=== PATIENT | male | born 1940 | race Caucasian/White ===

== ENCOUNTER 2019-01-01 13:37 | Inpatient (IN) ==
[2019-01-01] MEDS ORDERED: 0.9 % SODIUM CHLORIDE 1,000 ML IV ONE (13:42)
--- NOTE | 2019-01-01 14:07 | Emergency Department Note ---
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 Patient reporting mechanism of injury was chronic and ongoing. Patient evaluated in wound care clinic and noted to have concerns for possible sepsis and severe pain and tenderness to the thigh as well. Exacerbating features are attempting to move it, pressure. Ameliorating factors are immobilization, pain medications. Patient reporting symptoms of pain out of proportion to the extremity, pallor to the extremity, paresthesias in the extremity; additional concern for possible embolism to the R leg potentially in the thigh or more proximally. Patient de nies injury to other parts of the body at the same time. - Related Data Home Medications Medication Instructions Recorded Confirmed clonidine HCl 0.3 mg tablet 0.15 mg PO QDAY tab 11/25/18 01/01/19 Previous Rx's Medication Instructions Recorded sodium bicarbonate 650 mg tablet 650 mg PO QDAY #90 tab 01/21/18 levothyroxine 50 mcg tablet 50 mcg PO QDAY #30 tab 04/22/18 furosemide 40 mg tablet 40 mg PO QDAY #90 tab 09/15/18 amlodipine 10 mg tablet 10 mg PO QDAY #90 tab 11/23/18 lisinopril 10 mg tablet 10 mg PO QDAY #30 tab 11/25/18 metoprolol succinate 25 mg 25 mg PO QDAY #90 tab 12/21/18 tablet,extended release 24 hr Allergies Allergy/AdvReac Type Severity Reaction Status Date / Time Penicillins Allergy Severe Vomiting Verified 12/03/18 11:42 Review of Systems All systems ED: reviewed and negative except as stated. 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) Benign hypertension with CKD (chronic kidney disease) stage III (Chronic) Metabolic acidosis (Chronic) Tobacco abuse (Chronic) Conjunctivitis (Acute) Upper respiratory infection (Acute) Medical history: Reports: non-contributory, other (allergies seasonal) - Social History smoking status: Current every day smoker Physical Exam General: Alert, interactive, appropriate Head: Atraumatic, normocephalic Eyes: Extraocular movements intact Neck: Trachea midline, full range of motion Chest: Symmetrical chest wall rise, breathing normally Cardiovascular: Patient with excellent perfusion to the extremities Extremities: pt with right BKA and has chronic issue with wound management it is cool to the touch slightly dusky in color, pt states pain is similar to baseline Neuro: Alert, oriented x3, cranial nerves II through XII grossly intact, normal gait Psychiatric: Normal affect normal mood Limitations: no limitations Course Vital Signs Temperature 97.0 F 01/01/19 13:38 Pulse Rate 75 01/01/19 13:38 Respiratory Rate 20 01/01/19 13:38 Blood Pressure 97/48 01/01/19 13:38 Pulse Oximetry (%) 97 01/01/19 13:38 Temperature 99.2 F H 01/02/19 04:01 Pulse Rate 73 01/02/19 04:01 Respiratory Rate 18 01/02/19 04:01 Blood Pressure 109/45 01/02/19 04:01 Pulse Oximetry (%) 100 01/02/19 04:01 Extremity Injury, Lower - MDM Narrative Medical decision making narrative: This patient presenting with chief complaint of ongoing right BKA issues with concern by wound management for possible sepsis vs arterial embolism. Patient was evaluated with combination of history/physical exam/radiologic evaluation/ and labs immediately on arrival. Pt with significant elevation of his BUN/Cr and not candidate for CTA will order U/S RLE to try to establish diagnosis. Diagnosis conclusion this case is patient has sustained an occlusion to the SFA as well as the popliteal vein. Pt unable to define exactly when this issue escalated however his wound care surgeon states on his evaluation in the clinic the stump was noted to have pain/dusky stump/cool stump/paresthesias. Pt does not have acute occlusion of the common femoral artery and 11/10 the SFA will be occluded in a BKA patient. I discussed the case with vascular surgery at [facility] and the consensus medical opinion is the pt does not require transfer for vascular surgery and can reasonably be managed at a center with ability to do dialysis and possible conversion to AKA. Will call [facility] and discussed the case with original surgeons and try to define course. Discussed the case with the vascular surgeon at [facility] and he was willing to see the pt as an outpatient for evaluation and management, also discussed the case with the hospitalist there re: pt with renal failure however after this discussion it is realized we do have that capability here and could once his renal situation is stabilized have the pt follow up as outpatient for his on going issue with the leg. I discussed the case with Dr. Cassie estes who is comfortable managing this issue, I discussed the case with Dr. Meyer Hospitalist who is willing to admit and Dr. Aaron Valenzuela who is willing to consult on the case. - Lab Data Result diagrams: 01/01/19 14:11 01/01/19 14:11 Lab Results 01/01/19 01/01/19 01/01/19 Range/Units 14:11 14:11 14:11 WBC 23.0 H (4.5-11.0) K/mcL RBC 2.75 L (4.50-5.90) M/mcL Hgb 8.6 L (13.5-16.5) g/dL Hct 25.8 L (41.0-55.0) % MCV 93.7 (80.0-100.0) fL MCH 31.2 (26.0-34.0) pg MCHC 33.3 (31.0-36.0) g/dL RDW 13.9 (11.5-14.5) % Plt Count 306 (140-440) K/mcL MPV 9.0 (7.4-10.4) fL Gran % 92.5 H (38.0-78.0) % Lymph % (Auto) 2.7 L (15.5-49.0) % [place] % (Auto) 4.8 (1.0-12.0) % Eos % (Auto) 0 (0.0-7.0) % Baso % (Auto) 0 (0.0-2.0) % Gran # 21.3 H (1.8-8.0) K/mcL Lymph # (Auto) 0.6 L (1.5-4.8) K/mcL [place] # (Auto) 1.1 H (0.1-0.9) K/mcL Eos # (Auto) 0 (0.0-0.7) K/mcL Baso # (Auto) 0 (0.0-0.3) K/mcL VBG Lactic Acid 2.0 (0.5-2.0) mmol/L Sodium 138 (133-145) mmol/L Potassium 5.8 H (3.3-5.1) mmol/L Chloride 109 H (96-108) mmol/L Carbon Dioxide 10 L* (22-30) mmol/L Anion Gap 19.0 H (8-16) BUN 181 H* (8-23) mg/dl Creatinine 5.1 H* (0.7-1.2) mg/dl GFR Calculation 10 Glucose 115 H (70-105) mg/dL Calcium 9.3 (8.6-10.4) mg/dl Total Bilirubin < 0.2 (0.0-1.0) mg/dL AST 47 H (0-37) U/l ALT 23 (0-40) U/l Alkaline Phosphatase 183 H (39-117) U/L Total Protein 6.6 (5.9-8.4) gm/dL Albumin 3.4 (3.2-5.2) gm/dL Globulin 3.2 (2.2-3.7) gm/dL Albumin/Globulin Ratio 1.1 (1.0-2.3) Urine Color Urine Appearance Urine pH (5.0-9.0) Ur Specific [place] (1.000-1.035) Urine Protein (NEG) mg/dL Urine Glucose (UA) (NEG) mg/dL Urine Ketones (NEG) mg/dL Urine Occult Blood (<0.03) mg/dL Urine Nitrate (NEG) Urine Bilirubin (NEG) mg/dL Urine Urobilinogen (NEG) mg/dL Ur Leukocyte Esterase (NEG) /uL Urine RBC (0-1) /hpf Urine WBC (0-4) /hpf Ur Squamous Epith Cells (0-4) /hpf Urine Bacteria (0) /hpf Hyaline Casts (0-2) /lpf Urine Mucus (0) /hpf Urine Eosinophils Ur Random Creatinine mg/dl Ur Random Sodium mmol/L 01/01/19 01/01/19 01/01/19 Range/Units 16:29 16:29 16:29 WBC (4.5-11.0) K/mcL RBC (4.50-5.90) M/mcL Hgb (13.5-16.5) g/dL Hct (41.0-55.0) % MCV (80.0-100.0) fL MCH (26.0-34.0) pg MCHC (31.0-36.0) g/dL RDW (11.5-14.5) % Plt Count (140-440) K/mcL MPV (7.4-10.4) fL Gran % (38.0-78.0) % Lymph % (Auto) (15.5-49.0) % [place] % (Auto) (1.0-12.0) % Eos % (Auto) (0.0-7.0) % Baso % (Auto) (0.0-2.0) % Gran # (1.8-8.0) K/mcL Lymph # (Auto) (1.5-4.8) K/mcL [place] # (Auto) (0.1-0.9) K/mcL Eos # (Auto) (0.0-0.7) K/mcL Baso # (Auto) (0.0-0.3) K/mcL VBG Lactic Acid (0.5-2.0) mmol/L Sodium (133-145) mmol/L Potassium (3.3-5.1) mmol/L Chloride (96-108) mmol/L Carbon Dioxide (22-30) mmol/L Anion Gap (8-16) BUN (8-23) mg/dl Creatinine (0.7-1.2) mg/dl GFR Calculation Glucose (70-105) mg/dL Calcium (8.6-10.4) mg/dl Total Bilirubin (0.0-1.0) mg/dL AST (0-37) U/l ALT (0-40) U/l Alkaline Phosphatase (39-117) U/L Total Protein (5.9-8.4) gm/dL Albumin (3.2-5.2) gm/dL Globulin (2.2-3.7) gm/dL Albumin/Globulin Ratio (1.0-2.3) Urine Color Urine Appearance Urine pH (5.0-9.0) Ur Specific [place] (1.000-1.035) Urine Protein (NEG) mg/dL Urine Glucose (UA) (NEG) mg/dL Urine Ketones (NEG) mg/dL Urine Occult Blood (<0.03) mg/dL Urine Nitrate (NEG) Urine Bilirubin (NEG) mg/dL Urine Urobilinogen (NEG) mg/dL Ur Leukocyte Esterase (NEG) /uL Urine RBC (0-1) /hpf Urine WBC (0-4) /hpf Ur Squamous Epith Cells (0-4) /hpf Urine Bacteria (0) /hpf Hyaline Casts (0-2) /lpf Urine Mucus (0) /hpf Urine Eosinophils TNP Ur Random Creatinine 60.7 mg/dl Ur Random Sodium 55 mmol/L 01/01/19 Range/Units 16:36 WBC (4.5-11.0) K/mcL RBC (4.50-5.90) M/mcL Hgb (13.5-16.5) g/dL Hct (41.0-55.0) % MCV (80.0-100.0) fL MCH (26.0-34.0) pg MCHC (31.0-36.0) g/dL RDW (11.5-14.5) % Plt Count (140-440) K/mcL MPV (7.4-10.4) fL Gran % (38.0-78.0) % Lymph % (Auto) (15.5-49.0) % [place] % (Auto) (1.0-12.0) % Eos % (Auto) (0.0-7.0) % Baso % (Auto) (0.0-2.0) % Gran # (1.8-8.0) K/mcL Lymph # (Auto) (1.5-4.8) K/mcL [place] # (Auto) (0.1-0.9) K/mcL Eos # (Auto) (0.0-0.7) K/mcL Baso # (Auto) (0.0-0.3) K/mcL VBG Lactic Acid (0.5-2.0) mmol/L Sodium (133-145) mmol/L Potassium (3.3-5.1) mmol/L Chloride (96-108) mmol/L Carbon Dioxide (22-30) mmol/L Anion Gap (8-16) BUN (8-23) mg/dl Creatinine (0.7-1.2) mg/dl GFR Calculation Glucose (70-105) mg/dL Calcium (8.6-10.4) mg/dl Total Bilirubin (0.0-1.0) mg/dL AST (0-37) U/l ALT (0-40) U/l Alkaline Phosphatase (39-117) U/L Total Protein (5.9-8.4) gm/dL Albumin (3.2-5.2) gm/dL Globulin (2.2-3.7) gm/dL Albumin/Globulin Ratio (1.0-2.3) Urine Color Straw Urine Appearance Clear Urine pH 5.0 (5.0-9.0) Ur Specific [place] 1.012 (1.000-1.035) Urine Protein Neg (NEG) mg/dL Urine Glucose (UA) Negative (NEG) mg/dL Urine Ketones Neg (NEG) mg/dL Urine Occult Blood 0.2 A (<0.03) mg/dL Urine Nitrate Neg (NEG) Urine Bilirubin Neg (NEG) mg/dL Urine Urobilinogen Neg (NEG) mg/dL Ur Leukocyte Esterase Neg (NEG) /uL Urine RBC 0 (0-1) /hpf Urine WBC 1 (0-4) /hpf Ur Squamous Epith Cells 0 (0-4) /hpf Urine Bacteria 0 (0) /hpf Hyaline Casts 8 H (0-2) /lpf Urine Mucus Few (0) /hpf Urine Eosinophils Ur Random Creatinine mg/dl Ur Random Sodium mmol/L Critical Care Time Critical Care Time: Yes Total Critical Care Time: 110 Attestation: This critical care time was direct patient care exclusive of other procedures. Patient with acute on chronic renal failure as well as potential need for revision of a BKA to an AKA limb threatening. Disposition Pt seen by [employer]/PA only: No Clinical Impression: Amputation stump complication Renal failure (ARF), acute on chronic Qualifiers: Acute renal failure type: unspecified Chronic kidney disease stage: stage 4 (severe) Qualified Code(s): N17.9 - Acute kidney failure, unspecified; N18.4 - Chronic kidney disease, stage 4 (severe) Disposition: Xfer As Inpt ([facility]) Condition: Serious
--- NOTE | 2019-01-01 14:45 | XRay Report ---
CLINICAL INFORMATION:Possible sepsis TECHNIQUE: AP portable semiupright chest x-ray COMPARISON: None FINDINGS:Lungs are negative. No parenchymal infiltrate or mass. No focal abnormality. Heart size and vascularity are normal. No pulmonary edema or pulmonary congestion. Mary and mediastinum are negative IMPRESSION: Negative AP chest x-ray Interpreted and Authenticated by: Prasanna Schaffer 01/01/19
[2019-01-01 14:58] LABS: Basophils # (Auto) 0 K/mcL (0.0-0.3); Basophils % (Auto) 0 % (0.0-2.0); Eosinophils # (Auto) 0 K/mcL (0.0-0.7); Eosinophils % (Auto) 0 % (0.0-7.0); Granulocytes % (Auto) 92.5 % (38.0-78.0); Hematocrit 25.8 % (41.0-55.0); Hemoglobin 8.6 g/dL (13.5-16.5); Lymphocytes # (Auto) 0.6 K/mcL (1.5-4.8); Lymphocytes % (Auto) 2.7 % (15.5-49.0); Mean Cell Volume 93.7 fL (80.0-100.0); Mean Corpuscular HGB Conc 33.3 g/dL (31.0-36.0); Monocytes # (Auto) 1.1 K/mcL (0.1-0.9); Monocytes % (Auto) 4.8 % (1.0-12.0); Platelet Count 306 K/mcL (140-440); RBC 2.75 M/mcL (4.50-5.90); Red Cell Distribution Width 13.9 % (11.5-14.5)
[2019-01-01 15:28] LABS: ALT/SGPT 23 U/l (0-40); AST/SGOT 47 U/l (0-37); Albumin 3.4 gm/dL (3.2-5.2); Albumin/Globulin Ratio 1.1 (1.0-2.3); Alkaline Phosphatase 183 U/L (39-117); Bilirubin,Total < 0.2 mg/dL (0.0-1.0); Blood Urea Nitrogen 181 mg/dl (8-23); Calcium 9.3 mg/dl (8.6-10.4); Carbon Dioxide 10 mmol/L (22-30); Chloride 109 mmol/L (96-108); Globulin 3.2 gm/dL (2.2-3.7); Glomerular Filtration Rate 10; Glucose 115 mg/dL (70-105)
[2019-01-01 16:50] LABS: Appearance,Urine CLEAR; Bacteria,Urine 0 /hpf (0); Bilirubin,Urine NEG (NEG); Color,Urine STRAW; Glucose,Urine (UA) NEGATIVE (NEG); Ketones,Urine NEG (NEG); Leukocyte Esterase,Urine NEG /uL (NEG); Mucus,Urine FEW /hpf (0); Nitrate,Urine NEG (NEG); Protein,Urine NEG (NEG); Specific Gravity,Urine 1.012 (1.000-1.035); Urine Blood 0.2 mg/dL (<0.03); Urine Hyaline Cast 8 /lpf (0-2); Urine RBC 0 /hpf (0-1); Urine Squamous Epithelial Cell 0 /hpf (0-4); Urine WBC 1 /hpf (0-4); Urobilinogen,Urine NEG (NEG)
--- NOTE | 2019-01-01 16:59 | Ultrasound Report ---
CLINICAL INFORMATION: Previous right below the knee amputation.. Patient complains that his stump is cold and he has nonhealing wounds TECHNIQUE: Routine grayscale and color flow duplex examination COMPARISON: None. FINDINGS: There is complete occlusion of the right superficial femoral artery. Mid and distal portions of the superficial femoral artery are occluded. Popliteal artery is occluded. Right common femoral artery is patent. Profunda femoris artery is patent There is deep venous thrombosis within the popliteal vein. Superficial femoral vein is patent IMPRESSION: 1. Complete occlusion of the superficial femoral artery from its midportion to the popliteal artery. Right popliteal artery is also occluded 2. Deep venous thrombosis within the right popliteal vein Interpreted and Authenticated by: Prasanna Schaffer 01/01/19
[2019-01-01] MEDS ORDERED: SODIUM BICARBONATE VIAL 150 MEQ in WATER FOR INJECTION,STERILE 850 ML IV SCH (18:45)
--- NOTE | 2019-01-01 19:35 | Ultrasound Report ---
CLINICAL INFORMATION: Renal failure TECHNIQUE: Grayscale and color flow Doppler spectral imaging COMPARISON: None. FINDINGS: Right kidney measures 10.0 x 5.1 x 5.0 cm. There is no hydronephrosis. Right renal cortex is echogenic consistent with medical renal disease. There is an 8 mm simple cyst. No solid mass. Left kidney measures 9.4 x 2.8 x 4.3 cm. There is no hydronephrosis. Left renal cortex is echogenic consistent with medical renal disease. There is a single 10 mm cyst. No solid mass. Prevoid bladder volume measures 274 mL. Bilateral ureteral jets are identified. No bladder calculus or detectable mass IMPRESSION: 1. Echogenic renal cortex bilaterally. Findings are consistent with medical renal disease 2. No hydronephrosis Interpreted and Authenticated by: Prasanna Schaffer 01/01/19
--- NOTE | 2019-01-01 20:14 | Internal Med History&Physical ---
Medical - H&P: HPI Patient information: Note initiated : 01/01/19 at 8:14 pm Service Date, if different from initiated Date: [] Patient: Jayjay Horta a 78 y/o M admitted on for lower extreamity problem. Chief Complaint: Sent in for evaluation of BKA stump wounds History of present illness: Mr. 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 He was referred to the ED secondary to a cool and painful right stump. History is obtained in reviewing available records, as well as speaking to the patient, though both he and his are very vague on details. According to nephrology clinic notes, in 05/2016 patient underwent injury to his leg. The patient states he had objects fall onto the leg, he describes what sounds almost like a degloving type injury. He had several attempts at wound care and surgeries, eventually undergoing a BKA. He was discharged in January 2017 to rehabilitation. Since that time the patient is eventually moved home. He has had a prosthesis fitted which he does use. 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 He has not had a primary care physician, though does see Dr. Hutchins for nephrology. He states that about a week ago or so he fell (dates are vague) at work, and went to the [facility] across the street. He was evaluated and referred to wound care at that time. He is also started on an antibiotic which was filled for 10 days supply. He describes it as a "big pill" that he took twice a day. He seems to recognize TMP/SMX as being on the valerie ttle. Patient states that a few months ago skin around the stump started breaking down and turning purple. For the last several weeks it broken down more. He has continued to wear his prosthetic. At times it is too swollen to fit, he usually waits for bed and is able to get it on. Its becoming more more painful to wear his prosthetic. In the ED, his lower extremity/stump is found to be cool. There is shallow ulcerations distally and then along the proximal and lateral aspects. If there is mild to moderate tenderness to palpation. 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 Vascular surgery was contacted at [place] as well as [place], it was not felt to be an imminent vascular emergency. He was also found to be in acute renal failure with creatinine of 5.1 (1.7 in early November) with hyperkalemia and metabolic acidosis. Is being hospitalized for treatment of acute kidney injury, evaluation of leukocytosis (20,000) and treatment of right lower extremity wounds. He is felt tired for the last few weeks and decreased appetite. He gets shakes, it is unclear if this is shaking chills at times. He denies any fever. He has had some chronic diarrhea, underwent EGD and colonoscopy recently to try to find the etiology. He denies any nausea or vomiting or abdominal pain. He has had normal urine output, no dysuria. Denies any chest pain. He has chronic pain, worse in this past month. He has chronic vision problems and is told he has cataracts. This is been stable. Medical - H&P: [facility] Medical history: Metabolic acidosis (Chronic) Tobacco abuse (Chronic) Conjunctivitis (Acute) Upper respiratory infection (Acute) Confusion (Resolved) Hyperkalemia, diminished renal excretion (Resolved) Surgical history: History of right below knee amputation (Acute) Pertinent family history: Brother with heart disease Social history: Lives with his . 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 Smokes about half pack per day. He has 2 beers a day, though states he is cut back recently. Medical - H&P: Meds Home Medications Medication Instructions Recorded Confirmed Type sodium bicarbonate 650 mg tablet 650 mg PO QDAY #90 tab 01/21/18 01/01/19 Rx levothyroxine 50 mcg tablet 50 mcg PO QDAY #30 tab 04/22/18 01/01/19 Rx furosemide 40 mg tablet 40 mg PO QDAY #90 tab 09/15/18 01/01/19 Rx amlodipine 10 mg tablet 10 mg PO QDAY #90 tab 11/23/18 01/01/19 Rx clonidine HCl 0.3 mg tablet 0.15 mg PO QDAY tab 11/25/18 01/01/19 History lisinopril 10 mg tablet 10 mg PO QDAY #30 tab 11/25/18 01/01/19 Rx metoprolol succinate 25 mg 25 mg PO QDAY #90 tab 12/21/18 01/01/19 Rx tablet,extended release 24 hr Allergies Allergy/AdvReac Type Severity Reaction Status Date / Time Penicillins Allergy Severe Vomiting Verified 12/03/18 11:42 Medical - H&P: Exam - Constitutional Vitals: Temp Pulse Resp BP Pulse Ox 97.0 F 29 L 20 124/45 77 L 01/01/19 13:38 01/01/19 19:16 01/01/19 13:38 01/01/19 19:16 01/01/19 19:16 Exam: GENERAL: Thin, cachectic, chronically ill-appearing in mild distress. History is vague. HEENT: Atraumatic. PERRL at 4 mm, conjunctiva clear, no scleral icterus. Hearing grossly intact. Mild temporal wasting oropharynx with poor dentition, moist mucous membranes, no lip or gum lesions, no pharyngeal erythema or exudate. NECK: Supple without meningismus, no thyromegaly RESPIRATORY: Breath sounds clear bilaterally without wheezes or rhonchi. Respiratory effort is unlabored. CARDIOVASCULAR: Regular rate and rhythm, no murmur gallop or rub. Trace peripheral edema in the left extremity. Carotid pulses 2+ without bruit. GI: Abdomen soft, nontender, no guarding or rebound. Bowel sounds are present. MUSCULOSKELETAL: Right BKA stump is cool to the touch, mild tenderness, no fluctuance or crepitance. There is approximately 5 cm shallow ulceration in the distal aspect of the stump. No other joint erythema or swelling. SKIN: Skin turgor decreased, skin findings as noted above on the stump.. NEUROLOGIC: Cranial nerves II through XII grossly intact. Muscle mass diminished. Strength 5/5 in the bilateral upper and left lower extremities. Sensation intact to light touch bilaterally. PSYCHIATRIC: Alert, oriented x3, normal mood and affect, decreased insight, responses are vague. Medical - H&P: Reslt - Labs CBC & Chem 7: 01/01/19 14:11 01/01/19 14:11 Labs: Short CBC 01/01/19 Range/Units 14:11 WBC 23.0 H (4.5-11.0) K/mcL Hgb 8.6 L (13.5-16.5) g/dL Hct 25.8 L (41.0-55.0) % Plt Count 306 (140-440) K/mcL BMP 01/01/19 14:11 Sodium 138 Potassium 5.8 H Chloride 109 H Carbon Dioxide 10 L* BUN 181 H* Creatinine 5.1 H* Glucose 115 H Calcium 9.3 Liver Function 01/01/19 Range/Units 14:11 Total Bilirubin < 0.2 (0.0-1.0) mg/dL AST 47 H (0-37) U/l ALT 23 (0-40) U/l Alkaline Phosphatase 183 H (39-117) U/L Albumin 3.4 (3.2-5.2) gm/dL Urine 01/01/19 Range/Units 16:36 Urine Color Straw Urine Appearance Clear Urine pH 5.0 (5.0-9.0) Ur Specific [place] 1.012 (1.000-1.035) Urine Protein Neg (NEG) mg/dL Urine Glucose (UA) Negative (NEG) mg/dL - Impressions Date of Service: 01/01/19 Procedure(s): US arterial duplex LE RT FINDINGS: There is complete occlusion of the right superficial femoral artery. Mid and distal portions of the superficial femoral artery are occluded. Popliteal artery is occluded. Right common femoral artery is patent. Profunda femoris artery is patent There is deep venous thrombosis within the popliteal vein. Superficial femoral vein is patent IMPRESSION: 1. Complete occlusion of the superficial femoral artery from its midportion to the popliteal artery. Right popliteal artery is also occluded 2. Deep venous thrombosis within the right popliteal vein - Imaging and Cardiology US - abdomen Status: image reviewed by me Additional comments: IMPRESSION: 1. Echogenic renal cortex bilaterally. Findings are consistent with medical renal disease 2. No hydronephrosis Medical - H&P: A/P - Narrative A/P Narrative: 78-year-old male status post BKA presents with ongoing wounds on the stump, found to have cool and tender BKA site as well as acute renal failure. Acute kidney injury on chronic kidney disease. Creatinine 5.1. Associated mild to moderate hyperkalemia as well. Etiology may be ATN from sepsis, though currently patient does not meet criteria for sepsis. He may have been treated with trimethoprim for the past week, which could have caused an elevation in serum creatinine. ATN from other causes also possible. No evidence of volume overload nor such electrolyte abnormalities that require emergent dialysis. Plan: Inpatient admission Nephrology consultation Fluid resuscitation with bicarb as per nephrology Follow intake and output Logan catheter secondary to PVR and incontinence, to better follow intake and output Avoid nephrotoxins Leukocytosis. Patient's white count is 20,000. However he does not have fever, nor tachycardia, nor tachypnea. He does not meet criteria for Sirs. No source of infection is immediately recognizable. Chest x-ray is clear. On exam his right lower extremity amputation site does not appear to be acutely infected it is cool, but does have good arterial inflow. Plan: Blood cultures been obtained, follow-up. Empiric ceftriaxone until c ultures are negative. Follow white count. Right BKA wounds. The skin surrounding the distal right leg above amputation site is cool to the touch. It is not exquisitely tender, does not appear to be consistent with necrotizing fasciitis or evidence of abscess. He has an expected occlusion of the SFA secondary to the BKA. He has otherwise patent inflow in the common femoral artery. He may need ultimate revision. Plan: Orthopedic consult. Follow exam with correction of acidosis and possible volume depletion. Wound care consultation. Consider further imaging, such as CT if concern for infection. 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 Plan: Prophylactic doses of heparin currently. Alcohol use. Patient and admit that he has few beers at night, though he has been falling asleep in the middle of a can of beer recently. Plan: Monitor for evidence of withdrawal. Tobacco abuse. Tobacco cessation counseled with patient from between 3 and 10 minutes. Prophylaxis: Subcu heparin 75-minute physician time in evaluating patient, reviewing records, discussing with ED attending and orthopedic clinical consultant, ranging orders and admission paperwork.
[2019-01-01] MEDS ORDERED: ONDANSETRON 4 MG ODT TABLET SL PRN (20:51)
[2019-01-01] MEDS ORDERED: ONDANSETRON 4 MG/2 ML VIAL IV PRN (20:51)
[2019-01-01] MEDS ORDERED: cefTRIAXone 1 GM in DEXTROSE 5% IN WATER 50 ML IV SCH (20:51)
[2019-01-01] MEDS: cefTRIAXone 1 GM VIAL IV SCH (21:58)
[2019-01-01] MEDS: 0.9 % SODIUM CHLORIDE 10 ML SYRINGE IV SCH (21:59)
[2019-01-01] MEDS: FAMOTIDINE/PF 20 MG/2 ML VIAL IV SCH (21:59)
[2019-01-01] MEDS: HYDROcodone/APAP 5/325MG TABLET PO PRN (21:59)
[2019-01-01] MEDS: HEPARIN 5,000 UNIT/ML VIAL SQ SCH (21:59)
[2019-01-01] MEDS ORDERED: LORazepam 2 MG/ML VIAL ONE (23:50)
[2019-01-01] MEDS: LORazepam 2 MG/ML VIAL IV PRN (23:53)
[2019-01-02] MEDS ORDERED: hydrALAZINE 20 MG/ML VIAL IV PRN (00:22)
--- NOTE | 2019-01-02 01:26 | Consultation ---
DATE OF CONSULTATION: 01/01/2019 REASON FOR CONSULTATION: Concern for perfusion of right utxxm-qwe-hlks amputation. PERSON CONSULTING: Dr. Kayode Noble, ER providers at [facility]. CHIEF COMPLAINT: Concerned with his right lower extremity amputation. HISTORY OF PRESENT ILLNESS: The patient is a 78-year-old male, who has undergone a right below-knee amputation in 2018 in [place]. Per notes reviewed in chart, the patient has had issues since then. He is currently followed by wound care for wounds to his lower extremity. He presented to the ER [facility] to figure out what to do with his right below-knee amputation. There have been no acute changes or injuries to the lower extremity. He does use prosthesis to ambulate, but he feels it does not fit correctly. PAST MEDICAL HISTORY: Significant for: 1. Chronic kidney disease, stage III, however, never been on dialysis. 2. Anemia secondary to kidney disease. 3. BPH. 4. Gynecomastia. PAST SURGICAL HISTORY: As noted above, prior BKA in 2018 in [place]. SOCIAL HISTORY: He does ambulate some with his prosthesis. He does smoke on every day. ALLERGIES: PENICILLIN. MEDICATIONS: Levothyroxine, furosemide, amlodipine, lisinopril, metoprolol. REVIEW OF SYSTEMS: Outside of HPI, he does report being cold. PHYSICAL EXAMINATION: VITAL SIGNS: Heart rate is 86, blood pressure 129/48, pulse ox is 97, temperature is afebrile at 97. GENERAL: The patient is conversive. He does communicate in a understandble manner. However, he is slightly confused as he is not entirely clear on the details. EXTREMITIES: Examination of his right lower extremity, he has a obhzc-vsr-[id number] amputation. He is somewhat cachectic in appearance. His knee is in flexed position. He has bruises on the anterolateral aspect of his patella with hematoma. He has one of these medially over the medial epicondyle. There is an ulceration over the stump on the medial aspect that encompasses approximately the full AP direction and less than a quarter of the width of the stump itself. These do not appear to be infected. There is no redness, erythema, or drainage from these wounds. His stump is somewhat cool to the touch compared to the contralateral side and more proximal at the thigh. The area above the knee is cool to touch as well. Otherwise, incision from the surgery itself is well healed, incorporated with a good muscle and soft tissue coverage of the stump area. LABORATORY DATA: He has a white count 23, his H and H is 8.6 and 25.8, his platelet is 306. Chemistry, he has potassium 5.8, carbon dioxide is 10. Creatinine 5.1, and glucose of 115. His lactic acid is 2. He has had imaging including ultrasound of his right lower extremity, demonstrates occlusion to the SFA as well as popliteal vein with patient femoral artery. ASSESSMENT: The patient is a 78-year-old male, who has an acute on chronic renal failure with a cool right lower extremity stump of the BKA. Clinically, this does not appear to be infected. I did discuss the case with the ER provider as well as the hospitalist. The ER provider had further discussed with 2 vascular surgeons, who were not concerned as the majority of the time the SFA will be occluded in qcypt-cae-[id number] amputation patients. He does have a clot in the popliteal vein, which I am not entirely sure, but this may be the case in most iajyr-gnt-dayn amputation patients as well, there is no flow. At this time, we do not have a plan for revision amputation to [id number]-[id number]. In the interim, he is going to be admitted to the hospitalist for his acute on chronic kidney failure with potential need for dialysis. Otherwise, he does have the ability to follow up with his vascular surgeon at [place] for repeat evaluation of his lower extremity-- they are willing to see him as soon as Friday per ER provider. If he acutely worsens regarding his right BKA stump or new concerns arise, can reconsult orthopedics. ERIC:in Job ID: [id number] Doc ID: [id number] Roberto PORTILLO
[2019-01-02] MEDS: 0.9 % SODIUM CHLORIDE 10 ML SYRINGE IV SCH ×3 (04:02→22:08)
[2019-01-02] MEDS ORDERED: SODIUM BICARBONATE VIAL 150 MEQ in WATER FOR INJECTION,STERILE 850 ML IV SCH (04:45)
[2019-01-02 06:27] LABS: Basophils # (Auto) 0 K/mcL (0.0-0.3); Basophils % (Auto) 0.1 % (0.0-2.0); Eosinophils # (Auto) 0 K/mcL (0.0-0.7); Eosinophils % (Auto) 0.1 % (0.0-7.0); Granulocytes % (Auto) 89.9 % (38.0-78.0); Hematocrit 23.4 % (41.0-55.0); Hemoglobin 7.7 g/dL (13.5-16.5); Lymphocytes # (Auto) 0.9 K/mcL (1.5-4.8); Lymphocytes % (Auto) 4.9 % (15.5-49.0); Mean Cell Volume 94.9 fL (80.0-100.0); Mean Corpuscular HGB Conc 32.7 g/dL (31.0-36.0); Mean Platelet Volume 8.9 fL (7.4-10.4); Monocytes # (Auto) 0.9 K/mcL (0.1-0.9); Platelet Count 286 K/mcL (140-440); RBC 2.47 M/mcL (4.50-5.90); Red Cell Distribution Width 13.8 % (11.5-14.5); WBC 18.1 K/mcL (4.5-11.0)
[2019-01-02 07:13] LABS: Erythrocyte Sedimentation Rate 115 mm/hr (0-15)
[2019-01-02 07:20] LABS: C-Reactive Protein 17.2 mg/dl (0.0-0.8)
[2019-01-02 07:27] LABS: Albumin 2.5 gm/dL (3.2-5.2); Calcium 8.8 mg/dl (8.6-10.4)
[2019-01-02] MEDS: LEVOTHYROXINE 50 MCG TABLET PO SCH (08:06)
[2019-01-02] MEDS: LORazepam 2 MG/ML VIAL IV PRN ×2 (08:06→13:43)
[2019-01-02] MEDS ORDERED: CLONIDINE HCL PO SCH (09:00)
[2019-01-02] MEDS ORDERED: amLODIPine 10 MG TABLET PO SCH (09:00)
[2019-01-02] MEDS ORDERED: METOPROLOL SUCCINATE 25 MG TAB.XL.24H PO SCH (09:00)
--- NOTE | 2019-01-02 09:09 | Cat Scan Report ---
CLINICAL INFORMATION: History of diabetes. Previous right nafzn-mtr-wqde amputation. Patient apparently has ulcers and possible abscess TECHNIQUE: Axial noncontrast enhanced images through the distal thigh and amputation stump COMPARISON: None. FINDINGS: Previous right below knee amputation. No evidence for significant cortical destruction in the distal right tibia or fibula. No CT evidence for osteomyelitis. There is no fluid collection. No well-defined abscess. No soft tissue gas. There is no significant right knee joint effusion. There are stents in the distal right superficial femoral artery and popliteal artery. IMPRESSION: 1. No CT evidence for osteomyelitis 2. No detectable abscess Interpreted and Authenticated by: Prasanna Schaffer 01/02/19
[2019-01-02] MEDS: HEPARIN 5,000 UNIT/ML VIAL SQ SCH ×2 (09:27→22:07)
[2019-01-02] MEDS: FAMOTIDINE/PF 20 MG/2 ML VIAL IV SCH ×2 (09:27→22:08)
--- NOTE | 2019-01-02 10:24 | Nephrology Consult Note ---
History of Present Illness - Reason for Consult Patient information: Note initiated : 01/02/19 at 10:21 am Service Date, if different from initiated Date: [] Patient: Jayjay Horta 78 y/o M admitted on 01/01/19 for lower extreamity problem. Chief Complaint: [] Consult date: 01/02/19 acute renal failure, metabolic acidosis Requesting physician: Michelle Meyer - Chief Complaint Sent to ED by wound care with concern for viability right BKA stump - History of Present Illness This patient has severe PVD in the setting of HTN and insulin dependent T2DM. After revasculaization of right leg with SFA and popliteal stenting, he underwent a BKA. There is an area of concern, increased pain and pallor. The doppler of LE does not demonstrate occlusion of the GLOST PLACER, just the SFA. There is no report of ischemia, abscess or drainage and no cyanosis, necrosis or livido reticularis changes per the ED physician. Since [facility] the patients PCP has been trying to have the patient evaluated for ACUTE on Chronic CKD III. The patient is followed by Dr wu and he recommended transfer to higher level of care for acute HD access as his GFR was ~10 cc/min with SCr >5and K in mid 5's. In the interval, the patient was sent to [facility] and then directed to ED. In addition to pain, the patients WBC >20K, ESR >100, SCr has gone from 1.8 to mid-5's and hyperkalemia with a NAG metabolic acidosis is now present with a lactic acid of only 2 but a HCO3 of 10. His renal history is significant for an initial presentation to [facility] Nephrology ~2018 with a serum Cr in the 4's. Over the next 6 months the patients SCr inpr becki to 1.8 mg/dl where it remained stable as recently as 11/2018. Despite diabetes, there was no proteinuria and therefore no evidence of diabetic nephropathy. The kidneys were somewhat atrophic and echogenic consistent with his known CKD 3. He was on aldactone and NaHCO3 replacemt with HCO3 of 20 or greater. When seen in 11/2018, he had breast pain aand possible gynecomastic so the Aldactone was stopped and replaced with lisinopril. In the following 6 weeks there has been marked decrease in GFR, the development of hyperkalemia and a marked metabolic acidosis. This has resulted in the patient's BKA issues not being addressed while his renal status has been addressed. It seems to me that this is a potentially reversible decline in GFR and should be investigated prior to starting dialyysis as the patient had a similar episode in 2018, medication changes have occurred which could potentially impact his renal function, infection, sepsis, and tissue necrosis with rhabdo all may be at play. To this end he was admitted to [facility]. Review of Systems ROS unobtainable: due to mental status (Ativan x 2 and now lethargic and no longer answering questions) Constitutional: as per HPI Nose, mouth and throat: as per HPI Cardiovascular: as per HPI Respiratory: as per HPI Gastrointestinal: as per HPI Genitourinary: as per HPI Musculoskeletal: as per HPI Integumentary: as per HPI Neurological: as per HPI Psychiatric: as per HPI Endocrine: as per HPI Hematologic/Lymphatic: as per HPI Allergic/Immunologic: as per HPI Past History Past medical history: Medical history: Metabolic acidosis (Chronic) Tobacco abuse (Chronic) Conjunctivitis (Acute) Upper respiratory infection (Acute) Confusion (Resolved) Hyperkalemia, diminished renal excretion (Resolved) Surgical history: History of right below knee amputation (Acute) Pertinent family history: Brother with heart disease Social history: Lives with his . 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 Smokes about half pack per day. He has 2 beers a day, though states he is cut back recently. Medical - H&P: Meds Home Medications Medication Instructions Recorded Confirmed Type sodium bicarbonate 650 mg tablet 650 mg PO QDAY #90 tab 01/21/18 01/01/19 Rx levothyroxine 50 mcg tablet 50 mcg PO QDAY #30 tab 04/22/18 01/01/19 Rx furosemide 40 mg tablet 40 mg PO QDAY #90 tab 09/15/18 01/01/19 Rx amlodipine 10 mg tablet 10 mg PO QDAY #90 tab 11/23/18 01/01/19 Rx clonidine HCl 0.3 mg tablet 0.15 mg PO QDAY tab 11/25/18 01/01/19 History lisinopril 10 mg tablet 10 mg PO QDAY #30 tab 11/25/18 01/01/19 Rx metoprolol succinate 25 mg 25 mg PO QDAY #90 tab 12/21/18 01/01/19 Rx tablet,extended release 24 hr Allergies Allergy/AdvReac Type Severity Reaction Status Date / Time Penicillins Allergy Severe Vomiting Verified 12/03/18 11:42 Medications and Allergies Home Medications Medication Instructions Recorded Confirmed Type sodium bicarbonate 650 mg tablet 650 mg PO QDAY #90 tab 01/21/18 01/01/19 Rx levothyroxine 50 mcg tablet 50 mcg PO QDAY #30 tab 04/22/18 01/01/19 Rx furosemide 40 mg tablet 40 mg PO QDAY #90 tab 09/15/18 01/01/19 Rx amlodipine 10 mg tablet 10 mg PO QDAY #90 tab 11/23/18 01/01/19 Rx clonidine HCl 0.3 mg tablet 0.15 mg PO QDAY tab 11/25/18 01/01/19 History lisinopril 10 mg tablet 10 mg PO QDAY #30 tab 11/25/18 01/01/19 Rx metoprolol succinate 25 mg 25 mg PO QDAY #90 tab 12/21/18 01/01/19 Rx tablet,extended release 24 hr Allergies Allergy/AdvReac Type Severity Reaction Status Date / Time Penicillins Allergy Severe Vomiting Verified 12/03/18 11:42 Exam - Vital Signs Vital signs: Temp Pulse Resp BP Pulse Ox 36.9 C 73 17 118/62 100 01/02/19 08:01 01/02/19 04:01 01/02/19 08:01 01/02/19 08:01 01/02/19 04:01 - General Appearance General appearance: cachectic, chronically ill, frail EENT: ATNC, mucous membranes dry Neck: no JVD, no carotid bruit Respiratory: kyphosis, clear Cardiology: no murmurs, no rub, no edema Gastrointestinal: normoactive bowel sounds, no tenderness Integumentary: cool/clammy, ulcer, ecchymotic, hyperkeratosis Neurologic: confused, disoriented Musculoskeletal: cyanosis (Fingertips cyanotic and cool. The left foot is cool with rubor but no cyamosis), no clubbing Results - Lab Results 01/02/19 03:48 01/02/19 03:48 Most recent lab results Calcium 8.8 mg/dl (8.6-10.4) 01/02/19 03:48 Phosphorus 5.0 mg/dL (2.7-4.5) H 01/02/19 03:48 Laboratory Tests 01/15/18 04/17/18 06/10/18 13:21 13:45 11:12 Creatinine 1.7 H 1.7 H 1.9 H 08/05/18 09/14/18 11/18/18 13:27 11:49 13:26 Creatinine 1.7 H 1.9 H 1.7 H 01/01/19 01/02/19 14:11 03:48 Creatinine 5.1 H* 4.2 H - Image Kidney/bladder ultrasound: pending, report reviewed, image reviewed, other Assessment and Plan (1) Hyperkalemia, transcellular shifts 1. His mixed hyperchloremic and nonanion gap metabolic acidosis has now led to transcellular shift of K+ leading to hyperkalemia, luckly he has a good degree of respiratory alkalosis to keep his overall acid bas staus compensated. 2. Bicarb in D5W should help ship K intracellulary. Status: Acute Priority: High (2) Drug-induced hyperkalemia 1. Spironolactone till last month, now lisinopril and possible Bactrim has led to increased K as well as decreased GFR) 2. Time, hydration, glucose, HCO3 and NO RAASI therapy Status: Acute Priority: High (3) Renal failure (ARF), acute on chronic 1. In 2018 SCr 4 to 1.7 mg/dl and stayed there until lisinopril replaced aldactone and he was started on two large white pills a day for putative stump infection. 2. Serum Creatinine 1.9 to 5 but probably reversible by stopping, lisinopril and SMX/TMS, hydration and treart underlying infection (presumably in the stump given pain but non-contrast CT with bone erosion or abscess. 3. Trend inflammatory biomarkers 4. Less sedation 5. Trend labs 6. Continue hydration 6. Obstruction has been ruled out by the presence of bilateral ureteral jets on U/S 7. Rule out rhabdo 8. Rrepeat lactic acid, I don't understand the first one Status: Acute Priority: High Qualifiers: Acute renal failure type: with other specified pathological lesion Chronic kidney disease stage: stage 3 (moderate) Qualified Code(s): N17.8 - Other acute kidney failure; N18.3 - Chronic kidney disease, stage 3 (moderate) (4) Chronic kidney disease, stage III (moderate) 1. Not diabetic renal disease. 2. Labile GFR suggests TIN 3. Avoid tubulotoxic Rx 4. Anticipate improvement in GFR to continue Status: Chronic Priority: Medium (5) Metabolic acidosis 1. This is actually a triple acid base disturbance with hyperchloremic metabolic acidosis, and anion gap (presumably lactic) acidosis, and a repiratory alkalosis (compensatory) 2. Hydrate with bicarb containing fluids as his ability for compensation is maxed at this juncture. 3. Lactate level and repeat ABG tomorrow. Status: Acute Priority: High - Narrative A/P Narrative: If we can straighten up his acid base issues, and hyperkalemia and he proves not to be septic, he would be best served by revision of stump if possible. This patient is very poor clinically and I would avoid HD at all costs as he survival on dialysis is measurable in months.
[2019-01-02] MEDS ORDERED: SODIUM BICARBONATE VIAL 150 MEQ in DEXTROSE 5% IN WATER 850 ML IV SCH (12:00)
[2019-01-02] MEDS: cefTRIAXone 1 GM VIAL IV SCH (13:32)
--- NOTE | 2019-01-02 13:35 | Internal Med Progress Note ---
Medical - PN: Subj Patient information: Note initiated : 01/02/19 at 1:31 pm Service Date, if different from initiated Date: [] Patient: Jayjay Horta a 78 y/o M admitted on 01/01/19 for lower extreamity problem. Chief Complaint: [] Interval history: 01/01 Mr. 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 He was referred to the ED secondary to a cool and painful right stump. History is obtained in reviewing available records, as well as speaking to the patient, though both he and his are very vague on details. According to nephrology clinic notes, in 05/2016 patient underwent injury to his leg. The patient states he had objects fall onto the leg, he describes what sounds almost like a degloving type injury. He had several attempts at wound care and surgeries, eventually undergoing a BKA. He was discharged in January 2017 to rehabilitation. Since that time the patient is eventually moved home. He has had a prosthesis fitted which he does use. 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 He has not had a primary care physician, though does see Dr. Hutchins for nephrology. He states that about a week ago or so he fell (dates are vague) at work, and went to the [facility] across the street. He was evaluated and referred to wound care at that time. He is also started on an antibiotic which was filled for 10 days supply. He describes it as a "big pill" that he took twice a day. He seems to recognize TMP/SMX as being on the bottle. Patient states that a few months ago skin around the stump started breaking down and turning purple. For the last several weeks it broken down more. He has continued to wear his prosthetic. At times it is too swollen to fit, he usually waits for bed and is able to get it on. Its becoming more more painful to wear his prosthetic. In the ED, his lower extremity/stump is found to be cool. There is shallow ulcerations distally and then along the proximal and lateral aspects. If there is mild to moderate tenderness to palpation. 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 Vascular surgery was contacted at [facility] as well as [place], it was not felt to be an imminent vascular emergency. He was also found to be in acute renal failure with creatinine of 5.1 (1.7 in early November) with hyperkalemia and metabolic acidosis. Is being hospitalized for treatment of acute kidney injury, evaluation of leukocytosis (20,000) and treatment of right lower extremity wounds. 01/02 Was agitated after arrival in the unit overnight. Received lorazepam. Drowsy late this morning, after further lorazepam prior to CT of the femur. No evidence of abscess or osteomyelitis on CT. White count has started to come down. Stump is not is cool and dusky today. Renal function slowly improving. Remains afebrile. Patient is too drowsy to provide review of systems. - Constitutional Vitals: Vital Signs Temp Pulse Resp BP Pulse Ox 98.6 F 75 16 100/49 97 01/02/19 12:01 01/02/19 08:00 01/02/19 12:01 01/02/19 12:01 01/02/19 12:01 Period Temp Pulse Resp BP Sys/Arthur Pulse Ox Last 24 Hr 97.0 F-99.2 F 29-112 13-22 94-139/34-94 75-100 Intake and Output 01/01/19 01/02/19 01/02/19 21:59 05:59 13:59 Intake Total 1000 1000 Output Total 325 1050 Balance 675 -1050 1000 Weight 116 lb 8 oz Intake & Output: Intake & Output 01/01/19 01/02/19 01/02/19 21:59 05:59 13:59 Intake Total 1000 1000 Output Total 325 1050 Balance 675 -1050 1000 Weight 116 lb 8 oz Intake: IV 1000 1000 Sodium Chloride 0.9% 1,000 ml @ 1000 Wide Open IV BOLUS ONE Rx#: [id number] Sodium Bicarbonate Vial 150 Meq 1000 In Water 850 ml @ 100 mls/hr IV Q10H [facility] Rx#:[id number] Output: Urine Catheter Amount 1050 Void Amount 325 Other: Urine Appearance Clear Clear Uretheral (Logan) Clear Clear Urine Color Bright Yellow Pale Bright Yellow Uretheral (Logan) Bright Yellow Bright Yellow Urine Odor Normal Normal Uretheral (Logan) Normal Exam: General: Curled up in bed, rouses up to voice and shake, falls back to sleep Chest: Clear, respirations are unlabored. Cardiovascular: Regular. Abdomen: Thin, no tenderness, soft Extremities: Digits are dusky. Right BKA is mildly cool, better warmth and color than when seen in the emergency department. Wound on stump is covered with dressing Neuro: Drowsy, does move all extremities spontaneously. Medical - PN: Obj Da - Labs CBC & Chem 7: 01/02/19 03:48 01/02/19 03:48 Labs: Abnormal Lab Results 01/02/19 01/02/19 01/02/19 03:48 03:48 03:48 WBC 18.1 H RBC 2.47 L Hgb 7.7 L Hct 23.4 L Gran % 89.9 H Lymph % (Auto) 4.9 L Gran # 16.3 H Lymph # (Auto) 0.9 L [place] # (Auto) ESR 115 H Potassium 6.0 H* Chloride 118 H Carbon Dioxide 10 L* Anion Gap 17.0 H BUN 157 H* Creatinine 4.2 H Glucose Phosphorus 5.0 H AST Alkaline Phosphatase C-Reactive Protein 17.2 H Albumin 2.5 L Urine Occult Blood Hyaline Casts 01/01/19 01/01/19 01/01/19 16:36 14:11 14:11 WBC 23.0 H RBC 2.75 L Hgb 8.6 L Hct 25.8 L Gran % 92.5 H Lymph % (Auto) 2.7 L Gran # 21.3 H Lymph # (Auto) 0.6 L [place] # (Auto) 1.1 H ESR Potassium 5.8 H Chloride 109 H Carbon Dioxide 10 L* Anion Gap 19.0 H BUN 181 H* Creatinine 5.1 H* Glucose 115 H Phosphorus AST 47 H Alkaline Phosphatase 183 H C-Reactive Protein Albumin Urine Occult Blood 0.2 A Hyaline Casts 8 H Meds: Medications Acetaminophen (Tylenol) 650 mg PO Q6HP PRN; Protocol PRN Reason: Per Pain Protocol/Fever > 101 Hydrocodone Bitart/Acetaminophen ([place] 5/325mg) 1 tab PO Q4HP PRN; Protocol PRN Reason: Per Pain Protocol Last Admin: 01/01/19 21:59 Dose: 1 tab Documented by: Ceftriaxone Sodium (Rocephin) 1 gm IV DAILY [facility] Last Admin: 01/01/19 21:58 Dose: 1 gm Documented by: Famotidine (Pepcid) 20 mg IV Q12 [facility] Last Admin: 01/02/19 09:27 Dose: 20 mg Documented by: Heparin Sodium (Porcine) (Heparin) 5,000 unit SQ Q12 [facility] Last Admin: 01/02/19 09:27 Dose: 5,000 unit Documented by: Hydralazine HCl (Apresoline) 10 mg IV Q6HP PRN PRN Reason: Hypertension Sodium Bicarbonate 150 meq/ (Dextrose) 1,000 mls @ 100 mls/hr IV Q20H [facility] Stop: 01/02/19 21:59 Last Admin: 01/02/19 12:00 Dose: 100 mls/hr Documented by: Levothyroxine Sodium (Synthroid) 50 mcg PO ACB [facility] Last Admin: 01/02/19 08:06 Dose: Not Given Documented by: Lorazepam (Ativan) 2 mg IV Q2HP PRN PRN Reason: ANXIETY/SEDATION Last Admin: 01/02/19 08:06 Dose: 2 mg Documented by: Ondansetron HCl (Zofran) 4 mg IV Q4HP PRN; Protocol PRN Reason: Nausea And Vomiting Ondansetron HCl (Zofran Odt) 4 mg SL Q4HP PRN; Protocol PRN Reason: Nausea And Vomiting Sodium Chloride (Saline Flush) 10 ml IV Q8 [facility] Last Admin: 01/02/19 12:08 Dose: 10 ml Documented by: Medical - PN: A/P - Time Spent With Patient Total time spent is greater than 50% in coordination of care (as documented) at patient's floor/unit and/or counseling patient: Greater than 35 minutes - Narrative A/P Narrative: 78-year-old male status post BKA presents with ongoing wounds on the stump, found to have cool and tender BKA site as well as acute renal failure. Acute kidney injury on chronic kidney disease. Creatinine 5.1. Associated hyperkalemia and metabolic acidosis. Etiology may be ATN from sepsis. He may have been treated with trimethoprim for the past week, which could have caused an elevation in serum creatinine. ATN from other causes also possible. No ev idence of volume overload nor such electrolyte abnormalities that require emergent dialysis. Discussed with Dr. Matthews/nephrology Plan: Fluid resuscitation with bicarb as per nephrology Follow intake and output Logan catheter secondary to PVR and incontinence, to better follow intake and output Avoid nephrotoxins Continue to treat for possible sepsis Leukocytosis, rule out sepsis. Patient's white count was 23,000 at presentation. However he does not have fever, nor tachycardia, nor tachypnea. He does not meet criteria for Sirs. No source of infection is immediately recognizable. Chest x-ray is clear. No physical findings of right lower extremity infection, CT without evidence of abscess, fasciitis or osteomyelitis. Color of the extremity has improved. Does have maceration and erythema in the intertriginous areas, possible source. Blood cultures remain negative. Plan: Continue with empiric ceftriaxone, follow white count, follow-up cultures. Right BKA wounds. Stump is less cool to touch, better coloration this morning with fluid resuscitation. Common femoral arteries patent, he has an expected occlusion of the SFA secondary to the BKA. He may need ultimate revision. Plan: Continue to follow exam with correction of acidosis and treatment of possible sepsis. At this time, no indication for surgery. Discussed with Dr. Walker for orthopedics. Continue with wound care and wound care consult. 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 Plan: Prophylactic doses of heparin currently. Alcohol use. Patient and admit that he has few beers at night, though he has been falling asleep in the middle of a can of beer recently. Plan: Monitor for evidence of withdrawal. Tobacco abuse. Tobacco cessation counseled with patient from between 3 and 10 minutes. Prophylaxis: Subcu heparin Medical - PN: Qual - VTE Deep Vein Thrombosis/Pulmonary Embolism Present on Admission: No
[2019-01-02] MEDS: SODIUM BICARBONATE VIAL 150 MEQ in DEXTROSE 5% IN WATER 850 ML IV SCH ×2 (15:57→19:56)
[2019-01-02] MEDS ORDERED: VANCOMYCIN PER PHARMACY IV ONE (16:07)
[2019-01-02] MEDS ORDERED: VANCOMYCIN 750 MG in 0.9 % SODIUM CHLORIDE 250 ML IV ONE (16:45)
[2019-01-02] MEDS: HALOPERIDOL LACTATE 5 MG/ML VIAL IV PRN (23:04)
[2019-01-03] MEDS: SODIUM BICARBONATE VIAL 150 MEQ in DEXTROSE 5% IN WATER 850 ML IV SCH ×3 (01:46→08:20)
[2019-01-03] MEDS: HYDROcodone/APAP 5/325MG TABLET PO PRN ×4 (01:46→20:32)
[2019-01-03] MEDS: HALOPERIDOL LACTATE 5 MG/ML VIAL IV PRN ×3 (02:27→13:25)
[2019-01-03 06:10] LABS: Basophils # (Auto) 0 K/mcL (0.0-0.3); Basophils % (Auto) 0.1 % (0.0-2.0); Eosinophils # (Auto) 0 K/mcL (0.0-0.7); Eosinophils % (Auto) 0.2 % (0.0-7.0); Hematocrit 24.9 % (41.0-55.0); Hemoglobin 8.4 g/dL (13.5-16.5); Lymphocytes # (Auto) 0.8 K/mcL (1.5-4.8); Lymphocytes % (Auto) 4.6 % (15.5-49.0); Mean Cell Volume 93.9 fL (80.0-100.0); Mean Corpuscular HGB Conc 33.6 g/dL (31.0-36.0); Mean Platelet Volume 8.7 fL (7.4-10.4); Monocytes % (Auto) 6.1 % (1.0-12.0); Platelet Count 322 K/mcL (140-440); RBC 2.66 M/mcL (4.50-5.90); Red Cell Distribution Width 13.8 % (11.5-14.5); WBC 16.8 K/mcL (4.5-11.0)
[2019-01-03 06:23] LABS: Albumin 2.7 gm/dL (3.2-5.2); Calcium 8.9 mg/dl (8.6-10.4); Phosphorous 3.3 mg/dL (2.7-4.5)
[2019-01-03] MEDS: 0.9 % SODIUM CHLORIDE 10 ML SYRINGE IV SCH ×3 (06:35→20:56)
[2019-01-03] MEDS: FAMOTIDINE/PF 20 MG/2 ML VIAL IV SCH ×2 (07:19→20:55)
[2019-01-03] MEDS: cefTRIAXone 1 GM VIAL IV SCH (07:20)
[2019-01-03] MEDS: HEPARIN 5,000 UNIT/ML VIAL SQ SCH ×2 (07:20→20:55)
[2019-01-03] MEDS: LEVOTHYROXINE 50 MCG TABLET PO SCH (07:20)
[2019-01-03] MEDS ORDERED: VANCOMYCIN PER PHARMACY IV SCH (07:30)
[2019-01-03] MEDS ORDERED: DEXTROSE 5% IV SCH (08:30)
[2019-01-03] MEDS ORDERED: WATER IV SCH (08:30)
[2019-01-03 09:19] LABS: Vancomycin,Random 7.4 ug/mL
[2019-01-03] MEDS: VANCOMYCIN 750 MG in 0.9 % SODIUM CHLORIDE 250 ML IV SCH (09:44)
[2019-01-03] MEDS ORDERED: FLU VACC QS2019-20(6MOS UP)/PF 60 MCG/0.5 ML SYRINGE IM ONE ×2 (10:00→11:15)
--- NOTE | 2019-01-03 10:46 | Internal Med Progress Note ---
Medical - PN: Subj Patient information: Note initiated : 01/03/19 at 10:43 am Service Date, if different from initiated Date: [] Patient: Jayjay Horta a 78 y/o M admitted on 01/01/19 for lower extreamity problem. Chief Complaint: f/u sepsis, ARF Interval history: 01/01 Mr. 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 He was referred to the ED secondary to a cool and painful right stump. History is obtained in reviewing available records, as well as speaking to the patient, though both he and his are very vague on details. According to nephrology clinic notes, in 05/2016 patient underwent injury to his leg. The patient states he had objects fall onto the leg, he describes what sounds almost like a degloving type injury. He had several attempts at wound care and surgeries, eventually undergoing a BKA. He was discharged in January 2017 to rehabilitation. Since that time the patient is eventually moved home. He has had a prosthesis fitted which he does use. 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 He has not had a primary care physician, though does see Dr. Hutchins for nephrology. He states that about a week ago or so he fell (dates are vague) at work, and went to the [facility] across the street. He was evaluated and referred to wound care at that time. He is also started on an antibiotic which was filled for 10 days supply. He describes it as a "big pill" that he took twice a day. He seems to recognize TMP/SMX as being on the bottle. Patient states that a few months ago skin around the stump started breaking down and turning purple. For the last several weeks it broken down more. He has continued to wear his prosthetic. At times it is too swollen to fit, he usually waits for bed and is able to get it on. Its becoming more more painful to wear his prosthetic. In the ED, his lower extremity/stump is found to be cool. There is shallow ulce rations distally and then along the proximal and lateral aspects. If there is mild to moderate tenderness to palpation. 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 Vascular surgery was contacted at [place] as well as [place], it was not felt to be an imminent vascular emergency. He was also found to be in acute renal failure with creatinine of 5.1 (1.7 in early November) with hyperkalemia and metabolic acidosis. Is being hospitalized for treatment of acute kidney injury, evaluation of leukocytosis (20,000) and treatment of right lower extremity wounds. 01/02 Was agitated after arrival in the unit overnight. Received lorazepam. Drowsy late this morning, after further lorazepam prior to CT of the femur. No evidence of abscess or osteomyelitis on CT. White count has started to come down. Stump is not is cool and dusky today. Renal function slowly improving. Remains afebrile. Patient is too drowsy to provide review of systems. 01/03 Intermittent agitation overnight. Received Haldol. Sleeping this morning, arouses then drifts back off. Creatinine improving. Has been on bicarb drip now with alkalosis. Fluids being managed by nephrology. Blood culture positive for gram-positive cocci in 1 of 4 bottles. No further identification as of yet. On vancomycin and ceftriaxone. Portal certainly could have been skin. - Constitutional Vitals: Vital Signs Temp Pulse Resp BP Pulse Ox 98.4 F 75 19 127/47 95 01/03/19 08:12 01/02/19 08:00 01/03/19 07:01 01/03/19 07:01 01/03/19 07:01 Period Temp Pulse Resp BP Sys/Arthur Pulse Ox Last 24 Hr 97.8 F-99.4 F 16-22 100-158/41-101 16-99 Intake and Output 01/02/19 01/03/19 01/03/19 22:59 05:59 13:59 Intake Total 1000 Output Total Balance 1000 Weight Intake & Output: Intake & Output 01/02/19 01/03/19 01/03/19 22:59 05:59 13:59 Intake Total 1000 Output Total Balance 1000 Weight Intake: IV 1000 Sodium Bicarbonate Vial 150 Meq 1000 In Dextrose 5% in Water 850 ml @ 168 mls/hr IV Q6 [facility] Rx#: [id number] Vancomycin 750 mg In Sodium Chloride 0.9% 250 ml @ 250 mls/ hr IV ONCE ONE Rx#:[id number] Output: Urine Catheter Amount Other: Urine Appearance Uretheral (Logan) Urine Color Uretheral (Logan) Urine Odor Uretheral (Logan) Exam: General: Sleeping, difficult to arouse (has been medicated) Chest: Clear with normal respiratory effort Cardiovascular: Regular, no murmur appreciated. Abdomen: Thin, soft Musculoskeletal: Right BKA only slightly cool, no cords, no edema, no crepitus Neuro: Sleeping/medicated. Is moving all extremities. Medical - PN: Obj Da - Labs CBC & Chem 7: 01/03/19 03:57 01/03/19 03:58 Labs: Abnormal Lab Results 01/03/19 01/03/19 01/03/19 03:58 03:58 03:57 WBC 16.8 H RBC 2.66 L Hgb 8.4 L Hct 24.9 L Gran % 89.0 H Lymph % (Auto) 4.6 L Gran # 14.9 H Lymph # (Auto) 0.8 L [place] # (Auto) 1.0 H ESR Sodium 159 H Potassium Chloride 117 H Carbon Dioxide 32 H Anion Gap BUN 93 H Creatinine 2.6 H Glucose 223 H Phosphorus AST Alkaline Phosphatase Total Creatine Kinase 5381 H C-Reactive Protein Albumin 2.7 L Urine Occult Blood Hyaline Casts 01/02/19 01/02/19 01/02/19 03:48 03:48 03:48 WBC 18.1 H RBC 2.47 L Hgb 7.7 L Hct 23.4 L Gran % 89.9 H Lymph % (Auto) 4.9 L Gran # 16.3 H Lymph # (Auto) 0.9 L [place] # (Auto) ESR 115 H Sodium Potassium 6.0 H* Chloride 118 H Carbon Dioxide 10 L* Anion Gap 17.0 H BUN 157 H* Creatinine 4.2 H Glucose Phosphorus 5.0 H AST Alkaline Phosphatase Total Creatine Kinase C-Reactive Protein 17.2 H Albumin 2.5 L Urine Occult Blood Hyaline Casts 01/01/19 01/01/19 01/01/19 16:36 14:11 14:11 WBC 23.0 H RBC 2.75 L Hgb 8.6 L Hct 25.8 L Gran % 92.5 H Lymph % (Auto) 2.7 L Gran # 21.3 H Lymph # (Auto) 0.6 L [place] # (Auto) 1.1 H ESR Sodium Potassium 5.8 H Chloride 109 H Carbon Dioxide 10 L* Anion Gap 19.0 H BUN 181 H* Creatinine 5.1 H* Glucose 115 H Phosphorus AST 47 H Alkaline Phosphatase 183 H Total Creatine Kinase C-Reactive Protein Albumin Urine Occult Blood 0.2 A Hyaline Casts 8 H Meds: Medications Acetaminophen (Tylenol) 650 mg PO Q6HP PRN; Protocol PRN Reason: Per Pain Protocol/Fever > 101 Hydrocodone Bitart/Acetaminophen ([place] 5/325mg) 1 tab PO Q4HP PRN; Protocol PRN Reason: Per Pain Protocol Last Admin: 01/03/19 07:11 Dose: 1 tab Documented by: Ceftriaxone Sodium (Rocephin) 1 gm IV DAILY [facility] Last Admin: 01/03/19 07:20 Dose: 1 gm Documented by: Famotidine (Pepcid) 20 mg IV Q12 [facility] Last Admin: 01/03/19 07:19 Dose: 20 mg Documented by: Haloperidol Lactate (Haldol) 2 mg IV Q4HP PRN PRN Reason: ANXIETY/SEDATION Last Admin: 01/03/19 07:11 Dose: 2 mg Documented by: Heparin Sodium (Porcine) (Heparin) 5,000 unit SQ Q12 [facility] Last Admin: 01/03/19 07:20 Dose: 5,000 unit Documented by: Hydralazine HCl (Apresoline) 10 mg IV Q6HP PRN PRN Reason: Hypertension Dextrose (Dextrose 5% In Water) 2,000 mls @ 150 mls/hr IV .[id number] [facility] Last Admin: 01/03/19 08:25 Dose: 150 mls/hr Documented by: Vancomycin HCl 750 mg/ Sodium (Chloride) 250 mls @ 250 mls/hr IV DAILY [facility] Last Admin: 01/03/19 09:44 Dose: 250 mls/hr Documented by: Levothyroxine Sodium (Synthroid) 50 mcg PO ACB [facility] Last Admin: 01/03/19 07:20 Dose: 50 mcg Documented by: Ondansetron HCl (Zofran) 4 mg IV Q4HP PRN; Protocol PRN Reason: Nausea And Vomiting Ondansetron HCl (Zofran Odt) 4 mg SL Q4HP PRN; Protocol PRN Reason: Nausea And Vomiting Sodium Chloride (Saline Flush) 10 ml IV Q8 [facility] Last Admin: 01/03/19 06:35 Dose: Not Given Documented by: Vancomycin HCl (Vancomycin Per Pharmacy) 1 order IV UD [facility]; Protocol Medical - PN: A/P - Time Spent With Patient Total time spent is greater than 50% in coordination of care (as documented) at patient's floor/unit and/or counseling patient: Greater than 35 minutes - Narrative A/P Narrative: 78-year-old male status post BKA presents with ongoing wounds on the stump, found to have cool and tender BKA site as well as acute renal failure. Acute kidney injury on chronic kidney disease. Creatinine 5.1 at presentation with associated hyperkalemia and metabolic acidosis. Etiology may be ATN from sepsis. He may have been treated with trimethoprim for the past week, which could have also caused an elevation in serum creatinine. ATN from other causes also possible. No evidence of volume overload nor such electrolyte abnormalities that require emergent dialysis. Discussed with Dr. Matthews/nephrology Plan: Fluid resuscitation for acidosis as per nephrology Follow intake and output Logan catheter secondary to increased PVR and incontinence, to better follow intake and output Avoid nephrotoxins Continue to treat for possible sepsis Leukocytosis, rule out sepsis. Patient's white count was 23,000 at presentation, down to 16,000 on 01/03. Admission blood cultures, 1/4 bottles, positive for gram-positive cocci on 01/02. At presentation he did not have fever, nor tachycardia, nor tachypnea. No source of infection is immediately recognizable. Chest x-ray is clear. No physical findings of right lower extremity infection, CT without evidence of abscess, fasciitis or osteomyelitis. Color of the extremity has improved. Does have maceration and erythema in the intertriginous areas, possible source. Blood cultures positive as above, jorge alberto pected skin source, though only 1/4+, will need to evaluate for possible contaminant. Plan: Continue with vancomycin and ceftriaxone Follow white count Follow-up cultures Repeat cultures today Right BKA wounds. Stump is less cool to touch, better coloration after fluids and correction of acidosis. Common femoral arteries patent, he has an expected occlusion of the SFA secondary to the BKA. He may need ultimate revision. Plan: Continue to follow exam with correction of acidosis and treatment of possible sepsis. At this time, no indication for surgery. Discussed with Dr. Walker for orthopedics. Continue with wound care and wound care consult, seen by Dr. Brooks. 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 Plan: Prophylactic doses of heparin currently. Alcohol use. Patient and admit that he has few beers at night, though he has been falling asleep in the middle of a can of beer recently. Plan: Monitor for evidence of withdrawal. Tobacco abuse. Tobacco cessation counseled with patient from between 3 and 10 minutes at admission Prophylaxis: Subcu heparin Medical - PN: Qual - VTE Deep Vein Thrombosis/Pulmonary Embolism Present on Admission: No
--- NOTE | 2019-01-03 14:10 | Internal Med Progress Note ---
Medical - PN: Subj Patient information: Note initiated : 01/03/19 at 2:03 pm Service Date, if different from initiated Date: [] Patient: Jayjay Horta a 78 y/o M admitted on 01/01/19 for lower extreamity problem. Chief Complaint: [] Interval history: 01/01 Mr. 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 He was referred to the ED secondary to a cool and painful right stump. History is obtained in reviewing available records, as well as speaking to the patient, though both he and his are very vague on details. According to nephrology clinic notes, in 05/2016 patient underwent injury to his leg. The patient states he had objects fall onto the leg, he describes what sounds almost like a degloving type injury. He had several attempts at wound care and surgeries, eventually undergoing a BKA. He was discharged in January 2017 to rehabilitation. Since that time the patient is eventually moved home. He has had a prosthesis fitted which he does use. 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 He has not had a primary care physician, though does see Dr. Hutchins for nephrology. He states that about a week ago or so he fell (dates are vague) at work, and went to the [facility] across the street. He was evaluated and referred to wound care at that time. He is also started on an antibiotic which was filled for 10 days supply. He describes it as a "big pill" that he took twice a day. He seems to recognize TMP/SMX as being on the bottle. Patient states that a few months ago skin around the stump started breaking down and turning purple. For the last several weeks it broken down more. He has continued to wear his prosthetic. At times it is too swollen to fit, he usually waits for bed and is able to get it on. Its becoming more more painful to wear his prosthetic. In the ED, his lower extremity/stump is found to be cool. There is shallow ulcerations distally and then along the proximal and lateral aspects. If there is mild to moderate tenderness to palpation. 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 Vascular surgery was contacted at [place] as well as [place], it was not felt to be an imminent vascular emergency. He was also found to be in acute renal failure with creatinine of 5.1 (1.7 in early November) with hyperkalemia and metabolic acidosis. Is being hospitalized for treatment of acute kidney injury, evaluation of leukocytosis (20,000) and treatment of right lower extremity wounds. 01/02 Was agitated after arrival in the unit overnight. Received lorazepam. Drowsy late this morning, after further lorazepam prior to CT of the femur. No evidence of abscess or osteomyelitis on CT. White count has started to come down. Stump is not is cool and dusky today. Renal function slowly improving. Remains afebrile. Patient is too drowsy to provide review of systems. 01/03 Intermittent agitation overnight. Received Haldol. Sleeping this morning, arouses then drifts back off. Creatinine improving. Has been on bicarb drip now with alkalosis. Fluids being managed by nephrology. Blood culture positive for gram-positive cocci in 1 of 4 bottles. No further identification as of yet. On vancomycin and ceftriaxone. Portal certainly could have been skin. - Constitutional Vitals: Vital Signs Temp Pulse Resp BP Pulse Ox 98.4 F 75 19 134/55 95 01/03/19 08:12 01/02/19 08:00 01/03/19 07:01 01/03/19 13:01 01/03/19 07:01 Period Temp Pulse Resp BP Sys/Arthur Pulse Ox Last 24 Hr 97.8 F-99.4 F 16-22 117-158/34-101 16-99 Intake and Output 01/03/19 01/03/19 01/03/19 05:59 13:59 21:59 Intake Total 1350 Output Total 250 Balance 1100 Intake & Output: Intake & Output 01/03/19 01/03/19 01/03/19 05:59 13:59 21:59 Intake Total 1350 Output Total 250 Balance 1100 Intake: IV 1250 Sodium Bicarbonate Vial 150 Meq 1000 In Dextrose 5% in Water 850 ml @ 168 mls/hr IV Q6 [facility] Rx#: [id number] Vancomycin 750 mg In Sodium 250 Chloride 0.9% 250 ml @ 250 mls/ hr IV DAILY [facility] Rx#:[id number] Oral 100 Output: Urine Catheter Amount 250 Other: Urine Appearance Clear Urine Color Bright Yellow Urine Odor Normal Exam: General: Alert, Awake, No acute Distress Eyes/N/T: EOMI Head/Neck: neck supple, CV: RRR, No murmurs, Pulm: Clear b/l, no wheezing/rhonchi/rales Abd: soft, nontender, +BS x4 Ext: no clubbing/cyanosis/edema, Right BKA Neuro: Alert, no focal deficits, moves all extremities, Skin: warm/dry Medical - PN: Obj Da - Labs CBC & Chem 7: 01/03/19 03:57 01/03/19 03:58 Labs: Abnormal Lab Results 01/03/19 01/03/19 01/03/19 03:58 03:58 03:57 WBC 16.8 H RBC 2.66 L Hgb 8.4 L Hct 24.9 L Gran % 89.0 H Lymph % (Auto) 4.6 L Gran # 14.9 H Lymph # (Auto) 0.8 L [place] # (Auto) 1.0 H ESR Sodium 159 H Potassium Chloride 117 H Carbon Dioxide 32 H Anion Gap BUN 93 H Creatinine 2.6 H Glucose 223 H Phosphorus AST Alkaline Phosphatase Total Creatine Kinase 5381 H C-Reactive Protein Albumin 2.7 L Urine Occult Blood Hyaline Casts 01/02/19 01/02/19 01/02/19 03:48 03:48 03:48 WBC 18.1 H RBC 2.47 L Hgb 7.7 L Hct 23.4 L Gran % 89.9 H Lymph % (Auto) 4.9 L Gran # 16.3 H Lymph # (Auto) 0.9 L [place] # (Auto) ESR 115 H Sodium Potassium 6.0 H* Chloride 118 H Carbon Dioxide 10 L* Anion Gap 17.0 H BUN 157 H* Creatinine 4.2 H Glucose Phosphorus 5.0 H AST Alkaline Phosphatase Total Creatine Kinase C-Reactive Protein 17.2 H Albumin 2.5 L Urine Occult Blood Hyaline Casts 01/01/19 01/01/19 01/01/19 16:36 14:11 14:11 WBC 23.0 H RBC 2.75 L Hgb 8.6 L Hct 25.8 L Gran % 92.5 H Lymph % (Auto) 2.7 L Gran # 21.3 H Lymph # (Auto) 0.6 L [place] # (Auto) 1.1 H ESR Sodium Potassium 5.8 H Chloride 109 H Carbon Dioxide 10 L* Anion Gap 19.0 H BUN 181 H* Creatinine 5.1 H* Glucose 115 H Phosphorus AST 47 H Alkaline Phosphatase 183 H Total Creatine Kinase C-Reactive Protein Albumin Urine Occult Blood 0.2 A Hyaline Casts 8 H Meds: Medications Acetaminophen (Tylenol) 650 mg PO Q6HP PRN; Protocol PRN Reason: Per Pain Protocol/Fever > 101 Hydrocodone Bitart/Acetaminophen ([place] 5/325mg) 1 tab PO Q4HP PRN; Protocol PRN Reason: Per Pain Protocol Last Admin: 01/03/19 13:25 Dose: 1 tab Documented by: Ceftriaxone Sodium (Rocephin) 1 gm IV DAILY [facility] Last Admin: 01/03/19 07:20 Dose: 1 gm Documented by: Famotidine (Pepcid) 20 mg IV Q12 [facility] Last Admin: 01/03/19 07:19 Dose: 20 mg Documented by: Haloperidol Lactate (Haldol) 2 mg IV Q4HP PRN PRN Reason: ANXIETY/SEDATION Last Admin: 01/03/19 13:25 Dose: 2 mg Documented by: Heparin Sodium (Porcine) (Heparin) 5,000 unit SQ Q12 [facility] Last Admin: 01/03/19 07:20 Dose: 5,000 unit Documented by: Hydralazine HCl (Apresoline) 10 mg IV Q6HP PRN PRN Reason: Hypertension Dextrose (Dextrose 5% In Water) 2,000 mls @ 150 mls/hr IV .[id number] [facility] Last Admin: 01/03/19 08:25 Dose: 150 mls/hr Documented by: Vancomycin HCl 750 mg/ Sodium (Chloride) 250 mls @ 250 mls/hr IV DAILY [facility] Last Infusion: 01/03/19 10:45 Dose: Infused Documented by: Levothyroxine Sodium (Synthroid) 50 mcg PO ACB [facility] Last Admin: 01/03/19 07:20 Dose: 50 mcg Documented by: Ondansetron HCl (Zofran) 4 mg IV Q4HP PRN; Protocol PRN Reason: Nausea And Vomiting Ondansetron HCl (Zofran Odt) 4 mg SL Q4HP PRN; Protocol PRN Reason: Nausea And Vomiting Sodium Chloride (Saline Flush) 10 ml IV Q8 [facility] Last Admin: 01/03/19 13:18 Dose: 10 ml Documented by: Vancomycin HCl (Vancomycin Per Pharmacy) 1 order IV UD [facility]; Protocol Medical - PN: A/P - Time Spent With Patient Total time spent is greater than 50% in coordination of care (as documented) at patient's floor/unit and/or counseling patient: - Narrative A/P Narrative: A: GENNY on CKD IIIb: Etiology may be ATN from sepsis. He may have been treated with trimethoprim for the past week, which could have also caused an elevation in serum creatinine. ATN from other causes also possible. No evidence of volume overload nor such electrolyte abnormalities that require emergent dialysis. -improving *Hyperkalemia: resolved *Met acidosis: *Leukocytosis, rule out sepsis: WBC 23k @presentation, down to 16k. -Admission blood cultures 1/4 bottles ([facility]) -At presentation he did not have fever/tachycardia/tachypnea. No source of infection is immediately recognizable. Chest x-ray is clear. No physical findings of right lower extremity infection, CT without evidence of abscess, fasciitis or osteomyelitis. Color of the extremity has improved. Does have maceration and erythema in the intertriginous areas, possible source. -Suspected skin source, though only 1/4+, will need to evaluate for possible contaminant. *Right BKA wounds: Stump is less cool to touch, better coloration after fluids and correction of acidosis. Common femoral arteries patent, he has an expected occlusion of the SFA secondary to the BKA. He may need ultimate revision. -Discussed with Dr. Walker for orthopedics. 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 Plan: Prophylactic doses of heparin currently. *Alcohol use. Patient and admit that he has few beers at night, though he has been falling asleep in the middle of a can of beer recently. *Tobacco abuse. P: -Nephrology following -Fluid resuscitation for acidosis as per nephrology monitor electrolytes Logan catheter secondary to increased PVR and incontinence, to better follow intake and output Avoid nephrotoxins -Vanc/Rocephin, pending cultures -wound care/Dr. Brooks following -Monitor for evidence of etoh withdrawal -Smoking cessation counseling -Prophylaxis: Subcu heparin Medical - PN: Qual - VTE Deep Vein Thrombosis/Pulmonary Embolism Present on Admission: No
--- NOTE | 2019-01-03 14:22 | Nephrology Progress Note ---
Subjective Patient information: Note initiated : 01/03/19 at 2:15 pm Service Date, if different from initiated Date: [] Patient: Jayjay Horta 78 y/o M admitted on 01/01/19 for lower extreamity problem. Chief Complaint: [] Principal diagnosis: Acute on chronic renal failure Interval history: Doing much better with hydration on bicarb containing fluids. 1/2 blood culters bositive gm positive cocci - could have been septic on presentation with multiple ports of entery Basline SCr 1.8 mg/dl Severe PVD with in a smoker is the root cause of this patients problems, added to by DM but large vessel disease is the most likely issue I gave too much bicarb so this will take free water to correct the hypernatremia and time to excrete the excess bicarb. The hyperkalemia has resolved with glucose and HCO3 to promote intracellular shift, expect it to continue as he wastes bicab with K as the counter-ion. More alert after benzo's have worn off. Vanco given emperically. Pertinent ROS: More awake with volume and stopping Ativan Nightime encephalopathy. Additional PMFSH (Level 3 Only): Nothing to add Objective - Vital Signs Vital signs: Vital Signs Temp Resp BP Pulse Ox 01/03/19 13:01 134/55 01/03/19 12:01 128/47 01/03/19 11:03 131/47 01/03/19 10:01 120/34 01/03/19 09:01 141/51 01/03/19 08:12 36.9 C 01/03/19 08:01 121/53 01/03/19 07:01 19 127/47 95 01/03/19 07:00 36.7 C 01/03/19 06:01 18 145/47 88 L 01/03/19 05:01 16 149/46 94 01/03/19 04:01 36.6 C 16 136/46 97 01/03/19 03:01 16 124/60 01/03/19 02:01 124/80 01/03/19 01:01 PST 140/60 01/03/19 00:02 37.0 C 22 135/96 01/02/19 23:01 158/51 16 L 01/02/19 22:01 125/41 18 L 01/02/19 21:01 143/58 20 L 01/02/19 21:00 37.4 C H 01/02/19 20:01 36.9 C 145/94 01/02/19 19:01 151/49 01/02/19 18:01 143/101 01/02/19 17:01 134/41 01/02/19 16:01 36.9 C 19 117/90 99 Intake and Output 01/03/19 01/03/19 01/03/19 05:59 13:59 21:59 Intake Total 1350 Output Total 250 Balance 1100 Intake: IV 1250 Sodium Bicarbonate Vial 150 Meq 1000 In Dextrose 5% in Water 850 ml @ 168 mls/hr IV Q6 MARGARITO Rx#: [id number] Vancomycin 750 mg In Sodium 250 Chloride 0.9% 250 ml @ 250 mls/ hr IV DAILY MARGARITO Rx#:[id number] Oral 100 Output: Urine Catheter Amount 250 Other: Urine Appearance Clear Urine Color Bright Yellow Urine Odor Normal Intake & Output: Intake & Output 01/03/19 01/03/19 01/03/19 05:59 13:59 21:59 Intake Total 1350 Output Total 250 Balance 1100 Intake: IV 1250 Sodium Bicarbonate Vial 150 Meq 1000 In Dextrose 5% in Water 850 ml @ 168 mls/hr IV Q6 MARGARITO Rx#: [id number] Vancomycin 750 mg In Sodium 250 Chloride 0.9% 250 ml @ 250 mls/ hr IV DAILY MARGARITO Rx#:[id number] Oral 100 Output: Urine Catheter Amount 250 Other: Urine Appearance Clear Urine Color Bright Yellow Urine Odor Normal - General Appearance General appearance: cachectic, moderate distress, chronically ill, frail EENT: ATNC, PERRL, mucous membranes moist, hearing intact, vision intact Neck: JVD (Now visiable at ) degrees), no carotid bruit Respiratory: kyphosis, course breath sounds Cardiology: no murmurs, no rub, no edema, regular rate, regular rhythm, normal S1, normal S2 Gastrointestinal: normoactive bowel sounds, no tenderness, no guarding, no masses Integumentary: warm and dry (arterial insufficiency in left lower leg / fingers no longer dusky), ecchymotic, decubiti Musculoskeletal: deformities (Right BKA stump wrapped. Multiple excoriations), erythema, no cyanosis, no clubbing - Lab 01/03/19 03:57 11/03/19 03:58 Most recent lab results Calcium 8.9 mg/dl (8.6-10.4) 01/03/19 03:58 Phosphorus 3.3 mg/dL (2.7-4.5) 01/03/19 03:58 Laboratory Tests 01/03/19 01/03/19 01/03/19 03:57 03:58 03:58 WBC 16.8 H Hgb 8.4 L Plt Count 322 Sodium 159 H Potassium 4.3 Chloride 117 H Carbon Dioxide 32 H Anion Gap 10.0 BUN 93 H Creatinine 2.6 H GFR Calculation 23 Glucose 223 H Calcium 8.9 Phosphorus 3.3 Total Creatine Kinase 5381 H Albumin 2.7 L - Allied health notes Allied health notes reviewed: case management Assessment and Plan (1) Hyperkalemia, transcellular shifts Status: Acute Priority: High Comment: Improved Avoid RAASI Rx Expect K to continue to decline Monitor daily and check Mg (2) Drug-induced hyperkalemia Status: Acute Priority: High Comment: For now, avoid RAASI therapy. No proteinuria or diabetic nephropathy so no good reason to use ACEi, ARB, Aldactone (3) Renal failure (ARF), acute on chronic Status: Acute Priority: High Comment: Improving nicely as lisinopril is excreted, volume status restored Baseline SCr is 1.7 mg/dl or so. 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 Caused by overzealous bicarb infusion. He probably sould have receive hypo-osmolar NaHCO3 which would have provided less NaHCO3 and more free H2O. 2. Switch to D5W 150/hr as source of free H2O As water is distributed in 60% 0f TBWeight and Na in only 15%, he will not become fluid overloaded with just D5W. If he does develope edema and hypoxemia, IV lasix would be in order. Status: Acute - Narrative A/P Narrative: We have straighten up his hyperkalemia. If he proves not to be septic, he would be best served by revision of stump if possible. This patient will NOT require dialysis this hospitalization, but he is very poor clinically and I would avoid chronic HD at all costs as he survival on dialysis is measurable in months. Free H2O (as D5W) to correct hypernatremia I suspect this patient will need to live out his days in a care facility given his poor function & nutritional status, in ability to be cared for by his , and multiple comorbidies, none of which are treatable in a meaningful and life improving manner
--- NOTE | 2019-01-03 15:30 | General Surgery Consult Note ---
History of Present Illness Patient information: Note initiated : 01/03/19 at 3:17 pm Service Date, if different from initiated Date: [] Patient: Jayjay Horta 78 y/o M admitted on 01/01/19 for lower extreamity problem. Chief Complaint: [] Consult date: 01/02/19 Requesting physician: Michelle Meyer (Wound Care / Management) History of present illness: I had FIRST seen this gentleman in wound care clinic on Friday01/01/2019. Saw him last evening in ICU 120/C and reassessed him again today with Emely SYED. I reviewed all detailed notes/ reports since his admission and discussed his situation with Dr. Burger, Research Geologist and Dr. Quintanilla Hospitalist. Upon his initial presentation at the wound center, he was confused, hemodynamically unstable and hypotensive. He was symptomatic with severe pain of his RIGHT BKA and thigh, with a COLD leg and peeling off of skin over BKA stump. He was expeditiously sent to the ER for further evaluation and management. Medications and Allergies Home Medications Medication Instructions Recorded Confirmed Type sodium bicarbonate 650 mg tablet 650 mg PO QDAY #90 tab 01/21/18 01/01/19 Rx levothyroxine 50 mcg tablet 50 mcg PO QDAY #30 tab 04/22/18 01/01/19 Rx furosemide 40 mg tablet 40 mg PO QDAY #90 tab 09/15/18 01/01/19 Rx amlodipine 10 mg tablet 10 mg PO QDAY #90 tab 11/23/18 01/01/19 Rx clonidine HCl 0.3 mg tablet 0.15 mg PO QDAY tab 11/25/18 01/01/19 History lisinopril 10 mg tablet 10 mg PO QDAY #30 tab 11/25/18 01/01/19 Rx metoprolol succinate 25 mg 25 mg PO QDAY #90 tab 12/21/18 01/01/19 Rx tablet,extended release 24 hr Allergies Allergy/AdvReac Type Severity Reaction Status Date / Time Penicillins Allergy Severe Vomiting Verified 12/03/18 11:42 Exam Temp Pulse Resp BP Pulse Ox 98.4 F 75 19 135/53 95 01/03/19 08:12 01/02/19 08:00 01/03/19 07:01 01/03/19 14:01 01/03/19 07:01 - General physical appearance well nourished, moderate distress - Eyes PERRL - ENT normal nares, no congestion - Head Head exam IM: Present: atraumatic, normocephalic - Neck trachea midline, no lymphadenopathy, no venous distension - Cardiovascular Cardiovascular exam IM: Present: irregular rhythm - Respiratory absent breath sounds: bilateral (Diminished air entry at bases,) - Abdomen Abdomen: Present: soft, non tender - Genitourinary Present: normal penis with no external lesions, other (SCROTAL skin fungal dermatitis of skin and adjacent groin skin fold) - Integumentary Present: no rash (above.), other (See above. Moisture and fungal dermatitis of RIGHT scrotum and groin skin fold. ) - Neurologic Present: other ( stump and thigh with severe pain of PAD and PVD. ) - Musculoskeletal Present: other ( and fixed flexion of knee, ) - Psychiatric Present: other (Could NOT assess. ) Results - Labs 01/03/19 03:57 01/03/19 03:58 Abnormal lab results 01/03/19 01/03/19 01/03/19 Range/Units 03:57 03:58 03:58 WBC 16.8 H (4.5-11.0) K/mcL RBC 2.66 L (4.50-5.90) M/mcL Hgb 8.4 L (13.5-16.5) g/dL Hct 24.9 L (41.0-55.0) % Gran % 89.0 H (38.0-78.0) % Lymph % (Auto) 4.6 L (15.5-49.0) % Gran # 14.9 H (1.8-8.0) K/mcL Lymph # (Auto) 0.8 L (1.5-4.8) K/mcL Lares # (Auto) 1.0 H (0.1-0.9) K/mcL Sodium 159 H (133-145) mmol/L Chloride 117 H (96-108) mmol/L Carbon Dioxide 32 H (22-30) mmol/L BUN 93 H (8-23) mg/dl Creatinine 2.6 H (0.7-1.2) mg/dl Glucose 223 H (70-105) mg/dL Total Creatine Kinase 5381 H (24-195) IU/L Albumin 2.7 L (3.2-5.2) gm/dL Diabetes panel 01/03/19 Range/Units 03:58 Sodium 159 H (133-145) mmol/L Potassium 4.3 (3.3-5.1) mmol/L Chloride 117 H (96-108) mmol/L Carbon Dioxide 32 H (22-30) mmol/L BUN 93 H (8-23) mg/dl Creatinine 2.6 H (0.7-1.2) mg/dl Glucose 223 H (70-105) mg/dL Calcium 8.9 (8.6-10.4) mg/dl Albumin 2.7 L (3.2-5.2) gm/dL Calcium panel 01/03/19 Range/Units 03:58 Calcium 8.9 (8.6-10.4) mg/dl Phosphorus 3.3 (2.7-4.5) mg/dL Albumin 2.7 L (3.2-5.2) gm/dL Pituitary panel 01/03/19 Range/Units 03:58 Sodium 159 H (133-145) mmol/L Potassium 4.3 (3.3-5.1) mmol/L Chloride 117 H (96-108) mmol/L Carbon Dioxide 32 H (22-30) mmol/L BUN 93 H (8-23) mg/dl Creatinine 2.6 H (0.7-1.2) mg/dl Glucose 223 H (70-105) mg/dL Calcium 8.9 (8.6-10.4) mg/dl Adrenal panel 01/03/19 Range/Units 03:58 Sodium 159 H (133-145) mmol/L Potassium 4.3 (3.3-5.1) mmol/L Chloride 117 H (96-108) mmol/L Carbon Dioxide 32 H (22-30) mmol/L BUN 93 H (8-23) mg/dl Creatinine 2.6 H (0.7-1.2) mg/dl Glucose 223 H (70-105) mg/dL Calcium 8.9 (8.6-10.4) mg/dl Albumin 2.7 L (3.2-5.2) gm/dL All other labs normal. Assessment and Plan (1) Fungal dermatitis Status: Chronic Priority: Low Comment: For symptomatic treatrment. Clean with chlorhexidene, Dry with wash colth and apply topical antifungal creme. NO diapers. Use absorbent CHUX pads under lower back, pelvis and thighs. (2) Renal failure (ARF), acute on chronic Status: Acute Priority: High Comment: Improving nicely as lisinopril is excreted, volume status restored Baseline SCr is 1.7 mg/dl or so. 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 Se [place]ard PAIN, Paresthesia, Poikilothermia and Pulseless. DOPPLER Studies: THROMBOSED SFA, Popliteal but patient commonn femoral and profunda femoris, DVT popliteal vein. (4) Hyperkalemia, transcellular shifts Status: Acute Priority: High Comment: Improved Avoid RAASI Rx Expect K to continue to decline Monitor daily and check Mg (5) Drug-induced hyperkalemia Status: Acute Priority: High Comment: For now, avoid RAASI therapy. No proteinuria or diabetic nephropathy so no good reason to use ACEi, ARB, Al dactone (6) Acute hypernatremia Status: Acute (7) Chronic kidney disease, stage III (moderate) Status: Chronic Priority: Medium Comment: CKD 3 with baseline GFR 1.7 mg/dl Vascular disease >>>DM given lack of proteinuria (8) Anemia due to stage 3 chronic kidney disease Status: Chronic
[2019-01-03 16:17] LABS: Band Neutrophils % 1 % (0-10); Eosinophils % (Manual) 1 % (0-7); Lymphocytes % 5 % (15-49); Monocytes % (Manual) 7 % (1-12); Platelet Estimate NORMAL (NORMAL); RBC Morphology NORMAL (NORMAL); Segmented Neutrophils % 86 % (38-78)
[2019-01-03 17:30] LABS: Albumin 2.5 gm/dL (3.2-5.2); Blood Urea Nitrogen 67 mg/dl (8-23); Calcium 8.4 mg/dl (8.6-10.4); Carbon Dioxide 31 mmol/L (22-30); Chloride 113 mmol/L (96-108); Glomerular Filtration Rate 33; Glucose 158 mg/dL (70-105); Phosphorous 2.8 mg/dL (2.7-4.5)
[2019-01-03] MEDS: DEXTROSE 5% IN WATER 1,000 ML IV SCH (22:00)
[2019-01-04] MEDS: HYDROcodone/APAP 5/325MG TABLET PO PRN ×4 (01:33→20:25)
[2019-01-04] MEDS: 0.9 % SODIUM CHLORIDE 10 ML SYRINGE IV SCH ×3 (05:23→20:26)
[2019-01-04 06:30] LABS: Basophils # (Auto) 0 K/mcL (0.0-0.3); Basophils % (Auto) 0.1 % (0.0-2.0); Eosinophils # (Auto) 0.3 K/mcL (0.0-0.7); Eosinophils % (Auto) 1.9 % (0.0-7.0); Granulocytes % (Auto) 82.5 % (38.0-78.0); Hematocrit 24.4 % (41.0-55.0); Lymphocytes # (Auto) 1.7 K/mcL (1.5-4.8); Lymphocytes % (Auto) 9.6 % (15.5-49.0); Mean Corpuscular HGB Conc 32.9 g/dL (31.0-36.0); Mean Platelet Volume 8.4 fL (7.4-10.4); Monocytes # (Auto) 1.1 K/mcL (0.1-0.9); Monocytes % (Auto) 5.9 % (1.0-12.0); Platelet Count 271 K/mcL (140-440); RBC 2.54 M/mcL (4.50-5.90); Red Cell Distribution Width 14.2 % (11.5-14.5)
[2019-01-04 06:52] LABS: ALT/SGPT 42 U/l (0-40); AST/SGOT 123 U/l (0-37); Albumin 2.6 gm/dL (3.2-5.2); Albumin/Globulin Ratio 0.9 (1.0-2.3); Alkaline Phosphatase 71 U/L (39-117); Bilirubin,Direct < 0.2 mg/dL (0.0-0.3); Bilirubin,Total < 0.2 mg/dL (0.0-1.0); Blood Urea Nitrogen 53 mg/dl (8-23); Calcium 8.1 mg/dl (8.6-10.4); Carbon Dioxide 31 mmol/L (22-30); Chloride 105 mmol/L (96-108); Globulin 2.8 gm/dL (2.2-3.7); Glomerular Filtration Rate 36; Glucose 111 mg/dL (70-105); Lactate Dehydrogenase 311 U/L (94-250); Phosphorous 2.2 mg/dL (2.7-4.5); Triglycerides 122 mg/dl (<150); Uric Acid 7.2 mg/dL (2.5-8.0)
[2019-01-04] MEDS: FAMOTIDINE/PF 20 MG/2 ML VIAL IV SCH ×2 (07:43→20:26)
[2019-01-04] MEDS: HEPARIN 5,000 UNIT/ML VIAL SQ SCH ×2 (07:43→20:26)
[2019-01-04] MEDS: ACETAMINOPHEN 325 MG TABLET PO PRN ×2 (07:43→13:58)
--- NOTE | 2019-01-04 07:43 | Internal Med Progress Note ---
Medical - PN: Subj Patient information: Note initiated : 01/04/19 at 7:33 am Service Date, if different from initiated Date: [] Patient: Jayjay Horta a 78 y/o M admitted on 01/01/19 for lower extreamity problem. Chief Complaint: [] Interval history: 01/01 Mr. 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 He was referred to the ED secondary to a cool and painful right stump. History is obtained in reviewing available records, as well as speaking to the patient, though both he and his are very vague on details. According to nephrology clinic notes, in 05/2016 patient underwent injury to his leg. The patient states he had objects fall onto the leg, he describes what sounds almost like a degloving type injury. He had several attempts at wound care and surgeries, eventually undergoing a BKA. He was discharged in January 2017 to rehabilitation. Since that time the patient is eventually moved home. He has had a prosthesis fitted which he does use. 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 He has not had a primary care physician, though does see Dr. Hutchins for nephrology. He states that about a week ago or so he fell (dates are vague) at work, and went to the [facility] across the street. He was evaluated and referred to wound care at that time. He is also started on an antibiotic which was filled for 10 days supply. He describes it as a "big pill" that he took twice a day. He seems to recognize TMP/SMX as being on the bottle. Patient states that a few months ago skin around the stump started breaking down and turning purple. For the last several weeks it broken down more. He has continued to wear his prosthetic. At times it is too swollen to fit, he usually waits for bed and is able to get it on. Its becoming more more painful to wear his prosthetic. In the ED, his lower extremity/stump is found to be cool. There is shallow ulcerations distally and then along the proximal and lateral aspects. If there is mild to moderate tenderness to palpation. 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 Vascular surgery was contacted at [place] as well as [place], it was not felt to be an imminent vascular emergency. He was also found to be in acute renal failure with creatinine of 5.1 (1.7 in early November) with hyperkalemia and metabolic acidosis. Is being hospitalized for treatment of acute kidney injury, evaluation of leukocytosis (20,000) and treatment of right lower extremity wounds. 01/02 Was agitated after arrival in the unit overnight. Received lorazepam. Drowsy late this morning, after further lorazepam prior to CT of the femur. No evidence of abscess or osteomyelitis on CT. White count has started to come down. Stump is not is cool and dusky today. Renal function slowly improving. Remains afebrile. Patient is too drowsy to provide review of systems. 01/03 Intermittent agitation overnight. Received Haldol. Sleeping this morning, arouses then drifts back off. Creatinine improving. Has been on bicarb drip now with alkalosis. Fluids being managed by nephrology. Blood culture positive for gram-positive cocci in 1 of 4 bottles. No further identification as of yet. On vancomycin and ceftriaxone. Portal certainly could have been skin. 01/04 Right thumb stump pain better controlled with PRN IV morphine. Otherwise no complaints. Seem to sleep okay. No Haldol given last night. Persistently elevated white blood cell count no bandemia. Creatinine stable. Upper natremia resolved. CK elevated and increased from yesterday a little bit. Some color looks appropriate no violaceous or grayish hue. Review of Systems: denies headache/fever/chills/nausea/vomiting/chest or abdominal pain/cough/dyspnea/diarrhea. Otherwise see above. - Constitutional Vitals: Vital Signs Temp Pulse Resp BP Pulse Ox 98.8 F 75 18 161/53 98 01/04/19 04:03 01/02/19 08:00 01/04/19 06:01 01/04/19 07:03 01/04/19 07:03 Period Temp Pulse Resp BP Sys/Arthur Pulse Ox Last 24 Hr 98.4 F-98.8 F 12-18 116-161/34-64 94-99 Intake and Output 01/03/19 01/04/19 01/04/19 21:59 05:59 13:59 Intake Total 640 2400 Output Total 600 600 Balance 40 1800 Weight 52.299 kg Intake & Output: Intake & Output 01/03/19 01/04/19 01/04/19 21:59 05:59 13:59 Intake Total 640 2400 Output Total 600 600 Balance 40 1800 Weight 52.299 kg Intake: Nourishment/Supplement quantity 120 (ml) IV 2000 Dextrose 5% in Water 2,000 ml @ 2000 150 mls/hr IV .[id number] [facility] Rx# :[id number] Oral 520 400 Output: Urine Catheter Amount 600 600 Other: Meal Nourishment/Supplement Percent of Meal Consumed 50% Nourishment/Supplement name Nepro 200 ml Urine Appearance Clear Uretheral (Logan) Clear Urine Color Bright Yellow Uretheral (Logan) Light Charis Urine Odor Normal Exam: General: Alert, Awake, No acute Distress Eyes/N/T: EOMI Head/Neck: neck supple, CV: RRR, No murmurs, Pulm: Clear b/l, no wheezing/rhonchi/rales Abd: soft, nontender, +BS x4 Ext: no clubbing/cyanosis/edema, Right BKA Rigth BKA with disal ulcerations, not violaceous or daley, no edema and not cellulitic in appearance Neuro: Alert, no focal deficits, moves all extremities, Skin: warm/dry Medical - PN: Obj Da - Labs CBC & Chem 7: 01/04/19 04:20 01/04/19 04:20 Labs: Abnormal Lab Results 01/04/19 01/04/19 01/04/19 04:20 04:20 04:20 WBC RBC Hgb Hct Gran % Lymph % (Auto) Gran # Lymph # (Auto) [place] # (Auto) Seg Neutrophils % Lymphocytes % ESR Sodium Potassium Chloride Carbon Dioxide 31 H Anion Gap BUN 53 H Creatinine 1.8 H Glucose 111 H Calcium 8.1 L Phosphorus 2.2 L Magnesium 1.5 L AST 123 H ALT 42 H Alkaline Phosphatase Lactate Dehydrogenase 311 H Total Creatine Kinase 5711 H C-Reactive Protein NT-Pro-B Natriuret Pep 3371.0 H Total Protein 5.4 L Albumin 2.6 L Albumin/Globulin Ratio 0.9 L Urine Occult Blood Hyaline Casts 01/04/19 01/03/19 01/03/19 04:20 16:08 03:58 WBC 18.0 H RBC 2.54 L Hgb 8.0 L Hct 24.4 L Gran % 82.5 H Lymph % (Auto) 9.6 L Gran # 14.9 H Lymph # (Auto) [place] # (Auto) 1.1 H Seg Neutrophils % Lymphocytes % ESR Sodium 156 H Potassium Chloride 113 H Carbon Dioxide 31 H Anion Gap BUN 67 H Creatinine 1.9 H Glucose 158 H Calcium 8.4 L Phosphorus Magnesium AST ALT Alkaline Phosphatase Lactate Dehydrogenase Total Creatine Kinase 5381 H C-Reactive Protein NT-Pro-B Natriuret Pep Total Protein Albumin 2.5 L Albumin/Globulin Ratio Urine Occult Blood Hyaline Casts 01/03/19 01/03/19 01/03/19 03:58 03:57 03:57 WBC 16.8 H RBC 2.66 L Hgb 8.4 L Hct 24.9 L Gran % 89.0 H Lymph % (Auto) 4.6 L Gran # 14.9 H Lymph # (Auto) 0.8 L [place] # (Auto) 1.0 H Seg Neutrophils % 86 H Lymphocytes % 5 L ESR Sodium 159 H Potassium Chloride 117 H Carbon Dioxide 32 H Anion Gap BUN 93 H Creatinine 2.6 H Glucose 223 H Calcium Phosphorus Magnesium AST ALT Alkaline Phosphatase Lactate Dehydrogenase Total Creatine Kinase C-Reactive Protein NT-Pro-B Natriuret Pep Total Protein Albumin 2.7 L Albumin/Globulin Ratio Urine Occult Blood Hyaline Casts 01/02/19 01/02/19 01/02/19 03:48 03:48 03:48 WBC 18.1 H RBC 2.47 L Hgb 7.7 L Hct 23.4 L Gran % 89.9 H Lymph % (Auto) 4.9 L Gran # 16.3 H Lymph # (Auto) 0.9 L [place] # (Auto) Seg Neutrophils % Lymphocytes % ESR 115 H Sodium Potassium 6.0 H* Chloride 118 H Carbon Dioxide 10 L* Anion Gap 17.0 H BUN 157 H* Creatinine 4.2 H Glucose Calcium Phosphorus 5.0 H Magnesium AST ALT Alkaline Phosphatase Lactate Dehydrogenase Total Creatine Kinase C-Reactive Protein 17.2 H NT-Pro-B Natriuret Pep Total Protein Albumin 2.5 L Albumin/Globulin Ratio Urine Occult Blood Hyaline Casts 01/01/19 01/01/19 01/01/19 16:36 14:11 14:11 WBC 23.0 H RBC 2.75 L Hgb 8.6 L Hct 25.8 L Gran % 92.5 H Lymph % (Auto) 2.7 L Gran # 21.3 H Lymph # (Auto) 0.6 L [place] # (Auto) 1.1 H Seg Neutrophils % Lymphocytes % ESR Sodium Potassium 5.8 H Chloride 109 H Carbon Dioxide 10 L* Anion Gap 19.0 H BUN 181 H* Creatinine 5.1 H* Glucose 115 H Calcium Phosphorus Magnesium AST 47 H ALT Alkaline Phosphatase 183 H Lactate Dehydrogenase Total Creatine Kinase C-Reactive Protein NT-Pro-B Natriuret Pep Total Protein Albumin Albumin/Globulin Ratio Urine Occult Blood 0.2 A Hyaline Casts 8 H Meds: Medications Acetaminophen (Tylenol) 650 mg PO Q6HP PRN; Protocol PRN Reason: Per Pain Protocol/Fever > 101 Hydrocodone Bitart/Acetaminophen ([place] 5/325mg) 1 tab PO Q4HP PRN; Protocol PRN Reason: Per Pain Protocol Last Admin: 01/04/19 05:33 Dose: 1 tab Documented by: Ceftriaxone Sodium (Rocephin) 1 gm IV DAILY [facility] Last Admin: 01/03/19 07:20 Dose: 1 gm Documented by: Famotidine (Pepcid) 20 mg IV Q12 [facility] Last Admin: 01/03/19 20:55 Dose: 20 mg Documented by: Haloperidol Lactate (Haldol) 2 mg IV Q4HP PRN PRN Reason: ANXIETY/SEDATION Last Admin: 01/03/19 13:25 Dose: 2 mg Documented by: Heparin Sodium (Porcine) (Heparin) 5,000 unit SQ Q12 [facility] Last Admin: 01/03/19 20:55 Dose: 5,000 unit Documented by: Hydralazine HCl (Apresoline) 10 mg IV Q6HP PRN PRN Reason: Hypertension Vancomycin HCl 750 mg/ Sodium (Chloride) 250 mls @ 250 mls/hr IV DAILY [facility] Last Infusion: 01/03/19 10:45 Dose: Infused Documented by: Dextrose (Dextrose 5% In Water) 1,000 mls @ 100 mls/hr IV .Q10H [facility] Stop: 01/04/19 14:44 Last Admin: 01/03/19 22:00 Dose: 100 mls/hr Documented by: Levothyroxine Sodium (Synthroid) 50 mcg PO ACB [facility] Last Admin: 01/03/19 07:20 Dose: 50 mcg Documented by: Morphine Sulfate (Morphine) 1 - 4 mg IV Q3HP PRN; Protocol PRN Reason: Per Pain Protocol Ondansetron HCl (Zofran) 4 mg IV Q4HP PRN; Protocol PRN Reason: Nausea And Vomiting Ondansetron HCl (Zofran Odt) 4 mg SL Q4HP PRN; Protocol PRN Reason: Nausea And Vomiting Sodium Chloride (Saline Flush) 10 ml IV Q8 [facility] Last Admin: 01/04/19 05:23 Dose: 10 ml Documented by: Vancomycin HCl (Vancomycin Per Pharmacy) 1 order IV UD [facility]; Protocol Medical - PN: A/P - Time Spent With Patient Total time spent is greater than 50% in coordination of care (as documented) at patient's floor/unit and/or counseling patient: - Narrative A/P Narrative: A: GENNY on CKD IIIb: Etiology may be ATN from sepsis. He may have been treated with trimethoprim for the past week, which could have also caused an elevation in serum creatinine. ATN from other causes also possible. No evidence of volume overload nor such electrolyte abnormalities that require emergent dialysis. -improving *Hyperkalemia/Hypernatremia: resolved *Met acidosis: Resolved *Rhabdomyolysis: immobilization component *Leukocytosis, rule out sepsis: WBC 23k @presentation, down to 16k yesterday back up to 18k today. No bandemia -Admission blood cultures 1/4 bottles ([facility]) -At presentation he did not have fever/tachycardia/tachypnea. No source of infection is not immediately recognizable. Chest x-ray is clear. No physical findings of right lower extremity infection, CT without evidence of abscess, fasciitis or osteomyelitis. Color of the extremity has improved. Does have maceration and erythema in the intertriginous areas, possible source. -Suspected skin source, though only 1/4+, will need to evaluate for possible contaminant. *Right BKA wounds: Stump is less cool to touch, better coloration after fluids and correction of acidosis. Common femoral arteries patent, he has an expected occlusion of the SFA secondary to the BKA. He may need ultimate revision. -Discussed with Dr. 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 Plan: Prophylactic doses of heparin currently. *Alcohol use. Patient and admit that he has few beers at night, though he has been falling asleep in the middle of a can of beer recently. *Tobacco abuse. P: -Nephrology following -IVF's per nephrology monitor electrolytes -monitor CK Logan catheter secondary to increased PVR and incontinence, to better follow intake and output Avoid nephrotoxins -Vanc/Rocephin, pending cultures -wound care/Dr. Brooks following -Monitor for evidence of etoh withdrawal -Smoking cessation counseling -Prophylaxis: heparin Medical - PN: Qual - VTE Deep Vein Thrombosis/Pulmonary Embolism Present on Admission: No
[2019-01-04] MEDS: LEVOTHYROXINE 50 MCG TABLET PO SCH (07:47)
[2019-01-04] MEDS: cefTRIAXone 1 GM VIAL IV SCH (07:47)
[2019-01-04] MEDS: DEXTROSE 5% IN WATER 1,000 ML IV SCH (07:53)
[2019-01-04] MEDS: VANCOMYCIN 750 MG in 0.9 % SODIUM CHLORIDE 250 ML IV SCH (09:00)
[2019-01-04 09:10] LABS: Band Neutrophils % 7 % (0-10); Eosinophils % (Manual) 4 % (0-7); Hypochromasia FEW (NONE SEEN); Lymphocytes % 12 % (15-49); Monocytes % (Manual) 8 % (1-12); Platelet Estimate NORMAL (NORMAL); Polychromasia 1+ (NONE SEEN); RBC Morphology ABNORM (NORMAL); Segmented Neutrophils % 69 % (38-78)
--- NOTE | 2019-01-04 14:01 | General Surgery Progress Note ---
Subjective Narrative: Note initiated : 01/04/19 at 1:56 pm Service Date, if different from initiated Date: [] Patient: Jayjay Horta 78 y/o M admitted on 01/01/19 for Lower Extremity Problem. Chief Complaint: [] No interval changes in wounds since last seen yesterday. I saw this patient along with Shanel supervisor customer complaint service Nurse and Macy CONSUMER RELATIONS SPECIALIST nurse, Reviewed his progress with Dr. Quintanilla, Hospitalist physician. Objective Temp Pulse Resp BP Pulse Ox 98.8 F 71 16 145/58 98 01/04/19 12:01 01/04/19 08:00 01/04/19 12:01 01/04/19 13:01 01/04/19 13:01 AVSS. No changes DAISHA. Soft abdomen. Rectal examination. NEGATIVE for fecal impaction. Moisture associated dermatitis Skin excoriation Perianal skin. NO bleeding. Right groin and scrotal fungal dermatitis is stable. Right LE: BKA stump is unchanged. Pressure points covered with bordered foam dressings. Right thigh and leg stump color is pale, Skin temp is WNL - Additional Data Intake & Output - Last 24 hours: Intake & Output 01/02/19 01/03/19 01/04/19 01/05/19 06:59 05:59 05:59 05:59 Intake Total 4390 1250 Output Total 1450 Balance 2940 1250 Weight 115 lb 4.8 oz - Labs 01/04/19 04:20 01/04/19 04:20 Diabetes panel 01/03/19 01/04/19 Range/Units 16:08 04:20 Sodium 156 H 145 (133-145) mmol/L Potassium 4.4 4.3 (3.3-5.1) mmol/L Chloride 113 H 105 (96-108) mmol/L Carbon Dioxide 31 H 31 H (22-30) mmol/L BUN 67 H 53 H (8-23) mg/dl Creatinine 1.9 H 1.8 H (0.7-1.2) mg/dl Glucose 158 H 111 H (70-105) mg/dL Calcium 8.4 L 8.1 L (8.6-10.4) mg/dl AST 123 H (0-37) U/l ALT 42 H (0-40) U/l Alkaline Phosphatase 71 (39-117) U/L Total Protein 5.4 L (5.9-8.4) gm/dL Albumin 2.5 L 2.6 L (3.2-5.2) gm/dL Triglycerides 122 (<150) mg/dl Calcium panel 01/03/19 01/04/19 Range/Units 16:08 04:20 Calcium 8.4 L 8.1 L (8.6-10.4) mg/dl Phosphorus 2.8 2.2 L (2.7-4.5) mg/dL Albumin 2.5 L 2.6 L (3.2-5.2) gm/dL Pituitary panel 01/03/19 01/04/19 Range/Units 16:08 04:20 Sodium 156 H 145 (133-145) mmol/L Potassium 4.4 4.3 (3.3-5.1) mmol/L Chloride 113 H 105 (96-108) mmol/L Carbon Dioxide 31 H 31 H (22-30) mmol/L BUN 67 H 53 H (8-23) mg/dl Creatinine 1.9 H 1.8 H (0.7-1.2) mg/dl Glucose 158 H 111 H (70-105) mg/dL Calcium 8.4 L 8.1 L (8.6-10.4) mg/dl Adrenal panel 01/03/19 01/04/19 Range/Units 16:08 04:20 Sodium 156 H 145 (133-145) mmol/L Potassium 4.4 4.3 (3.3-5.1) mmol/L Chloride 113 H 105 (96-108) mmol/L Carbon Dioxide 31 H 31 H (22-30) mmol/L BUN 67 H 53 H (8-23) mg/dl Creatinine 1.9 H 1.8 H (0.7-1.2) mg/dl Glucose 158 H 111 H (70-105) mg/dL Calcium 8.4 L 8.1 L (8.6-10.4) mg/dl Total Bilirubin < 0.2 (0.0-1.0) mg/dL AST 123 H (0-37) U/l ALT 42 H (0-40) U/l Alkaline Phosphatase 71 (39-117) U/L Total Protein 5.4 L (5.9-8.4) gm/dL Albumin 2.5 L 2.6 L (3.2-5.2) gm/dL Assessment and Plan (1) Fungal dermatitis Problem details: For symptomatic treatrment. Clean with chlorhexidene, Dry with wash colth and apply topical antifungal creme. NO diapers. Use absorbent CHUX pads under lower back, pelvis and thighs. Status: Chronic Current Visit: Yes (2) Renal failure (ARF), acute on chronic Problem details: Improving nicely as lisinopril is excreted, volume status restored Baseline SCr is 1.7 mg/dl or so. May have had some low grade rhabodomyolysis from imobilization as CPK remains mildly elevated Trend labs Status: Acute Current Visit: Yes (3) Amputation stump complication Problem details: COLD BKA stump and thigh RIGHT. Severe PAIN, Paresthesia, Poikilothermia and Pulseless. DOPPLER Studies: THROMBOSED SFA, Popliteal but patient commonn femoral and profunda femoris, DVT popliteal vein. Status: Chronic Current Visit: Yes (4) Hyperkalemia, transcellular shifts Problem details: Improved Avoid RAASI Rx Expect K to continue to decline Monitor daily and check Mg Status: Acute Current Visit: Yes (5) Drug-induced hyperkalemia Problem details: For now, avoid RAASI therapy. No proteinuria or diabetic nephropathy so no good reason to use ACEi, ARB, Aldactone Status: Acute Current Visit: Yes (6) Acute hypernatremia Status: Acute Current Visit: Yes (7) Chronic kidney disease, stage III (moderate) Problem details: CKD 3 with baseline GFR 1.7 mg/dl Vascular disease >>>DM given lack of proteinuria Status: Chronic Current Visit: No (8) Anemia due to stage 3 chronic kidney disease Status: Chronic Current Visit: No - Narrative A/P Narrative: Assessment: Moisture associated fungal and perianal dermatitis. Rectal Examination: NO fecal impaction. NO bleeding. BKA stump epidermal denuded areas are stable. Plan: CONTINUE current wound care. Air loss mattress for bed. Will see patient intermittently. PRN basis. - Time Spent With Patient Total time spent is greater than 50% in coordination of care (as documented) at patient's floor/unit and/or counseling patient: 15 - 24 minutes
[2019-01-04] MEDS: HALOPERIDOL LACTATE 5 MG/ML VIAL IV PRN (14:59)
[2019-01-04] MEDS ORDERED: LORazepam 2 MG/ML VIAL IV PRN (15:34)
--- NOTE | 2019-01-04 18:51 | Nephrology Progress Note ---
Subjective Patient information: Note initiated : 01/04/19 at 6:46 pm Service Date, if different from initiated Date: [] Patient: Jayjay Horta 78 y/o M admitted on 01/01/19 for Lower Extremity Problem. Chief Complaint: [] Principal diagnosis: Acute on chronic renal failure Interval history: GFR back to baseline. No more ACEi or other RAASI therapy Goal BP 130/80 Dehydration corrected Low grade elevation in CK is not enough to explain his ACUTE or CKD 3. HTN and vascular disease are the main causes here. Trying to decide if he did have Gm Positive Sepsis or just AVIONICS ELECTRONICS TECHNICIAN contaminent Waiting on final ID and sensitivity of initial 1/2 blood cultures Repeat culture neg so far Wound cultured today per WC team. Hypernatremia and heyperkalemia have been corrected Probably needs placement for wound care and keeping him from developing pressure ulcers as he is a horrible vasculopath. Pertinent ROS: Nothing new Additional PMFSH (Level 3 Only): Nothing to add Objective - Vital Signs Vital signs: Vital Signs Temp Pulse Resp BP Pulse Ox 01/04/19 18:01 160/70 01/04/19 17:01 147/57 98 01/04/19 16:01 130/48 96 01/04/19 15:19 171/57 96 01/04/19 15:01 188/136 98 01/04/19 14:01 153/66 95 01/04/19 13:01 145/58 98 01/04/19 12:01 37.1 C 16 139/59 96 01/04/19 11:01 151/57 94 01/04/19 10:01 139/51 97 01/04/19 09:01 148/60 96 01/04/19 09:00 96 01/04/19 08:02 98 01/04/19 08:01 37.1 C 17 147/59 96 01/04/19 08:00 71 17 97 01/04/19 07:03 161/53 98 01/04/19 07:00 94 01/04/19 06:02 98 01/04/19 06:01 18 123/37 99 01/04/19 05:01 16 136/45 96 01/04/19 04:03 37.1 C 133/52 97 01/04/19 03:01 12 123/41 95 01/04/19 02:01 155/62 97 01/04/19 01:01 135/40 96 01/04/19 00:01 37.1 C 12 149/55 98 01/03/19 23:01 152/57 01/03/19 22:01 159/63 01/03/19 21:01 142/63 01/03/19 20:01 36.9 C 16 155/56 97 01/03/19 19:01 136/53 Intake and Output 01/04/19 01/04/19 01/04/19 05:59 13:59 21:59 Intake Total 2400 1250 Output Total 600 950 Balance 1800 1250 -950 Intake: IV 2000 1250 Dextrose 5% in Water 1,000 ml @ 2000 1000 100 mls/hr IV .Q10H [facility] Rx#: [id number] Vancomycin 750 mg In Sodium 250 Chloride 0.9% 250 ml @ 250 mls/ hr IV DAILY [facility] Rx#:[id number] Oral 400 Output: Urine Catheter Amount 600 950 Other: Urine Appearance Clear Clear Uretheral (Logan) Clear Urine Color Bright Yellow Pale Uretheral (Logan) Light Charis Urine Odor Normal Normal Uretheral (Logan) Strong Intake & Output: Intake & Output 01/04/19 01/04/19 01/04/19 05:59 13:59 21:59 Intake Total 2400 1250 Output Total 600 950 Balance 1800 1250 -950 Intake: IV 2000 1250 Dextrose 5% in Water 1,000 ml @ 2000 1000 100 mls/hr IV .Q10H [facility] Rx#: [id number] Vancomycin 750 mg In Sodium 250 Chloride 0.9% 250 ml @ 250 mls/ hr IV DAILY [facility] Rx#:[id number] Oral 400 Output: Urine Catheter Amount 600 950 Other: Urine Appearance Clear Clear Uretheral (Logan) Clear Urine Color Bright Yellow Pale Uretheral (Logan) Light Charis Urine Odor Normal Normal Uretheral (Logan) Strong - General Appearance General appearance: cachectic, chronically ill EENT: ATNC, PERRL, mucous membranes moist Neck: no JVD, no thyromegaly, no carotid bruit Respiratory: rhonchi Cardiology: no murmurs, no rub, no gallops, no edema, regular rate, regular rhyt hm Gastrointestinal: normoactive bowel sounds, no tenderness, no guarding Integumentary: no rash, ecchymotic, skin tear Neurologic: no focal deficit, no asterixis, disoriented (much better mental status) Musculoskeletal: deformities (BKA with stump wrapped), no cyanosis Psychiatric: mood/affect appropriate (More awake and talkative.) - Lab 01/04/19 04:20 01/04/19 04:20 Most recent lab results Calcium 8.1 mg/dl (8.6-10.4) L 01/04/19 04:20 Phosphorus 2.2 mg/dL (2.7-4.5) L 01/04/19 04:20 Magnesium 1.5 mg/dL (1.6-2.5) L 01/04/19 04:20 Magnesium 1.6 mg/dL (1.6-2.5) 01/04/19 04:20 Laboratory Tests 01/04/19 04:20 Sodium 145 Potassium 4.3 Chloride 105 Carbon Dioxide 31 H Anion Gap 9.0 BUN 53 H Creatinine 1.8 H GFR Calculation 36 Glucose 111 H Uric Acid 7.2 Calcium 8.1 L Phosphorus 2.2 L Magnesium 1.5 L AST 123 H ALT 42 H Alkaline Phosphatase 71 Lactate Dehydrogenase 311 H Total Protein 5.4 L Albumin 2.6 L Globulin 2.8 Albumin/Globulin Ratio 0.9 L Triglycerides 122 Assessment and Plan (1) Hyperkalemia, transcellular shifts Status: Acute Priority: High Comment: Improved Avoid RAASI Rx Expect K to continue to decline Monitor daily and check Mg (2) Drug-induced hyperkalemia Status: Acute Priority: High Comment: For now, avoid RAASI therapy. No proteinuria or diabetic nephropathy so no good reason to use ACEi, ARB, Aldactone (3) Renal failure (ARF), acute on chronic Status: Acute Priority: High Comment: Improving nicely as lisinopril is excreted, volume status restored Baseline SCr is 1.7 mg/dl or so. 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 Caused by overzealous bicarb infusion. He probably sould have receive hypo-osmolar NaHCO3 which would have provided less NaHCO3 and more free H2O. 2. Switch to D5W 150/hr as source of free H2O As water is distributed in 60% 0f TBWeight and Na in only 15%, he will not become fluid overloaded with just D5W. If he does develope edema and hypoxemia, IV lasix would be in order. Status: Acute
[2019-01-04] MEDS ORDERED: OLANZapine 5 MG TABLET PO PRN (21:00)
[2019-01-05] MEDS: HYDROcodone/APAP 5/325MG TABLET PO PRN ×3 (02:55→17:12)
[2019-01-05] MEDS: 0.9 % SODIUM CHLORIDE 10 ML SYRINGE IV SCH ×4 (05:12→21:37)
[2019-01-05 05:23] LABS: Hematocrit 24.2 % (41.0-55.0); Hemoglobin 7.9 g/dL (13.5-16.5); Mean Cell Volume 95.6 fL (80.0-100.0); Mean Corpuscular HGB Conc 32.8 g/dL (31.0-36.0); Mean Platelet Volume 7.9 fL (7.4-10.4); Platelet Count 260 K/mcL (140-440); RBC 2.53 M/mcL (4.50-5.90); Red Cell Distribution Width 13.7 % (11.5-14.5); WBC 19.4 K/mcL (4.5-11.0)
[2019-01-05 05:53] LABS: ALT/SGPT 50 U/l (0-40); AST/SGOT 115 U/l (0-37); Albumin 2.4 gm/dL (3.2-5.2); Albumin/Globulin Ratio 0.7 (1.0-2.3); Alkaline Phosphatase 113 U/L (39-117); Bilirubin,Direct < 0.2 mg/dL (0.0-0.3); Bilirubin,Total 0.2 mg/dL (0.0-1.0); Blood Urea Nitrogen 34 mg/dl (8-23); Calcium 8.7 mg/dl (8.6-10.4); Carbon Dioxide 28 mmol/L (22-30); Chloride 106 mmol/L (96-108); Globulin 3.4 gm/dL (2.2-3.7); Glomerular Filtration Rate 38; Glucose 102 mg/dL (70-105); Lactate Dehydrogenase 308 U/L (94-250); Phosphorous 2.4 mg/dL (2.7-4.5); Triglycerides 94 mg/dl (<150); Uric Acid 6.3 mg/dL (2.5-8.0)
[2019-01-05 06:19] LABS: Creatine Kinase 4032 IU/L (24-195)
--- NOTE | 2019-01-05 07:34 | Internal Med Progress Note ---
Medical - PN: Subj Patient information: Note initiated : 01/05/19 at 7:27 am Service Date, if different from initiated Date: [] Patient: Jayjay Horta a 78 y/o M admitted on 01/01/19 for Lower Extremity Problem. Chief Complaint: [] Interval history: 01/01 Mr. 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 He was referred to the ED secondary to a cool and painful right stump. History is obtained in reviewing available records, as well as speaking to the patient, though both he and his are very vague on details. According to nephrology clinic notes, in 05/2016 patient underwent injury to his leg. The patient states he had objects fall onto the leg, he describes what sounds almost like a degloving type injury. He had several attempts at wound care and surgeries, eventually undergoing a BKA. He was discharged in January 2017 to rehabilitation. Since that time the patient is eventually moved home. He has had a prosthesis fitted which he does use. 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 He has not had a primary care physician, though does see Dr. Hutchins for nephrology. He states that about a week ago or so he fell (dates are vague) at work, and went to the [facility] across the street. He was evaluated and referred to wound care at that time. He is also started on an antibiotic which was filled for 10 days supply. He describes it as a "big pill" that he took twice a day. He seems to recognize TMP/SMX as being on the bottle. Patient states that a few months ago skin around the stump started breaking down and turning purple. For the last several weeks it broken down more. He has continued to wear his prosthetic. At times it is too swollen to fit, he usually waits for bed and is able to get it on. Its becoming more more painful to wear his prosthetic. In the ED, his lower extremity/stump is found to be cool. There is shallow ulcerations distally and then along the proximal and lateral aspects. If there is mild to moderate tenderness to palpation. 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 Vascular surgery was contacted at [place] as well as [place], it was not felt to be an imminent vascular emergency. He was also found to be in acute renal failure with creatinine of 5.1 (1.7 in early November) with hyperkalemia and metabolic acidosis. Is being hospitalized for treatment of acute kidney injury, evaluation of leukocytosis (20,000) and treatment of right lower extremity wounds. 01/02 Was agitated after arrival in the unit overnight. Received lorazepam. Drowsy late this morning, after further lorazepam prior to CT of the femur. No evidence of abscess or osteomyelitis on CT. White count has started to come down. Stump is not is cool and dusky today. Renal function slowly improving. Remains afebrile. Patient is too drowsy to provide review of systems. 01/03 Intermittent agitation overnight. Received Haldol. Sleeping this morning, arouses then drifts back off. Creatinine improving. Has been on bicarb drip now with alkalosis. Fluids being managed by nephrology. Blood culture positive for gram-positive cocci in 1 of 4 bottles. No further identification as of yet. On vancomycin and ceftriaxone. Portal certainly could have been skin. 01/04 Right thumb stump pain better controlled with PRN IV morphine. Otherwise no complaints. Seem to sleep okay. No Haldol given last night. Persistently elevated white blood cell count no bandemia. Creatinine stable. Upper natremia resolved. CK elevated and increased from yesterday a little bit. Some color looks appropriate no violaceous or grayish hue. 01/05 To have a T-max of 100.4 last night but otherwise afebrile. Denies any subjective fevers no pains or complaints. No overnight events. Case discussed with Ortho and no immediate indication for stump revision. Having persistent leukocytosis without an obvious source identified at this time. Repeat blood cultures negative so far still awaiting final vacation on the 01/01 cultures. Review of Systems: denies headache/fever/chills/nausea/vomiting/chest or abdominal pain/cough/dyspnea/diarrhea. Otherwise see above. - Constitutional Vitals: Vital Signs Temp Pulse Resp BP Pulse Ox 100.4 F H 107 H 16 155/61 97 01/05/19 04:01 01/04/19 23:59 01/05/19 06:01 01/05/19 06:01 01/05/19 04:01 Period Temp Pulse Resp BP Sys/Arthur Pulse Ox Last 24 Hr 98.7 F-100.4 F 71-107 16-18 130-188/48-136 94-100 Intake and Output 01/04/19 01/05/19 01/05/19 21:59 05:59 13:59 Intake Total 600 Output Total 1200 750 Balance -1200 -150 Weight 54.522 kg Intake & Output: Intake & Output 01/04/19 01/05/19 01/05/19 21:59 05:59 13:59 Intake Total 600 Output Total 1200 750 Balance -1200 -150 Weight 54.522 kg Intake: Oral 600 Output: Urine Catheter Amount 1200 750 Other: Meal Nourishment/Supplement Feeding Ability Independent Nourishment/Supplement name Nepro 200 ml Urine Appearance Clear Clear Uretheral (Logan) Clear Urine Color Pale Pale Uretheral (Logan) Pale Urine Odor Normal Exam: General: Alert, Awake, No acute Distress Eyes/N/T: EOMI Head/Neck: neck supple, CV: RRR, No murmurs, Pulm: Clear b/l, no wheezing/rhonchi/rales Abd: soft, nontender, +BS x4 Ext: no clubbing/cyanosis/edema, Right BKA Rigth BKA with disal ulcerations, not violaceous or daley, no edema and not cellulitic in appearance Neuro: Alert, no focal deficits, moves all extremities, Skin: warm/dry Medical - PN: Obj Da - Labs CBC & Chem 7: 01/05/19 04:20 01/05/19 04:20 Labs: Abnormal Lab Results 01/05/19 01/05/19 01/05/19 04:20 04:20 04:20 WBC 19.4 H RBC 2.53 L Hgb 7.9 L Hct 24.2 L Gran % Lymph % (Auto) Gran # Lymph # (Auto) Norton # (Auto) Seg Neutrophils % Lymphocytes % RBC Morphology Polychromasia Hypochromasia Sodium Chloride Carbon Dioxide BUN 34 H Creatinine 1.7 H Glucose Calcium Phosphorus 2.4 L Magnesium 1.5 L AST 115 H ALT 50 H Lactate Dehydrogenase 308 H Total Creatine Kinase 4032 H NT-Pro-B Natriuret Pep Total Protein 5.8 L Albumin 2.4 L Albumin/Globulin Ratio 0.7 L 01/04/19 01/04/19 01/04/19 04:28 04:20 04:20 WBC RBC Hgb Hct Gran % Lymph % (Auto) Gran # Lymph # (Auto) Norton # (Auto) Seg Neutrophils % Lymphocytes % 12 L RBC Morphology Abnorm A Polychromasia 1+ A Hypochromasia Few A Sodium Chloride Carbon Dioxide 31 H BUN 53 H Creatinine 1.8 H Glucose 111 H Calcium 8.1 L Phosphorus 2.2 L Magnesium 1.5 L AST 123 H ALT 42 H Lactate Dehydrogenase 311 H Total Creatine Kinase 5711 H NT-Pro-B Natriuret Pep Total Protein 5.4 L Albumin 2.6 L Albumin/Globulin Ratio 0.9 L 01/04/19 01/04/19 01/03/19 04:20 04:20 16:08 WBC 18.0 H RBC 2.54 L Hgb 8.0 L Hct 24.4 L Gran % 82.5 H Lymph % (Auto) 9.6 L Gran # 14.9 H Lymph # (Auto) Norton # (Auto) 1.1 H Seg Neutrophils % Lymphocytes % RBC Morphology Polychromasia Hypochromasia Sodium 156 H Chloride 113 H Carbon Dioxide 31 H BUN 67 H Creatinine 1.9 H Glucose 158 H Calcium 8.4 L Phosphorus Magnesium AST ALT Lactate Dehydrogenase Total Creatine Kinase NT-Pro-B Natriuret Pep 3371.0 H Total Protein Albumin 2.5 L Albumin/Globulin Ratio 01/03/19 01/03/19 01/03/19 03:58 03:58 03:57 WBC RBC Hgb Hct Gran % Lymph % (Auto) Gran # Lymph # (Auto) Norton # (Auto) Seg Neutrophils % 86 H Lymphocytes % 5 L RBC Morphology Polychromasia Hypochromasia Sodium 159 H Chloride 117 H Carbon Dioxide 32 H BUN 93 H Creatinine 2.6 H Glucose 223 H Calcium Phosphorus Magnesium AST ALT Lactate Dehydrogenase Total Creatine Kinase 5381 H NT-Pro-B Natriuret Pep Total Protein Albumin 2.7 L Albumin/Globulin Ratio 01/03/19 03:57 WBC 16.8 H RBC 2.66 L Hgb 8.4 L Hct 24.9 L Gran % 89.0 H Lymph % (Auto) 4.6 L Gran # 14.9 H Lymph # (Auto) 0.8 L Norton # (Auto) 1.0 H Seg Neutrophils % Lymphocytes % RBC Morphology Polychromasia Hypochromasia Sodium Chloride Carbon Dioxide BUN Creatinine Glucose Calcium Phosphorus Magnesium AST ALT Lactate Dehydrogenase Total Creatine Kinase NT-Pro-B Natriuret Pep Total Protein Albumin Albumin/Globulin Ratio Meds: Medications Acetaminophen (Tylenol) 650 mg PO Q6HP PRN; Protocol PRN Reason: Per Pain Protocol/Fever > 101 Last Admin: 01/04/19 13:58 Dose: 650 mg Documented by: Hydrocodone Bitart/Acetaminophen (Annabella 5/325mg) 1 tab PO Q4HP PRN; Protocol PRN Reason: Per Pain Protocol Last Admin: 01/05/19 02:55 Dose: 1 tab Documented by: Ceftriaxone Sodium (Rocephin) 1 gm IV DAILY [facility] Last Admin: 01/04/19 07:47 Dose: 1 gm Documented by: Famotidine (Pepcid) 40 mg PO HS [facility] Heparin Sodium (Porcine) (Heparin) 5,000 unit SQ Q12 [facility] Last Admin: 01/04/19 20:26 Dose: 5,000 unit Documented by: Hydralazine HCl (Apresoline) 10 mg IV Q6HP PRN PRN Reason: Hypertension Vancomycin HCl 750 mg/ Sodium (Chloride) 250 mls @ 250 mls/hr IV DAILY [facility] Last Infusion: 01/04/19 12:58 Dose: Infused Documented by: Levothyroxine Sodium (Synthroid) 50 mcg PO ACB [facility] Last Admin: 01/04/19 07:47 Dose: 50 mcg Documented by: Lorazepam (Ativan) 0.5 mg IV Q4-6HP PRN PRN Reason: ANXIETY/SEDATION Morphine Sulfate (Morphine) 1 - 4 mg IV Q3HP PRN; Protocol PRN Reason: Per Pain Protocol Last Admin: 01/05/19 00:59 Dose: 2 mg Documented by: Olanzapine (Zyprexa) 5 mg PO HSP PRN PRN Reason: Anxiety/agitation Ondansetron HCl (Zofran) 4 mg IV Q4HP PRN; Protocol PRN Reason: Nausea And Vomiting Ondansetron HCl (Zofran Odt) 4 mg SL Q4HP PRN; Protocol PRN Reason: Nausea And Vomiting Sodium Chloride (Saline Flush) 10 ml IV Q8 [facility] Last Admin: 01/05/19 05:12 Dose: 10 ml Documented by: Vancomycin HCl (Vancomycin Per Pharmacy) 1 [place] [facility] [place] Protocol Medical - PN: A/P - Time Spent With Patient Total time spent is greater than 50% in coordination of care (as documented) at patient's floor/unit and/or counseling patient: - Narrative A/P Narrative: A: GENNY on CKD IIIb: Etiology may be ATN from sepsis. He may have been treated with trimethoprim for the past week, which could have also caused an elevation in serum creatinine. ATN from other causes also possible. No evidence of volume overload nor such electrolyte abnormalities that require emergent dialysis. -improving *Hyperkalemia/Hypernatremia: resolved *Met acidosis: Resolved *Rhabdomyolysis: immobilization component *Leukocytosis, rule out sepsis: Persistently elevated but No bandemia. Tmax 100.4 last night otherwise no fevers -Admission blood cultures 1/4 bottles ([facility]) -No source of infection is not immediately recognizable. CXR/UA unremarkable. No physical findings of right lower extremity infection, CT without evidence of abscess, fasciitis or osteomyelitis. Color of the extremity has improved. Does have maceration and erythema in the intertriginous areas, possible source. GB u/s unremarkable -Suspected skin source, though only 1/4+, will need to evaluate for possible contaminant. -overall benign exam *Right BKA wounds: Stump is less cool to touch, better coloration after fluids and correction of acidosis. Common femoral arteries patent, he has an expected occlusion of the SFA secondary to the BKA. He may need ultimate revision. -Discussed with Dr. 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 Plan: Prophylactic doses of heparin currently. *Alcohol use. Patient and admit that he has few beers at night, though he has been falling asleep in the middle of a can of beer recently. *Tobacco abuse. P: -Nephrology following -IVF's per nephrology monitor electrolytes -Abd imaging, start with GB u/s Logan catheter secondary to increased PVR and incontinence, to better follow intake and output Avoid nephrotoxins -Vanc(dick d/c soon), cefepime, Flagyl given anaerobic growth (?contaminant), pending cultures -CT a/p -wound care/Dr. Brooks following -Monitor for evidence of etoh withdrawal -Smoking cessation counseling -Prophylaxis: heparin Medical - PN: Qual - VTE Deep Vein Thrombosis/Pulmonary Embolism Present on Admission: No
[2019-01-05] MEDS: HEPARIN 5,000 UNIT/ML VIAL SQ SCH ×2 (08:07→20:59)
[2019-01-05 08:26] LABS: Eosinophils % (Manual) 2 % (0-7); Lymphocytes % 15 % (15-49); Monocytes % (Manual) 3 % (1-12); Platelet Estimate NORMAL (NORMAL); RBC Morphology NORMAL (NORMAL); Segmented Neutrophils % 80 % (38-78)
[2019-01-05] MEDS: cefTRIAXone 1 GM VIAL IV SCH (08:50)
--- NOTE | 2019-01-05 09:21 | Ultrasound Report ---
CLINICAL INFORMATION: ?source of infection COMPARISON: None. FINDINGS: Gallbladder wall normal thickness without focal tenderness to support cholecystitis. Few tiny equivocal stones the gallbladder. Common bile duct is normal: 5 mm. The liver is unremarkable. Pancreas obscured by bowel gas. No free fluid IMPRESSION: No evidence of cholecystitis or other source of infection. Few tiny equivocal stones seen in the gallbladder Interpreted and Authenticated by: Prasanna Knutson 01/05/19
[2019-01-05] MEDS: VANCOMYCIN 750 MG in 0.9 % SODIUM CHLORIDE 250 ML IV SCH (09:56)
[2019-01-05] MEDS ORDERED: metroNIDAZOLE 500 MG/100 ML BAG IV ONE (11:00)
[2019-01-05] MEDS: LEVOTHYROXINE 50 MCG TABLET PO SCH (11:32)
[2019-01-05] MEDS: CEFEPIME 2 GM VIAL IV SCH ×2 (11:33→21:39)
--- NOTE | 2019-01-05 13:55 | Cat Scan Report ---
CLINICAL INFORMATION: Elevated white blood cell count. Question infection source COMPARISON: None. TECHNIQUE: 0.625 mm helical slices were obtained from the mid heart through the subtrochanteric regions. Following reconstruction, 2.5 mm sagittal, coronal and axial reformatted images were processed and reviewed at bone and soft tissue windows.The exam was performed using radiation dose optimization techniques including, but not limited to, automated exposure control, adjustment of the mA and/or kV according to patient size and use of iterative reconstruction technique. FINDINGS: Lung bases show no abnormality - no effusion. The visualized heart is grossly normal. Abdominal images show the noncontrasted gallbladder and bile ducts, liver, both kidneys, adrenal glands, spleen, and pancreas to be normal in size, configuration and attenuation without focal lesion. There is heavy calcific atherosclerotic plaque in aorta and iliac arteries. The abdominal aorta is normal diameter - 19 mm. Stomach, small and large bowel are symmetrically dilated compatible with mild ileus. There is no free air, free fluid or adenopathy. Pelvic images show Logan catheter properly positioned within the urinary bladder urinary bladder is normal. Prostate seminal vesicles are unremarkable. Right testicle is undescended and is located in the distal right inguinal canal. No other soft tissue abnormalities. Bone windows show no focal osseous lesions. Moderate degenerative changes seen in the lumbar spine IMPRESSION: 1. No evidence of abscess or other source of infection in the abdomen and pelvis. 2. Mild ileus 3. Undescended right testicle located in the distal right inguinal canal. Interpreted and Authenticated by: Prasanna Knutson 01/05/19
--- NOTE | 2019-01-05 17:14 | Nephrology Progress Note ---
Subjective Patient information: Note initiated : 01/05/19 at 5:12 pm Service Date, if different from initiated Date: [] Patient: Jayjay Horta 78 y/o M admitted on 01/01/19 for Lower Extremity Problem. Chief Complaint: [] Principal diagnosis: Acute on chronic renal failure Interval history: Patient continues slow improvement GFR back to baseline Electrolytes improved Probably too weak to go home Will probably need placement once we decide if he needs antibiotics or not Pertinent ROS: Nothing new Additional PMFSH (Level 3 Only): Nothing new Objective - Vital Signs Vital signs: Vital Signs Temp Pulse Pulse Resp BP Pulse Ox 01/05/19 17:01 142/57 98 01/05/19 16:08 37.7 C H 20 127/54 96 01/05/19 12:22 37.4 C H 130/60 95 01/05/19 12:01 143/67 01/05/19 11:01 138/72 01/05/19 10:01 160/63 01/05/19 09:58 162/64 01/05/19 08:01 148/70 93 01/05/19 08:00 96 H 01/05/19 07:21 37.2 C 18 167/69 97 01/05/19 06:01 16 155/61 01/05/19 05:01 18 151/66 01/05/19 04:01 38.0 C H 16 165/63 97 01/05/19 04:00 96 01/05/19 03:02 16 148/68 98 01/05/19 02:01 177/59 98 01/05/19 01:01 142/73 01/05/19 00:01 174/61 98 01/04/19 23:59 37.7 C H 107 H 18 174/61 98 01/04/19 23:01 37.7 C H 18 154/62 98 01/04/19 22:01 142/64 97 01/04/19 21:01 160/60 100 01/04/19 20:01 37.5 C H 18 141/51 97 01/04/19 19:01 151/54 01/04/19 18:01 160/70 Intake and Output 01/05/19 01/05/19 01/05/19 05:59 13:59 21:59 Intake Total 600 350 Output Total 750 700 Balance -150 350 -700 Intake: IV 350 Vancomycin 750 mg In Sodium 250 Chloride 0.9% 250 ml @ 250 mls/ hr IV DAILY [facility] Rx#:[id number] Oral 600 Output: Urine Catheter Amount 750 700 Other: Meal Nourishment/Supplement Feeding Ability Independent Nourishment/Supplement name Nepro 200 ml Urine Appearance Clear Uretheral (Logan) Clear Urine Color Pale Uretheral (Logan) Pale Weight 54.522 kg Patient Weight 01/06/19 05:59 Weight 54.522 kg Intake & Output: Intake & Output 01/05/19 01/05/19 01/05/19 05:59 13:59 21:59 Intake Total 600 350 Output Total 750 700 Balance -150 350 -700 Weight 54.522 kg Intake: IV 350 Vancomycin 750 mg In Sodium 250 Chloride 0.9% 250 ml @ 250 mls/ hr IV DAILY [facility] Rx#:[id number] Oral 600 Output: Urine Catheter Amount 750 700 Other: Meal Nourishment/Supplement Feeding Ability Independent Nourishment/Supplement name Nepro 200 ml Urine Appearance Clear Uretheral (Logan) Clear Urine Color Pale Uretheral (Logan) Pale - General Appearance General appearance: cachectic, chronically ill, frail EENT: ATNC, PERRL, mucous membranes dry Neck: JVD (Visible lying flat which is a marked improvement from admission), no carotid bruit, supple Respiratory: kyphosis, rhonchi Cardiology: no murmurs, no rub, no gallops, no edema Gastrointestinal: normoactive bowel sounds, no tenderness, tenderness Integumentary: no rash, warm and dry, ecchymotic Neurologic: no focal deficit, no asterixis, confused Musculoskeletal: deformities (Right BKA and stump bandaged), cyanosis (Distal upper extremity cyanosis has improved with volume) Psychiatric: mood/affect appropriate - Lab 01/05/19 04:20 01/05/19 04:20 Most recent lab results Calcium 8.7 mg/dl (8.6-10.4) 01/05/19 04:20 Phosphorus 2.4 mg/dL (2.7-4.5) L 01/05/19 04:20 Magnesium 1.5 mg/dL (1.6-2.5) L 01/05/19 04:20 Laboratory Tests 01/01/19 01/02/19 01/03/19 14:11 03:48 03:58 Sodium Creatinine 5.1 H* 4.2 H 2.6 H 01/03/19 01/04/19 01/05/19 16:08 04:20 04:20 Sodium 143 Creatinine 1.9 H 1.8 H 1.7 H - Imaging Kidney/bladder ultrasound: report reviewed - Allied health notes Allied health notes reviewed: case management (DISCHARGE PLAN: Talked with Mrs. Horta (Caitie). She states he has not been doing too well at home. She is concerned about his leg and the plan for it. She herself was just in [place] 3 weeks ago but is home now. She believes patient will needs higher level of care upon discharge and requests [facility]. Will make referral.) Assessment and Plan (1) Hyperkalemia, transcellular shifts Status: Resolved Priority: High Comment: Improved Avoid RAASI Rx Expect K to continue to decline Monitor daily and check Mg (2) Drug-induced hyperkalemia Resolved and should be preventable in the future Status: Resolved Priority: High Comment: From now on avoid RAASI therapy. Avoid NSAIDs No proteinuria or diabetic nephropathy so no good reason to use ACEi, ARB, Aldactone (3) Renal failure (ARF), acute on chronic Avoid overdiuresis No good indication for RASSI therapy Has avoided dialysis for the second or third time and is many years Status: Acute Priority: Medium Comment: Improving nicely as lisinopril is excreted, volume status restored Baseline SCr is 1.7 mg/dl or so. May have had some low grade rhabodomyolysis from imobilization as CPK remains mildly elevated Trend labs Qualifiers: Acute renal failure type: with other specified pathological lesion Chronic kidney disease stage: stage 3 (moderate) Qualified Code(s): N17.8 - Other a cute kidney failure; N18.3 - Chronic kidney disease, stage 3 (moderate) (4) Chronic kidney disease, stage III (moderate) Stable and at baseline Avoid RAASI Rx, overdiuresis, nonsteroidals and Sousa 2 inhibitors I would be of the mind that dialysis would be futile in this patient who has severe vasculopathy, continues to smoke, is cachectic and has a poor functional status. In general these patients have a survival measured in months on dialysis, and regularly make it out of the shelter Status: Chronic Priority: Medium Comment: CKD 3 with baseline GFR 1.7 mg/dl Vascular disease >>>DM given lack of proteinuria (5) Metabolic acidosis Finally at baseline we will monitor to see if he needs to restart his sodium bicarb therapy. I would except a bicarb above 20 on his Chem-7 Status: Acute Priority: High (6) Acute hypernatremia 1. Caused by overzealous bicarb infusion. He probably sould have receive hypo-osmolar NaHCO3 which would have provided less NaHCO3 and more free H2O. 2. Switch to D5W 150/hr as source of free H2O As water is distributed in 60% 0f TBWeight and Na in only 15%, he will not become fluid overloaded with just D5W. If he does develope edema and hypoxemia, IV lasix would be in order. 3. Resolved Status: Resolved Priority: Medium - Narrative A/P Narrative: All metabolic parameters have improved If he proves not to be septic, he would be best served by treatment of chronic neuropathic pain This patient will NOT require dialysis this hospitalization, but he is very poor clinically and I would avoid chronic HD at all costs as he survival on dialysis is measurable in months. I would recommend using doxycycline for MRSA coverage if that grows from his blood, Continue to monitor inflammatory biomarkers and white count I suspect this patient will need to live out his days in a care facility given his poor function & nutritional status, in ability to be cared for by his , and multiple comorbidies, none of which are treatable in a meaningful and life improving manner
[2019-01-05] MEDS ORDERED: LORazepam 0.5 MG TABLET PO PRN (17:46)
[2019-01-05] MEDS ORDERED: POLYETHYLENE GLYCOL 3350 17 GM PACKET PO PRN (19:00)
[2019-01-05] MEDS: ACETAMINOPHEN 500 MG TABLET PO PRN (20:00)
[2019-01-05] MEDS ORDERED: NALOXONE HCL 0.4 MG/ML VIAL IV PRN (20:02)
[2019-01-05] MEDS: FAMOTIDINE 20 MG TABLET PO SCH (20:59)
[2019-01-05] MEDS: SENNOSIDES/DOCUSATE SODIUM 1 TAB TABLET PO SCH (20:59)
[2019-01-05] MEDS: DOCUSATE SODIUM 100 MG CAPSULE PO SCH (20:59)
[2019-01-05] MEDS ORDERED: traMADol 50 MG TABLET PO PRN (21:00)
[2019-01-05] MEDS ORDERED: HYDROmorphone 2 MG TABLET PO PRN ×2 (21:00→23:01)
[2019-01-05] MEDS: metroNIDAZOLE 500 MG TABLET PO SCH (21:24)
[2019-01-05] MEDS: GABAPENTIN 100 MG CAPSULE PO SCH (22:33)
[2019-01-05] MEDS: TERAZOSIN 1 MG CAPSULE PO SCH (22:33)
[2019-01-05] MEDS ORDERED: MAGNESIUM SULFATE 2 GM/50 ML BAG IV ONE ×2 (23:04→23:11)
[2019-01-05] MEDS ORDERED: HYDROmorphone 2 MG TABLET ONE (23:10)
[2019-01-05] MEDS: NICOTINE 14 MG PATCH TOPICAL SCH (23:10)
[2019-01-05] MEDS ORDERED: NICOTINE 14 MG PATCH ONE (23:12)
[2019-01-05] MEDS ORDERED: ACETAMINOPHEN 500 MG TABLET PO SCH (23:59)
[2019-01-06] MEDS: metroNIDAZOLE 500 MG TABLET PO SCH ×3 (05:14→22:25)
[2019-01-06] MEDS: GABAPENTIN 100 MG CAPSULE PO SCH ×2 (05:14→14:00)
[2019-01-06] MEDS: 0.9 % SODIUM CHLORIDE 10 ML SYRINGE IV SCH ×4 (05:14→20:51)
[2019-01-06] MEDS: LEVOTHYROXINE 50 MCG TABLET PO SCH (07:02)
[2019-01-06 07:12] LABS: Basophils # (Auto) 0 K/mcL (0.0-0.3); Basophils % (Auto) 0.1 % (0.0-2.0); Eosinophils # (Auto) 0.3 K/mcL (0.0-0.7); Eosinophils % (Auto) 1.9 % (0.0-7.0); Granulocytes % (Auto) 87.8 % (38.0-78.0); Hematocrit 21.5 % (41.0-55.0); Hemoglobin 7.1 g/dL (13.5-16.5); Lymphocytes % (Auto) 5.7 % (15.5-49.0); Mean Platelet Volume 7.9 fL (7.4-10.4); Monocytes # (Auto) 0.8 K/mcL (0.1-0.9); Monocytes % (Auto) 4.5 % (1.0-12.0); Platelet Count 253 K/mcL (140-440); RBC 2.24 M/mcL (4.50-5.90); Red Cell Distribution Width 13.8 % (11.5-14.5); WBC 16.9 K/mcL (4.5-11.0)
[2019-01-06 07:33] LABS: ALT/SGPT 41 U/l (0-40); AST/SGOT 64 U/l (0-37); Albumin 2.2 gm/dL (3.2-5.2); Albumin/Globulin Ratio 0.7 (1.0-2.3); Alkaline Phosphatase 105 U/L (39-117); Bilirubin,Direct < 0.2 mg/dL (0.0-0.3); Bilirubin,Total < 0.2 mg/dL (0.0-1.0); Blood Urea Nitrogen 41 mg/dl (8-23); Calcium 8.3 mg/dl (8.6-10.4); Carbon Dioxide 23 mmol/L (22-30); Chloride 105 mmol/L (96-108); Globulin 3.3 gm/dL (2.2-3.7); Glomerular Filtration Rate 31; Glucose 172 mg/dL (70-105); Lactate Dehydrogenase 252 U/L (94-250); Phosphorous 2.8 mg/dL (2.7-4.5); Triglycerides 92 mg/dl (<150); Uric Acid 5.6 mg/dL (2.5-8.0)
--- NOTE | 2019-01-06 07:40 | Internal Med Progress Note ---
Medical - PN: Subj Patient information: Note initiated : 01/06/19 at 7:36 am Service Date, if different from initiated Date: [] Patient: Jayjay Horta a 78 y/o M admitted on 01/01/19 for Lower Extremity Problem. Chief Complaint: [] Interval history: 01/01 Mr. 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 He was referred to the ED secondary to a cool and painful right stump. History is obtained in reviewing available records, as well as speaking to the patient, though both he and his are very vague on details. According to nephrology clinic notes, in 05/2016 patient underwent injury to his leg. The patient states he had objects fall onto the leg, he describes what sounds almost like a degloving type injury. He had several attempts at wound care and surgeries, eventually undergoing a BKA. He was discharged in January 2017 to rehabilitation. Since that time the patient is eventually moved home. He has had a prosthesis fitted which he does use. 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 He has not had a primary care physician, though does see Dr. Hutchins for nephrology. He states that about a week ago or so he fell (dates are vague) at work, and went to the [facility] across the street. He was evaluated and referred to wound care at that time. He is also started on an antibiotic which was filled for 10 days supply. He describes it as a "big pill" that he took twice a day. He seems to recognize TMP/SMX as being on the bottle. Patient states that a few months ago skin around the stump started breaking down and turning purple. For the last several weeks it broken down more. He has continued to wear his prosthetic. At times it is too swollen to fit, he usually waits for bed and is able to get it on. Its becoming more more painful to wear his prosthetic. In the ED, his lower extremity/stump is found to be cool. There is shallow ulcerations distally and then along the proximal and lateral aspects. If there is mild to moderate tenderness to palpation. 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 Vascular surgery was contacted at [place] as well as [place], it was not felt to be an imminent vascular emergency. He was also found to be in acute renal failure with creatinine of 5.1 (1.7 in early November) with hyperkalemia and metabolic acidosis. Is being hospitalized for treatment of acute kidney injury, evaluation of leukocytosis (20,000) and treatment of right lower extremity wounds. 01/02 Was agitated after arrival in the unit overnight. Received lorazepam. Drowsy late this morning, after further lorazepam prior to CT of the femur. No evidence of abscess or osteomyelitis on CT. White count has started to come down. Stump is not is cool and dusky today. Renal function slowly improving. Remains afebrile. Patient is too drowsy to provide review of systems. 01/03 Intermittent agitation overnight. Received Haldol. Sleeping this morning, arouses then drifts back off. Creatinine improving. Has been on bicarb drip now with alkalosis. Fluids being managed by nephrology. Blood culture positive for gram-positive cocci in 1 of 4 bottles. No further identification as of yet. On vancomycin and ceftriaxone. Portal certainly could have been skin. 01/04 Right thumb stump pain better controlled with PRN IV morphine. Otherwise no complaints. Seem to sleep okay. No Haldol given last night. Persistently elevated white blood cell count no bandemia. Creatinine stable. Upper natremia resolved. CK elevated and increased from yesterday a little bit. Some color looks appropriate no violaceous or grayish hue. 01/05 To have a T-max of 100.4 last night but otherwise afebrile. Denies any subjective fevers no pains or complaints. No overnight events. Case discussed with Ortho today and no immediate indication for stump revision. Having persistent leukocytosis without an obvious source identified at this time. Repeat blood cultures negative so far still awaiting final vacation on the 01/01 cultures. 01/06 Tmax 100.9 o/n. leukocytosis improved today, abx changed yesterday. has usual right stump pain, no other complaints including cough/abd pain. Discussed the case with infectious disease who recommended a tagged WBC scan. May discussed case with [facility] infectious disease specialist. Review of Systems: denies headache/fever/chills/nausea/vomiting/chest or abdominal pain/cough/dyspnea/diarrhea. Otherwise see above. - Constitutional Vitals: Vital Signs Temp Pulse Resp BP Pulse Ox 99.1 F H 96 H 12 135/51 96 01/06/19 03:01 01/05/19 08:00 01/06/19 06:01 01/06/19 06:01 01/06/19 06:01 Period Temp Pulse Resp BP Sys/Arthur Pulse Ox Last 24 Hr 98.6 F-100.9 F 96 12-20 91-162/51-139 93-98 Intake and Output 01/05/19 01/06/19 01/06/19 21:59 05:59 13:59 Intake Total 240 970 Output Total 700 500 Balance -460 470 Weight 52.39 kg Intake & Output: Intake & Output 01/05/19 01/06/19 01/06/19 21:59 05:59 13:59 Intake Total 240 970 Output Total 700 500 Balance -460 470 Weight 52.39 kg Intake: Nourishment/Supplement quantity 120 (ml) IV 50 Oral 120 920 Output: Urine Catheter Amount 700 500 Other: Meal Dinner Nourishment/Supplement Percent of Meal Consumed 50% Feeding Ability Independent Nourishment/Supplement name nepro Majic cup Urine Appearance Uretheral (Logan) Clear Urine Color Uretheral (Logan) Pale Exam: General: Alert, Awake, No acute Distress Eyes/N/T: EOMI Head/Neck: neck supple, CV: RRR, No murmurs, Pulm: Clear b/l, no wheezing/rhonchi/rales Abd: soft, nontender, +BS x4 Ext: no clubbing/cyanosis/edema, Right BKA Rigth BKA with disal ulcerations, good color, no edema and not cellulitic in appearance Neuro: Alert, no focal deficits, moves all extremities, Skin: warm/dry Medical - PN: Obj Da - Labs CBC & Chem 7: 01/06/19 06:32 01/06/19 06:32 Labs: Abnormal Lab Results 01/06/19 01/06/19 01/05/19 06:32 06:32 04:20 WBC 16.9 H RBC 2.24 L Hgb 7.1 L Hct 21.5 L Gran % 87.8 H Lymph % (Auto) 5.7 L Gran # 14.8 H Lymph # (Auto) 1.0 L [place] # (Auto) Seg Neutrophils % Lymphocytes % RBC Morphology Polychromasia Hypochromasia Sodium Chloride Carbon Dioxide BUN 41 H 34 H Creatinine 2.0 H 1.7 H Glucose 172 H Calcium 8.3 L Phosphorus 2.4 L Magnesium 1.5 L AST 64 H 115 H ALT 41 H 50 H Lactate Dehydrogenase 252 H 308 H Total Creatine Kinase NT-Pro-B Natriuret Pep Total Protein 5.5 L 5.8 L Albumin 2.2 L 2.4 L Albumin/Globulin Ratio 0.7 L 0.7 L 01/05/19 01/05/19 01/04/19 04:20 04:20 04:28 WBC 19.4 H RBC 2.53 L Hgb 7.9 L Hct 24.2 L Gran % Lymph % (Auto) Gran # Lymph # (Auto) Ada # (Auto) Seg Neutrophils % 80 H Lymphocytes % 12 L RBC Morphology Abnorm A Polychromasia 1+ A Hypochromasia Few A Sodium Chloride Carbon Dioxide BUN Creatinine Glucose Calcium Phosphorus Magnesium AST ALT Lactate Dehydrogenase Total Creatine Kinase 4032 H NT-Pro-B Natriuret Pep Total Protein Albumin Albumin/Globulin Ratio 01/04/19 01/04/19 01/04/19 04:20 04:20 04:20 WBC RBC Hgb Hct Gran % Lymph % (Auto) Gran # Lymph # (Auto) Ada # (Auto) Seg Neutrophils % Lymphocytes % RBC Morphology Polychromasia Hypochromasia Sodium Chloride Carbon Dioxide 31 H BUN 53 H Creatinine 1.8 H Glucose 111 H Calcium 8.1 L Phosphorus 2.2 L Magnesium 1.5 L AST 123 H ALT 42 H Lactate Dehydrogenase 311 H Total Creatine Kinase 5711 H NT-Pro-B Natriuret Pep 3371.0 H Total Protein 5.4 L Albumin 2.6 L Albumin/Globulin Ratio 0.9 L 01/04/19 01/03/19 01/03/19 04:20 16:08 03:57 WBC 18.0 H RBC 2.54 L Hgb 8.0 L Hct 24.4 L Gran % 82.5 H Lymph % (Auto) 9.6 L Gran # 14.9 H Lymph # (Auto) Ada # (Auto) 1.1 H Seg Neutrophils % 86 H Lymphocytes % 5 L RBC Morphology Polychromasia Hypochromasia Sodium 156 H Chloride 113 H Carbon Dioxide 31 H BUN 67 H Creatinine 1.9 H Glucose 158 H Calcium 8.4 L Phosphorus Magnesium AST ALT Lactate Dehydrogenase Total Creatine Kinase NT-Pro-B Natriuret Pep Total Protein Albumin 2.5 L Albumin/Globulin Ratio Meds: Medications Acetaminophen (Tylenol) 1,000 mg PO Q8HP PRN PRN Reason: PAIN/FEVER > 101 Last Admin: 01/05/19 20:00 Dose: 1,000 mg Documented by: Cefepime HCl (Maxipime) 2 gm IV Q12H [facility]; Protocol Last Admin: 01/05/19 21:39 Dose: 2 gm Documented by: Docusate Sodium (Colace) 100 mg PO BID [facility] Last Admin: 01/05/19 20:59 Dose: 100 mg Documented by: Famotidine (Pepcid) 40 mg PO HS [facility] Last Admin: 01/05/19 20:59 Dose: 40 mg Documented by: Gabapentin (Neurontin) 100 mg PO Q8 [facility] Last Admin: 01/06/19 05:14 Dose: 100 mg Documented by: Heparin Sodium (Porcine) (Heparin) 5,000 unit SQ Q12 [facility] Last Admin: 01/05/19 20:59 Dose: 5,000 unit Documented by: Hydromorphone HCl (Dilaudid) 2 mg PO Q6HP PRN; Protocol PRN Reason: Per Pain Protocol Last Admin: 01/05/19 23:09 Dose: 2 mg Documented by: Vancomycin HCl 750 mg/ Sodium (Chloride) 250 mls @ 250 mls/hr IV DAILY [facility] Last Infusion: 01/05/19 11:43 Dose: Infused Documented by: Levothyroxine Sodium (Synthroid) 50 mcg PO ACB [facility] Last Admin: 01/06/19 07:02 Dose: 50 mcg Documented by: Lorazepam (Ativan) 0.25 mg PO HSP PRN PRN Reason: ANXIETY/SEDATION Last Admin: 01/05/19 22:35 Dose: 0.25 mg Documented by: Metronidazole (Flagyl) 500 mg PO Q8 [facility]; Protocol Last Admin: 01/06/19 05:14 Dose: 500 mg Documented by: Naloxone HCl (Narcan) 0.1 mg IV Q2MIN PRN PRN Reason: Opiate Reversal Nicotine (Nicoderm) 14 mg TOPICAL DAILY@1000 MARGARITO Last Admin: 01/05/19 23:10 Dose: 14 mg Documented by: Olanzapine (Zyprexa) 5 mg PO HSP PRN PRN Reason: Anxiety/agitation Ondansetron HCl (Zofran) 4 mg IV Q4HP PRN; Protocol PRN Reason: Nausea And Vomiting Ondansetron HCl (Zofran Odt) 4 mg SL Q4HP PRN; Protocol PRN Reason: Nausea And Vomiting Polyethylene Glycol (Miralax) 17 gm PO DAILYP PRN PRN Reason: Constipation Senna/Docusate Sodium (Senna Plus Tablet) 1 tab PO BID [facility] Last Admin: 01/05/19 20:59 Dose: 1 tab Documented by: Sodium Chloride (Saline Flush) 10 ml IV Q8 [facility] Last Admin: 01/06/19 05:14 Dose: 10 ml Documented by: Terazosin HCl (Hytrin) 1 mg PO HS [facility] Last Admin: 01/05/19 22:33 Dose: 1 mg Documented by: Tramadol HCl (Ultram) 50 mg PO Q12HP PRN PRN Reason: PAIN LEVEL 3-6 Vancomycin HCl (Vancomycin Per Pharmacy) 1 order IV UD [facility]; Protocol Medical - PN: A/P - Time Spent With Patient Total time spent is greater than 50% in coordination of care (as documented) at patient's floor/unit and/or counseling patient: - Narrative A/P Narrative: A: GENNY on CKD IIIb: Etiology may be ATN from sepsis. He may have been treated with trimethoprim for the past week, which could have also caused an elevation in serum creatinine. ATN from other causes also possible. No evidence of volume overload nor such electrolyte abnormalities that require emergent dialysis. -improving *Hyperkalemia/Hypernatremia: resolved *Met acidosis: Resolved *Rhabdomyolysis: immobilization component *Leukocytosis, rule out sepsis: Persistently elevated but No bandemia. -Tmax 100.9 last night -Admission blood cultures 1/4 bottles ([facility]) -No source of infection is not immediately recognizable. CXR/UA unremarkable. No physical findings of right lower extremity infection, CT without evidence of abscess, fasciitis or osteomyelitis. Color of the extremity has improved. Does have maceration and erythema in the intertriginous areas, possible source. -GB u/s unremarkable and CT a/p unremarkable -Suspected skin source, though only 1/4+, will need to evaluate for possible contaminant. -overall benign exam *Right BKA wounds: Stump is less cool to touch, better coloration after fluids and correction of acidosis. Common femoral arteries patent, he has an expected occlusion of the SFA secondary to the BKA. He may need ultimate revision. -Discussed with Dr. 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 Plan: Prophylactic doses of heparin currently. *Alcohol use. Patient and admit that he has few beers at night, though he has been falling asleep in the middle of a can of beer recently. *Tobacco abuse *goals of care: long-term prognosis poor P: -Nephrology following -IVF's per nephrology monitor electrolytes -discussed with ID who felt Tagged-WBC may be next step, however, that is not available here. may need to talk to [facility] ID healthcare management consultant for possible transfer d/c and check PVR after d/w in nephro Avoid nephrotoxins -Vanc(likley d/c soon), cefepime, Flagyl given anaerobic growth (?contaminant), pending cultures -wound care/Dr. Brooks following -Monitor for evidence of etoh withdrawal -Smoking cessation counseling -Prophylaxis: heparin Medical - PN: Qual - VTE Deep Vein Thrombosis/Pulmonary Embolism Present on Admission: No
[2019-01-06] MEDS: HEPARIN 5,000 UNIT/ML VIAL SQ SCH ×2 (09:36→20:51)
[2019-01-06] MEDS: NICOTINE 14 MG PATCH TOPICAL SCH (09:36)
[2019-01-06] MEDS: DOCUSATE SODIUM 100 MG CAPSULE PO SCH ×3 (09:37→21:04)
[2019-01-06] MEDS: CEFEPIME 2 GM VIAL IV SCH ×2 (09:37→20:51)
[2019-01-06] MEDS: SENNOSIDES/DOCUSATE SODIUM 1 TAB TABLET PO SCH ×3 (09:37→21:04)
[2019-01-06] MEDS: VANCOMYCIN 750 MG in 0.9 % SODIUM CHLORIDE 250 ML IV SCH (09:37)
[2019-01-06 10:20] LABS: Band Neutrophils % 26 % (0-10); Hypochromasia FEW (NONE SEEN); Lymphocytes % 7 % (15-49); Monocytes % (Manual) 4 % (1-12); Platelet Estimate NORMAL (NORMAL); Polychromasia 1+ (NONE SEEN); RBC Morphology ABNORM (NORMAL); Segmented Neutrophils % 63 % (38-78)
--- NOTE | 2019-01-06 12:30 | General Surgery Progress Note ---
Subjective Patient reports: other (Patient seen with Shanel SYED , Wound care nurse and [facility]ah ICU nurse. Reviewed his progress with Dr. Quintanilla, Hospitalist Physician. ) Narrative: Note initiated : 01/06/19 at 12:20 pm Service Date, if different from initiated Date: [] Patient: Jayjay Horta 78 y/o M admitted on 01/01/19 for Lower Extremity Problem. Chief Complaint: [] Objective Temp Pulse Resp BP Pulse Ox 99.7 F H 119 H 18 92/39 93 01/06/19 11:03 01/06/19 08:00 01/06/19 11:03 01/06/19 12:01 01/06/19 11: OOB in Chair, More interactive and answers simple Qs. Details of his domestic situation were reviewed. He still has tachycardia, but is breathing better. Soft abdomen. Clear urine. RIGHT thigh is cool to touch. Right BKA stump in fixed flexion deformity. COLD Left LE below lower thigh. Patchy necrosis ( DTI ) is unchanged. Patient with SFA and Popliteal artery occlusion AND popliteal vein occlusion. Pressure points sacral and Right hip are unchanged, Fungal dermatitis of RIGHT groin and scrotum: Improving THERE IS NOTHING NEW TO SUGGEST FROM WOUND CARE at this time. POOR PROGNOSIS. Poor candidate for RIGHT AKA. PLAN: Continue current treatment. - Additional Data Intake & Output - Last 24 hours: Intake & Output 01/04/19 01/05/19 01/06/19 01/07/19 05:59 05:59 05:59 05:59 Intake Total 4390 1850 1560 120 Output Total 1450 1950 1200 Balance 2940 -100 360 120 Weight 115 lb 4.8 oz 120 lb 3.2 oz 115 lb 8 oz - Labs 01/06/19 06:32 01/06/19 06:32 Diabetes panel 01/06/19 Range/Units 06:32 Sodium 139 (133-145) mmol/L Potassium 4.2 (3.3-5.1) mmol/L Chloride 105 (96-108) mmol/L Carbon Dioxide 23 (22-30) mmol/L BUN 41 H (8-23) mg/dl Creatinine 2.0 H (0.7-1.2) mg/dl Glucose 172 H (70-105) mg/dL Calcium 8.3 L (8.6-10.4) mg/dl AST 64 H (0-37) U/l ALT 41 H (0-40) U/l Alkaline Phosphatase 105 (39-117) U/L Total Protein 5.5 L (5.9-8.4) gm/dL Albumin 2.2 L (3.2-5.2) gm/dL Triglycerides 92 (<150) mg/dl Calcium panel 01/06/19 Range/Units 06:32 Calcium 8.3 L (8.6-10.4) mg/dl Phosphorus 2.8 (2.7-4.5) mg/dL Albumin 2.2 L (3.2-5.2) gm/dL Pituitary panel 01/06/19 Range/Units 06:32 Sodium 139 (133-145) mmol/L Potassium 4.2 (3.3-5.1) mmol/L Chloride 105 (96-108) mmol/L Carbon Dioxide 23 (22-30) mmol/L BUN 41 H (8-23) mg/dl Creatinine 2.0 H (0.7-1.2) mg/dl Glucose 172 H (70-105) mg/dL Calcium 8.3 L (8.6-10.4) mg/dl Adrenal panel 01/06/19 Range/Units 06:32 Sodium 139 (133-145) mmol/L Potassium 4.2 (3.3-5.1) mmol/L Chloride 105 (96-108) mmol/L Carbon Dioxide 23 (22-30) mmol/L BUN 41 H (8-23) mg/dl Creatinine 2.0 H (0.7-1.2) mg/dl Glucose 172 H (70-105) mg/dL Calcium 8.3 L (8.6-10.4) mg/dl Total Bilirubin < 0.2 (0.0-1.0) mg/dL AST 64 H (0-37) U/l ALT 41 H (0-40) U/l Alkaline Phosphatase 105 (39-117) U/L Total Protein 5.5 L (5.9-8.4) gm/dL Albumin 2.2 L (3.2-5.2) gm/dL Assessment and Plan (1) Fungal dermatitis Problem details: For symptomatic treatrment. Clean with chlorhexidene, Dry with wash colth and apply topical antifungal creme. NO diapers. Use absorbent CHUX pads under lower back, pelvis and thighs. Status: Chronic Current Visit: Yes (2) Renal failure (ARF), acute on chronic Problem details: Improving nicely as lisinopril is excreted, volume status restored Baseline SCr is 1.7 mg/dl or so. May have had some low grade rhabodomyolysis from imobilization as CPK remains mildly elevated Trend labs Status: Acute Current Visit: Yes (3) Amputation stump complication Problem details: COLD BKA stump and thigh RIGHT. Severe PAIN, Paresthesia, Po ikilothermia and Pulseless. DOPPLER Studies: THROMBOSED SFA, Popliteal but patient commonn femoral and profunda femoris, DVT popliteal vein. Status: Chronic Current Visit: Yes (4) Hyperkalemia, transcellular shifts Problem details: Improved Avoid RAASI Rx Expect K to continue to decline Monitor daily and check Mg Status: Resolved Current Visit: Yes (5) Drug-induced hyperkalemia Problem details: From now on avoid RAASI therapy. Avoid NSAIDs No proteinuria or diabetic nephropathy so no good reason to use ACEi, ARB, Aldactone Status: Resolved Current Visit: Yes (6) Acute hypernatremia Status: Resolved Current Visit: Yes (7) Chronic kidney disease, stage III (moderate) Problem details: CKD 3 with baseline GFR 1.7 mg/dl Vascular disease >>>DM given lack of proteinuria Status: Chronic Current Visit: No (8) Anemia due to stage 3 chronic kidney disease Status: Chronic Current Visit: No - Time Spent With Patient Total time spent is greater than 50% in coordination of care (as documented) at patient's floor/unit and/or counseling patient:
--- NOTE | 2019-01-06 17:16 | Magnetic Resonance Report ---
CLINICAL INFORMATION: ?osteo or infection. History of BKA amputation COMPARISON: CT 01/02/2019 TECHNIQUE: Axial T2, sagittal T1-T2 STIR coronal STIR images were obtained through the right knee. FINDINGS: BK amputation changes have expected postsurgical appearance: there is no evidence of marrow signal abnormality to suggest osteomyelitis. The patellofemoral and tibiofemoral joint spaces are normal with alignment without effusion supportive of septic arthritis or other arthritic change. Anterior /posterior cruciate ligament and medial/ lateral collateral ligament and extensor mechanism normal. Menisci suboptimally visualized but show no gross abnormality. There is mild cellulitis confined the subdermal soft tissues of the pretibial region and over the stomach. No evidence of soft tissue abscess. IMPRESSION: No evidence of osteomyelitis or abscess. Probable mild cellulitis subdermal soft tissues of the pretibial region. Interpreted and Authenticated by: Prasanna Knutson 01/06/19
--- NOTE | 2019-01-06 19:36 | Nephrology Progress Note ---
Subjective Patient information: Note initiated : 01/06/19 at 7:34 pm Service Date, if different from initiated Date: [] Patient: Jayjay Horta 78 y/o M admitted on 01/01/19 for Lower Extremity Problem. Chief Complaint: [] Principal diagnosis: Acute on chronic renal failure Interval history: Gram-positive cocci on initial blood culture yet to be identified but his nares culture was negative for MRSA 3 subsequent blood cultures were negative and I suspect he could be downgraded to an oral antibiotic to cover staph and strep such as Keflex, but please avoid Bactrim Pertinent ROS: Although I think this is neuropathic pain he is requesting narcotics for this At a minimum I did switch him to oral Additional PMFSH (Level 3 Only): Nothing new Objective - Vital Signs Vital signs: Vital Signs Temp Pulse Resp BP Pulse Ox 01/06/19 19:31 133/44 01/06/19 19:02 90/52 01/06/19 18:01 128/110 01/06/19 17:03 17 111/53 97 01/06/19 16:34 37.4 C H 20 146/56 99 01/06/19 15:01 36.6 C 19 115/42 98 01/06/19 14:01 117/41 98 01/06/19 13:05 103/50 100 01/06/19 13:04 84/75 01/06/19 13:01 83/40 01/06/19 12:01 92/39 01/06/19 11:19 107/44 93 01/06/19 11:03 37.6 C H 18 90/43 99 01/06/19 09:12 109/87 01/06/19 08:00 119 H 01/06/19 07:01 93/51 01/06/19 06:01 12 135/51 96 01/06/19 05:01 16 118/65 97 01/06/19 04:01 16 106/76 96 01/06/19 03:45 12 117/59 95 01/06/19 03:01 37.3 C H 16 116/57 97 01/06/19 02:01 12 114/52 98 01/06/19 01:01 16 122/56 01/06/19 00:01 37.0 C 18 99/51 97 01/05/19 23:01 154/139 01/05/19 22:01 145/96 01/05/19 21:01 38.3 C H 16 124/56 96 01/05/19 20:04 38.1 C H 18 91/55 97 Intake and Output 01/06/19 01/06/19 01/06/19 05:59 13:59 21:59 Intake Total 970 370 Output Total 500 600 200 Balance 470 -230 -200 Intake: Nourishment/Supplement quantity 120 (ml) IV 50 250 Vancomycin 750 mg In Sodium 250 Chloride 0.9% 250 ml @ 250 mls/ hr IV DAILY [facility] Rx#:[id number] Oral 920 Output: Urine Catheter Amount 500 600 Void Amount 200 Other: Meal Nourishment/Supplement Breakfast Percent of Meal Consumed 90 Feeding Ability Assist with Tray Set Up Nourishment/Supplement name Majic cup Urine Appearance Clear Uretheral (Logan) Clear Urine Color Bright Yellow Uretheral (Logan) Pale Stool Size Moderate Stool Color Brown Black Stool Consistency Loose # Bowel Movements 1 Weight 53.887 kg Patient Weight 01/07/19 05:59 Weight 53.887 kg Intake & Output: Intake & Output 01/06/19 01/06/19 01/06/19 05:59 13:59 21:59 Intake Total 970 370 Output Total 500 600 200 Balance 470 -230 -200 Weight 53.887 kg Intake: Nourishment/Supplement quantity 120 (ml) IV 50 250 Vancomycin 750 mg In Sodium 250 Chloride 0.9% 250 ml @ 250 mls/ hr IV DAILY [facility] Rx#:[id number] Oral 920 Output: Urine Catheter Amount 500 600 Void Amount 200 Other: Meal Nourishment/Supplement Breakfast Percent of Meal Consumed 90 Feeding Ability Assist with Tray Set Up Nourishment/Supplement name Majic cup Urine Appearance Clear Uretheral (Logan) Clear Urine Color Bright Yellow Uretheral (Logan) Pale Stool Size Moderate Stool Color Brown Black Stool Consistency Loose # Bowel Movements 1 - General Appearance General appearance: appears started age, cachectic, chronically ill, frail EENT: ATNC, PERRL, mucous membranes dry, hearing intact, vision intact Neck: no JVD, no thyromegaly, no carotid bruit Respiratory: no kyphosis, kyphosis Cardiology: no murmurs, no rub, no edema, edema Gastrointestinal: normoactive bowel sounds, no tenderness, no guarding, no masses, abdominal bruit Integumentary: no rash, warm and dry (Cyanosis of fingertips present on admission have disappeared), ecchymotic Neurologic: no focal deficit (Diffuse weakness and right BKA), no asterixis, disoriented Musculoskeletal: no deformities (Right BKA with stump covered), no erythema (Changes of arterial insufficiency) Psychiatric: agitated (In the evening) - Lab 01/06/19 06:32 01/06/19 06:32 Most recent lab results Calcium 8.3 mg/dl (8.6-10.4) L 01/06/19 06:32 Phosphorus 2.8 mg/dL (2.7-4.5) 01/06/19 06:32 Magnesium 2.3 mg/dL (1.6-2.5) 01/06/19 06:32 Laboratory Tests 01/01/19 01/02/19 01/03/19 14:11 03:48 03:58 Creatinine 5.1 H* 4.2 H 2.6 H 01/03/19 01/04/19 01/05/19 16:08 04:20 04:20 Creatinine 1.9 H 1.8 H 1.7 H 01/06/19 06:32 Creatinine 2.0 H - Imaging Kidney/bladder ultrasound: report reviewed - Allied health notes Allied health notes reviewed: case management Assessment and Plan (1) Hyperkalemia, transcellular shifts Resolved Status: Resolved Priority: High Comment: Improved Avoid RAASI Rx Expect K to continue to decline Monitor daily and check Mg (2) Drug-induced hyperkalemia Resolved and should be preventable in the future Status: Resolved Priority: High Comment: From now on avoid RAASI therapy. Avoid NSAIDs No proteinuria or diabetic nephropathy so no good reason to use ACEi, ARB, Aldactone (3) Renal failure (ARF), acute on chronic Avoid overdiuresis No good indication for RASSI therapy Has avoided dialysis for the second or third time and is many years Status: Acute Priority: Medium Comment: Improving nicely as lisinopril is excreted, volume status restored Baseline SCr is 1.7 to 2.0 mg/dl.. May have had some low grade rhabodomyolysis from imobilization as CPK remains mildly elevated Trend labs Qualifiers: Acute renal failure type: with other specified pathological lesion Chronic kidney disease stage: stage 3 (moderate) Qualified Code(s): N17.8 - Other acute kidney failure; N18.3 - Chronic kidney disease, stage 3 (moderate) (4) Chronic kidney disease, stage III (moderate) Stable and at baseline Avoid RAASI Rx, overdiuresis, nonsteroidals and Sousa 2 inhibitors I would be of the mind that dialysis would be futile in this patient who has severe vasculopathy, continues to smoke, is cachectic and has a poor functional status. In general these patients have a survival measured in months on dialysis, and regularly make it out of the pen[facility]iary Status: Chronic Priority: Medium Comment: CKD 3 with baseline GFR 1.7 mg/dl Vascular disease >>>DM given lack of proteinuria (5) Metabolic acidosis Finally at baseline we will monitor to see if he needs to restart his sodium bicarb therapy. I would except a bicarb above 20 on his Chem-7 Status: Acute Priority: High (6) Acute hypernatremia 1. Caused by overzealous bicarb infusion. He probably sould have receive hypo-osmolar NaHCO3 which would have provided less NaHCO3 and more free H2O. 2. Switch to D5W 150/hr as source of free H2O As water is distributed in 60% 0f TBWeight and Na in only 15%, he will not become fluid overloaded with just D5W. If he does develope edema and hypoxemia, IV lasix would be in order. 3. Resolved Status: Resolved Priority: Medium (7) Chronic blood loss anemia 1. Due to his poor nutritional status and renal failure, he cannot keep up with the blood loss to lab during this acute stay hospitalization so will require 2 units of packed red blood cells which will give him extra iron and get around the problem of Aranesp administration. 2. Once discharged and no longer getting daily blood work he should be fine 3. 2 units of packed red blood cells ordered for tonight with 40 mg of IV Lasix after the first unit Status: Acute Priority: Medium - Narrative A/P Narrative: All metabolic parameters have improved If he proves not to be septic, he would be best served by treatment of chronic neuropathic pain This patient will NOT require dialysis this hospitalization, but he is very poor clinically and I would avoid chronic HD at all costs as he survival on dialysis is measurable in months. I would recommend using doxycycline for MRSA coverage if that grows from his blood, otherwise complete a course of Keflex Continue to monitor inflammatory biomarkers and white count Due to the frequent blood draws and lack of the reticulocyte count with acute on chronic renal failure, he will require 2 unit packed red blood cell transfusion prior to discharge tomorrow. I suspect this patient will need to live out his days in a care facility given his poor function & nutritional status, in ability to be cared for by his , and multiple comorbidies, none of which are treatable in a meaningful and life improving manner No objection to discharge from the hospital as ordered
[2019-01-06] MEDS ORDERED: 0.9 % SODIUM CHLORIDE 250 ML IV SCH (19:45)
[2019-01-06] MEDS: TERAZOSIN 1 MG CAPSULE PO SCH (20:51)
[2019-01-06] MEDS: FAMOTIDINE 20 MG TABLET PO SCH (20:51)
[2019-01-06] MEDS ORDERED: GABAPENTIN 300 MG CAPSULE PO SCH (21:00)
[2019-01-06] MEDS ORDERED: FUROSEMIDE 40 MG/4 ML VIAL IV ONE (23:59)
[2019-01-07] MEDS: ACETAMINOPHEN 500 MG TABLET PO PRN (00:44)
[2019-01-07] MEDS: metroNIDAZOLE 500 MG TABLET PO SCH ×2 (05:30→13:42)
[2019-01-07] MEDS: 0.9 % SODIUM CHLORIDE 10 ML SYRINGE IV SCH ×2 (05:31→13:38)
[2019-01-07 06:17] LABS: Hematocrit 33.5 % (41.0-55.0); Hemoglobin 10.5 g/dL (13.5-16.5); Mean Cell Volume 92.7 fL (80.0-100.0); Mean Corpuscular HGB Conc 31.4 g/dL (31.0-36.0); Mean Platelet Volume 8.2 fL (7.4-10.4); Platelet Count 239 K/mcL (140-440); RBC 3.61 M/mcL (4.50-5.90); Red Cell Distribution Width 15.3 % (11.5-14.5); WBC 18.4 K/mcL (4.5-11.0)
[2019-01-07 06:28] LABS: ALT/SGPT 44 U/l (0-40); AST/SGOT 57 U/l (0-37); Albumin 2.2 gm/dL (3.2-5.2); Albumin/Globulin Ratio 0.6 (1.0-2.3); Alkaline Phosphatase 123 U/L (39-117); Bilirubin,Direct < 0.2 mg/dL (0.0-0.3); Bilirubin,Total 0.5 mg/dL (0.0-1.0); Blood Urea Nitrogen 48 mg/dl (8-23); Calcium 8.5 mg/dl (8.6-10.4); Carbon Dioxide 20 mmol/L (22-30); Chloride 107 mmol/L (96-108); Globulin 3.9 gm/dL (2.2-3.7); Glomerular Filtration Rate 28; Glucose 96 mg/dL (70-105); Lactate Dehydrogenase 382 U/L (94-250); Phosphorous 3.4 mg/dL (2.7-4.5); Triglycerides 79 mg/dl (<150); Uric Acid 5.9 mg/dL (2.5-8.0)
--- NOTE | 2019-01-07 07:24 | Internal Med Progress Note ---
Medical - PN: Subj Patient information: Note initiated : 01/07/19 at 7:19 am Service Date, if different from initiated Date: [] Patient: Jayjay Horta a 78 y/o M admitted on 01/01/19 for Lower Extremity Problem. Chief Complaint: [] Interval history: 01/01 Mr. 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 He was referred to the ED secondary to a cool and painful right stump. History is obtained in reviewing available records, as well as speaking to the patient, though both he and his are very vague on details. According to nephrology clinic notes, in 05/2016 patient underwent injury to his leg. The patient states he had objects fall onto the leg, he describes what sounds almost like a degloving type injury. He had several attempts at wound care and surgeries, eventually undergoing a BKA. He was discharged in January 2017 to rehabilitation. Since that time the patient is eventually moved home. He has had a prosthesis fitted which he does use. 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 He has not had a primary care physician, though does see Dr. Hutchins for nephrology. He states that about a week ago or so he fell (dates are vague) at work, and went to the [facility] across the street. He was evaluated and referred to wound care at that time. He is also started on an antibiotic which was filled for 10 days supply. He describes it as a "big pill" that he took twice a day. He seems to recognize TMP/SMX as being on the bottle. Patient states that a few months ago skin around the stump started breaking down and turning purple. For the last several weeks it broken down more. He has continued to wear his prosthetic. At times it is too swollen to fit, he usually waits for bed and is able to get it on. Its becoming more more painful to wear his prosthetic. In the ED, his lower extremity/stump is found to be cool. There is shallow ulcerations distally and then along the proximal and lateral aspects. If there is mild to moderate tenderness to palpation. 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 Vascular surgery was contacted at [place] as well as [place], it was not felt to be an imminent vascular emergency. He was also found to be in acute renal failure with creatinine of 5.1 (1.7 in early November) with hyperkalemia and metabolic acidosis. Is being hospitalized for treatment of acute kidney injury, evaluation of leukocytosis (20,000) and treatment of right lower extremity wounds. 01/02 Was agitated after arrival in the unit overnight. Received lorazepam. Drowsy late this morning, after further lorazepam prior to CT of the femur. No evidence of abscess or osteomyelitis on CT. White count has started to come down. Stump is not is cool and dusky today. Renal function slowly improving. Remains afebrile. Patient is too drowsy to provide review of systems. 01/03 Intermittent agitation overnight. Received Haldol. Sleeping this morning, arouses then drifts back off. Creatinine improving. Has been on bicarb drip now with alkalosis. Fluids being managed by nephrology. Blood culture positive for gram-positive cocci in 1 of 4 bottles. No further identification as of yet. On vancomycin and ceftriaxone. Portal certainly could have been skin. 01/04 Right thumb stump pain better controlled with PRN IV morphine. Otherwise no complaints. Seem to sleep okay. No Haldol given last night. Persistently elevated white blood cell count no bandemia. Creatinine stable. Upper natremia resolved. CK elevated and increased from yesterday a little bit. Some color looks appropriate no violaceous or grayish hue. 01/05 To have a T-max of 100.4 last night but otherwise afebrile. Denies any subjective fevers no pains or complaints. No overnight events. Case discussed with Ortho today and no immediate indication for stump revision. Having persistent leukocytosis without an obvious source identified at this time. Repeat blood cultures negative so far still awaiting final vacation on the 01/01 cultures. 01/06 Tmax 100.9 o/n. leukocytosis improved today, abx changed yesterday. has usual right stump pain, no other complaints including cough/abd pain. Discussed the case with infectious disease who recommended a tagged WBC scan. May discussed case with [facility] infectious disease specialist. 01/07 Tmax last night 100.2. Has mild intermittent confusion at night as usual. No complaints this morning. Sitting up in chair doing well eating breakfast. No pains or complaints other than usual right stump discomfort. Appears comfor table at this time. MRI of the stump unremarkable. Echo results pending. Review of Systems: denies headache/fever/chills/nausea/vomiting/chest or abdominal pain/cough/dyspnea/diarrhea. Otherwise see above. - Constitutional Vitals: Vital Signs Temp Pulse Resp BP Pulse Ox 98.8 F 119 H 16 137/49 100 01/07/19 03:01 01/06/19 08:00 01/07/19 03:01 01/07/19 06:01 01/07/19 06:01 Period Temp Pulse Resp BP Sys/Arthur Pulse Ox Last 24 Hr 97.9 F-100.2 F 119 16-20 83-146/29-110 93-100 Intake and Output 01/06/19 01/07/19 01/07/19 21:59 05:59 13:59 Intake Total 835 Output Total 200 Balance -200 835 Weight 53.887 kg Intake & Output: Intake & Output 01/06/19 01/07/19 01/07/19 21:59 05:59 13:59 Intake Total 835 Output Total 200 Balance -200 835 Weight 53.887 kg Intake: IV 60 Sodium Chloride 0.9% 250 ml @ 60 20 mls/hr IV .[id number] [facility] Rx#: [id number] Oral 450 Blood Product 325 Output: Void Amount 200 Other: Urine Appearance Clear Urine Color Bright Yellow Stool Size Moderate Stool Color Brown Green Black Stool Consistency Liquid Loose # Bowel Movements 1 Exam: General: Alert, Awake, No acute Distress Eyes/N/T: EOMI Head/Neck: neck supple, CV: RRR, No murmurs, Pulm: Clear b/l, no wheezing/rhonchi/rales Abd: soft, nontender, +BS x4 Ext: no clubbing/cyanosis/edema, Right BKA Rigth BKA with disal ulcerations, good color, no edema and not cellulitic in appearance Neuro: Alert, no focal deficits, moves all extremities, Skin: warm/dry Medical - PN: Obj Da - Labs CBC & Chem 7: 01/07/19 04:17 01/07/19 04:17 Labs: Abnormal Lab Results 01/07/19 01/07/19 01/06/19 04:17 04:17 06:32 WBC 18.4 H RBC 3.61 L Hgb 10.5 L Hct 33.5 L RDW 15.3 H Gran % Lymph % (Auto) Gran # Lymph # (Auto) Seg Neutrophils % Band Neutrophils % Lymphocytes % RBC Morphology Polychromasia Hypochromasia ESR Carbon Dioxide 20 L BUN 48 H Creatinine 2.2 H Glucose Calcium 8.5 L Phosphorus Magnesium AST 57 H ALT 44 H Alkaline Phosphatase 123 H Lactate Dehydrogenase 382 H Total Creatine Kinase C-Reactive Protein 20.8 H Total Protein Albumin 2.2 L Globulin 3.9 H Albumin/Globulin Ratio 0.6 L 01/06/19 01/06/19 01/06/19 06:32 06:32 06:32 WBC RBC Hgb Hct RDW Gran % Lymph % (Auto) Gran # Lymph # (Auto) Seg Neutrophils % Band Neutrophils % 26 H Lymphocytes % 7 L RBC Morphology Abnorm A Polychromasia 1+ A Hypochromasia Few A ESR > 120 H Carbon Dioxide BUN 41 H Creatinine 2.0 H Glucose 172 H Calcium 8.3 L Phosphorus Magnesium AST 64 H ALT 41 H Alkaline Phosphatase Lactate Dehydrogenase 252 H Total Creatine Kinase C-Reactive Protein Total Protein 5.5 L Albumin 2.2 L Globulin Albumin/Globulin Ratio 0.7 L 01/06/19 01/05/19 01/05/19 06:32 04:20 04:20 WBC 16.9 H RBC 2.24 L Hgb 7.1 L Hct 21.5 L RDW Gran % 87.8 H Lymph % (Auto) 5.7 L Gran # 14.8 H Lymph # (Auto) 1.0 L Seg Neutrophils % Band Neutrophils % Lymphocytes % RBC Morphology Polychromasia Hypochromasia ESR Carbon Dioxide BUN 34 H Creatinine 1.7 H Glucose Calcium Phosphorus 2.4 L Magnesium 1.5 L AST 115 H ALT 50 H Alkaline Phosphatase Lactate Dehydrogenase 308 H Total Creatine Kinase 4032 H C-Reactive Protein Total Protein 5.8 L Albumin 2.4 L Globulin Albumin/Globulin Ratio 0.7 L 01/05/19 01/04/19 04:20 04:28 WBC 19.4 H RBC 2.53 L Hgb 7.9 L Hct 24.2 L RDW Gran % Lymph % (Auto) Gran # Lymph # (Auto) Seg Neutrophils % 80 H Band Neutrophils % Lymphocytes % 12 L RBC Morphology Abnorm A Polychromasia 1+ A Hypochromasia Few A ESR Carbon Dioxide BUN Creatinine Glucose Calcium Phosphorus Magnesium AST ALT Alkaline Phosphatase Lactate Dehydrogenase Total Creatine Kinase C-Reactive Protein Total Protein Albumin Globulin Albumin/Globulin Ratio Meds: Medications Acetaminophen (Tylenol) 1,000 mg PO Q8HP PRN PRN Reason: PAIN/FEVER > 101 Last Admin: 01/07/19 00:44 Dose: 1,000 mg Documented by: Cefepime HCl (Maxipime) 2 gm IV Q12H [facility]; Protocol Last Admin: 01/06/19 20:51 Dose: 2 gm Documented by: Docusate Sodium (Colace) 100 mg PO BID [facility] Last Admin: 01/06/19 21:04 Dose: Not Given Documented by: Famotidine (Pepcid) 40 mg PO HS [facility] Last Admin: 01/06/19 20:51 Dose: 40 mg Documented by: Gabapentin (Neurontin) 300 mg PO HS [facility] Last Admin: 01/06/19 20:51 Dose: 300 mg Documented by: Heparin Sodium (Porcine) (Heparin) 5,000 unit SQ Q12 [facility] Last Admin: 01/06/19 20:51 Dose: 5,000 unit Documented by: Hydromorphone HCl (Dilaudid) 2 mg PO Q6HP PRN; Protocol PRN Reason: Per Pain Protocol Last Admin: 01/05/19 23:09 Dose: 2 mg Documented by: Vancomycin HCl 750 mg/ Sodium (Chloride) 250 mls @ 250 mls/hr IV DAILY [facility] Last Infusion: 01/06/19 10:40 Dose: Infused Documented by: Sodium Chloride (Sodium Chloride 0.9%) 250 mls @ 20 mls/hr IV .[id number] [facility] Stop: 01/07/19 08:14 Last Infusion: 01/07/19 02:00 Dose: Infused Documented by: Levothyroxine Sodium (Synthroid) 50 mcg PO ACB [facility] Last Admin: 01/06/19 07:02 Dose: 50 mcg Documented by: Lorazepam (Ativan) 0.25 mg PO HSP PRN PRN Reason: ANXIETY/SEDATION Last Admin: 01/05/19 22:35 Dose: 0.25 mg Documented by: Metronidazole (Flagyl) 500 mg PO Q8 [facility]; Protocol Last Admin: 01/07/19 05:30 Dose: 500 mg Documented by: Naloxone HCl (Narcan) 0.1 mg IV Q2MIN PRN PRN Reason: Opiate Reversal Nicotine (Nicoderm) 14 mg TOPICAL DAILY@1000 [facility] Last Admin: 01/06/19 09:36 Dose: 14 mg Documented by: Olanzapine (Zyprexa) 5 mg PO HSP PRN PRN Reason: Anxiety/agitation Last Admin: 01/06/19 22:56 Dose: 5 mg Documented by: Ondansetron HCl (Zofran Odt) 4 mg SL Q4HP PRN; Protocol PRN Reason: Nausea And Vomiting Polyethylene Glycol (Miralax) 17 gm PO DAILYP PRN PRN Reason: Constipation Senna/Docusate Sodium (Senna Plus Tablet) 1 tab PO BID [facility] Last Admin: 01/06/19 21:04 Dose: Not Given Documented by: Sodium Chloride (Saline Flush) 10 ml IV Q8 [facility] Last Admin: 01/07/19 05:31 Dose: 10 ml Documented by: Terazosin HCl (Hytrin) 1 mg PO HS [facility] Last Admin: 01/06/19 20:51 Dose: 1 mg Documented by: Tramadol HCl (Ultram) 50 mg PO Q12HP PRN PRN Reason: PAIN LEVEL 3-6 Last Admin: 01/06/19 10:49 Dose: 50 mg Documented by: Vancomycin HCl (Vancomycin Per Pharmacy) 1 order IV UD [facility]; Protocol Medical - PN: A/P - Time Spent With Patient Total time spent is greater than 50% in coordination of care (as documented) at patient's floor/unit and/or counseling patient: - Narrative A/P Narrative: A: GENNY on CKD IIIb: Etiology may be ATN from sepsis. He may have been treated with trimethoprim for the past week, which could have also caused an elevation in serum creatinine. ATN from other causes also possible. No evidence of volume overload nor such electrolyte abnormalities that require emergent dialysis. -improving *Hyperkalemia/Hypernatremia: resolved *Met acidosis: Resolved *Rhabdomyolysis: immobilization component *Leukocytosis, rule out sepsis: Persistently elevated but No bandemia. Not toxic in appearance -Tmax 100.2 last night -Admission blood cultures 1/4 bottles ([facility]) suspect contaminant, repeat BC neg -Source of infection is not immediately recognizable. CXR/UA unremarkable. No physical findings of right lower extremity infection, CT without evidence of abscess, fasciitis or osteomyelitis. Color of the extremity has improved. Does have maceration and erythema in the intertriginous areas, possible source. -GB u/s unremarkable and CT a/p unremarkable -Suspected skin source, though only 1/4+, will need to evaluate for possible contaminant. -overall benign exam -MRI leg unremarkable -echo *Right BKA wounds: Stump is less cool to touch, better coloration after fluids and correction of acidosis. Common femoral arteries patent, he has an expected occlusion of the SFA secondary to the BKA. He may need ultimate revision. -Discussed with Dr. 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 Plan: Prophylactic doses of heparin currently. *Alcohol use: Patient and admit that he has few beers at night, though he has been falling asleep in the middle of a can of beer recently. *Tobacco abuse *Anemia, chronic: *goals of care: long-term prognosis poor P: -Nephrology following -discussed with ID who felt Tagged-WBC may be next step (also discussed repeating leg imaging or echo), however, that is not available here. may need to talk to [facility] ID consumer services consultant for possible transfer. revisit with ID Avoid nephrotoxins -Vanc(dick d/c soon), cefepime, Flagyl given anaerobic growth (?contaminant), pending cultures -wound care/Dr. Brooks following -Smoking cessation counseling -Prophylaxis: heparin Medical - PN: Qual - VTE Deep Vein Thrombosis/Pulmonary Embolism Present on Admission: No
[2019-01-07 08:07] LABS: Band Neutrophils % 6 % (0-10); Eosinophils % (Manual) 2 % (0-7); Hypochromasia FEW (NONE SEEN); Lymphocytes % 9 % (15-49); Monocytes % (Manual) 7 % (1-12); Platelet Estimate NORMAL (NORMAL); Polychromasia 1+ (NONE SEEN); RBC Morphology ABNORM (NORMAL); Segmented Neutrophils % 76 % (38-78)
[2019-01-07] MEDS: DOCUSATE SODIUM 100 MG CAPSULE PO SCH (08:54)
[2019-01-07] MEDS: SENNOSIDES/DOCUSATE SODIUM 1 TAB TABLET PO SCH (08:54)
[2019-01-07] MEDS: NICOTINE 14 MG PATCH TOPICAL SCH (09:01)
[2019-01-07] MEDS: CEFEPIME 2 GM VIAL IV SCH (09:01)
[2019-01-07] MEDS: HEPARIN 5,000 UNIT/ML VIAL SQ SCH (09:01)
[2019-01-07] MEDS: LEVOTHYROXINE 50 MCG TABLET PO SCH (09:01)
[2019-01-07] MEDS: VANCOMYCIN 750 MG in 0.9 % SODIUM CHLORIDE 250 ML IV SCH (09:03)
[2019-01-07] MEDS ORDERED: TAMSULOSIN 0.4 MG CAPSULE PO ONE (12:03)
--- NOTE | 2019-01-07 12:09 | Discharge Summary ---
Medical - DS: Prov Patient information: Note initiated : 01/07/19 at 12:02 pm Service Date, if different from initiated Date: [] Patient: Jayjay Horta a 78 y/o M admitted on 01/01/19 for Lower Extremity Problem. Chief Complaint: [] Date of admission: 01/01/19 20:41 Discharge date: 01/07/19 Primary care physician: PCP No Consults: 01/01/19 Consult to Physician [CONS] Stat Comment: Consulting Provider: Michelle Meyer Reason For Exam: Physician to Consult Consult to Physician [CONS] Stat Comment: Consulting Provider: Jayjay Matthews Reason For Exam: Physician to Consult 01/02/19 19:55 Consult to Physician [CONS] Routine Comment: Consulting Provider: Shant Brooks Reason For Exam: Physician to Consult Medical - DS: Meds - Discharge Medications Prescriptions: Doxycycline Hyclate 0 mg PO BID #3 cap Prescription Printed Terazosin [Hytrin] 1 mg PO HS #30 cap Prescription Printed Gabapentin [Neurontin] 300 mg PO HS #30 cap Prescription Printed Acetaminophen [Tylenol] 1,000 mg PO Q8HP PRN #30 tab PRN Reason: Pain/Fever > 101 Prescription Printed traMADol [Ultram] 50 mg PO Q12HP PRN #20 tab PRN Reason: Pain Level 3-6 Prescription Printed Active and Home Medications: Home Medications levothyroxine 50 mcg tablet 50 mcg PO QDAY #30 tab 04/22/18 [Rx Confirmed 01/01/19 Last Taken 01/01/19 09:05] Medical - DS: Hosp Hospital Course: 01/01 Mr. 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 He was referred to the ED secondary to a cool and painful right stump. History is obtained in reviewing available records, as well as speaking to the patient, though both he and his are very vague on details. According to nephrology clinic notes, in 05/2016 patient underwent injury to his leg. The patient states he had objects fall onto the leg, he describes what sounds almost like a degloving type injury. He had several attempts at wound care and surgeries, eventually undergoing a BKA. He was discharged in January 2017 to rehabilitation. Since that time the patient is eventually moved home. He has had a prosthesis fitted which he does use. 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 He has not had a primary care physician, though does see Dr. Hutchins for nephrology. He states that about a week ago or so he fell (dates are vague) at work, and went to the [facility] across the street. He was evaluated and referred to wound care at that time. He is also started on an antibiotic which was filled for 10 days supply. He describes it as a "big pill" that he took twice a day. He seems to recognize TMP/SMX as being on the bottle. Patient states that a few months ago skin around the stump started breaking down and turning purple. For the last several weeks it broken down more. He has continued to wear his prosthetic. At times it is too swollen to fit, he usually waits for bed and is able to get it on. Its becoming more more painful to wear his prosthetic. In the ED, his lower extremity/stump is found to be cool. There is shallow ulcerations distally and then along the proximal and lateral aspects. If there is mild to moderate tenderness to palpation. 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 Vascular surgery was contacted at [place] as well as [place], it was not felt to be an imminent vascular emergency. He was also found to be in acute renal failure with creatinine of 5.1 (1.7 in early November) with hyperkalemia and metabolic acidosis. Is being hospitalized for treatment of acute kidney injury, evaluation of leukocytosis (20,000) and treatment of right lower extremity wounds. 01/02 Was agitated after arrival in the unit overnight. Received lorazepam. Drowsy late this morning, after further lorazepam prior to CT of the femur. No evidence of abscess or osteomyelitis on CT. White count has started to come down. Stump is not is cool and dusky today. Renal function slowly improving. Remains afebrile. Patient is too drowsy to provide review of systems. 01/03 Intermittent agitation overnight. Received Haldol. Sleeping this morning, arouses then drifts back off. Creatinine improving. Has been on bicarb drip now with alkalosis. Fluids being managed by nephrology. Blood culture positive for gram-positive cocci in 1 of 4 bottles. No further identification as of yet. On vancomycin and ceftriaxone. Portal certainly could have been skin. 01/04 Right thumb stump pain better controlled with PRN IV morphine. Otherwise no complaints. Seem to sleep okay. No Haldol given last night. Persistently elevated white blood cell count no bandemia. Creatinine stable. Upper natremia resolved. CK elevated and increased from yesterday a little bit. Some color looks appropriate no violaceous or grayish hue. 01/05 To have a T-max of 100.4 last night but otherwise afebrile. Denies any subjective fevers no pains or complaints. No overnight events. Case discussed with Ortho today and no immediate indication for stump revision. Having persistent leukocytosis without an obvious source identified at this time. Repeat blood cultures negative so far still awaiting final vacation on the 01/01 cultures. 01/06 Tmax 100.9 o/n. leukocytosis improved today, abx changed yesterday. has usual right stump pain, no other complaints including cough/abd pain. Discussed the case with infectious disease who recommended a tagged WBC scan. May discussed case with [facility] infectious disease specialist. 01/07 Tmax last night 100.2. Has mild intermittent confusion at night as usual. No complaints this morning. Sitting up in chair doing well eating breakfast. No pains or complaints other than usual right stump discomfort. Appears comfortable at this time. MRI of the stump unremarkable. Echo results pending. Reviewed case with infectious disease specialist again. Work-up has been unremarkable. ever has defervesced. Patient not toxic in appearance at all. Will order tagged WBC scan as outpatient and follow-up with PCP and ID specialist. No need for extended course of abx. Discharge diagnosis: Acute on chronic kidney disease electrolyte abnormalities and metabolic aci Secondary discharge diagnosis: Abdomen lysis leukocytosis right BKA wounds tobacco abuse chronic anemia - Time Spent with Patient Total time spent providing and/or coordinating discharge services: Greater than 30 minutes Medical - DS: Exam - Constitutional Vitals: Vital Signs Temp Resp BP Pulse Ox 01/07/19 11:01 14 123/81 100 01/07/19 10:01 17 121/58 100 01/07/19 09:24 15 120/50 100 01/07/19 08:00 97.9 F 16 118/61 100 01/07/19 07:00 16 114/49 100 01/07/19 06:02 14 121/71 100 01/07/19 06:01 137/49 100 01/07/19 05:03 119/48 01/07/19 04:30 119/46 01/07/19 03:01 98.8 F 16 98/63 96 01/07/19 02:41 132/53 100 01/07/19 02:38 123/29 01/07/19 02:09 114/46 01/07/19 00:57 108/69 01/07/19 00:27 125/50 100 01/07/19 00:01 100.2 F H 129/48 100 01/06/19 23:28 129/47 100 01/06/19 23:01 117/44 97 01/06/19 22:36 122/45 01/06/19 22:01 107/42 100 01/06/19 21:01 128/50 01/06/19 20:01 99.1 F H 16 132/48 100 01/06/19 19:31 133/44 01/06/19 19:02 90/52 01/06/19 18:01 128/110 01/06/19 17:03 17 111/53 97 01/06/19 16:34 99.3 F H 20 146/56 99 01/06/19 15:01 97.9 F 19 115/42 98 01/06/19 14:01 117/41 98 01/06/19 13:05 103/50 100 01/06/19 13:04 84/75 01/06/19 13:01 83/40 Intake and Output 01/06/19 01/07/19 01/07/19 21:59 05:59 13:59 Intake Total 835 610 Output Total 200 300 Balance -200 835 310 Intake: IV 60 250 Sodium Chloride 0.9% 250 ml @ 60 20 mls/hr IV .[id number] MARGARITO Rx#: [id number] Vancomycin 750 mg In Sodium 250 Chloride 0.9% 250 ml @ 250 mls/ hr IV DAILY MARGARITO Rx#:[id number] Oral 450 360 Blood Product 325 Output: Void Amount 200 300 Other: Meal Breakfast Percent of Meal Consumed 50% Feeding Ability Independent Urine Appearance Clear Clear Urine Color Bright Yellow Bright Yellow Urine Odor Normal Stool Size Moderate Copious Stool Color Brown Brown Green Black Stool Consistency Liquid Soft Loose # Bowel Movements 1 1 Weight 53.887 kg Medical - DS: Data Labs on day of discharge: Labs from last 24 hours 01/07/19 01/07/19 01/07/19 04:17 04:17 04:17 WBC 18.4 H RBC 3.61 L Hgb 10.5 L Hct 33.5 L MCV 92.7 MCH 29.1 MCHC 31.4 RDW 15.3 H Plt Count 239 MPV 8.2 Total Counted 100 Seg Neutrophils % 76 Band Neutrophils % 6 Lymphocytes % 9 L Monocytes % (Manual) 7 Eosinophils % (Manual) 2 Platelet Estimate Normal RBC Morphology Abnorm A Polychromasia 1+ A Hypochromasia Few A Sodium 142 Potassium 4.6 Chloride 107 Carbon Dioxide 20 L Anion Gap 15.0 BUN 48 H Creatinine 2.2 H GFR Calculation 28 Glucose 96 Uric Acid 5.9 Calcium 8.5 L Phosphorus 3.4 Magnesium 2.0 Total Bilirubin 0.5 Direct Bilirubin < 0.2 GGT 41 AST 57 H ALT 44 H Alkaline Phosphatase 123 H Lactate Dehydrogenase 382 H C-Reactive Protein 14.6 H Total Protein 6.1 Albumin 2.2 L Globulin 3.9 H Albumin/Globulin Ratio 0.6 L Triglycerides 79 Preliminary micro results at discharge 01/04/19 11:16 Blood Culture - Preliminary Blood 01/04/19 11:00 Blood Culture - Preliminary Blood 01/01/19 14:00 Blood Culture - Preliminary Blood Gram positive cocci Medical - DS: A/P - Patient/Caregiver Discharge Instructions Activity: as per physical therapy Diet: Cardiac Additional Instructions: Staff to schedule tagged WBC scan outpatient. Follow-up with PCP in 3 to 7 days Prescriptions: Doxycycline Hyclate 0 mg PO BID #3 cap Prescription Printed Terazosin [Hytrin] 1 mg PO HS #30 cap Prescription Printed Gabapentin [Neurontin] 300 mg PO HS #30 cap Prescription Printed Acetaminophen [Tylenol] 1,000 mg PO Q8HP PRN #30 tab PRN Reason: Pain/Fever > 101 Prescription Printed traMADol [Ultram] 50 mg PO Q12HP PRN #20 tab PRN Reason: Pain Level 3-6 Prescription Printed - Follow up Plan Follow up with: No,PCP [Primary Care Provider] - Arin Hutchins MD [Physician] - Richard Theodore MD [Physician] - Disposition: Xfer SNF Prognosis: Undetermined Rehab Potential: Fair I certify that the patient requires SNF services: Yes Overall status at discharge: patient is progressing back to baseline Medical - DS: Qual - VTE Deep Vein Thrombosis/Pulmonary Embolism Present on Admission: No
[2019-01-07] MEDS ORDERED: METOPROLOL TARTRATE 5 MG/5 ML VIAL IV ONE (14:14)
== END 2019-01-07 14:40 | DRG 683 ==
LOC: ED 13:37 → ICU 20:41
PROVIDERS: ADMIT Internal Medicine; ATTEND Internal Medicine

== ENCOUNTER 2019-01-11 10:45 | Inpatient (IN) ==
[2019-01-11] MEDS ORDERED: LACTATED RINGERS 1,000 ML IV ONE (10:52)
--- NOTE | 2019-01-11 10:57 | Emergency Department Note ---
Lower Extremity Injury HPI - General Chief Complaint: Extremity Injury, Lower Stated Complaint: Right lower extremity infection. Time Seen by Provider: 01/11/19 10:52 Source: patient Mode of arrival: wheelchair Limitations: no limitations - History of Present Illness HPI Narrative: Patient transferred from wound care, evaluation for hospitalization and possible [id number] amputation of the right leg up. He has gangrene to his right lower extremity and has had a previous BKA on the right leg. He now has cellulitis and necrosis to his right lower extremity from the knee on down. Significant cellulitis and redness to the right lower leg and below the knee. Is complaining of increased pain to the right lower leg, was seen in wound care and was felt to be a warm area and cellulitic area, region of his popliteal vein and artery and superficial femoral artery occlusion and is not a candidate for revascularization. - Related Data Previous Rx's Medication Instructions Recorded levothyroxine 50 mcg tablet 50 mcg PO QDAY #30 tab 04/22/18 Acetaminophen [Tylenol] 1,000 mg PO Q8HP PRN #30 tab 01/07/19 Doxycycline Hyclate 100 mg PO BID #3 cap 01/07/19 Gabapentin [Neurontin] 300 mg PO HS #30 cap 01/07/19 Terazosin [Hytrin] 1 mg PO HS #30 cap 01/07/19 traMADol [Ultram] 50 mg PO Q12HP PRN #20 tab 01/07/19 Allergies Allergy/AdvReac Type Severity Reaction Status Date / Time Penicillins AdvReac Mild Vomiting Verified 01/04/19 08:29 Review of Systems All systems ED: reviewed and negative except as stated. Past Medical History - Past Medical History Medical history: Reports: peripheral artery disease, other (allergies seasonal) Surgical history ED: Reports: orthopedic, other, other (status post below the knee amputation on the right leg) Family history: Reports: no significant family history - Social History smoking status: Current every day smoker Alcohol use: Reports: Rarely Physical Exam Limitations: no limitations General appearance: alert Head: atraumatic Eye: Present: normal appearance, PERRL, EOMI ENT: Present: normal exam, normal oropharynx, mucous membranes moist, dental caries Neck: Present: normal inspection, full ROM Chest: Present: symmetric chest wall rise Respiratory: Present: normal lung sounds bilaterally. Absent: respiratory distress, rales/crackles Cardiovascular: Present: regular rate, normal rhythm, normal heart sounds Abdominal: Present: soft. Absent: distention, tenderness Extremities: Present: full ROM, joint swelling, cyanosis, other (he has significant erythema of the right lateral and lower leg from the knee on down with significant areas of necrosis.) Back: Present: normal inspection. Absent: CVA tenderness (R), CVA tenderness (L), vertebral tenderness Neurological: Present: alert, oriented X3. Absent: motor sensory deficit Psychiatric: Present: normal affect Skin: Present: warm, erythema, other (necrosis right lower leg stump) Course - Reevaluation(s) Reevaluation #1: Discussed hospital admission with orthopedist on-call, Dr. Manuel, also our hospitalist and at this point, he will be admitted for cellulitis of the right lower extremity, consideration for above the knee amputation as he has significant vascular disease. Vital Signs Temperature 97.8 F 01/11/19 10:46 Pulse Rate 94 H 01/11/19 10:46 Respiratory Rate 20 01/11/19 10:46 Blood Pressure 138/63 01/11/19 10:46 Pulse Oximetry (%) 100 01/11/19 10:46 Temperature 97.8 F 01/11/19 10:46 Pulse Rate 94 H 01/11/19 10:46 Respiratory Rate 20 01/11/19 10:46 Blood Pressure 138/63 01/11/19 10:46 Pulse Oximetry (%) 100 01/11/19 10:46 Extremity Injury, Lower - MDM Narrative Medical decision making narrative: Final diagnosis is cellulitis, right lower extremity with necrosis associated with peripheral vascular disease, occlusive disease of the femoral artery and popliteal vein. - Lab Data Lab results reviewed: Yes I reviewed the patient's lab results. Result diagrams: 01/11/19 11:05 01/11/19 11:05 Lab Results 01/11/19 01/11/19 Range/Units 11:05 11:05 WBC 16.9 H (4.5-11.0) K/mcL RBC 2.93 L (4.50-5.90) M/mcL Hgb 9.1 L (13.5-16.5) g/dL Hct 27.6 L (41.0-55.0) % MCV 94.2 (80.0-100.0) fL MCH 30.9 (26.0-34.0) pg MCHC 32.8 (31.0-36.0) g/dL RDW 15.0 H (11.5-14.5) % Plt Count 480 H (140-440) K/mcL MPV 7.3 L (7.4-10.4) fL Gran % 80.0 H (38.0-78.0) % Lymph % (Auto) 12.8 L (15.5-49.0) % [place] % (Auto) 6.2 (1.0-12.0) % Eos % (Auto) 0.2 (0.0-7.0) % Baso % (Auto) 0.8 (0.0-2.0) % Gran # 13.5 H (1.8-8.0) K/mcL Lymph # (Auto) 2.2 (1.5-4.8) K/mcL [place] # (Auto) 1.0 H (0.1-0.9) K/mcL Eos # (Auto) 0 (0.0-0.7) K/mcL Baso # (Auto) 0.1 (0.0-0.3) K/mcL ESR > 120 H (0-15) mm/hr Sodium 141 (133-145) mmol/L Potassium 5.4 H (3.3-5.1) mmol/L Chloride 106 (96-108) mmol/L Carbon Dioxide 25 (22-30) mmol/L Anion Gap 10.0 (8-16) BUN 24 H (8-23) mg/dl Creatinine 1.5 H (0.7-1.2) mg/dl GFR Calculation 44 Glucose 90 (70-105) mg/dL Calcium 8.6 (8.6-10.4) mg/dl Total Bilirubin < 0.2 (0.0-1.0) mg/dL AST 56 H (0-37) U/l ALT 63 H (0-40) U/l Alkaline Phosphatase 76 (39-117) U/L C-Reactive Protein 1.9 H (0.0-0.8) mg/dl Total Protein 6.1 (5.9-8.4) gm/dL Albumin 2.8 L (3.2-5.2) gm/dL Globulin 3.3 (2.2-3.7) gm/dL Albumin/Globulin Ratio 0.8 L (1.0-2.3) Disposition Pt seen by HEATING AND COOLING TECHNICIAN/PA only: No Clinical Impression: Cellulitis Disposition: Xfer As Inpt ([facility]) Condition: Fair
[2019-01-11] MEDS ORDERED: HYDROmorphone 2 MG/ML VIAL IV PRN ×3 (10:59→16:38)
[2019-01-11] MEDS ORDERED: cefTRIAXone 1 GM in DEXTROSE 5% IN WATER 50 ML IV SCH (11:00)
[2019-01-11 11:42] LABS: Basophils # (Auto) 0.1 K/mcL (0.0-0.3); Basophils % (Auto) 0.8 % (0.0-2.0); Eosinophils # (Auto) 0 K/mcL (0.0-0.7); Eosinophils % (Auto) 0.2 % (0.0-7.0); Hematocrit 27.6 % (41.0-55.0); Hemoglobin 9.1 g/dL (13.5-16.5); Lymphocytes # (Auto) 2.2 K/mcL (1.5-4.8); Lymphocytes % (Auto) 12.8 % (15.5-49.0); Mean Cell Volume 94.2 fL (80.0-100.0); Mean Corpuscular HGB Conc 32.8 g/dL (31.0-36.0); Mean Platelet Volume 7.3 fL (7.4-10.4); Monocytes % (Auto) 6.2 % (1.0-12.0); Platelet Count 480 K/mcL (140-440); RBC 2.93 M/mcL (4.50-5.90); WBC 16.9 K/mcL (4.5-11.0)
[2019-01-11 12:02] LABS: ALT/SGPT 63 U/l (0-40); AST/SGOT 56 U/l (0-37); Albumin 2.8 gm/dL (3.2-5.2); Albumin/Globulin Ratio 0.8 (1.0-2.3); Alkaline Phosphatase 76 U/L (39-117); Bilirubin,Total < 0.2 mg/dL (0.0-1.0); Blood Urea Nitrogen 24 mg/dl (8-23); C-Reactive Protein 1.9 mg/dl (0.0-0.8); Calcium 8.6 mg/dl (8.6-10.4); Carbon Dioxide 25 mmol/L (22-30); Chloride 106 mmol/L (96-108); Globulin 3.3 gm/dL (2.2-3.7); Glomerular Filtration Rate 44; Glucose 90 mg/dL (70-105)
[2019-01-11 12:24] LABS: Erythrocyte Sedimentation Rate > 120 mm/hr (0-15)
[2019-01-11 13:35] LABS: Appearance,Urine CLEAR; Bacteria,Urine 0 /hpf (0); Bilirubin,Urine NEG (NEG); Color,Urine YELLOW; Glucose,Urine (UA) NEGATIVE (NEG); Ketones,Urine NEG (NEG); Leukocyte Esterase,Urine NEG /uL (NEG); Nitrate,Urine NEG (NEG); Protein,Urine 30 mg/dL (NEG); Specific Gravity,Urine 1.014 (1.000-1.035); Urine Blood NEG mg/dL (<0.03); Urine RBC 0 /hpf (0-1); Urine Squamous Epithelial Cell 0 /hpf (0-4); Urine WBC 1 /hpf (0-4); Urobilinogen,Urine NEG (NEG)
[2019-01-11] MEDS ORDERED: ceFAZolin 2 GM in DEXTROSE 5% IN WATER 50 ML IV ONE (13:44)
[2019-01-11] MEDS ORDERED: GENTAMICIN SULFATE 800 MG/20 ML VIAL IR ONE (13:53)
--- NOTE | 2019-01-11 14:03 | Internal Med History&Physical ---
Medical - H&P: [facility] Patient information: Note initiated : 01/11/19 at 1:52 pm Service Date, if different from initiated Date: [] Patient: Jayjay Horta a 78 y/o M admitted on for Right Lower Extremity Infection. Chief Complaint: [] Chief complaint: Worsening right BKA stump wound History of present illness: Mr. Horta is a 78 year old M resident at [facility] with a history of DM type II, HTN, severe PVD with revascularization Rt LE and subsequent post BKA 2/2 non-healing stump with wound breakdown. He presents today to wound care for evaluation of right BKA stump ulceration/gangrenous changes. He was referred to the ED by Dr Brooks for evaluation of worsening stump changes suspicious for gangrene and cellulitis and failed outpatient treatment. He follows up at [facility] nephrology clinic for his CKD. Initial work-up in the ED was consistent with gangrenous changes along with white count over 16,000. Orthopedics were consulted for evaluation and consideration of AKA. Subsequently hospitalist service is consulted to facilitate admission and hospitalization along with management of medical issues while patient will undergo AKA over the next couple of hours. Patient in general had a progressive decline. Complains of loss of appetite. He feels fatigued and lethargic. He is barely able to perform activities or participate in physical therapy at the care center. He is accompanied with his . He also endorses to left lower extremity lymphedema for which she is on diuretics. He denies diarrhea dysuria, shaking chills headache or photophobia. He denies cough or shortness of breath. Review of systems 10 point review of system was performed and is negative except was discussed above Medical - H&P: PMH Medical history: Metabolic acidosis (Chronic) Tobacco abuse (Chronic) Conjunctivitis (Acute) Upper respiratory infection (Acute) Confusion (Resolved) Hyperkalemia, diminished renal excretion (Resolved) Surgical history: History of right below knee amputation (Acute) Pertinent family history: Brother with heart disease Social history: Lives with his . 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 Smokes about half pack per day. 2 beers a day Medical - H&P: Meds Home Medications Medication Instructions Recorded Confirmed Type levothyroxine 50 mcg tablet 50 mcg PO QDAY #30 tab 04/22/18 01/11/19 Rx Acetaminophen [Tylenol] 1,000 mg PO Q8HP PRN #30 tab 01/07/19 01/11/19 Rx Gabapentin [Neurontin] 300 mg PO HS #30 cap 01/07/19 01/11/19 Rx Terazosin [Hytrin] 1 mg PO HS #30 cap 01/07/19 01/11/19 Rx traMADol [Ultram] 50 mg PO Q12HP PRN #20 tab 01/07/19 01/11/19 Rx Glucagon,Human Recombinant 1 mg IM Q15MIN PRN 01/11/19 01/11/19 History [Glucagon Emergency Kit] Allergies Allergy/AdvReac Type Severity Reaction Status Date / Time Penicillins AdvReac Mild Vomiting Verified 01/04/19 08:29 Medical - H&P: Exam - Constitutional Vitals: Temp Pulse Resp BP Pulse Ox 97.8 F 84 18 157/57 100 01/11/19 10:46 01/11/19 12:59 01/11/19 12:59 01/11/19 12:59 01/11/19 12:59 Exam: Fatigue lethargic Head normocephalic Oral cavity dry No ear nose discharge Neck no lymphadenopathy S1-S2 regular rhythm diminished breath sounds bases Abdomen soft nontender Right lower extremity stump gangrene noted. Pictures documented in chart Left lower extremity pitting edema/skin excoriation at ryan Psych lethargic but cooperative, no anxiety Neuro nonfocal Medical - H&P: Reslt - Labs CBC & Chem 7: 01/11/19 11:05 01/11/19 11:05 Labs: Short CBC 01/11/19 Range/Units 11:05 WBC 16.9 H (4.5-11.0) K/mcL Hgb 9.1 L (13.5-16.5) g/dL Hct 27.6 L (41.0-55.0) % Plt Count 480 H (140-440) K/mcL BMP 01/11/19 11:05 Sodium 141 Potassium 5.4 H Chloride 106 Carbon Dioxide 25 BUN 24 H Creatinine 1.5 H Glucose 90 Calcium 8.6 Liver Function 01/11/19 Range/Units 11:05 Total Bilirubin < 0.2 (0.0-1.0) mg/dL AST 56 H (0-37) U/l ALT 63 H (0-40) U/l Alkaline Phosphatase 76 (39-117) U/L Albumin 2.8 L (3.2-5.2) gm/dL Urine 01/11/19 Range/Units 12:59 Urine Color Yellow Urine Appearance Clear Urine pH 8.0 (5.0-9.0) Ur Specific [place] 1.014 (1.000-1.035) Urine Protein 30 A (NEG) mg/dL Urine Glucose (UA) Negative (NEG) mg/dL Medical - H&P: A/P (1) Ischemia of right BKA site Current visit: Yes Status: Acute * Ischemia of right BKA site with gangrenous changes. Failed revascularization procedure/outpatient wound treatment. Admit for orthopedic evaluation and AKA. * Sepsis secondary to BKA stump infection-pancultures/initiate broad antibiotic coverage. Recommend obtaining intraoperative cultures * Pain management on as needed opioids * Chronic disease will be managed per nephrology. Avoid nephrotoxins. * DM type II continue sliding scale insulin/CC diet * Hypothyroidism continue thyroxine * Neuropathy continue gabapentin * Degenerative disease continue pain management as indicated * Prophylaxis heparin * Full code Plan * Inpatient admission * Orthopedic consult * Broad antibiotic coverage * De-escalate based on intraoperative culture results * Close monitoring post procedure * Prior medical condition management on home meds once patient able to take orally * Keep n.p.o. until surgery
--- NOTE | 2019-01-11 14:04 | XRay Report ---
HISTORY: Preop FINDINGS: the lungs are clear and well expanded. The heart size, pulmonary vasculature, mediastinum, sedrick and pleura are normal. There has been no significant change since 01/01/19. IMPRESSION: Normal exam Interpreted and Authenticated by: Dong Pinzon 01/11/19
--- NOTE | 2019-01-11 14:20 | Consultation ---
DATE OF CONSULTATION: 01/11/2019 HISTORY OF PRESENT ILLNESS: This is a very pleasant 78-year-old male who is 5' 11'', 123 pounds with a BMI of 17.2. He has had a prior below-knee amputation on the right leg; now presenting with an acute cellulitis and sepsis of the right below-knee amputation. This extends from chronic wounds over the dorsal portion of the distal amputation and over the patellofemoral area of the knee with complete cellulitis up to the knee, what appeared to involve the joint as well. There is contracture of 120 degrees of the knee without any significant extension, even with assistance. The motion is very limited with the knee. PAST MEDICAL HISTORY: Otherwise quite significant for hyperkalemia, acute renal failure, COPD, anemia of chronic stage III kidney disease, metabolic acidosis within the last week. He has type II diabetes. ALLERGIES: PENICILLIN. MEDICATIONS: Neurontin for peripheral nerve pain. SOCIAL HISTORY: He denies smoking at the present time, but in the past has smoked. REVIEW OF SYSTEMS: He has no active chest pain or shortness of breath. PHYSICAL EXAMINATION: GENERAL: A very pleasant 78-year-old male, alert and cooperative. He gives a good history. LUNGS: He does have some tracheal breath sounds but no respiratory distress with a respiratory rate of 10. ABDOMEN: Soft, nontender. CARDIOVASCULAR: An occasional irregular beat, but regular, without murmurs, rubs or gallops. LOWER EXTREMITY: He has a slight temperature as well as a very red, swollen right below-knee amputation from the amputation site to just above the patella. There are ulcers and wounds over the stump. He has a contracture 130-120 degrees, which was very immobile. LABORATORY DATA: Labs do show anemia with hematocrit of 27, blood sugar level 137, white count 12.2. IMPRESSION: Infected right below-knee amputation with chronic wounds. Labs still pending are a PT/INR, as well as a chest x-ray and EKG. PLAN: He last ate at 7 o'clock this morning. With the acuity of the problem, we will do this as soon as we can just to get the infection out as long as the rest of the remaining labs appear to be satisfactory. [facility]:radha Job ID: [id number] Doc ID: [id number] Grant Manuel MD
--- NOTE | 2019-01-11 14:38 | Brief Operative Note ---
Date of procedure: 01/11/19 Pre-op diagnosis: Right bka septic knee Post-op diagnosis: same Procedure: Right AKA Grafts/Implants: Yes Anesthesia: GETA Surgeon: Grant Manuel Supervisor Cellars: Joaquin Gracia Estimated blood loss (cc): 100 Tourniquet Time (Minutes): 30 Specimens Removed/Pathology: none sent Condition: stable Disposition: PACU
[2019-01-11] MEDS ORDERED: TRANEXAMIC ACID 1,000 MG/10 ML VIAL IV ONE (14:39)
[2019-01-11] MEDS ORDERED: LIDOCAINE HCL/PF 100 MG/5 ML SYRINGE IV ONE (14:45)
[2019-01-11] MEDS ORDERED: DEXAMETHASONE 10 MG/ML VIAL IV ONE (14:45)
[2019-01-11] MEDS ORDERED: ONDANSETRON 4 MG/2 ML VIAL IV ONE (14:45)
[2019-01-11] MEDS ORDERED: fentaNYL 250 MCG/5 ML VIAL IV ONE (14:45)
[2019-01-11] MEDS ORDERED: PROPOFOL 200 MG/20 ML VIAL IV ONE (14:45)
[2019-01-11 14:47] LABS: Prothrombin Time 13.2 sec (11.9-14.5)
[2019-01-11] MEDS ORDERED: MEPERIDINE 25 MG/ML SYRINGE IV PRN (15:24)
[2019-01-11] MEDS ORDERED: NALOXONE HCL 0.4 MG/ML VIAL IV PRN (15:24)
[2019-01-11] MEDS ORDERED: fentaNYL 100 MCG/2 ML VIAL IV PRN (15:24)
[2019-01-11] MEDS ORDERED: PROMETHAZINE 25 MG/ML VIAL IV PRN (15:24)
[2019-01-11] MEDS ORDERED: FLUMAZENIL 0.1 MG/ML ML IV PRN (15:24)
[2019-01-11] MEDS ORDERED: LACTATED RINGERS 250 ML IV PRN (15:24)
[2019-01-11] MEDS ORDERED: BENZOCAINE/MENTHOL 1 LOZENGE PO PRN (15:24)
[2019-01-11] MEDS ORDERED: ONDANSETRON 4 MG/2 ML VIAL IV PRN ×2 (15:24→16:38)
[2019-01-11] MEDS ORDERED: ACETAMINOPHEN 1,000 MG/100 ML BOTTLE IV ONE (15:24)
[2019-01-11] MEDS ORDERED: diphenhydrAMINE 50 MG/ML VIAL IV PRN (15:24)
[2019-01-11] MEDS ORDERED: IPRATROPIUM/ALBUTEROL 3 ML AMPUL.NEB NEB PRN (15:24)
[2019-01-11] MEDS ORDERED: BUPIVACAINE 0.5% 50 ML VIAL IJ ONE (15:29)
[2019-01-11] MEDS ORDERED: LACTATED RINGERS 1,000 ML IV SCH (15:30)
--- NOTE | 2019-01-11 16:08 | Operative Note ---
DATE OF OPERATION: 01/11/2019 PREOPERATIVE DIAGNOSIS: A 78-year-old with right below-knee amputation with avascular necrosis and sepsis of the right knee. POSTOPERATIVE DIAGNOSIS: A 78-year-old with right below-knee amputation with avascular necrosis and sepsis of the right knee. PROCEDURE: Right above-knee amputation. SURGEON: Grant Manuel M.D. LIFE EDUCATOR: Joaquin Gracia PA-C. The PA's assistance was required for the safe and efficient completion of the entire case. This provider's expertise and technical skill were required throughout the case. The PA assisted with preoperative coordination, intraoperative retraction, wound closure, dressing and splint application, as well as postoperative documentation and care coordination. ANESTHESIA: General LMA anesthesia. COMPLICATIONS: None. ESTIMATED BLOOD LOSS: About 10 mL. DESCRIPTION OF PROCEDURE: The patient was brought to the operating room and put to sleep with general LMA anesthesia. Once asleep, the patient had the right leg sterilely prepped and draped in the usual sterile fashion. Once this was sterilely prepped and draped, we then had a timeout to confirm the operative site by initials, consent form, and x-rays. Preop antibiotics had been given. An incision for [id number] amputation was made with a fish mouth-type incision. We incised through the fascial layer and then used the soft tissue knife to cut the posterior structures. This was accomplished fairly easily. We then identified the bleeders which were the popliteal artery, the saphenous vein, and popliteal veins. We also identified the sciatic nerve which was then retracted proximally and resected proximally. We injected this area with Carbocaine. Once done, we then closed the fascial layer with #1 Ethibond after deflating the tourniquet and controlling any bleeder. The muscle layer was not very vascular. It did not bleed as well as we would have liked. It did pink up and the skin did pink up as well. We felt comfortable with closing the wound. We closed the fascial layer with #2 Ethibond and #1 Vicryl. We closed the skin with 2-0 Vicryl and then 2-0 nylon. With this, we then closed the remainder of the skin with nikko. The patient tolerated this well. There were no complications. Tourniquet time was 15 minutes. Tourniquet pressure was 250 pounds of pressure. PETER:marietta Job ID: [id number] Doc ID: [id number] Grant Manuel MD
[2019-01-11] MEDS ORDERED: ACETAMINOPHEN 325 MG TABLET PO PRN (16:38)
[2019-01-11] MEDS ORDERED: MAGNESIUM SULFATE 2 GM/50 ML BAG IV PRN (16:38)
[2019-01-11] MEDS ORDERED: ACETAMINOPHEN 650 MG/65 ML BOTTLE IV PRN (16:38)
[2019-01-11] MEDS ORDERED: VANCOMYCIN PER PHARMACY IV SCH (16:38)
[2019-01-11] MEDS ORDERED: 0.9 % SODIUM CHLORIDE 1,000 ML IV SCH (16:38)
[2019-01-11] MEDS ORDERED: MAGNESIUM HYDROXIDE 30 ML ORAL.SUSP PO PRN (16:38)
[2019-01-11] MEDS ORDERED: POTASSIUM CHLORIDE 20 MEQ PACKET PO PRN (16:38)
[2019-01-11] MEDS ORDERED: POLYETHYLENE GLYCOL 3350 17 GM PACKET PO PRN (16:38)
[2019-01-11] MEDS: 0.9 % SODIUM CHLORIDE 10 ML SYRINGE IV SCH ×3 (17:18→22:06)
[2019-01-11] MEDS: VANCOMYCIN 1,000 MG in 0.9 % SODIUM CHLORIDE 250 ML IV SCH (17:31)
[2019-01-11] MEDS ORDERED: DEXTROSE 31 GM ORAL.SUSP PO PRN (17:50)
[2019-01-11] MEDS ORDERED: DEXTROSE 50% 50 ML VIAL IV PRN (17:50)
[2019-01-11] MEDS: INSULIN LISPRO 1 UNIT/0.01 ML UNIT SQ SCH ×2 (18:00→22:05)
[2019-01-11] MEDS: LACTATED RINGERS 1,000 ML IV SCH (18:34)
[2019-01-11] MEDS ORDERED: traMADol 50 MG TABLET PO PRN (18:59)
[2019-01-11] MEDS ORDERED: NON FORMULARY MEDICATION 1 DOSE MISCELL (Glucagon,Human Recombinant [Glucagon Emergency Ki IM PRN (18:59)
[2019-01-11] MEDS ORDERED: LORazepam 0.5 MG TABLET PO ONE ×2 (19:33→20:00)
[2019-01-11] MEDS: PIPERACILLIN SODIUM/TAZOBACTAM 3.375 GM in DEXTROSE 5% IN WATER 50 ML IV SCH ×2 (20:00→23:54)
[2019-01-11] MEDS: CYANOCOBALAMIN (VITAMIN B-12) 500 MCG TABLET PO SCH (21:55)
[2019-01-11] MEDS: TERAZOSIN 1 MG CAPSULE PO SCH (21:55)
[2019-01-11] MEDS: SENNOSIDES/DOCUSATE SODIUM 1 TAB TABLET PO SCH (21:55)
[2019-01-11] MEDS: DOCUSATE SODIUM 100 MG CAPSULE PO SCH (21:55)
[2019-01-11] MEDS: GABAPENTIN 300 MG CAPSULE PO SCH (21:56)
[2019-01-11] MEDS: HEPARIN 5,000 UNIT/ML VIAL SQ SCH (21:56)
[2019-01-12] MEDS: 0.9 % SODIUM CHLORIDE 10 ML SYRINGE IV SCH ×8 (05:33→23:01)
[2019-01-12] MEDS: PIPERACILLIN SODIUM/TAZOBACTAM 3.375 GM in DEXTROSE 5% IN WATER 50 ML IV SCH ×2 (06:10→11:27)
[2019-01-12 06:32] LABS: Hematocrit 21.9 % (41.0-55.0); Hemoglobin 7.1 g/dL (13.5-16.5); Mean Cell Volume 94.7 fL (80.0-100.0); Mean Corpuscular HGB Conc 32.5 g/dL (31.0-36.0); Mean Platelet Volume 7.2 fL (7.4-10.4); Platelet Count 439 K/mcL (140-440); RBC 2.32 M/mcL (4.50-5.90); Red Cell Distribution Width 14.6 % (11.5-14.5); WBC 14.3 K/mcL (4.5-11.0)
[2019-01-12 06:51] LABS: ALT/SGPT 32 U/l (0-40); AST/SGOT 23 U/l (0-37); Alkaline Phosphatase 60 U/L (39-117); Bilirubin,Direct < 0.2 mg/dL (0.0-0.3); Bilirubin,Total < 0.2 mg/dL (0.0-1.0); Calcium 7.6 mg/dl (8.6-10.4); Carbon Dioxide 21 mmol/L (22-30); Glucose 114 mg/dL (70-105); Lactate Dehydrogenase 174 U/L (94-250); Phosphorous 3.9 mg/dL (2.7-4.5); Triglycerides 77 mg/dl (<150); Uric Acid 3.6 mg/dL (2.5-8.0)
[2019-01-12 07:17] LABS: Albumin/Globulin Ratio 0.7 (1.0-2.3); Blood Urea Nitrogen 25 mg/dl (8-23); Chloride 110 mmol/L (96-108); Globulin 2.7 gm/dL (2.2-3.7); Glomerular Filtration Rate 48
[2019-01-12 07:34] LABS: Band Neutrophils % 4 % (0-10); Hypochromasia 1+ (NONE SEEN); Lymphocytes % 4 % (15-49); Monocytes % (Manual) 2 % (1-12); Platelet Estimate NORMAL (NORMAL); RBC Morphology ABNORM (NORMAL); Segmented Neutrophils % 90 % (38-78)
--- NOTE | 2019-01-12 07:38 | Orthopedic Progress Note ---
Subjective Patient information: Note initiated : 01/12/19 at 7:35 am Service Date, if different from initiated Date: [] Patient: Jayjay Horta 78 y/o M admitted on 01/11/19 for Right Lower Extremity Infection. Chief Complaint: [Pt is stable this morning on post operative day 1 without any significant concerns or complaints. Patients vital signs have remained stable. Patients dressing is dry. Patients 10 point ROS is otherwise negative. ] Objective Vital signs: Vital Signs Temp Pulse Pulse Resp BP BP Pulse Ox 01/12/19 07:26 99.1 F H 79 18 123/49 98 01/12/19 04:11 97.8 F 85 18 132/53 99 01/11/19 23:52 97.9 F 92 H 18 133/53 100 01/11/19 19:40 97.8 F 107 H 18 146/57 99 01/11/19 17:40 100 H 161/59 98 01/11/19 17:15 99 H 12 164/64 98 01/11/19 17:00 92 H 178/66 97 01/11/19 16:45 97.7 F 94 H 16 163/61 97 01/11/19 16:30 95 H 16 171/66 97 01/11/19 16:19 98.9 F 96 H 15 167/53 100 01/11/19 16:07 99.1 F H 94 H 14 166/56 99 01/11/19 16:02 86 13 165/58 100 01/11/19 15:57 79 10 L 143/50 100 01/11/19 15:52 99.0 F 85 10 L 145/48 100 01/11/19 14:30 97.8 F 90 20 160/70 95 01/11/19 14:05 90 20 160/70 95 01/11/19 12:59 84 18 157/57 100 01/11/19 10:46 97.8 F 94 H 20 138/63 100 Intake and Output 01/11/19 01/12/19 01/12/19 21:59 05:59 13:59 Intake Total 340 1350 Output Total 600 400 Balance -260 950 Intake: IV 100 300 Zosyn 3.375 gm In Dextrose 5% 50 50 in Water 50 ml @ 100 mls/hr IV Q6H [facility] Rx#:[id number] Vancomycin 1,000 mg In Sodium 250 Chloride 0.9% 250 ml @ 250 mls/ hr IV Q24H [facility] Rx#:[id number] Ancef 2 gm In Dextrose 5% in 50 Water 50 ml @ 100 mls/hr IV ONCE ONE Rx#:[id number] Oral 240 200 IV - Manual Only 850 Output: Void Amount 600 400 Other: Meal Dinner Percent of Meal Consumed 100% Feeding Ability Independent Urine Appearance Clear Urine Color Bright Yellow Urine Odor Normal Stool Size Large Stool Color Brown Stool Consistency Loose # Bowel Movements 1 Weight 133 lb Intake & Output: Intake & Output 01/11/19 01/12/19 01/12/19 21:59 05:59 13:59 Intake Total 340 1350 Output Total 600 400 Balance -260 950 Weight 133 lb Intake: IV 100 300 Zosyn 3.375 gm In Dextrose 5% 50 50 in Water 50 ml @ 100 mls/hr IV Q6H [facility] Rx#:[id number] Vancomycin 1,000 mg In Sodium 250 Chloride 0.9% 250 ml @ 250 mls/ hr IV Q24H [facility] Rx#:[id number] Ancef 2 gm In Dextrose 5% in 50 Water 50 ml @ 100 mls/hr IV ONCE ONE Rx#:[id number] Oral 240 200 IV - Manual Only 850 Output: Void Amount 600 400 Other: Meal Dinner Percent of Meal Consumed 100% Feeding Ability Independent Urine Appearance Clear Urine Color Bright Yellow Urine Odor Normal Stool Size Large Stool Color Brown Stool Consistency Loose # Bowel Movements 1 Incision: Yes healing Incision clean and dry: Yes Dressing: Yes clean Weight bearing status: non - Labs CBC & BMP: 01/12/19 04:10 01/12/19 04:10 Labs: Orthopedic Labs 01/11/19 01/11/19 14:16 11:05 PT 13.2 TNP INR 1.0 TNP 01/12/19 01/11/19 04:10 11:05 Hgb 7.1 L 9.1 L Hct 21.9 L 27.6 L Assessment and Plan (1) Unilateral AKA The patient has been educated regarding dressing care, Physical Therapy recommendations, home exercises, restrictions, and follow up appointments. The patient has had all necessary DME prescribed. The patient has remained relatively stable during their hospital course.All Medical being followed by Hos pitalist and pt will remain an inpatient until stable. From Ortho standpoint pt is clear for d/c back to SNF. Status: Acute (2) Amputation stump complication Status: Chronic Priority: High Comment: COLD BKA stump and thigh RIGHT. Severe PAIN, Paresthesia, Poikilothermia and Pulseless. DOPPLER Studies: THROMBOSED SFA, Popliteal but patient commonn femoral and profunda femoris, DVT popliteal vein.
[2019-01-12] MEDS: LEVOTHYROXINE 50 MCG TABLET PO SCH (07:44)
[2019-01-12] MEDS: PANTOPRAZOLE 40 MG TABLET PO SCH (07:44)
[2019-01-12] MEDS: INSULIN LISPRO 1 UNIT/0.01 ML UNIT SQ SCH ×4 (07:44→22:54)
[2019-01-12] MEDS ORDERED: SODIUM POLYSTYRENE SULFONATE 15 GM/60 ML SUSPENSION PO ONE (08:10)
[2019-01-12] MEDS ORDERED: 0.9 % SODIUM CHLORIDE 250 ML IV SCH (08:45)
[2019-01-12] MEDS: HEPARIN 5,000 UNIT/ML VIAL SQ SCH ×2 (09:25→22:50)
[2019-01-12] MEDS: DOCUSATE SODIUM 100 MG CAPSULE PO SCH ×2 (09:25→22:51)
[2019-01-12] MEDS: THIAMINE 100 MG TABLET PO SCH (09:25)
[2019-01-12] MEDS: CYANOCOBALAMIN (VITAMIN B-12) 500 MCG TABLET PO SCH ×2 (09:25→22:50)
[2019-01-12] MEDS: VANCOMYCIN 1,000 MG in 0.9 % SODIUM CHLORIDE 250 ML IV SCH (09:25)
[2019-01-12] MEDS: MULTIVIT,THER IRON,CA,FA & MIN 1 TABLET PO SCH (09:25)
[2019-01-12] MEDS: FUROSEMIDE 40 MG TABLET PO SCH (09:25)
--- NOTE | 2019-01-12 10:14 | General Surgery Consult Note ---
History of Present Illness Patient information: Note initiated : 01/12/19 at 10:11 am Service Date, if different from initiated Date: [] Patient: Jayjay Horta 78 y/o M admitted on 01/11/19 for Right Lower Extremity Infection. Chief Complaint: [] Consult date: 01/12/19 Requesting physician: Cain Hightower (Wound Care ) History of present illness: I saw this gentleman on rounds with KUNAL Ugarte Inpatient wound care nurse. 78/WM. S/P Emergency RIGHT AKA yesterday for sepsis of RIGHT BKA stump., Established patient at wound care clinic, who underwent surgery uneventfully yesterday. Medications and Allergies Home Medications Medication Instructions Recorded Confirmed Type levothyroxine 50 mcg tablet 50 mcg PO QDAY #30 tab 04/22/18 01/11/19 Rx Acetaminophen [Tylenol] 1,000 mg PO Q8HP PRN #30 tab 01/07/19 01/11/19 Rx Gabapentin [Neurontin] 300 mg PO HS #30 cap 01/07/19 01/11/19 Rx Terazosin [Hytrin] 1 mg PO HS #30 cap 01/07/19 01/11/19 Rx traMADol [Ultram] 50 mg PO Q12HP PRN #20 tab 01/07/19 01/11/19 Rx Glucagon,Human Recombinant 1 mg IM Q15MIN PRN 01/11/19 01/11/19 History [Glucagon Emergency Kit] Allergies Allergy/AdvReac Type Severity Reaction Status Date / Time Penicillins AdvReac Mild Vomiting Verified 01/04/19 08:29 Exam Temp Pulse Resp BP Pulse Ox 99.1 F H 79 18 123/49 98 01/12/19 07:26 01/12/19 07:26 01/12/19 07:26 01/12/19 07:26 01/12/19 07:26 - General physical appearance well developed, no distress, other (Anemia and malnutrition chronic) - Eyes PERRL, normal ocular movement - ENT normal pinna, normal nares, normal mucosa, no congestion - Head Head exam IM: Present: atraumatic, normocephalic - Neck no masses, no bruits, no venous distension - Cardiovascular Cardiovascular exam IM: Present: normal rate and rhythm - Respiratory normal expansion, normal respiratory effort, clear to auscultation - Abdomen Abdomen: Present: soft, non tender, bowel sounds (Tolerating regular diet. ) - Integumentary Present: other (Dressing Right thigh is CDI) - Neurologic Present: other (Non focal neurological exam. Patient is OOB in chair talking and moves all extremities.) - Musculoskeletal Present: other (Non Ambulatory. S/P Right AKA POD # 1. ) - Psychiatric Present: oriented to time, oriented to person, oriented to place, speech is normal, memory intact Results - Labs 01/12/19 04:10 01/12/19 04:10 Abnormal lab results 01/11/19 01/11/19 01/11/19 Range/Units 11:05 11:05 12:59 WBC 16.9 H (4.5-11.0) K/mcL RBC 2.93 L (4.50-5.90) M/mcL Hgb 9.1 L (13.5-16.5) g/dL Hct 27.6 L (41.0-55.0) % RDW 15.0 H (11.5-14.5) % Plt Count 480 H (140-440) K/mcL MPV 7.3 L (7.4-10.4) fL Gran % 80.0 H (38.0-78.0) % Lymph % (Auto) 12.8 L (15.5-49.0) % Gran # 13.5 H (1.8-8.0) K/mcL [place] # (Auto) 1.0 H (0.1-0.9) K/mcL Seg Neutrophils % (38-78) % Lymphocytes % (15-49) % RBC Morphology (NORMAL) Hypochromasia (NONE SEEN) ESR > 120 H (0-15) mm/hr Potassium 5.4 H (3.3-5.1) mmol/L Chloride (96-108) mmol/L Carbon Dioxide (22-30) mmol/L BUN 24 H (8-23) mg/dl Creatinine 1.5 H (0.7-1.2) mg/dl Glucose (70-105) mg/dL Calcium (8.6-10.4) mg/dl Magnesium (1.6-2.5) mg/dL AST 56 H (0-37) U/l ALT 63 H (0-40) U/l C-Reactive Protein 1.9 H (0.0-0.8) mg/dl Total Protein (5.9-8.4) gm/dL Albumin 2.8 L (3.2-5.2) gm/dL Albumin/Globulin Ratio 0.8 L (1.0-2.3) Urine Protein 30 A (NEG) mg/dL 01/12/19 01/12/19 Range/Units 04:10 04:10 WBC 14.3 H (4.5-11.0) K/mcL RBC 2.32 L (4.50-5.90) M/mcL Hgb 7.1 L (13.5-16.5) g/dL Hct 21.9 L (41.0-55.0) % RDW 14.6 H (11.5-14.5) % Plt Count (140-440) K/mcL MPV 7.2 L (7.4-10.4) fL Gran % (38.0-78.0) % Lymph % (Auto) (15.5-49.0) % Gran # (1.8-8.0) K/mcL [place] # (Auto) (0.1-0.9) K/mcL Seg Neutrophils % 90 H (38-78) % Lymphocytes % 4 L (15-49) % RBC Morphology Abnorm A (NORMAL) Hypochromasia 1+ A (NONE SEEN) ESR (0-15) mm/hr Potassium 6.0 H* (3.3-5.1) mmol/L Chloride 110 H (96-108) mmol/L Carbon Dioxide 21 L (22-30) mmol/L BUN 25 H (8-23) mg/dl Creatinine 1.4 H (0.7-1.2) mg/dl Glucose 114 H (70-105) mg/dL Calcium 7.6 L (8.6-10.4) mg/dl Magnesium 1.5 L (1.6-2.5) mg/dL AST (0-37) U/l ALT (0-40) U/l C-Reactive Protein (0.0-0.8) mg/dl Total Protein 4.7 L (5.9-8.4) gm/dL Albumin 2.0 L (3.2-5.2) gm/dL Albumin/Globulin Ratio 0.7 L (1.0-2.3) Urine Protein (NEG) mg/dL Diabetes panel 01/11/19 01/12/19 Range/Units 11:05 04:10 Sodium 141 140 (133-145) mmol/L Potassium 5.4 H 6.0 H* (3.3-5.1) mmol/L Chloride 106 110 H (96-108) mmol/L Carbon Dioxide 25 21 L (22-30) mmol/L BUN 24 H 25 H (8-23) mg/dl Creatinine 1.5 H 1.4 H (0.7-1.2) mg/dl Glucose 90 114 H (70-105) mg/dL Calcium 8.6 7.6 L (8.6-10.4) mg/dl AST 56 H 23 (0-37) U/l ALT 63 H 32 (0-40) U/l Alkaline Phosphatase 76 60 (39-117) U/L Total Protein 6.1 4.7 L (5.9-8.4) gm/dL Albumin 2.8 L 2.0 L (3.2-5.2) gm/dL Triglycerides 77 (<150) mg/dl Calcium panel 01/11/19 01/12/19 Range/Units 11:05 04:10 Calcium 8.6 7.6 L (8.6-10.4) mg/dl Phosphorus 3.9 (2.7-4.5) mg/dL Albumin 2.8 L 2.0 L (3.2-5.2) gm/dL Pituitary panel 01/11/19 01/12/19 Range/Units 11:05 04:10 Sodium 141 140 (133-145) mmol/L Potassium 5.4 H 6.0 H* (3.3-5.1) mmol/L Chloride 106 110 H (96-108) mmol/L Carbon Dioxide 25 21 L (22-30) mmol/L BUN 24 H 25 H (8-23) mg/dl Creatinine 1.5 H 1.4 H (0.7-1.2) mg/dl Glucose 90 114 H (70-105) mg/dL Calcium 8.6 7.6 L (8.6-10.4) mg/dl Adrenal panel 01/11/19 01/12/19 Range/Units 11:05 04:10 Sodium 141 140 (133-145) mmol/L Potassium 5.4 H 6.0 H* (3.3-5.1) mmol/L Chloride 106 110 H (96-108) mmol/L Carbon Dioxide 25 21 L (22-30) mmol/L BUN 24 H 25 H (8-23) mg/dl Creatinine 1.5 H 1.4 H (0.7-1.2) mg/dl Glucose 90 114 H (70-105) mg/dL Calcium 8.6 7.6 L (8.6-10.4) mg/dl Total Bilirubin < 0.2 < 0.2 (0.0-1.0) mg/dL AST 56 H 23 (0-37) U/l ALT 63 H 32 (0-40) U/l Alkaline Phosphatase 76 60 (39-117) U/L Total Protein 6.1 4.7 L (5.9-8.4) gm/dL Albumin 2.8 L 2.0 L (3.2-5.2) gm/dL All other labs normal. Assessment and Plan (1) Anemia Assessment: Patient is post surgery. Will check Prealbumin. Plan: Follow clinical progress. Nutritional supplements. Status: Chronic Priority: Medium Qualifiers: Other causes of anemia: chronic disease, other (2) Malnutrition Assessment: Chronic malnutrition. S/P Emergent Right AKA for sepsis POD # 1. Plan: Await lab results, Follow clinically. Status: Chronic Priority: Medium Qualifiers: Protein-calorie malnutrition severity: moderate (3) Amputation stump complication Assessment: POD # 1 S/P Emergent RIGHT AKA. Plan: Continue current treatment. Monitor wound dressings /drainage. Following patient along with ORTHO Team and Hospitalist Team. Status: Acute Priority: High Comment: COLD BKA stump and thigh RIGHT. Severe PAIN, Paresthesia, Poikilothermia and Pulseless. DOPPLER Studies: THROMBOSED SFA, Popliteal but patient commonn femoral and profunda femoris, DVT popliteal vein.
[2019-01-12] MEDS: LACTATED RINGERS 1,000 ML IV SCH (12:14)
[2019-01-12] MEDS ORDERED: BENZOCAINE/MENTHOL 1 LOZENGE PO PRN (13:04)
[2019-01-12] MEDS ORDERED: FLEETS ADULT ENEMA PR PRN (13:04)
[2019-01-12] MEDS ORDERED: TEMAZEPAM 15 MG CAPSULE PO PRN (13:04)
[2019-01-12] MEDS ORDERED: KETOROLAC 15 MG/ML VIAL IV PRN (13:04)
[2019-01-12] MEDS ORDERED: HYDROCODONE/APAP 7.5/325MG TABLET PO PRN (13:04)
--- NOTE | 2019-01-12 13:32 | Internal Med Progress Note ---
Medical - PN: Subj Patient information: Note initiated : 01/12/19 at 1:29 pm Service Date, if different from initiated Date: [] Patient: Jayjay Horta a 78 y/o M admitted on 01/11/19 for Right Lower Extremity Infection. Chief Complaint: [] Interval history: Mr. Horta is a 78 year old M resident at [facility] with a history of DM type II, HTN, severe PVD with revascularization Rt LE and subsequent post BKA 2/2 no n-healing stump with wound breakdown. He presents today to wound care for evaluation of right BKA stump ulceration/gangrenous changes. He was referred to the ED by Dr Brooks for evaluation of worsening stump changes suspicious for gangrene and cellulitis and failed outpatient treatment. He follows up at [facility] nephrology clinic for his CKD. Initial work-up in the ED was consistent with gangrenous changes along with white count over 16,000. Orthopedics were consulted for evaluation and consideration of AKA. Subsequently hospitalist service is consulted to facilitate admission and ho spitalization along with management of medical issues while patient will undergo AKA over the next couple of hours. Patient in general had a progressive decline. Complains of loss of appetite. He feels fatigued and lethargic. He is barely able to perform activities or participate in physical therapy at the care center. He is accompanied with his . He also endorses to left lower extremity lymphedema for which she is on diuretics. He denies diarrhea dysuria, shaking chills headache or photophobia. He denies cough or shortness of breath. 01/12-postop day 1. Doing well. Complains of stump pain. Potassium 6. Started on Kayexalate. Hemoglobin 7.1 postoperative. Start 2 units blood transfusion. No overnight events noting fever chills. Continue home medications for pre-existing issues. White count downtrending to 14,000. DC antibiotics. Await cultures - Constitutional Vitals: Vital Signs Temp Pulse Resp BP Pulse Ox 97.9 F 82 18 144/54 99 01/12/19 11:38 01/12/19 11:38 01/12/19 11:38 01/12/19 11:38 01/12/19 11:38 Period Temp Pulse Resp BP Sys/Arthur Pulse Ox Last 24 Hr 97.7 F-99.1 F 79-107 10-20 123-178/48-70 95-100 Intake and Output 01/11/19 01/12/19 01/12/19 21:59 05:59 13:59 Intake Total 340 1350 660 Output Total 600 400 376 Balance -260 950 284 Weight 133 lb 133 lb Patient Weight 01/13/19 05:59 Weight 133 lb Intake & Output: Intake & Output 01/11/19 01/12/19 01/12/19 21:59 05:59 13:59 Intake Total 340 1350 660 Output Total 600 400 376 Balance -260 950 284 Weight 133 lb 133 lb Intake: IV 100 300 300 Zosyn 3.375 gm In Dextrose 5% 50 50 50 in Water 50 ml @ 100 mls/hr IV Q6H [facility] Rx#:[id number] Vancomycin 1,000 mg In Sodium 250 250 Chloride 0.9% 250 ml @ 250 mls/ hr IV Q24H [facility] Rx#:[id number] Ancef 2 gm In Dextrose 5% in 50 Water 50 ml @ 100 mls/hr IV ONCE ONE Rx#:[id number] Oral 240 200 360 IV - Manual Only 850 Output: Void Amount 600 400 375 # of times incontinent of urine 1 Other: Meal Dinner Lunch Percent of Meal Consumed 100% 100% Feeding Ability Independent Urine Appearance Clear Urine Color Bright Yellow Urine Odor Normal Stool Size Large Stool Color Brown Stool Consistency Loose # Bowel Movements 1 General appearance: moderate distress (Amputation stump pain) Exam: Alert and oriented Nonlabored breathing Mild conjunctival pallor Amputation stump no bleeding or redness Medical - PN: Obj Da - Labs CBC & Chem 7: 01/12/19 04:10 01/12/19 04:10 Labs: Abnormal Lab Results 01/12/19 01/12/19 01/11/19 04:10 04:10 12:59 WBC 14.3 H RBC 2.32 L Hgb 7.1 L Hct 21.9 L RDW 14.6 H Plt Count MPV 7.2 L Gran % Lymph % (Auto) Gran # [place] # (Auto) Seg Neutrophils % 90 H Lymphocytes % 4 L RBC Morphology Abnorm A Hypochromasia 1+ A ESR Potassium 6.0 H* Chloride 110 H Carbon Dioxide 21 L BUN 25 H Creatinine 1.4 H Glucose 114 H Calcium 7.6 L Magnesium 1.5 L AST ALT C-Reactive Protein Total Protein 4.7 L Albumin 2.0 L Albumin/Globulin Ratio 0.7 L Urine Protein 30 A 01/11/19 01/11/19 11:05 11:05 WBC 16.9 H RBC 2.93 L Hgb 9.1 L Hct 27.6 L RDW 15.0 H Plt Count 480 H MPV 7.3 L Gran % 80.0 H Lymph % (Auto) 12.8 L Gran # 13.5 H [place] # (Auto) 1.0 H Seg Neutrophils % Lymphocytes % RBC Morphology Hypochromasia ESR > 120 H Potassium 5.4 H Chloride Carbon Dioxide BUN 24 H Creatinine 1.5 H Glucose Calcium Magnesium AST 56 H ALT 63 H C-Reactive Protein 1.9 H Total Protein Albumin 2.8 L Albumin/Globulin Ratio 0.8 L Urine Protein Meds: Medications Acetaminophen (Tylenol) 650 mg PO Q4-6HP PRN; Protocol PRN Reason: Per Pain Protocol/Fever > 101 Hydrocodone Bitart/Acetaminophen ([place] 7.5/325mg) 0 tab PO Q4HP PRN PRN Reason: PAIN LEVEL 3-6 Cefazolin Sodium (Ancef) 2 gm IV Q8H [facility]; Protocol Stop: 01/12/19 21:16 Cyanocobalamin (Vitamin B-12) 1,000 mcg PO BID [facility] Stop: 01/16/19 09:01 Last Admin: 01/12/19 09:25 Dose: 1,000 mcg Documented by: Dextrose (Dextrose 50%) 0 ml IV UD PRN PRN Reason: Hypoglycemia Diagnostic Test (Pha) (Accu-Chek) 1 each FS ACHS [facility] Last Admin: 01/12/19 11:32 Dose: 1 each Documented by: Docusate Sodium (Colace) 100 mg PO BID [facility] Last Admin: 01/12/19 09:25 Dose: 100 mg Documented by: Furosemide (Lasix) 40 mg PO DAILY [facility] Last Admin: 01/12/19 09:25 Dose: 40 mg Documented by: Gabapentin (Neurontin) 300 mg PO HS [facility] Last Admin: 01/11/19 21:56 Dose: 300 mg Documented by: Glucose (Insta-Glucose) 15 gm PO PRN PRN PRN Reason: Hypoglycemia Heparin Sodium (Porcine) (Heparin) 5,000 unit SQ Q12 [facility] Last Admin: 01/12/19 09:25 Dose: 5,000 unit Documented by: Hydromorphone HCl (Dilaudid) 0 mg IV Q4HP PRN; Protocol PRN Reason: Per Pain Protocol Lactated Ringer's (Lactated Ringers) 1,000 mls @ 50 mls/hr IV .Q20H [facility] Last Admin: 01/12/19 12:14 Dose: Not Given Documented by: Magnesium Sulfate (Magnesium Sulfate) 2 gm in 50 mls @ 50 mls/hr IV UD PRN PRN Reason: MG = or < 1.7 Acetaminophen (Ofirmev) 650 mg in 65 mls @ 130 mls/hr IV Q6HP PRN; Protocol PRN Reason: Per Pain Protocol/Fever > 101 Piperacillin Sod/Tazobactam (Sod 3.375 gm/ Dextrose) 50 mls @ 100 mls/hr IV Q6H [facility]; Protocol Last Admin: 01/12/19 11:27 Dose: 100 mls/hr Documented by: Vancomycin HCl 1,000 mg/ (Sodium Chloride) 250 mls @ 250 mls/hr IV Q24H [facility] Last Infusion: 01/12/19 10:30 Dose: Infused Documented by: Sodium Chloride (Sodium Chloride 0.9%) 250 mls @ 20 mls/hr IV .[id number] [facility] Stop: 01/12/19 21:14 Last Admin: 01/12/19 12:12 Dose: 20 mls/hr Documented by: Insulin Human Lispro (Humalog) 0 unit SQ ACHS [facility]; Protocol Last Admin: 01/12/19 11:32 Dose: Not Given Documented by: Iron Carb/Multivit/Human Resource Adviser/Folic Acid (Multivitamin W/Minerals) 1 tab PO DAILY [facility] Last Admin: 01/12/19 09:25 Dose: 1 tab Documented by: Ketorolac Tromethamine (Toradol) 15 mg IV Q6HP PRN PRN Reason: Pain Stop: 01/14/19 13:04 Levothyroxine Sodium (Synthroid) 50 mcg PO ACB [facility] Last Admin: 01/12/19 07:44 Dose: 50 mcg Documented by: Magnesium Hydroxide (Milk Of Magnesia) 30 ml PO HSP PRN PRN Reason: Constipation Ondansetron HCl (Zofran) 4 mg IV Q4-6HP PRN; Protocol PRN Reason: Nausea And Vomiting Oxycodone/Acetaminophen (Percocet 5-325 Mg) 0 tab PO Q4HP PRN; Protocol PRN Reason: Per Pain Protocol Pantoprazole Sodium (Protonix) 40 mg PO QAMAC [facility] Last Admin: 01/12/19 07:44 Dose: 40 mg Documented by: Polyethylene Glycol (Miralax) 17 gm PO DAILYP PRN PRN Reason: Constipation Potassium Chloride (Klor-Con) 40 meq PO DAILYP PRN PRN Reason: K+ < 3.5 Senna (Senokot) [address] [facility] Senna/Docusate Sodium (Senna Plus Tablet) 1 tab PO HS [facility] Last Admin: 01/11/19 21:55 Dose: 1 tab Documented by: Sodium Biphosphate/Sodium Phosphate (Fleets Adult) 1 dose CA Q3-4DAYS PRN PRN Reason: Constipation Sodium Chloride (Saline Flush) 10 ml IV Q8 [facility] Last Admin: 01/12/19 06:11 Dose: 10 ml Documented by: Sodium Chloride (Saline Flush) 10 ml IV Q8 [facility] Last Admin: 01/12/19 05:33 Dose: Not Given Documented by: Sodium Chloride (Saline Flush) 10 ml IV Q8 [facility] Temazepam (Restoril) 15 mg PO HSP PRN PRN Reason: Insomnia Terazosin HCl (Hytrin) [address] [facility] Last Admin: 01/11/19 21:55 Dose: 1 mg Documented by: Thiamine HCl (Vitamin B1) 100 mg PO DAILY [facility] Last Admin: 01/12/19 09:25 Dose: 100 mg Documented by: Throat Lozenges (Cepacol) 1 lozenge PO PRN PRN PRN Reason: Sore Throat Tramadol HCl (Ultram) 50 mg PO Q12HP PRN PRN Reason: PAIN LEVEL 3-6 Last Admin: 01/12/19 09:33 Dose: 50 mg Documented by: Vancomycin HCl (Vancomycin Per Pharmacy) 1 order IV UD [facility]; Protocol Medical - PN: A/P - Time Spent With Patient Total time spent is greater than 50% in coordination of care (as documented) at patient's floor/unit and/or counseling patient: Greater than 35 minutes (1) Ischemia of right BKA site Status: Acute Assessment and plan: * Ischemia of right BKA site with gangrenous changes. Failed revascularization procedure/outpatient wound treatment. Patient status post right AKA. Postop day 1 * Sepsis secondary infected nonhealing stump-now post AKA day 1. DC antibiotics. * Blood loss anemia-hemoglobin 7.1 postoperative drop. 2 units PRBC transfusion * Hyperkalemia potassium at 6. 30 g Kayexalate * Pain management continue as needed opioids * Chronic kidney disease stage IIIb. Creatinine 1.4 * DM type II continue sliding scale insulin/CC diet. Blood sugars at goal * Hypothyroidism continue thyroxine * Neuropathy continue gabapentin * Degenerative joint disease continue pain management as indicated * Prophylaxis heparin * Full code Plan * Postop care per orthopedics * Kayexalate for hyperkalemia * 2 units PRBC transfusion * DC antibiotic coverage * Prior medical condition management on home meds * PT OT/nutrition support * Discharge planning per case management Current Visit: Yes Medical - PN: Qual - VTE Deep Vein Thrombosis/Pulmonary Embolism Present on Admission: No
--- NOTE | 2019-01-12 14:25 | Operative Note ---
DATE OF OPERATION: 01/12/2019 PREOPERATIVE DIAGNOSIS: Left proximal humerus fracture, 2 part with displacement. POSTOPERATIVE DIAGNOSIS: Left proximal humerus fracture, 2 part with displacement. PROCEDURE: Left 2-part fracture open reduction and internal fixation with plate and screws using Leroy components. SURGEON: Grant Manuel MD CIRCUIT BREAKER ASSEMBLER: Joaquin Gracia PA-C. This provider's expertise and technical skill were required throughout the case. The ANGELES assisted with preoperative coordination, intraoperative retraction, wound closure, dressing and splint application, as well as postoperative documentation and care coordination. COMPLICATIONS: None. ESTIMATED BLOOD LOSS: About 100 mL DESCRIPTION OF PROCEDURE: The patient was brought to the operating room and put to sleep with general anesthesia. Once asleep, the patient was sat in beach chair position. A timeout was performed and we confirmed the left arm as the fracture site by initials, consent form and x-rays. Once all was done, we then sterilely prepped the left arm and placed Ioban over the skin, made a deltopectoral approach and where we exposed the fracture. We then placed a plate laterally, an anatomical plate from Leroy, and this seemed to line up well after we reduced the fracture. Once perfectly aligned, we then placed the plate with screws locking this distally and proximally, achieving a very well aligned humeral head with alignment of the humeral head. Once all this was done, we then took images to confirm the placement and position and length of screws, all which appeared to be very healthy. We then closed the deltopectoral interval with 2-0 Vicryl and closed the skin with 2-0 Vicryl and nikko. Sterile bandage applied. A DonJoy sling was fitted and given to the patient at the end of the case. There was no complication. The patient tolerated this well. The 2-part fracture lined up perfectly. RBH:radha Job ID: [id number] Doc ID: [id number] Grant Manuel MD
[2019-01-12] MEDS: ceFAZolin 1 GM VIAL IV SCH ×2 (15:38→22:49)
[2019-01-12] MEDS: oxyCODONE/APAP 5/325MG TABLET PO PRN ×3 (15:39→23:00)
[2019-01-12] MEDS: SENNOSIDES/DOCUSATE SODIUM 1 TAB TABLET PO SCH (22:50)
[2019-01-12] MEDS: TERAZOSIN 1 MG CAPSULE PO SCH (22:50)
[2019-01-12] MEDS: GABAPENTIN 300 MG CAPSULE PO SCH (22:50)
[2019-01-12] MEDS: SENNOSIDES 1 TABLET PO SCH (22:50)
[2019-01-13] MEDS: oxyCODONE/APAP 5/325MG TABLET PO PRN ×5 (04:45→22:08)
[2019-01-13] MEDS: 0.9 % SODIUM CHLORIDE 10 ML SYRINGE IV SCH ×9 (05:10→23:50)
[2019-01-13 06:29] LABS: Hematocrit 28.7 % (41.0-55.0); Hemoglobin 9.5 g/dL (13.5-16.5); Mean Cell Volume 92.4 fL (80.0-100.0); Mean Corpuscular HGB Conc 33.1 g/dL (31.0-36.0); Mean Platelet Volume 6.9 fL (7.4-10.4); Platelet Count 489 K/mcL (140-440); Red Cell Distribution Width 15.3 % (11.5-14.5); WBC 11.3 K/mcL (4.5-11.0)
[2019-01-13 06:47] LABS: ALT/SGPT 23 U/l (0-40); AST/SGOT 20 U/l (0-37); Albumin 2.3 gm/dL (3.2-5.2); Albumin/Globulin Ratio 0.8 (1.0-2.3); Alkaline Phosphatase 59 U/L (39-117); Bilirubin,Direct < 0.2 mg/dL (0.0-0.3); Bilirubin,Total 0.2 mg/dL (0.0-1.0); Blood Urea Nitrogen 26 mg/dl (8-23); Calcium 7.8 mg/dl (8.6-10.4); Carbon Dioxide 23 mmol/L (22-30); Chloride 107 mmol/L (96-108); Globulin 2.9 gm/dL (2.2-3.7); Glucose 84 mg/dL (70-105); Lactate Dehydrogenase 207 U/L (94-250); Phosphorous 4.2 mg/dL (2.7-4.5); Prealbumin 20.6 mg/dl (20-40); Triglycerides 123 mg/dl (<150); Uric Acid 3.7 mg/dL (2.5-8.0)
[2019-01-13 06:54] LABS: Glomerular Filtration Rate 38
[2019-01-13 07:12] LABS: Thyroid Stimulating Hormone 7.85 uIU/ml (0.27-5.01)
[2019-01-13] MEDS: INSULIN LISPRO 1 UNIT/0.01 ML UNIT SQ SCH ×4 (07:30→23:49)
[2019-01-13] MEDS: LACTATED RINGERS 1,000 ML IV SCH (07:31)
[2019-01-13 08:15] LABS: Band Neutrophils % 2 % (0-10); Hypochromasia 1+ (NONE SEEN); Lymphocytes % 17 % (15-49); Monocytes % (Manual) 9 % (1-12); Myelocytes % 1 % (0-0); Platelet Estimate INCREASED (NORMAL); RBC Morphology ABNORM (NORMAL); Segmented Neutrophils % 71 % (38-78)
--- NOTE | 2019-01-13 08:27 | Orthopedic Progress Note ---
Subjective Patient information: Note initiated : 01/13/19 at 8:26 am Service Date, if different from initiated Date: [] Patient: Jayjay Horta 78 y/o M admitted on 01/11/19 for Right Lower Extremity Infection. Chief Complaint: [] Principal diagnosis: less pain and feeling better and eating well Objective Vital signs: Vital Signs Temp Pulse Resp BP Pulse Ox 01/13/19 03:48 98.0 F 76 16 173/65 98 01/12/19 22:49 98.7 F 72 16 160/63 98 01/12/19 19:21 98.1 F 79 16 162/61 99 01/12/19 19:20 78 20 99 01/12/19 16:00 98.3 F 78 20 163/62 99 01/12/19 11:38 97.9 F 82 18 144/54 99 Intake and Output 01/12/19 01/13/19 01/13/19 21:59 05:59 13:59 Intake Total 1210 300 Output Total 475 700 200 Balance 735 -400 -200 Intake: Nourishment/Supplement quantity 240 (ml) IV 50 Sodium Chloride 0.9% 250 ml @ 50 20 mls/hr IV .[id number] COUNTS INCLUDE 234 BEDS AT THE [facility] Rx#: [id number] Oral 540 300 Blood Product 380 Output: Void Amount 275 475 200 Urine/Stool Mix 200 225 Other: Meal Dinner Percent of Meal Consumed 100% Feeding Ability Independent Urine Appearance Clear Clear Clear Urine Color Bright Yellow Bright Yellow Bright Yellow Urine Odor Normal Normal Stool Size Moderate Small Stool Color Brown Brown Stool Consistency Loose Liquid Watery Loose # Voids 1 # Bowel Movements 1 Weight 134 lb 5 oz Intake & Output: Intake & Output 01/12/19 01/13/19 01/13/19 21:59 05:59 13:59 Intake Total 1210 300 Output Total 475 700 200 Balance 735 -400 -200 Weight 134 lb 5 oz Intake: Nourishment/Supplement quantity 240 (ml) IV 50 Sodium Chloride 0.9% 250 ml @ 50 20 mls/hr IV .[id number] COUNTS INCLUDE 234 BEDS AT THE [facility] Rx#: [id number] Oral 540 300 Blood Product 380 Output: Void Amount 275 475 200 Urine/Stool Mix 200 225 Other: Meal Dinner Percent of Meal Consumed 100% Feeding Ability Independent Urine Appearance Clear Clear Clear Urine Color Bright Yellow Bright Yellow Bright Yellow Urine Odor Normal Normal Stool Size Moderate Small Stool Color Brown Brown Stool Consistency Loose Liquid Watery Loose # Voids 1 # Bowel Movements 1 Incision: Yes healing Incision clean and dry: Yes Dressing: Yes clean Weight bearing status: full Neurological exam IM: Yes alert, Yes neurovascular intact (dc home) - Labs CBC & BMP: 01/13/19 04:25 01/13/19 04:25 Labs: Orthopedic Labs 01/11/19 01/11/19 14:16 11:05 PT 13.2 TNP INR 1.0 TNP 01/13/19 01/12/19 01/11/19 04:25 04:10 11:05 Hgb 9.5 L 7.1 L 9.1 L Hct 28.7 L 21.9 L 27.6 L
[2019-01-13 08:40] LABS: Estimated Average Glucose(eAG) 111 mg/dL; Hemoglobin A1C 5.5 % HGB (4.0-6.0)
[2019-01-13] MEDS: PANTOPRAZOLE 40 MG TABLET PO SCH (08:51)
[2019-01-13] MEDS: FUROSEMIDE 40 MG TABLET PO SCH (08:52)
[2019-01-13] MEDS: LEVOTHYROXINE 50 MCG TABLET PO SCH (08:52)
[2019-01-13] MEDS: CYANOCOBALAMIN (VITAMIN B-12) 500 MCG TABLET PO SCH ×2 (08:52→20:57)
[2019-01-13] MEDS: THIAMINE 100 MG TABLET PO SCH (08:52)
[2019-01-13] MEDS: MULTIVIT,THER IRON,CA,FA & MIN 1 TABLET PO SCH (08:52)
[2019-01-13] MEDS: HEPARIN 5,000 UNIT/ML VIAL SQ SCH ×2 (08:52→20:56)
[2019-01-13] MEDS: DOCUSATE SODIUM 100 MG CAPSULE PO SCH ×2 (08:53→20:56)
[2019-01-13] MEDS: VANCOMYCIN 1,000 MG in 0.9 % SODIUM CHLORIDE 250 ML IV SCH (13:08)
--- NOTE | 2019-01-13 14:23 | Internal Med Progress Note ---
Medical - PN: Subj Patient information: Note initiated : 01/13/19 at 2:19 pm Service Date, if different from initiated Date: [] Patient: Jayjay Horta a 78 y/o M admitted on 01/11/19 for Right Lower Extremity Infection. Chief Complaint: [] Interval history: Mr. Horta is a 78 year old M resident at [facility] with a history of DM type II, HTN, severe PVD with revascularization Rt LE and subsequent post BKA / no n-healing stump with wound breakdown. He presents today to wound care for evaluation of right BKA stump ulceration/gangrenous changes. He was referred to the ED by Dr Brooks for evaluation of worsening stump changes suspicious for gangrene and cellulitis and failed outpatient treatment. He follows up at [facility] nephrology clinic for his CKD. Initial work-up in the ED was consistent with gangrenous changes along with white count over 16,000. Orthopedics were consulted for evaluation and consideration of AKA. Subsequently hospitalist service is consulted to facilitate admission and ho spitalization along with management of medical issues while patient will undergo AKA over the next couple of hours. Patient in general had a progressive decline. Complains of loss of appetite. He feels fatigued and lethargic. He is barely able to perform activities or participate in physical therapy at the care center. He is accompanied with his . He also endorses to left lower extremity lymphedema for which she is on diuretics. He denies diarrhea dysuria, shaking chills headache or photophobia. He denies cough or shortness of breath. 01/12-postop day 1. Doing well. Complains of stump pain. Potassium 6. Started on Kayexalate. Hemoglobin 7.1 postoperative. Start 2 units blood transfusion. No overnight events noting fever chills. Continue home medications for pre-existing issues. White count downtrending to 14,000. DC antibiotics. Await cultures 01/13-patient doing well. Potassium improved to 4.8. White count down to 11.3. Creatinine around baseline at 1.7. Wound care on board for sacral decubitus. Ongoing PT OT. Anticipate SNF transfer as patient agreeable. Case management to coordinate. No overnight fever chills or concerns per staff. - Constitutional Vitals: Vital Signs Temp Pulse Resp BP Pulse Ox 98.8 F 76 18 139/59 97 01/13/19 12:00 01/13/19 03:48 01/13/19 12:00 01/13/19 12:00 01/13/19 12:00 Period Temp Pulse Resp BP Sys/Arthur Pulse Ox Last 24 Hr 98.0 F-98.8 F 72-79 16-20 139-173/58-65 97-99 Intake and Output 01/13/19 01/13/19 01/13/19 05:59 13:59 21:59 Intake Total 300 50 Output Total 700 1025 Balance -400 -975 Weight 134 lb 5 oz Intake & Output: Intake & Output 01/13/19 01/13/19 01/13/19 05:59 13:59 21:59 Intake Total 300 50 Output Total 700 1025 Balance -400 -975 Weight 134 lb 5 oz Intake: IV 50 Oral 300 Output: Void Amount 475 1025 Urine/Stool Mix 225 Other: Urine Appearance Clear Clear Urine Color Bright Yellow Bright Yellow Urine Odor Normal Stool Size Small Stool Color Brown Stool Consistency Liquid Watery Loose Medical - PN: Obj Da - Labs CBC & Chem 7: 01/13/19 04:25 01/13/19 04:25 Labs: Abnormal Lab Results 01/13/19 01/13/19 01/13/19 04:25 04:25 04:25 WBC 11.3 H RBC 3.10 L Hgb 9.5 L Hct 28.7 L RDW 15.3 H Plt Count 489 H MPV 6.9 L Gran % Lymph % (Auto) Gran # [place] # (Auto) Seg Neutrophils % Lymphocytes % Myelocytes % 1 H Platelet Estimate Increased A RBC Morphology Abnorm A Hypochromasia 1+ A ESR Potassium Chloride Carbon Dioxide BUN 26 H Creatinine 1.7 H Glucose Calcium 7.8 L Magnesium 1.3 L AST ALT C-Reactive Protein Total Protein 5.2 L Albumin 2.3 L Albumin/Globulin Ratio 0.8 L TSH 7.85 H Urine Protein 01/12/19 01/12/19 01/11/19 04:10 04:10 12:59 WBC 14.3 H RBC 2.32 L Hgb 7.1 L Hct 21.9 L RDW 14.6 H Plt Count MPV 7.2 L Gran % Lymph % (Auto) Gran # [place] # (Auto) Seg Neutrophils % 90 H Lymphocytes % 4 L Myelocytes % Platelet Estimate RBC Morphology Abnorm A Hypochromasia 1+ A ESR Potassium 6.0 H* Chloride 110 H Carbon Dioxide 21 L BUN 25 H Creatinine 1.4 H Glucose 114 H Calcium 7.6 L Magnesium 1.5 L AST ALT C-Reactive Protein Total Protein 4.7 L Albumin 2.0 L Albumin/Globulin Ratio 0.7 L TSH Urine Protein 30 A 01/11/19 01/11/19 11:05 11:05 WBC 16.9 H RBC 2.93 L Hgb 9.1 L Hct 27.6 L RDW 15.0 H Plt Count 480 H MPV 7.3 L Gran % 80.0 H Lymph % (Auto) 12.8 L Gran # 13.5 H [place] # (Auto) 1.0 H Seg Neutrophils % Lymphocytes % Myelocytes % Platelet Estimate RBC Morphology Hypochromasia ESR > 120 H Potassium 5.4 H Chloride Carbon Dioxide BUN 24 H Creatinine 1.5 H Glucose Calcium Magnesium AST 56 H ALT 63 H C-Reactive Protein 1.9 H Total Protein Albumin 2.8 L Albumin/Globulin Ratio 0.8 L TSH Urine Protein Meds: Medications Acetaminophen (Tylenol) 650 mg PO Q4-6HP PRN; Protocol PRN Reason: Per Pain Protocol/Fever > 101 Hydrocodone Bitart/Acetaminophen ([place] 7.5/325mg) 0 tab PO Q4HP PRN PRN Reason: PAIN LEVEL 3-6 Cyanocobalamin (Vitamin B-12) 1,000 mcg PO BID [facility] Stop: 01/16/19 09:01 Last Admin: 01/13/19 08:52 Dose: 1,000 mcg Documented by: Dextrose (Dextrose 50%) 0 ml IV UD PRN PRN Reason: Hypoglycemia Diagnostic Test (Pha) (Accu-Chek) 1 each FS ACHS [facility] Last Admin: 01/13/19 11:27 Dose: 1 each Documented by: Docusate Sodium (Colace) 100 mg PO BID [facility] Last Admin: 01/13/19 08:53 Dose: Not Given Documented by: Furosemide (Lasix) 40 mg PO DAILY [facility] Last Admin: 01/13/19 08:52 Dose: 40 mg Documented by: Gabapentin (Neurontin) 300 mg PO HS [facility] Last Admin: 01/12/19 22:50 Dose: 300 mg Documented by: Glucose (Insta-Glucose) 15 gm PO PRN PRN PRN Reason: Hypoglycemia Heparin Sodium (Porcine) (Heparin) 5,000 unit SQ Q12 [facility] Last Admin: 01/13/19 08:52 Dose: 5,000 unit Documented by: Hydromorphone HCl (Dilaudid) 0 mg IV Q4HP PRN; Protocol PRN Reason: Per Pain Protocol Lactated Ringer's (Lactated Ringers) 1,000 mls @ 50 mls/hr IV .Q20H [facility] Last Admin: 01/13/19 07:31 Dose: Not Given Documented by: Magnesium Sulfate (Magnesium Sulfate) 2 gm in 50 mls @ 50 mls/hr IV UD PRN PRN Reason: MG = or < 1.7 Last Infusion: 01/13/19 13:09 Dose: Infused Documented by: Acetaminophen (Ofirmev) 650 mg in 65 mls @ 130 mls/hr IV Q6HP PRN; Protocol PRN Reason: Per Pain Protocol/Fever > 101 Vancomycin HCl 1,000 mg/ (Sodium Chloride) 250 mls @ 250 mls/hr IV Q24H [facility] Last Admin: 01/13/19 13:08 Dose: 250 mls/hr Documented by: Insulin Human Lispro (Humalog) 0 unit SQ ACHS [facility]; Protocol Last Admin: 01/13/19 12:30 Dose: 1 unit Documented by: Iron Carb/Multivit/Vamp Strap Ironer/Folic Acid (Multivitamin W/Minerals) 1 tab PO DAILY [facility] Last Admin: 01/13/19 08:52 Dose: 1 tab Documented by: Ketorolac Tromethamine (Toradol) 15 mg IV Q6HP PRN PRN Reason: Pain Stop: 01/14/19 13:04 Levothyroxine Sodium (Synthroid) 50 mcg PO ACB [facility] Last Admin: 01/13/19 08:52 Dose: 50 mcg Documented by: Magnesium Hydroxide (Milk Of Magnesia) 30 ml PO HSP PRN PRN Reason: Constipation Ondansetron HCl (Zofran) 4 mg IV Q4-6HP PRN; Protocol PRN Reason: Nausea And Vomiting Oxycodone/Acetaminophen (Percocet 5-325 Mg) 0 tab PO Q4HP PRN; Protocol PRN Reason: Per Pain Protocol Last Admin: 01/13/19 13:34 Dose: 1 tab Documented by: Pantoprazole Sodium (Protonix) 40 mg PO QAMAC [facility] Last Admin: 01/13/19 08:51 Dose: 40 mg Documented by: Polyethylene Glycol (Miralax) 17 gm PO DAILYP PRN PRN Reason: Constipation Potassium Chloride (Klor-Con) 40 meq PO DAILYP PRN PRN Reason: K+ < 3.5 Senna (Senokot) 2 tab PO [facility] Last Admin: 01/12/19 22:50 Dose: Not Given Documented by: Senna/Docusate Sodium (Senna Plus Tablet) 1 tab PO [facility] Last Admin: 01/12/19 22:50 Dose: Not Given Documented by: Sodium Biphosphate/Sodium Phosphate (Fleets Adult) 1 dose AR Q3-4DAYS PRN PRN Reason: Constipation Sodium Chloride (Saline Flush) 10 ml IV Q8 [facility] Last Admin: 01/13/19 13:26 Dose: 10 ml Documented by: Sodium Chloride (Saline Flush) 10 ml IV Q8 [facility] Last Admin: 01/13/19 05:12 Dose: Not Given Documented by: Sodium Chloride (Saline Flush) 10 ml IV Q8 [facility] Last Admin: 01/13/19 13:27 Dose: 10 ml Documented by: Temazepam (Restoril) 15 mg PO HSP PRN PRN Reason: Insomnia Terazosin HCl (Hytrin) 1 mg PO [facility] Last Admin: 01/12/19 22:50 Dose: 1 mg Documented by: Thiamine HCl (Vitamin B1) 100 mg PO DAILY [facility] Last Admin: 01/13/19 08:52 Dose: 100 mg Documented by: Throat Lozenges (Cepacol) 1 lozenge PO PRN PRN PRN Reason: Sore Throat Tramadol HCl (Ultram) 50 mg PO Q12HP PRN PRN Reason: PAIN LEVEL 3-6 Last Admin: 01/12/19 09:33 Dose: 50 mg Documented by: Vancomycin HCl (Vancomycin Per Pharmacy) 1 order IV [facility] [place]; Protocol Medical - PN: A/P - Time Spent With Patient Total time spent is greater than 50% in coordination of care (as documented) at patient's floor/unit and/or counseling patient: 25 - 35 minutes (1) Ischemia of right BKA site Status: Acute Assessment and plan: * Ischemia of right BKA stump with gangrenous changes now status post AKA postop day 2. Failed revascularization procedure/outpatient wound treatment. Managed by orthopedics * Sepsis secondary infected nonhealing stump-clinically resolved after amputation. Off antibiotics * Blood loss anemia-hemoglobin 7.1 postoperative drop. Hemoglobin 9.5 post 2U PRBC * Hyperkalemia potassium down to 4.8 post Kayexalate * Pain management continue as needed opioids * Chronic kidney disease stage IIIb. Creatinine 1.7 * DM type II stable on sliding scale insulin/CC diet. Blood sugars at goal * Hypothyroidism continue thyroxine * Sacral decubiti management per wound care * Neuropathy continue gabapentin * DJD stable * Prophylaxis heparin * Full code Plan * Continue postop care per orthopedics * Sacral decubiti management per wound care physician * Prior medical condition management on home meds * PT OT/nutrition support * Discharge planning per case management possibly SNF if patient agreeable Current Visit: Yes Medical - PN: Qual - VTE Deep Vein Thrombosis/Pulmonary Embolism Present on Admission: No
--- NOTE | 2019-01-13 14:48 | General Surgery Progress Note ---
Subjective Narrative: Note initiated : 01/13/19 at 2:42 pm Service Date, if different from initiated Date: [] Patient: Jayjay Horta 78 y/o M admitted on 01/11/19 for Right Lower Extremity Infection. Chief Complaint: [] Patient seen on rounds with roel RN, I.P. Wound care nurse. Post operative progress Right KA reviewed with Dr. Manuel Orthopedics. Objective Temp Pulse Resp BP Pulse Ox 98.8 F 76 18 139/59 97 01/13/19 12:00 01/13/19 03:48 01/13/19 12:00 01/13/19 12:00 01/13/19 12:00 AVSS. No changes DAISHA Alert and interactive. Ate full meal. FREDI today. Dressing Right Thigh AKA is CDI Patient log rolled and sacral pressure point examined. Epidermal Dermal blister that has ruptured GRADE 2 Pressure ulcer Sacral region. NO fecal or urine contamination. Labs Prealbumin, 20.6 Potassium 4.8 Creatinine 1.7 Hematocrit back at base line 27 TSH elevated ( Patient on thyroxine 50 mcg / day ) - Additional Data Intake & Output - Last 24 hours: Intake & Output 01/11/19 01/12/19 01/13/19 01/14/19 05:59 05:59 05:59 05:59 Intake Total 2740 2495 50 Output Total 1000 1551 1025 Balance 1740 944 -975 Weight 133 lb 134 lb 5 oz - Labs 01/13/19 04:25 01/13/19 04:25 Diabetes panel 01/13/19 01/13/19 Range/Units 04:25 04:25 Sodium 142 (133-145) mmol/L Potassium 4.8 (3.3-5.1) mmol/L Chloride 107 (96-108) mmol/L Carbon Dioxide 23 (22-30) mmol/L BUN 26 H (8-23) mg/dl Creatinine 1.7 H (0.7-1.2) mg/dl Glucose 84 (70-105) mg/dL Hemoglobin A1c 5.5 (4.0-6.0) % HGB Calcium 7.8 L (8.6-10.4) mg/dl AST 20 (0-37) U/l ALT 23 (0-40) U/l Alkaline Phosphatase 59 (39-117) U/L Total Protein 5.2 L (5.9-8.4) gm/dL Albumin 2.3 L (3.2-5.2) gm/dL Triglycerides 123 (<150) mg/dl Thyroid panel 01/13/19 Range/Units 04:25 TSH 7.85 H (0.27-5.01) uIU/ml Calcium panel 01/13/19 Range/Units 04:25 Calcium 7.8 L (8.6-10.4) mg/dl Phosphorus 4.2 (2.7-4.5) mg/dL Albumin 2.3 L (3.2-5.2) gm/dL Pituitary panel 01/13/19 01/13/19 Range/Units 04:25 04:25 Sodium 142 (133-145) mmol/L Potassium 4.8 (3.3-5.1) mmol/L Chloride 107 (96-108) mmol/L Carbon Dioxide 23 (22-30) mmol/L BUN 26 H (8-23) mg/dl Creatinine 1.7 H (0.7-1.2) mg/dl Glucose 84 (70-105) mg/dL Calcium 7.8 L (8.6-10.4) mg/dl TSH 7.85 H (0.27-5.01) uIU/ml Adrenal panel 01/13/19 Range/Units 04:25 Sodium 142 (133-145) mmol/L Potassium 4.8 (3.3-5.1) mmol/L Chloride 107 (96-108) mmol/L Carbon Dioxide 23 (22-30) mmol/L BUN 26 H (8-23) mg/dl Creatinine 1.7 H (0.7-1.2) mg/dl Glucose 84 (70-105) mg/dL Calcium 7.8 L (8.6-10.4) mg/dl Total Bilirubin 0.2 (0.0-1.0) mg/dL AST 20 (0-37) U/l ALT 23 (0-40) U/l Alkaline Phosphatase 59 (39-117) U/L Total Protein 5.2 L (5.9-8.4) gm/dL Albumin 2.3 L (3.2-5.2) gm/dL Assessment and Plan (1) Anemia Status: Chronic Current Visit: Yes (2) Malnutrition Status: Chronic Current Visit: Yes (3) Amputation stump complication Problem details: COLD BKA stump and thigh RIGHT. Severe PAIN, Paresthesia, Poikilothermia and Pulseless. DOPPLER Studies: THROMBOSED SFA, Popliteal but patient commonn femoral and profunda femoris, DVT popliteal vein. Status: Acute Current Visit: No - Time Spent With Patient Total time spent is greater than 50% in coordination of care (as documented) at patient's floor/unit and/or counseling patient: Assessment: S/P AKA for gangrene of BKA stump Hypothyroidism Anaemia s/p PRBC transfusion. Grade 2 Sacral Pressure ulcer. Plan: See wound care orders. Will speak with hospitalist about Thyroxine medication dose. Will check post surgical dressings before discharge. 15 - 24 minutes
[2019-01-13] MEDS: SENNOSIDES/DOCUSATE SODIUM 1 TAB TABLET PO SCH (20:56)
[2019-01-13] MEDS: SENNOSIDES 1 TABLET PO SCH (20:56)
[2019-01-13] MEDS: GABAPENTIN 300 MG CAPSULE PO SCH (20:56)
[2019-01-13] MEDS: TERAZOSIN 1 MG CAPSULE PO SCH (20:56)
[2019-01-14] MEDS: LACTATED RINGERS 1,000 ML IV SCH (02:27)
[2019-01-14] MEDS: 0.9 % SODIUM CHLORIDE 10 ML SYRINGE IV SCH ×3 (05:09)
[2019-01-14] MEDS: oxyCODONE/APAP 5/325MG TABLET PO PRN (05:53)
[2019-01-14 06:59] LABS: Hematocrit 28.7 % (41.0-55.0); Hemoglobin 9.6 g/dL (13.5-16.5); Mean Cell Volume 92.8 fL (80.0-100.0); Mean Corpuscular HGB Conc 33.2 g/dL (31.0-36.0); Mean Platelet Volume 7.2 fL (7.4-10.4); Platelet Count 528 K/mcL (140-440); RBC 3.09 M/mcL (4.50-5.90); Red Cell Distribution Width 15.2 % (11.5-14.5); WBC 10.4 K/mcL (4.5-11.0)
[2019-01-14] MEDS: INSULIN LISPRO 1 UNIT/0.01 ML UNIT SQ SCH (07:39)
[2019-01-14] MEDS: PANTOPRAZOLE 40 MG TABLET PO SCH (07:42)
[2019-01-14] MEDS: LEVOTHYROXINE 50 MCG TABLET PO SCH (07:42)
[2019-01-14 07:57] LABS: ALT/SGPT 20 U/l (0-40); AST/SGOT 18 U/l (0-37); Albumin 2.4 gm/dL (3.2-5.2); Albumin/Globulin Ratio 0.8 (1.0-2.3); Alkaline Phosphatase 69 U/L (39-117); Bilirubin,Direct < 0.2 mg/dL (0.0-0.3); Bilirubin,Total 0.2 mg/dL (0.0-1.0); Blood Urea Nitrogen 28 mg/dl (8-23); Carbon Dioxide 23 mmol/L (22-30); Chloride 106 mmol/L (96-108); Glomerular Filtration Rate 44; Glucose 96 mg/dL (70-105); Lactate Dehydrogenase 186 U/L (94-250); Phosphorous 3.9 mg/dL (2.7-4.5); Triglycerides 137 mg/dl (<150); Uric Acid 4.3 mg/dL (2.5-8.0)
[2019-01-14] MEDS: CYANOCOBALAMIN (VITAMIN B-12) 500 MCG TABLET PO SCH (08:09)
[2019-01-14] MEDS: THIAMINE 100 MG TABLET PO SCH (08:09)
[2019-01-14] MEDS: MULTIVIT,THER IRON,CA,FA & MIN 1 TABLET PO SCH (08:09)
[2019-01-14] MEDS: FUROSEMIDE 40 MG TABLET PO SCH (08:09)
[2019-01-14] MEDS: HEPARIN 5,000 UNIT/ML VIAL SQ SCH (08:09)
[2019-01-14] MEDS: DOCUSATE SODIUM 100 MG CAPSULE PO SCH (08:09)
[2019-01-14 09:06] LABS: Anisocytosis FEW (NONE SEEN); Lymphocytes % 15 % (15-49); Metamyelocytes % 1 % (0-0); Monocytes % (Manual) 7 % (1-12); Platelet Estimate INCREASED (NORMAL); RBC Morphology ABNORM (NORMAL); Segmented Neutrophils % 77 % (38-78)
--- NOTE | 2019-01-14 09:50 | General Surgery Progress Note ---
Subjective Narrative: Note initiated : 01/14/19 at 9:48 am Service Date, if different from initiated Date: [] Patient: Jayjay Horta 78 y/o M admitted on 01/11/19 for Right Lower Extremity Infection. Chief Complaint: [] Patient seen on rounds with Shanel SYED, Inpatient wound care nurse. Right AKA wound examined. Objective Temp Pulse Resp BP Pulse Ox 98.9 F 72 18 135/59 97 01/14/19 08:00 01/14/19 03:45 01/14/19 08:00 01/14/19 08:00 01/14/19 08:00 AVSS. No changes DAISHA. RIGHT AKA stump is clean and dry. Approximated nikko and sutures. All INTACT. RESOLVING post surgical inflammatory changes. Will monitor at wound care center. - Additional Data Intake & Output - Last 24 hours: Intake & Output 01/12/19 01/13/19 01/14/19 01/15/19 05:59 05:59 05:59 05:59 Intake Total 2740 2495 50 Output Total 1000 1551 1475 Balance 1740 944 -1425 Weight 133 lb 134 lb 5 oz 136 lb - Labs 01/14/19 05:00 01/14/19 05:00 Diabetes panel 01/14/19 Range/Units 05:00 Sodium 141 (133-145) mmol/L Potassium 4.7 (3.3-5.1) mmol/L Chloride 106 (96-108) mmol/L Carbon Dioxide 23 (22-30) mmol/L BUN 28 H (8-23) mg/dl Creatinine 1.5 H (0.7-1.2) mg/dl Glucose 96 (70-105) mg/dL Calcium 8.0 L (8.6-10.4) mg/dl AST 18 (0-37) U/l ALT 20 (0-40) U/l Alkaline Phosphatase 69 (39-117) U/L Total Protein 5.4 L (5.9-8.4) gm/dL Albumin 2.4 L (3.2-5.2) gm/dL Triglycerides 137 (<150) mg/dl Calcium panel 01/14/19 Range/Units 05:00 Calcium 8.0 L (8.6-10.4) mg/dl Phosphorus 3.9 (2.7-4.5) mg/dL Albumin 2.4 L (3.2-5.2) gm/dL Pituitary panel 01/14/19 Range/Units 05:00 Sodium 141 (133-145) mmol/L Potassium 4.7 (3.3-5.1) mmol/L Chloride 106 (96-108) mmol/L Carbon Dioxide 23 (22-30) mmol/L BUN 28 H (8-23) mg/dl Creatinine 1.5 H (0.7-1.2) mg/dl Glucose 96 (70-105) mg/dL Calcium 8.0 L (8.6-10.4) mg/dl Adrenal panel 01/14/19 Range/Units 05:00 Sodium 141 (133-145) mmol/L Potassium 4.7 (3.3-5.1) mmol/L Chloride 106 (96-108) mmol/L Carbon Dioxide 23 (22-30) mmol/L BUN 28 H (8-23) mg/dl Creatinine 1.5 H (0.7-1.2) mg/dl Glucose 96 (70-105) mg/dL Calcium 8.0 L (8.6-10.4) mg/dl Total Bilirubin 0.2 (0.0-1.0) mg/dL AST 18 (0-37) U/l ALT 20 (0-40) U/l Alkaline Phosphatase 69 (39-117) U/L Total Protein 5.4 L (5.9-8.4) gm/dL Albumin 2.4 L (3.2-5.2) gm/dL Assessment and Plan (1) Anemia Status: Chronic Current Visit: Yes (2) Malnutrition Status: Chronic Current Visit: Yes (3) Amputation stump complication Problem details: COLD BKA stump and thigh RIGHT. Severe PAIN, Paresthesia, Poikilothermia and Pulseless. DOPPLER Studies: THROMBOSED SFA, Popliteal but patient commonn femoral and profunda femoris, DVT popliteal vein. Status: Acute Current Visit: No - Narrative A/P Narrative: Assessment No acute interval changes. Discharge plans noted. Plan: Recommend INCREASING Synthroid dosage. ( Per Hospitalist ) Monitor TSH after 4 weeks. Continue wound care as documented. Follow up at wound care center after discharge. - Time Spent With Patient Total time spent is greater than 50% in coordination of care (as documented) at patient's floor/unit and/or counseling patient: 15 - 24 minutes
--- NOTE | 2019-01-14 10:14 | Discharge Summary ---
Medical - DS: Prov Patient information: Note initiated : 01/14/19 at 10:11 am Service Date, if different from initiated Date: [] Patient: Jayjay Horta 78 y/o M admitted on 01/11/19 for Right Lower Extremity Infection. Chief Complaint: [] Date of admission: 01/11/19 16:25 Discharge date: 01/14/19 Consults: 01/11/19 Consult to Physician [CONS] Stat Comment: Consulting Provider: Cain Hightower Reason For Exam: Physician to Consult 01/11/19 13:11 Consult to Physician [CONS] Stat Comment: Consulting Provider: Grant Manuel Reason For Exam: Physician to Consult 01/12/19 08:52 Consult to Physician [CONS] Routine Comment: Consulting Provider: Shant Brooks Reason For Exam: wounds sacrogluteal area Medical - DS: Meds - Discharge Medications Prescriptions: Nicotine [Nicotine Patch] 1 each TD DAILY #30 patch.td24 Prescription Printed oxyCODONE HCL [Roxicodone] 5 - 10 mg PO Q4HP PRN #90 tab PRN Reason: Pain Prescription Printed Diazepam [Valium] 10 mg PO BIDP PRN #30 tab PRN Reason: Anxiety Prescription Printed Active and Home Medications: Home Medications levothyroxine 50 mcg tablet 50 mcg PO QDAY #30 tab 04/22/18 [Rx Confirmed 01/01 03/21 Last Taken 01/01/19 09:05] Acetaminophen [Tylenol] 1,000 mg PO Q8HP PRN #30 tab 01/07/19 [Rx Confirmed 01/11/19 Last Taken Unknown] Gabapentin [Neurontin] 300 mg PO HS #30 cap 01/07/19 [Rx Confirmed 01/11/19 Last Taken Unknown] Terazosin [Hytrin] 1 mg PO HS #30 cap 01/07/19 [Rx Confirmed 01/11/19 Last Taken Unknown] traMADol [Ultram] 50 mg PO Q12HP PRN #20 tab 01/07/19 [Rx Confirmed 01/11/19 Last Taken Unknown] Glucagon,Human Recombinant [Glucagon Emergency Kit] 1 mg IM Q15MIN PRN 01/11/19 [History Confirmed 01/11/19 Last Taken Unknown] oxyCODONE HCL [Roxicodone] 5 - 10 mg PO Q4HP PRN #90 tab 01/13/19 [Rx Last Taken Unknown] Diazepam [Valium] 10 mg PO BIDP PRN #30 tab 01/14/19 [Rx Last Taken Unknown] Nicotine [Nicotine Patch] 1 each TD DAILY #30 patch.td24 01/14/19 [Rx Last Taken Unknown] Medical - DS: Hosp Hospital Course: Discharge diagnosis * 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 Failed revascularization procedure/outpatient wound treatment. Patient has done fairly well after AKA and will continue aggressive posthospitalization rehab at custodial along with wound care * Sepsis secondary infected nonhealing stump-clinically resolved post AKA. Antibiotics have been discontinued * Blood loss anemia-Hemoglobin 9.5 post 2U PRBC * Hyperkalemia potassium down to 4.7 post Kayexalate * Pain management continue as needed opioids * Chronic kidney disease stage IIIb. Creatinine 1.5. Follow-up with nephrology as outpatient * DM type II stable on sliding scale insulin/CC diet. Blood sugars at goal * Hypothyroidism continue thyroxine. TSH 7.8 likely euthyroid sick syndrome. May repeat in 1 month and further titrate thyroxine dose * Sacral decubiti -continue outpatient management as per per wound care recommendations * Neuropathy continue gabapentin * DJD stable Brief hospital course Mr. Horta is a 78 year old M resident at [facility] with a history of DM type II, HTN, severe PVD with revascularization Rt LE and subsequent post BKA 2/2 non-healing stump with wound breakdown. He presents today to wound care for evaluation of right BKA stump ulceration/gangrenous changes. He was referred to the ED by Dr Brooks for evaluation of worsening stump changes suspicious for gangrene and cellulitis and failed outpatient treatment. He follows up at [facility] nephrology clinic for his CKD. Initial work-up in the ED was consistent with gangrenous changes along with white count over 16,000. Orthopedics were consulted for evaluation and consideration of AKA. Subsequently hospitalist service is consulted to facilitate admission and hospitalization along with management of medical issues while patient will undergo AKA over the next couple of hours. Patient in general had a progressive decline. Complains of loss of appetite. He feels fatigued and lethargic. He is barely able to perform activities or participate in physical therapy at the care center. He is accompanied with his . He also endorses to left lower extremity lymphedema for which she is on diuretics. He denies diarrhea dysuria, shaking chills headache or photophobia. He denies cough or shortness of breath. 01/12-postop day 1. Doing well. Complains of stump pain. Potassium 6. Started on Kayexalate. Hemoglobin 7.1 postoperative. Start 2 units blood transfusion. No overnight events noting fever chills. Continue home medications for pre-existing issues. White count downtrending to 14,000. DC antibiotics. Await cultures 01/13-patient doing well. Potassium improved to 4.8. White count down to 11.3. Creatinine around baseline at 1.7. Wound care on board for sacral decubitus. Ongoing PT OT. Anticipate SNF transfer as patient agreeable. Case management to coordinate. No overnight fever chills or concerns per staff. 01/14-patient discharging to SNF for continued post operative rehab/posthospitalization nutrition support/wound care at [facility]. Patient will follow with orthopedics as outpatient. Continue wound care recommendations as per surgery/offloading to prevent sacral decubiti. Discharge diagnosis: . - Time Spent with Patient Total time spent providing and/or coordinating discharge services: Greater than 30 minutes Medical - DS: Exam - Constitutional Vitals: Vital Signs Temp Pulse Resp BP BP Pulse Ox 01/14/19 08:00 98.9 F 18 135/59 97 01/14/19 03:45 97.6 F 72 16 161/65 98 01/14/19 00:19 98.7 F 71 126/57 97 01/13/19 19:20 98.9 F 92 H 20 149/67 97 01/13/19 16:00 99.5 F H 18 134/56 01/13/19 12:00 98.8 F 18 139/59 97 Intake and Output 01/13/19 01/14/19 01/14/19 21:59 05:59 13:59 Output Total 150 300 Balance -150 -300 Output: Void Amount 150 300 Other: Urine Appearance Clear Clear Urine Color Pale Bright Yellow Urine Odor Strong Normal Weight 136 lb Medical - DS: Data Labs on day of discharge: Labs from last 24 hours 01/14/19 01/14/19 01/13/19 05:00 05:00 09:31 WBC 10.4 RBC 3.09 L Hgb 9.6 L Hct 28.7 L MCV 92.8 MCH 30.9 MCHC 33.2 RDW 15.2 H Plt Count 528 H MPV 7.2 L Total Counted 100 Seg Neutrophils % 77 Band Neutrophils % Not Reportable Lymphocytes % 15 Monocytes % (Manual) 7 Metamyelocytes % 1 H Platelet Estimate Increased A RBC Morphology Abnorm A Anisocytosis Few A Sodium 141 Potassium 4.7 Chloride 106 Carbon Dioxide 23 Anion Gap 12.0 BUN 28 H Creatinine 1.5 H GFR Calculation 44 Glucose 96 Uric Acid 4.3 Calcium 8.0 L Phosphorus 3.9 Magnesium 1.8 Total Bilirubin 0.2 Direct Bilirubin < 0.2 GGT 45 AST 18 ALT 20 Alkaline Phosphatase 69 Lactate Dehydrogenase 186 Total Protein 5.4 L Albumin 2.4 L Globulin 3.0 Albumin/Globulin Ratio 0.8 L Triglycerides 137 Vancomycin Trough 15.8 Medical - DS: A/P - Patient/Caregiver Discharge Instructions Activity: as per physical therapy, increase activity as tolerated, other (Wound care as per wound physician recommendations) Diet: Renal/Consistent Carbs Additional Instructions: Discharge Instructions: No weight bearing with right leg. L Leave splint on until seen in the physician's office. Cover for bathing. To avoid constipation while taking any narcotic pain medication, take an over the counter stool softener/laxative. Use ice packs as directed, on for 20 minutes at a time, throughout the day. Ice and elevation will help with pain and swelling. Call your physician for fevers above 100.5 or pain not controlled by medication. Recommend follow-up with nephrology/wound care/PCP over the next 10 to 14 days Continue aggressive PT OT at SNF Prescriptions: Nicotine [Nicotine Patch] 1 each TD DAILY #30 patch.td24 Prescription Printed oxyCODONE HCL [Roxicodone] 5 - 10 mg PO Q4HP PRN #90 tab PRN Reason: Pain Prescription Printed Diazepam [Valium] 10 mg PO BIDP PRN #30 tab PRN Reason: Anxiety Prescription Printed Other Amb Orders: Wound Care Instructions Location: None Selected - Problem Maintenance (1) Ischemia of right BKA site Status: Acute - Follow up Plan Follow up with: Shant Brooks MD [Physician] - (Please call and scheduled a one week follow up.) Grant Manuel MD [Physician] - (Please call and schedule a surgical follow up 2 weeks post surgery.) Disposition: Xfer SNF Care Plan Goals: This discharge packet is provided to you to help keep you informed about your care. We want to ensure you get everything you need when you go home. You will also be receiving a call from us in a few days to follow up with you and see how you are doing since your discharge. This gives us a chance to listen to any concerns you maybe experiencing since you were discharged or any additional needs you may have, as well as providing us feedback on your care experience. We strive to always provide excellent care and thank you for your feedback and for choosing [facility]. Prognosis: Fair Rehab Potential: Fair I certify that the patient requires SNF services: Yes Overall status at discharge: patient is progressing back to baseline Medical - DS: Qual - VTE Deep Vein Thrombosis/Pulmonary Embolism Present on Admission: No
--- NOTE | 2019-01-14 14:36 | Surgical Pathology Report ---
HISTOLOGY SPECIMEN MICROSCOPIC DIAGNOSIS LEG, RIGHT, [id number] AMPUTATION: -- FOCI OF ULCERATION, NECROSIS AND ABSCESS, COMPATIBLE WITH CHRONIC WOUND. -- VESSELS WITH CALCIFICATIONS AND ATHEROSCLEROSIS. -- MARGINS VIABLE. (RLF:adj) PROCEDURAL IMPRESSION Infected below the knee amputation with chronic wounds. GROSS DESCRIPTION The specimen is received as right leg and consists of an alvjg-aac-psar amputation of a stump after prior xyvzp-xcz-gupp amputation. The specimen includes the upper portion of the tibia and fibula with knee and segment of femur. The stump measures 19.5 cm in length with a distal diameter of 8.0 cm and a proximal diameter of 11.0 cm. The humerus extends beyond the cutaneous margin of resection by up to 8.5 cm and has a diameter of 3.8 cm. A spring/coil is present within the popliteal artery and protrudes from the artery by up to 4.2 cm. This coil has a diameter of 0.4 cm. The distal edge of the stump has a large area of erythema with ulceration and slippage of skin. Black and red areas of discoloration are scattered throughout the lesion. This lesion spans up to 12.0 x 11.0 cm. There is prominent erythema on the anterior aspect of the proximal lower leg that measures up to 8.0 x 3.5 cm. Two areas of ulceration and hemorrhage are noted on the knee. The medial lesion is 4.5 x 5.5 cm. Over the patella the lesion measures 6.0 x 5.0 cm. Skeletal muscle of the calf and thigh is pale. Cutaneous soft tissue margins appear viable. Inspection of the coil and sectioning of the more distal popliteal artery reveals thickening of the vessel wall with an apparent occlusion/clot associated with the coil. Sectioning the vessels reveals a hard texture and the vessels are difficult to cut. The posterior tibial vessels also appear narrowed and hard. Sections submitted according to the following slide cruz: A1 - claims representative sections of cutaneous ulcers; A2 - sections of popliteal and posterior tibial arteries; A3 - surgical margins of skin and skeletal muscle. (ACP:sln) Electronically Signed by: Lelo Billings M.D.
== END 2019-01-14 10:50 | DRG 474 ==
LOC: ED 10:45 → SUR 14:20 → MEDSUR 16:25
PROVIDERS: ADMIT Internal Medicine; ATTEND Internal Medicine

== ENCOUNTER 2021-05-31 19:16 | Inpatient (IN) ==
[2021-05-31] MEDS ORDERED: ONDANSETRON 4 MG ODT TABLET SL ONE (19:20)
[2021-05-31] MEDS ORDERED: 0.9 % SODIUM CHLORIDE 1,000 ML IV ONE (19:28)
--- NOTE | 2021-05-31 19:28 | Emergency Department Note ---
Nausea/Vomiting/Diarrhea HPI <Hawk Perla PA-C - Last Filed: 05/31/21 19:42> General Chief complaint: Nausea/Vomiting/Diarrhea Stated complaint: N/V/D Time Seen by Provider: 05/31/21 19:17 Source: EMS Mode of arrival: EMS Limitations: no limitations History of Present Illness HPI Narrative: Narrative: 80-year-old male with a history of GERD, COPD, peripheral vascular disease, hypothyroidism, right fpfjj-zjw-lgam amputation, phantom limb syndrome, chronic kidney disease, anemia and hypertension presents the ER after syncopal episode. He states he was eating dinner when he tried to transfer from his chair to his wheelchair he got lightheaded and collapsed to the ground. He did not impact his head or neck. He denies any pain. He vomited all over himself and states he has felt queasy since. He denies any significant abdominal pain and denies urinary symptoms. He denies chest pain, chest pressure or new shortness of breath. He denies fever, chills, body aches. Related Data Home Medications Medication Instructions Recorded Confirmed aspirin 81 mg tablet,delayed 81 mg PO QDAY 03/16/21 05/15/21 release (Adult Low Dose Aspirin) clopidogrel 75 mg tablet 75 mg PO QDAY 03/16/21 05/15/21 levothyroxine 50 mcg tablet 50 mcg PO QDAY 03/30/21 05/15/21 (Euthyrox) darbepoetin estevan in polysorbat 300 300 mcg SUBCUT Q2W 04/04/21 05/15/21 mcg/0.6 mL in polysorbate injection syringe (Aranesp) Previous Rx's Medication Instructions Recorded cholecalciferol (vitamin D3) 50 50 mcg PO QDAY #90 tab 03/10/20 mcg (2,000 unit) tablet Rt AK Definitive Prosthesis and #1 ea 03/15/20 Supplies and Flexible Foot blood pressure test kit-large #1 ea 05/10/20 amlodipine 5 mg tablet 5 mg PO QDAY #90 tab 10/17/20 carvedilol 3.125 mg tablet 3.125 mg PO BID #180 tab 11/09/20 spironolactone 25 mg tablet 25 mg PO QDAY #90 tab 12/11/20 furosemide 40 mg tablet 40 mg PO QAM #90 tab 02/27/21 gabapentin 300 mg capsule 300 mg PO QDAY #90 cap 04/10/21 tamsulosin 0.4 mg capsule 0.4 mg PO QDAY #90 cap 04/10/21 ferrous sulfate 325 mg (65 mg 325 mg PO QDAY #90 tab 05/02/21 iron) tablet rosuvastatin 20 mg tablet See Rx Instructions .ROUTE 05/02/21 .COMPLEX #90 tab methylprednisolone 4 mg tablets in See Rx Instructions PO PER PKG DIR 05/30/21 a dose pack (Medrol (Delbert)) #21 tab Allergies Allergy/AdvReac Type Severity Reaction Status Date / Time Penicillins AdvReac Mild Vomiting Verified 05/31/21 19:20 Review of Systems <Hawk Perla PA-C - Last Filed: 05/31/21 19:42> ROS ROS Narrative: Narrative: All systems ED: reviewed and negative except as stated. PFSH <Hawk Perla PA-C - Last Filed: 05/31/21 19:42> Narrative Patient History Narrative: Narrative: Medical/Surgical/Family History All Active Problems (Updated 05/31/21 @ 22:40 by Rivera Olivarez DO) Malnutrition (Chronic) GERD without esophagitis (Chronic) COPD (chronic obstructive pulmonary disease) (Chronic) PVD (peripheral vascular disease) (Chronic) Hypothyroidism (Chronic) Phantom limb syndrome with pain (Chronic) Skin lesion (Chronic) History of tobacco use (Chronic) Diarrhea (Chronic) Cataracts, bilateral (Chronic) Macular degeneration (Chronic) Secondary hyperparathyroidism of renal origin (Chronic) Vitamin D deficiency (Chronic) Iron deficiency anemia, unspecified (Chronic) Osteopenia (Chronic) 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) Localized edema due to fluid overload (Chronic) Stasis dermatitis (Chronic) Medicare annual wellness visit, subsequent (Chronic) Wound of lower extremity (Chronic) Hyperlipidemia (Chronic) Diabetes mellitus (Chronic) Chronic kidney disease (CKD) stage G4/A1, severely decreased glomerular filtration rate (GFR) between 15-29 mL/min/1.73 square meter and albuminuria creatinine ratio less than 30 mg/g (Chronic) 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, stage 4 (severe) (Chronic) 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 Hx BKA w/ complications, infection Amputation stump complication COLD BKA stump and thigh RIGHT. Severe PAIN, Paresthesia, Poikilothermia and Pulseless. DOPPLER Studies: THROMBOSED SFA, Popliteal but patient commonn femoral and profunda femoris, DVT popliteal vein. Cataracts, bilateral Cellulitis Chronic kidney disease, stage IV (severe) Confusion Conjunctivitis COPD (chronic obstructive pulmonary disease) Diabetes mellitus Diarrhea Intermittent, AM only Dry skin dermatitis DVT of popliteal vein Esophagitis, Plummer grade B Fungal dermatitis For symptomatic treatrment. Clean with chlorhexidene, Dry with wash colth and apply topical antifungal creme. NO diapers. Use absorbent CHUX pads under lower back, pelvis and thighs. 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 Hypothyroidism Iron deficiency anemia, unspecified Ischemia of right BKA site Macular degeneration Malnutrition Metabolic acidosis Need for hepatitis C screening test Osteopenia Phantom limb syndrome with pain Popliteal vein thrombosis Pruritic rash PVD (peripheral vascular disease) Rash Secondary hyperparathyroidism Skin lesion RUE - forearm Stasis dermatitis Upper respiratory infection Vitamin D deficiency Wound of lower extremity Wound of toenail Left great wound in setting of toenail removal Surgical History History of right below knee amputation Family History Brother Heart disease Social History Smoking Status: Former smoker Alcohol Intake Frequency: does not drink Substance Use: does not use Exam <Hawk Perla PA-C - Last Filed: 05/31/21 19:42> Narrative Narrative: Narrative: Gen: Patient sitting upright in bed with vomit on his pants and the left side of his mouth, patient is not actively vomiting, patient appears pale Eyes: PERRL, no conjunctival injection , and symmetrical lids. Sclerae non icteric HENMT: Normocephalic Atraumatic head, external nose and ears. Moist MM. Crusted vomit on the left side of his face CVS: +S1/S2, No murmurs or gallops. Radial pulses 2+ and equal bilat. No swelling RESP: Unlabored respiratory effort . Clear to auscultation bilaterally (CTAB). No noted wheezes rales or ronchi. GI: Distended but nontender abdomen, no focal tenderness no evidence of peritonitis MSK: Right zafjf-rph-ljju amputation, walking boot on the left Skin: Pale, warm, Dry . No rashes or lesions . Cap refill less than 2. Neuro: No focal neurological deficit Psych: Awake, Alert, & Oriented (AAO) x3. Appropriate mood and affect . General Limitations: no limitations Course <Hawk Perla PA-C - Last Filed: 05/31/21 19:42> Vital Signs Vital signs: Vital Signs Temperature 36.3 C 05/31/21 19:16 Pulse Rate 88 05/31/21 19:16 Respiratory Rate 17 05/31/21 19:16 Blood Pressure 147/49 05/31/21 19:16 Pulse Oximetry (%) 99 05/31/21 19:16 Temperature 37.1 C 06/01/21 04:01 Pulse Rate 82 06/01/21 04:01 Respiratory Rate 20 06/01/21 04:01 Blood Pressure 140/69 06/01/21 04:01 Pulse Oximetry (%) 99 06/01/21 04:01 [facility] <Hawk Perla PA-C - Last Filed: 05/31/21 19:42> [facility] Narrative Medical decision making narrative: Narrative: Patient was eating dinner, became lightheaded, syncopized and collapsed the ground when transitioning from his chair to his wheelchair. He did not hit his head he denies neck pain he has no midline neck tenderness he has no amnesia around the event. He vomited all over himself and feels somewhat queasy right now he denies abdominal pain, head or neck pain or any trauma. He states he does feel somewhat queasy still. He will be worked up with CBC, CMP, aaylc-ic-ucte troponin, EKG and a lipase. He will be given Zofran for nausea and fluids. CBC: CMP: Tufhw-mm-[id number] troponin: EKG: Lipase: It is the end my shift, I discussed in detail the history of this patient and work-up that was placed. Dr. Olivarez will assume care for the patient and will review all labs and will form a disposition and plan. Lab Data Result diagrams: 05/31/21 19:51 05/31/21 19:51 Labs: Lab Results 05/31/21 05/31/21 05/31/21 Range/Units 19:51 19:51 19:51 WBC 19.1 H (4.5-11.0) K/mcL RBC 2.48 L (4.63-6.08) M/mcL Hgb 7.2 L (13.7-17.5) g/dL Hct 22.5 L (40.1-51.0) % MCV 90.7 (80.0-100.0) fL MCH 29.0 (26.0-34.0) pg MCHC 32.0 (31.0-36.0) g/dL RDW 14.8 H (11.5-14.5) % Plt Count 281 (140-440) K/mcL MPV 10.5 H (7.4-10.4) fL Neut % (Auto) 92.8 H (38.0-78.0) % Lymph % (Auto) 5.7 L (15.5-49.0) % [place] % (Auto) 0.7 L (1.0-12.0) % Eos % (Auto) 0.5 (0.0-7.0) % Baso % (Auto) 0.3 (0.0-2.0) % Lymph # (Auto) 1.09 L (1.50-4.80) K/mcL [place] # (Auto) 0.14 (0.10-0.90) K/mcL Eos # (Auto) 0.10 (0.00-0.70) K/mcL Baso # (Auto) 0.06 (0.00-0.30) K/mcL Absolute Neutrophils 17.75 H (1.80-8.00) K/mcL PT 15.2 H (11.9-14.5) sec INR 1.1 (0.9-1.1) APTT 25.4 (20.0-37.0) sec Sodium 133 (133-145) mmol/L Potassium 5.0 (3.3-5.1) mmol/L Chloride 99 (96-108) mmol/L Carbon Dioxide 13 L (22-30) mmol/L Anion Gap 21.0 H (8.0-16.0) BUN 92 H (8-23) mg/dL Creatinine 3.1 H (0.7-1.2) mg/dL GFR Calculation 18 Glucose 241 H (70-105) mg/dL Calcium 8.0 L (8.6-10.4) mg/dL Total Bilirubin 0.2 (0.1-1.0) mg/dL AST 12 (<40) U/L ALT 11 (<40) U/L Alkaline Phosphatase 49 (39-117) U/L Total Protein 5.4 L (5.9-8.4) gm/dL Albumin 3.2 (3.2-5.2) gm/dL Globulin 2.2 (2.2-3.7) gm/dL Albumin/Globulin Ratio 1.5 (1.0-2.3) Lipase 29 (7-60) U/L Beta-Hydroxybutyrate (<0.27) mmol/L POC Troponin I 0.02 (0.02-0.08) ng/mL 05/31/21 Range/Units 19:51 WBC (4.5-11.0) K/mcL RBC (4.63-6.08) M/mcL Hgb (13.7-17.5) g/dL Hct (40.1-51.0) % MCV (80.0-100.0) fL MCH (26.0-34.0) pg MCHC (31.0-36.0) g/dL RDW (11.5-14.5) % Plt Count (140-440) K/mcL MPV (7.4-10.4) fL Neut % (Auto) (38.0-78.0) % Lymph % (Auto) (15.5-49.0) % [place] % (Auto) (1.0-12.0) % Eos % (Auto) (0.0-7.0) % Baso % (Auto) (0.0-2.0) % Lymph # (Auto) (1.50-4.80) K/mcL [place] # (Auto) (0.10-0.90) K/mcL Eos # (Auto) (0.00-0.70) K/mcL Baso # (Auto) (0.00-0.30) K/mcL Absolute Neutrophils (1.80-8.00) K/mcL PT (11.9-14.5) sec INR (0.9-1.1) APTT (20.0-37.0) sec Sodium (133-145) mmol/L Potassium (3.3-5.1) mmol/L Chloride (96-108) mmol/L Carbon Dioxide (22-30) mmol/L Anion Gap (8.0-16.0) BUN (8-23) mg/dL Creatinine (0.7-1.2) mg/dL GFR Calculation Glucose (70-105) mg/dL Calcium (8.6-10.4) mg/dL Total Bilirubin (0.1-1.0) mg/dL AST (<40) U/L ALT (<40) U/L Alkaline Phosphatase (39-117) U/L Total Protein (5.9-8.4) gm/dL Albumin (3.2-5.2) gm/dL Globulin (2.2-3.7) gm/dL Albumin/Globulin Ratio (1.0-2.3) Lipase (7-60) U/L Beta-Hydroxybutyrate 0.67 H (<0.27) mmol/L POC Troponin I (0.02-0.08) ng/mL ED POC Tests ED POC Tests: EDDIE - SARS Antigen Negative Discharge Plan Patient/Caregiver Discharge Instructions Pt seen by TELEPHONER/PA only: No Clinical Impression: GIB (gastrointestinal bleeding), Metabolic acidosis, increased anion gap Patient Disposition: Xfer As Inpt ([facility]) Condition: Serious Discharge Date/Time: 05/31/21 23:12
[2021-05-31] MEDS ORDERED: PANTOPRAZOLE 40 MG VIAL IV ONE (19:44)
[2021-05-31] MEDS ORDERED: ONDANSETRON 4 MG/2 ML VIAL ONE (19:59)
[2021-05-31] MEDS ORDERED: ONDANSETRON 4 MG/2 ML VIAL IV ONE (20:04)
[2021-05-31 20:22] LABS: Basophils # (Auto) 0.06 K/mcL (0.00-0.30); Basophils % (Auto) 0.3 % (0.0-2.0); Eosinophils % (Auto) 0.5 % (0.0-7.0); Hematocrit 22.5 % (40.1-51.0); Hemoglobin 7.2 g/dL (13.7-17.5); Lymphocytes # (Auto) 1.09 K/mcL (1.50-4.80); Lymphocytes % (Auto) 5.7 % (15.5-49.0); Mean Cell Volume 90.7 fL (80.0-100.0); Mean Platelet Volume 10.5 fL (7.4-10.4); Monocytes # (Auto) 0.14 K/mcL (0.10-0.90); Monocytes % (Auto) 0.7 % (1.0-12.0); Neutrophils % (Auto) 92.8 % (38.0-78.0); Platelet Count 281 K/mcL (140-440); RBC 2.48 M/mcL (4.63-6.08); Red Cell Distribution Width 14.8 % (11.5-14.5); WBC 19.1 K/mcL (4.5-11.0)
[2021-05-31 20:34] LABS: Partial Thromboplastin Time 25.4 sec (20.0-37.0)
[2021-05-31 20:36] LABS: ALT/SGPT 11 U/L (<40); AST/SGOT 12 U/L (<40); Albumin 3.2 gm/dL (3.2-5.2); Albumin/Globulin Ratio 1.5 (1.0-2.3); Alkaline Phosphatase 49 U/L (39-117); Bilirubin,Total 0.2 mg/dL (0.1-1.0); Blood Urea Nitrogen 92 mg/dL (8-23); Carbon Dioxide 13 mmol/L (22-30); Chloride 99 mmol/L (96-108); Globulin 2.2 gm/dL (2.2-3.7); Glomerular Filtration Rate 18; Glucose 241 mg/dL (70-105); INR 1.1 (0.9-1.1); Prothrombin Time 15.2 sec (11.9-14.5)
[2021-05-31] MEDS ORDERED: 0.9 % SODIUM CHLORIDE 250 ML IV SCH (20:45)
--- NOTE | 2021-05-31 20:52 | Emergency Department Note ---
Course Vital Signs Vital signs: Vital Signs Temperature 36.3 C 05/31/21 19:16 Pulse Rate 88 05/31/21 19:16 Respiratory Rate 17 05/31/21 19:16 Blood Pressure 147/49 05/31/21 19:16 Pulse Oximetry (%) 99 05/31/21 19:16 Temperature 37.1 C 06/01/21 04:01 Pulse Rate 82 06/01/21 04:01 Respiratory Rate 20 06/01/21 04:01 Blood Pressure 140/69 06/01/21 04:01 Pulse Oximetry (%) 99 06/01/21 04:01 [facility] MDM Narrative Medical decision making narrative: Narrative: 80-year-old presented for episode of feeling lightheaded nausea vomiting initially evaluated by ALONDRA please refer to their note for full details. Signed out to me pending diagnostic results final disposition. 80-year-old does have a history of GERD, COPD, PVD. Was recently started on some oral steroids for rash, does have a history of GI bleed and is on Plavix. Patient was seen in March for history of GI bleed was transferred to [place]. Patient states he had upper and lower endoscopy done at that time and was told it was due to a lower bleeding source which was treated and resolved. He states he was told his upper GI scope was normal. Patient did have episode nausea vomiting today but denies hematemesis. He has some slight left lower quadrant pain but no other significant abdominal pain. Of note here in the ED he had a very obvious dark red bloody bowel movement no bright red not tarry Abdomen shows some trace left lower quadrant tenderness no rebound no guarding is hemodynamically stable awaiting diagnostic studies is received an initial IV bolus Did give him 80 of Protonix Covid negative CBC shows a leukocytosis of 19 with acute anemia hemoglobin is 7.2 down from 10.5 just last month, no thrombocytopenia. Given the 3 g drop now just above 7 with active rectal bleeding we will transfuse him 1 unit PRBC, is crossed for 2. Electrolytes show GENNY on CKD creatinine is 3.1 previous 2.6 is hyperglycemic to 41 does have an anion gap metabolic acidosis anion gap of 21 bicarb 13. We will add on urinalysis, blood gas, lactic acid and beta hydroxybutyrate Troponin negative Twelve-lead EKG sinus rhythm heart rate 87 NC, QRS, QTc within normal, no acute ischemia Given the rectal bleeding with left lower quadrant pain and leukocytosis will obtain a CT of the abdomen, without contrast given his CKD. CT per direct radiology shows small hiatal hernia some cholelithiasis, no other acute findings VBG shows pH is 7.26 PCO2 39 with a bicarb of 17.5 lactate is 2.4 Urine dip negative for Ketones, negative for infection. Beta hydroxy is 0.67 Seems unlikely DKA, the metabolic derangements seem more likely related to possibly some dehydration poorly controlled diabetes and renal insufficiency. Additionally given the leukocytosis of 19 this still seems nonspecific I do not see any obvious acute source of infection that warrants antibiotics at this time I did speak with Dr. Alejandra in regards to patient's rectal bleeding, he is comfortable consulting for the rectal bleeding and performing endoscopy if likely needed, as long as hospitalist is comfortable admitting this patient here. I spoke with Dr. Quintanilla, who is agreeable to admitting the patient. Did discuss the metabolic derangements. will rpt LA, BMP after hydration and pRBC. admitted to PCU at this time. Critical Care Time Total CriticalCare time was at least 45 minutes, excluding separately reportable procedures. There was a high probability of clinically significant/life threatening deterioration in the patient's condition which required my urgent intervention. Lab Data Result diagrams: 05/31/21 19:51 05/31/21 19:51 Labs: Lab Results 05/31/21 05/31/21 05/31/21 Range/Units 19:51 19:51 19:51 WBC 19.1 H (4.5-11.0) K/mcL RBC 2.48 L (4.63-6.08) M/mcL Hgb 7.2 L (13.7-17.5) g/dL Hct 22.5 L (40.1-51.0) % MCV 90.7 (80.0-100.0) fL MCH 29.0 (26.0-34.0) pg MCHC 32.0 (31.0-36.0) g/dL RDW 14.8 H (11.5-14.5) % Plt Count 281 (140-440) K/mcL MPV 10.5 H (7.4-10.4) fL Neut % (Auto) 92.8 H (38.0-78.0) % Lymph % (Auto) 5.7 L (15.5-49.0) % [place] % (Auto) 0.7 L (1.0-12.0) % Eos % (Auto) 0.5 (0.0-7.0) % Baso % (Auto) 0.3 (0.0-2.0) % Lymph # (Auto) 1.09 L (1.50-4.80) K/mcL [place] # (Auto) 0.14 (0.10-0.90) K/mcL Eos # (Auto) 0.10 (0.00-0.70) K/mcL Baso # (Auto) 0.06 (0.00-0.30) K/mcL Absolute Neutrophils 17.75 H (1.80-8.00) K/mcL PT 15.2 H (11.9-14.5) sec INR 1.1 (0.9-1.1) APTT 25.4 (20.0-37.0) sec Sodium 133 (133-145) mmol/L Potassium 5.0 (3.3-5.1) mmol/L Chloride 99 (96-108) mmol/L Carbon Dioxide 13 L (22-30) mmol/L Anion Gap 21.0 H (8.0-16.0) BUN 92 H (8-23) mg/dL Creatinine 3.1 H (0.7-1.2) mg/dL GFR Calculation 18 Glucose 241 H (70-105) mg/dL Calcium 8.0 L (8.6-10.4) mg/dL Total Bilirubin 0.2 (0.1-1.0) mg/dL AST 12 (<40) U/L ALT 11 (<40) U/L Alkaline Phosphatase 49 (39-117) U/L Total Protein 5.4 L (5.9-8.4) gm/dL Albumin 3.2 (3.2-5.2) gm/dL Globulin 2.2 (2.2-3.7) gm/dL Albumin/Globulin Ratio 1.5 (1.0-2.3) Lipase 29 (7-60) U/L Beta-Hydroxybutyrate (<0.27) mmol/L POC Troponin I 0.02 (0.02-0.08) ng/mL 05/31/21 Range/Units 19:51 WBC (4.5-11.0) K/mcL RBC (4.63-6.08) M/mcL Hgb (13.7-17.5) g/dL Hct (40.1-51.0) % MCV (80.0-100.0) fL MCH (26.0-34.0) pg MCHC (31.0-36.0) g/dL RDW (11.5-14.5) % Plt Count (140-440) K/mcL MPV (7.4-10.4) fL Neut % (Auto) (38.0-78.0) % Lymph % (Auto) (15.5-49.0) % [place] % (Auto) (1.0-12.0) % Eos % (Auto) (0.0-7.0) % Baso % (Auto) (0.0-2.0) % Lymph # (Auto) (1.50-4.80) K/mcL [place] # (Auto) (0.10-0.90) K/mcL Eos # (Auto) (0.00-0.70) K/mcL Baso # (Auto) (0.00-0.30) K/mcL Absolute Neutrophils (1.80-8.00) K/mcL PT (11.9-14.5) sec INR (0.9-1.1) APTT (20.0-37.0) sec Sodium (133-145) mmol/L Potassium (3.3-5.1) mmol/L Chloride (96-108) mmol/L Carbon Dioxide (22-30) mmol/L Anion Gap (8.0-16.0) BUN (8-23) mg/dL Creatinine (0.7-1.2) mg/dL GFR Calculation Glucose (70-105) mg/dL Calcium (8.6-10.4) mg/dL Total Bilirubin (0.1-1.0) mg/dL AST (<40) U/L ALT (<40) U/L Alkaline Phosphatase (39-117) U/L Total Protein (5.9-8.4) gm/dL Albumin (3.2-5.2) gm/dL Globulin (2.2-3.7) gm/dL Albumin/Globulin Ratio (1.0-2.3) Lipase (7-60) U/L Beta-Hydroxybutyrate 0.67 H (<0.27) mmol/L POC Troponin I (0.02-0.08) ng/mL ED POC Tests ED POC Tests: EDDIE - SARS Antigen Negative Discharge Plan Patient/Caregiver Discharge Instructions Pt seen by CFD ENGINEER/PA only: No Clinical Impression: GIB (gastrointestinal bleeding), Metabolic acidosis, increased anion gap Patient Disposition: Xfer As Inpt ([facility]) Condition: Serious Discharge Date/Time: 05/31/21 23:12
[2021-05-31] MEDS ORDERED: LACTATED RINGERS 1,000 ML IV SCH (22:15)
[2021-05-31] MEDS ORDERED: ONDANSETRON 4 MG/2 ML VIAL IV PRN (22:29)
[2021-05-31] MEDS ORDERED: NALOXONE HCL 0.4 MG/ML VIAL IV PRN (22:29)
[2021-05-31] MEDS: PANTOPRAZOLE 80 MG in 0.9 % SODIUM CHLORIDE 100 ML IV SCH (22:42)
[2021-05-31] MEDS ORDERED: SODIUM BICARBONATE VIAL 150 MEQ in WATER FOR INJECTION,STERILE 850 ML IV SCH (23:00)
[2021-05-31] MEDS ORDERED: SODIUM BICARBONATE 50 MEQ/50 ML VIAL ONE (23:07)
[2021-05-31] MEDS: 0.9 % SODIUM CHLORIDE 10 ML SYRINGE IV SCH (23:50)
[2021-06-01] MEDS: morphine 2 MG/ML VIAL IV PRN ×2 (01:14→04:01)
[2021-06-01] MEDS: 0.9 % SODIUM CHLORIDE 10 ML SYRINGE IV SCH ×7 (01:20→22:31)
--- NOTE | 2021-06-01 05:15 | Cat Scan Report ---
CLINICAL INFORMATION: Left lower quadrant pain COMPARISON: Abdomen and pelvic CT 01/05/2019 TECHNIQUE: 0.625 mm helical slices were obtained from the mid heart through the subtrochanteric regions. Following reconstruction, 2.5 mm sagittal, coronal and axial reformatted images were processed and reviewed at bone and soft tissue windows.The exam was performed using radiation dose optimization techniques including, but not limited to, automated exposure control, adjustment of the mA and/or kV according to patient size and use of iterative reconstruction technique. FINDINGS: The lung bases show mild tree-in-bud airspace disease in the right middle lobe which is new from the previous study. This could indicate developing infiltrate. There are no effusions. The visualized heart is borderline enlarged with scattered calcific plaque in the coronary arteries. Small hiatal hernia noted.. Abdominal images show a solitary 3 mm stone in the gallbladder neck. Gallbladder and bile ducts otherwise normal colon CBD is 5 mm. The noncontrasted liver, adrenal glands, spleen, and pancreas are normal in size, configuration and attenuation without focal lesion. The aorta is normal diameter (19 mm) with heavy calcific plaque particularly in the infrarenal region. Suspect hemodynamically significant stenosis in the left common iliac artery. There is no free air, free fluid or adenopathy. Both kidneys are mildly atrophic: The right is 9.1 cm and the left is 8.5 cm. There is a 14 mm simple cyst midpole left kidney. No other renal lesions. Pelvic images shows mild wall thickening of the urinary bladder wall in the dome region which could indicate cystitis or other infiltrative pathology. The prostate and seminal vesicles are normal. The stomach, small bowel, appendix and large bowel are grossly normal. The prostate and seminal vesicles are unremarkable. The stomach, small bowel, appendix and large bowel are grossly normal. Bone windows a 2.8 cm cystic lesion in the lateral left femoral head which is likely degenerative. It was not seen on previous exam. IMPRESSION: 1. Mild tree in bud airspace disease in the right middle lobe which may indicate developing pneumonia. Suggest follow-up two-view chest x-ray. 2. 7 mm solitary stone in the gallbladder neck-new from prior exam.. 3. Small hiatal hernia. 4. Heavy calcific plaque in the infrarenal abdominal aorta and iliac arteries. Possible hemodynamically significant stenosis left common iliac artery. Please correlate with asymmetry groin pulses and history of claudication. 5. Mild urinary bladder wall thickening particularly in the dome region. This is unchanged from the previous exam and may represent mild hypertrophy. Cystitis is not excluded 6. 2.8 cm cystic lesion the lateral left femoral head likely degenerative. Interpreted and Authenticated by: Prasanna Knutson 06/01/21
[2021-06-01 06:14] LABS: Hematocrit 24.4 % (40.1-51.0); Hemoglobin 7.8 g/dL (13.7-17.5); Mean Cell Volume 87.8 fL (80.0-100.0); Mean Platelet Volume 10.7 fL (7.4-10.4); Platelet Count 198 K/mcL (140-440); RBC 2.78 M/mcL (4.63-6.08); Red Cell Distribution Width 15.9 % (11.5-14.5); WBC 16.1 K/mcL (4.5-11.0)
[2021-06-01 06:23] LABS: ALT/SGPT 11 U/L (<40); AST/SGOT 10 U/L (<40); Albumin/Globulin Ratio 1.4 (1.0-2.3); Alkaline Phosphatase 46 U/L (39-117); Bilirubin,Direct < 0.2 mg/dL (0-0.3); Bilirubin,Total 0.5 mg/dL (0.1-1.0); Blood Urea Nitrogen 95 mg/dL (8-23); Calcium 7.6 mg/dL (8.6-10.4); Carbon Dioxide 17 mmol/L (22-30); Chloride 105 mmol/L (96-108); Globulin 2.2 gm/dL (2.2-3.7); Glomerular Filtration Rate 20; Glucose 125 mg/dL (70-105); Lactate Dehydrogenase 193 U/L (135-225); Phosphorous 3.9 mg/dL (2.5-4.5); Triglycerides 193 mg/dL (<150); Uric Acid 12.1 mg/dL (2.5-8.0)
[2021-06-01] MEDS ORDERED: 0.9 % SODIUM CHLORIDE 250 ML IV SCH (07:45)
--- NOTE | 2021-06-01 07:55 | Internal Med History&Physical ---
HPI History of Present Illness Patient information: Note initiated : 06/01/21 at 7:48 am Service Date, if different from initiated Date: [] Patient: Jayjay Horta a 80 y/o M admitted on 05/31/21 for N/V/D. Chief Complaint: [] History of present illness: Mr. Horta is a 80 year old M Brought in by EMS after he fell and passed out getting to his wheelchair. Patient states that he was sitting down and realized he needed to go the bathroom quickly and so he got his wheelchair and was trying to get into it when he passed out was on the floor. No chest pain or shortness of breath. Was on the floor did have an episode of nausea vomiting Patient has a history of hypothyroidism and right BKA phantom limb syndrome. Did have a melanotic stool in the ED. Was started on Protonix drip. Dr. Su contacted. Patient was given a unit of blood. Also found to be metabolic acidosis and does have history of chronic kidney disease. All signs are stable in the ED. Did have a leukocytosis in ED of unknown etiology. UA pending. CT abdomen pelvis with possible lower lobe pneumonia. Otherwise no acute abnormalities. Chest x-ray pending. Review of Systems: denies headache/fever/chills/nausea/vomiting/chest or abdominal pain/cough/dyspnea/diarrhea. Otherwise see above. 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) Localized edema due to fluid overload (Chronic) Stasis dermatitis (Chronic) Medicare annual wellness visit, subsequent (Chronic) Wound of lower extremity (Chronic) Hyperlipidemia (Chronic) Diabetes mellitus (Chronic) Chronic kidney disease (CKD) stage G4/A1, severely decreased glomerular filtration rate (GFR) between 15-29 mL/min/1.73 square meter and albuminuria creatinine ratio less than 30 mg/g (Chronic) 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, stage 4 (severe) (Chronic) 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 Hx BKA w/ complications, infection Amputation stump complication COLD BKA stump and thigh RIGHT. Severe PAIN, Paresthesia, Poikilothermia and Pulseless. DOPPLER Studies: THROMBOSED SFA, Popliteal but patient commonn femoral and profunda femoris, DVT popliteal vein. Cataracts, bilateral Cellulitis Chronic kidney disease, stage IV (severe) Confusion Conjunctivitis COPD (chronic obstructive pulmonary disease) Diabetes mellitus Diarrhea Intermittent, AM only Dry skin dermatitis DVT of popliteal vein Esophagitis, Lincoln grade B Fungal dermatitis For symptomatic treatrment. Clean with chlorhexidene, Dry with wash colth and apply topical antifungal creme. NO diapers. Use absorbent CHUX pads under lower back, pelvis and thighs. 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 Hypothyroidism Iron deficiency anemia, unspecified Ischemia of right BKA site Macular degeneration Malnutrition Metabolic acidosis Need for hepatitis C screening test Osteopenia Phantom limb syndrome with pain Popliteal vein thrombosis Pruritic rash PVD (peripheral vascular disease) Rash Secondary hyperparathyroidism Skin lesion RUE - forearm Stasis dermatitis Upper respiratory infection Vitamin D deficiency Wound of lower extremity Wound of toenail Left great wound in setting of toenail removal Surgical History History of right below knee amputation Family History Brother Heart disease Social History marital status: occupational status: retired well-balanced diet: other details: Renal Diet smoking status: Former smoker quit date: 03/03/18 alcohol intake frequency: does not drink substance use type: does not use MEDS/ALLERGIES Home Medications and Allergies Home Medications Medication Instructions Recorded Confirmed Type cholecalciferol (vitamin D3) 50 50 mcg PO QDAY #90 tab 03/10/20 05/15/21 Rx mcg (2,000 unit) tablet Rt AK Definitive Prosthesis and #1 ea 03/15/20 05/15/21 Rx Supplies and Flexible Foot blood pressure test kit-large #1 ea 05/10/20 05/15/21 Rx amlodipine 5 mg tablet 5 mg PO QDAY #90 tab 10/17/20 05/15/21 Rx carvedilol 3.125 mg tablet 3.125 mg PO BID #180 tab 11/09/20 05/15/21 Rx spironolactone 25 mg tablet 25 mg PO QDAY #90 tab 12/11/20 05/15/21 Rx furosemide 40 mg tablet 40 mg PO QAM #90 tab 02/27/21 05/15/21 Rx aspirin 81 mg tablet,delayed 81 mg PO QDAY 03/16/21 05/15/21 History release (Adult Low Dose Aspirin) clopidogrel 75 mg tablet 75 mg PO QDAY 03/16/21 05/15/21 History levothyroxine 50 mcg tablet 50 mcg PO QDAY 03/30/21 05/15/21 History (Euthyrox) darbepoetin estevan in polysorbat 300 300 mcg SUBCUT Q2W 04/04/21 05/15/21 History mcg/0.6 mL in polysorbate injection syringe (Aranesp) gabapentin 300 mg capsule 300 mg PO QDAY #90 cap 04/10/21 05/15/21 Rx tamsulosin 0.4 mg capsule 0.4 mg PO QDAY #90 cap 04/10/21 05/15/21 Rx ferrous sulfate 325 mg (65 mg 325 mg PO QDAY #90 tab 05/02/21 05/15/21 Rx iron) tablet rosuvastatin 20 mg tablet See Rx Instructions .ROUTE 05/02/21 05/15/21 Rx .COMPLEX #90 tab methylprednisolone 4 mg tablets in See Rx Instructions PO PER PKG DIR 05/30/21 Rx a dose pack (Medrol (Delbert)) #21 tab Allergies Allergy/AdvReac Type Severity Reaction Status Date / Time Penicillins AdvReac Mild Vomiting Verified 05/31/21 19:20 EXAM Constitutional Vitals: Temp Pulse Resp BP Pulse Ox 98.7 F 82 20 140/69 99 06/01/21 04:01 06/01/21 04:01 06/01/21 04:01 06/01/21 04:01 06/01/21 04:01 Exam: General: Alert, Awake, No acute Distress Eyes/N/T: EOMI, PERRL, Head/Neck: neck supple, normocephalic atraumatic CV: RRR, No murmurs, normal s1/s2 Pulm: Clear b/l, no wheezing/rhonchi/rales Abd: soft, nontender, +BS x4 Ext: no clubbing/cyanosis/edema, Right BKA Neuro: Alert, no focal deficits, moves all extremities, CN 2-12 grossly intact, Skin: warm/dry, dry scaly skin DATA Data Completed and Pending Labs: Labs from last 24 hours 06/01/21 06/01/21 06/01/21 05:27 05:27 05:27 WBC 16.1 H RBC 2.78 L Hgb 7.8 L Hct 24.4 L MCV 87.8 MCH 28.1 MCHC 32.0 RDW 15.9 H Plt Count 198 MPV 10.7 H Neut % (Auto) Lymph % (Auto) [place] % (Auto) Eos % (Auto) Baso % (Auto) Lymph # (Auto) [place] # (Auto) Eos # (Auto) Baso # (Auto) Absolute Neutrophils Platelet Estimate Pending RBC Morphology Pending PT INR APTT VBG Lactic Acid 1.0 Sodium 137 Potassium 4.4 Chloride 105 Carbon Dioxide 17 L Anion Gap 15.0 BUN 95 H Creatinine 2.9 H GFR Calculation 20 Glucose 125 H Uric Acid 12.1 H Calcium 7.6 L Phosphorus 3.9 Magnesium 1.9 Total Bilirubin 0.5 Direct Bilirubin < 0.2 GGT 11 AST 10 ALT 11 Alkaline Phosphatase 46 Lactate Dehydrogenase 193 Total Protein 5.2 L Albumin 3.0 L Globulin 2.2 Albumin/Globulin Ratio 1.4 Triglycerides 193 H Lipase Beta-Hydroxybutyrate POC Troponin I 05/31/21 05/31/21 05/31/21 19:51 19:51 19:51 WBC RBC Hgb Hct MCV MCH MCHC RDW Plt Count MPV Neut % (Auto) Lymph % (Auto) [place] % (Auto) Eos % (Auto) Baso % (Auto) Lymph # (Auto) [place] # (Auto) Eos # (Auto) Baso # (Auto) Absolute Neutrophils Platelet Estimate RBC Morphology PT 15.2 H INR 1.1 APTT 25.4 VBG Lactic Acid Sodium 133 Potassium 5.0 Chloride 99 Carbon Dioxide 13 L Anion Gap 21.0 H BUN 92 H Creatinine 3.1 H GFR Calculation 18 Glucose 241 H Uric Acid Calcium 8.0 L Phosphorus Magnesium Total Bilirubin 0.2 Direct Bilirubin GGT AST 12 ALT 11 Alkaline Phosphatase 49 Lactate Dehydrogenase Total Protein 5.4 L Albumin 3.2 Globulin 2.2 Albumin/Globulin Ratio 1.5 Triglycerides Lipase 29 Beta-Hydroxybutyrate 0.67 H POC Troponin I 0.02 05/31/21 19:51 WBC 19.1 H RBC 2.48 L Hgb 7.2 L Hct 22.5 L MCV 90.7 MCH 29.0 MCHC 32.0 RDW 14.8 H Plt Count 281 MPV 10.5 H Neut % (Auto) 92.8 H Lymph % (Auto) 5.7 L [place] % (Auto) 0.7 L Eos % (Auto) 0.5 Baso % (Auto) 0.3 Lymph # (Auto) 1.09 L [place] # (Auto) 0.14 Eos # (Auto) 0.10 Baso # (Auto) 0.06 Absolute Neutrophils 17.75 H Platelet Estimate RBC Morphology PT INR APTT VBG Lactic Acid Sodium Potassium Chloride Carbon Dioxide Anion Gap BUN Creatinine GFR Calculation Glucose Uric Acid Calcium Phosphorus Magnesium Total Bilirubin Direct Bilirubin GGT AST ALT Alkaline Phosphatase Lactate Dehydrogenase Total Protein Albumin Globulin Albumin/Globulin Ratio Triglycerides Lipase Beta-Hydroxybutyrate POC Troponin I A/P Narrative A/P Narrative: A: *GI Bleed (h/o GI Bleed in March and sent to [place]): -is on ASA/Plavix *Anemia, chronic with acute blood loss component: *Hypovolemia: *Metabolic acidosis: 2/2 CKD *CKD IV: Follows with Dr. Hutchins *COPD: *Hypothyroidism: *HTN/HLD: *Neuropathy: *h/o PVD with angioplasty by Dr. Díaz in January or March, and put on ASA/Plavix P: -Dr. Alejandra for endoscopy -Hold ASA/Plavix -Hold diuretics for now -Continue Coreg/Norvasc -bicarb gtt, f/u chemistry -records -Home medication reconciliation -ppx: SCD (hold chemical for GI bleed) full code Time Spent With Patient Time: Total time spent is greater than 50% in coordination of care (as documented) at patient's floor/unit and/or counseling patient: Total time spent with greater than 50% in coordination of care (as documented) at patient's floor/unit and/or counseling patient:: 50 - 70 minutes QUALITY Stroke Symptom Onset Unknown: No VTE Deep Vein Thrombosis/Pulmonary Embolism Present on Admission: No
[2021-06-01] MEDS: PANTOPRAZOLE 80 MG in 0.9 % SODIUM CHLORIDE 100 ML IV SCH ×2 (08:24→16:33)
[2021-06-01 09:18] LABS: Anisocytosis 1+ (None Seen); Lymphocytes % 12 % (15-49); Monocytes % (Manual) 1 % (1-12); Platelet Estimate NORMAL (Normal); RBC Morphology ABNORMAL (Normal); Segmented Neutrophils % 87 % (38-78)
--- NOTE | 2021-06-01 09:27 | XRay Report ---
CLINICAL INFORMATION: Cough COMPARISON: 01/11/2019 TECHNIQUE: Portable FINDINGS: The heart size, mediastinum and pulmonary vessels are unremarkable. Moderate basilar atelectasis noted. No definite infiltrate. There is underlying chronic bronchitis which is stable. No effusions. IMPRESSION: Chronic bronchitis and minor bibasilar atelectasis. Interpreted and Authenticated by: Prasanna Knutson 06/01/21
--- NOTE | 2021-06-01 09:38 | General Surgery Consult Note ---
HPI Data of Consult Patient: new to practice Consult date: 06/01/21 Primary Care Provider: Dalton Sevilla MD Consult Narrative Patient Information: Note initiated : 06/01/21 at 9:35 am Service Date, if different from initiated Date: [] Patient: Jayjay Horta 80 y/o M admitted on 05/31/21 for N/V/D. Patient reports that he was feeling unwell, got lightheaded and passed out. After he passed out he had a large bowel movement with dark melanotic colored stools. He reports he had a similar episode several months ago and was transferred to another hospital where he reports that he had an upper and lower endoscopy. He reports that they found something on the lower endoscopy and that they had fixed it at that time. We do not have any records from that visit. Upon being seen in the emergency room he was guaiac positive stools and his H&H was decreased significantly from his last H&H. He was admitted, given blood and I was consulted for further work-up. Chief Complaint: [] Chief complaint: GI bleed cc:: CC: Alberto Trinh MD Review of Systems Review of systems: All systems are reviewed, negative other than above 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) Localized edema due to fluid overload (Chronic) Stasis dermatitis (Chronic) Medicare annual wellness visit, subsequent (Chronic) Wound of lower extremity (Chronic) Hyperlipidemia (Chronic) Diabetes mellitus (Chronic) Chronic kidney disease (CKD) stage G4/A1, severely decreased glomerular filtration rate (GFR) between 15-29 mL/min/1.73 square meter and albuminuria creatinine ratio less than 30 mg/g (Chronic) 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, stage 4 (severe) (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 Hx BKA w/ complications, infection Amputation stump complication COLD BKA stump and thigh RIGHT. Severe PAIN, Paresthesia, Poikilothermia and Pulseless. DOPPLER Studies: THROMBOSED SFA, Popliteal but patient commonn femoral and profunda femoris, DVT popliteal vein. Cataracts, bilateral Cellulitis Chronic kidney disease, stage IV (severe) Confusion Conjunctivitis COPD (chronic obstructive pulmonary disease) Diabetes mellitus Diarrhea Intermittent, AM only Dry skin dermatitis DVT of popliteal vein Esophagitis, Collier grade B Fungal dermatitis For symptomatic treatrment. Clean with chlorhexidene, Dry with wash colth and apply topical antifungal creme. NO diapers. Use absorbent CHUX pads under lower back, pelvis and thighs. 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 Hypothyroidism Iron deficiency anemia, unspecified Ischemia of right BKA site Macular degeneration Malnutrition Metabolic acidosis Need for hepatitis C screening test Osteopenia Phantom limb syndrome with pain Popliteal vein thrombosis Pruritic rash PVD (peripheral vascular disease) Rash Secondary hyperparathyroidism Skin lesion RUE - forearm Stasis dermatitis Upper respiratory infection Vitamin D deficiency Wound of lower extremity Wound of toenail Left great wound in setting of toenail removal Surgical History History of right below knee amputation Family History Brother Heart disease Social History marital status: occupational status: retired well-balanced diet: other details: Renal Diet smoking status: Former smoker quit date: 03/03/18 alcohol intake frequency: does not drink substance use type: does not use MEDS/ALLERGIES Home Medications and Allergies Home Medications Medication Instructions Recorded Confirmed Type cholecalciferol (vitamin D3) 50 50 mcg PO QDAY #90 tab 03/10/20 05/15/21 Rx mcg (2,000 unit) tablet Rt AK Definitive Prosthesis and #1 ea 03/15/20 05/15/21 Rx Supplies and Flexible Foot blood pressure test kit-large #1 ea 05/10/20 05/15/21 Rx amlodipine 5 mg tablet 5 mg PO QDAY #90 tab 10/17/20 05/15/21 Rx carvedilol 3.125 mg tablet 3.125 mg PO BID #180 tab 11/09/20 05/15/21 Rx spironolactone 25 mg tablet 25 mg PO QDAY #90 tab 12/11/20 05/15/21 Rx furosemide 40 mg tablet 40 mg PO QAM #90 tab 02/27/21 05/15/21 Rx aspirin 81 mg tablet,delayed 81 mg PO QDAY 03/16/21 05/15/21 History release (Adult Low Dose Aspirin) clopidogrel 75 mg tablet 75 mg PO QDAY 03/16/21 05/15/21 History levothyroxine 50 mcg tablet 50 mcg PO QDAY 03/30/21 05/15/21 History (Euthyrox) darbepoetin estevan in polysorbat 300 300 mcg SUBCUT Q2W 04/04/21 05/15/21 History mcg/0.6 mL in polysorbate injection syringe (Aranesp) gabapentin 300 mg capsule 300 mg PO QDAY #90 cap 04/10/21 05/15/21 Rx tamsulosin 0.4 mg capsule 0.4 mg PO QDAY #90 cap 04/10/21 05/15/21 Rx ferrous sulfate 325 mg (65 mg 325 mg PO QDAY #90 tab 05/02/21 05/15/21 Rx iron) tablet rosuvastatin 20 mg tablet See Rx Instructions .ROUTE 05/02/21 05/15/21 Rx .COMPLEX #90 tab methylprednisolone 4 mg tablets in See Rx Instructions PO PER PKG DIR 05/30/21 Rx a dose pack (Medrol (Delbert)) #21 tab Allergies Allergy/AdvReac Type Severity Reaction Status Date / Time Penicillins AdvReac Mild Vomiting Verified 05/31/21 19:20 Physical Examination Vital Signs Vital signs: Temp Pulse Resp BP Pulse Ox 98.3 F 72 17 156/58 94 06/01/21 08:05 06/01/21 08:05 06/01/21 08:05 06/01/21 08:05 06/01/21 08:05 General physical appearance General physical exam: well developed, well nourished and no distress Eyes Eye exam: PERRL and normal ocular movement ENT ENT exam: normal pinna, normal nares, normal mucosa, no hearing loss and no congestion Head Head exam IM: Present atraumatic and normocephalic Neck Neck exam: no masses, no bruits, trachea midline, no lymphadenopathy and no venous distension Cardiovascular Cardiovascular exam IM: Present normal rate and rhythm Respiratory Respiratory exam: normal expansion, normal respiratory effort, clear to percussion and clear to auscultation Abdomen Abdomen: Present soft, non tender and bowel sounds Hernia: Present none Genitourinary Genitourinary (Male): Present normal penis with no external lesions Rectum Rectum: Present normal sphincter tone, no hemorrhoids, no tenderness, no masses and no bleeding Integumentary Integumentary: Present no rash, no growths and no abnormal pigmentation Neurologic Neurologic: Present normal coordination and normal sensation Musculoskeletal Musculoskeletal: Present normal gait and normal posture Psychiatric Psychiatric: Present oriented to time, oriented to person, oriented to place, speech is normal and memory intact Results Labs Result diagrams: 06/01/21 05:27 06/01/21 05:27 Labs: Abnormal lab results 05/31/21 05/31/21 05/31/21 Range/Units 19:51 19:51 19:51 WBC 19.1 H (4.5-11.0) K/mcL RBC 2.48 L (4.63-6.08) M/mcL Hgb 7.2 L (13.7-17.5) g/dL Hct 22.5 L (40.1-51.0) % RDW 14.8 H (11.5-14.5) % MPV 10.5 H (7.4-10.4) fL Neut % (Auto) 92.8 H (38.0-78.0) % Lymph % (Auto) 5.7 L (15.5-49.0) % [place] % (Auto) 0.7 L (1.0-12.0) % Lymph # (Auto) 1.09 L (1.50-4.80) K/mcL Seg Neutrophils % (38-78) % Lymphocytes % (15-49) % Absolute Neutrophils 17.75 H (1.80-8.00) K/mcL RBC Morphology (Normal) Anisocytosis (None Seen) PT 15.2 H (11.9-14.5) sec Carbon Dioxide 13 L (22-30) mmol/L Anion Gap 21.0 H (8.0-16.0) BUN 92 H (8-23) mg/dL Creatinine 3.1 H (0.7-1.2) mg/dL Glucose 241 H (70-105) mg/dL Uric Acid (2.5-8.0) mg/dL Calcium 8.0 L (8.6-10.4) mg/dL Total Protein 5.4 L (5.9-8.4) gm/dL Albumin (3.2-5.2) gm/dL Triglycerides (<150) mg/dL Beta-Hydroxybutyrate (<0.27) mmol/L Procalcitonin (<0.10) ng/mL 05/31/21 06/01/21 06/01/21 Range/Units 19:51 05:27 05:27 WBC 16.1 H (4.5-11.0) K/mcL RBC 2.78 L (4.63-6.08) M/mcL Hgb 7.8 L (13.7-17.5) g/dL Hct 24.4 L (40.1-51.0) % RDW 15.9 H (11.5-14.5) % MPV 10.7 H (7.4-10.4) fL Neut % (Auto) (38.0-78.0) % Lymph % (Auto) (15.5-49.0) % [place] % (Auto) (1.0-12.0) % Lymph # (Auto) (1.50-4.80) K/mcL Seg Neutrophils % 87 H (38-78) % Lymphocytes % 12 L (15-49) % Absolute Neutrophils (1.80-8.00) K/mcL RBC Morphology Abnormal A (Normal) Anisocytosis 1+ A (None Seen) PT (11.9-14.5) sec Carbon Dioxide 17 L (22-30) mmol/L Anion Gap (8.0-16.0) BUN 95 H (8-23) mg/dL Creatinine 2.9 H (0.7-1.2) mg/dL Glucose 125 H (70-105) mg/dL Uric Acid 12.1 H (2.5-8.0) mg/dL Calcium 7.6 L (8.6-10.4) mg/dL Total Protein 5.2 L (5.9-8.4) gm/dL Albumin 3.0 L (3.2-5.2) gm/dL Triglycerides 193 H (<150) mg/dL Beta-Hydroxybutyrate 0.67 H (<0.27) mmol/L Procalcitonin (<0.10) ng/mL 06/01/21 Range/Units 05:27 WBC (4.5-11.0) K/mcL RBC (4.63-6.08) M/mcL Hgb (13.7-17.5) g/dL Hct (40.1-51.0) % RDW (11.5-14.5) % MPV (7.4-10.4) fL Neut % (Auto) (38.0-78.0) % Lymph % (Auto) (15.5-49.0) % [place] % (Auto) (1.0-12.0) % Lymph # (Auto) (1.50-4.80) K/mcL Seg Neutrophils % (38-78) % Lymphocytes % (15-49) % Absolute Neutrophils (1.80-8.00) K/mcL RBC Morphology (Normal) Anisocytosis (None Seen) PT (11.9-14.5) sec Carbon Dioxide (22-30) mmol/L Anion Gap (8.0-16.0) BUN (8-23) mg/dL Creatinine (0.7-1.2) mg/dL Glucose (70-105) mg/dL Uric Acid (2.5-8.0) mg/dL Calcium (8.6-10.4) mg/dL Total Protein (5.9-8.4) gm/dL Albumin (3.2-5.2) gm/dL Triglycerides (<150) mg/dL Beta-Hydroxybutyrate (<0.27) mmol/L Procalcitonin 0.21 H (<0.10) ng/mL Diabetes panel 05/31/21 06/01/21 Range/Units 19:51 05:27 Sodium 133 137 (133-145) mmol/L Potassium 5.0 4.4 (3.3-5.1) mmol/L Chloride 99 105 (96-108) mmol/L Carbon Dioxide 13 L 17 L (22-30) mmol/L BUN 92 H 95 H (8-23) mg/dL Creatinine 3.1 H 2.9 H (0.7-1.2) mg/dL Glucose 241 H 125 H (70-105) mg/dL Calcium 8.0 L 7.6 L (8.6-10.4) mg/dL AST 12 10 (<40) U/L ALT 11 11 (<40) U/L Alkaline Phosphatase 49 46 (39-117) U/L Total Protein 5.4 L 5.2 L (5.9-8.4) gm/dL Albumin 3.2 3.0 L (3.2-5.2) gm/dL Triglycerides 193 H (<150) mg/dL Calcium panel 05/31/21 06/01/21 Range/Units 19:51 05:27 Calcium 8.0 L 7.6 L (8.6-10.4) mg/dL Phosphorus 3.9 (2.5-4.5) mg/dL Albumin 3.2 3.0 L (3.2-5.2) gm/dL Pituitary panel 05/31/21 06/01/21 Range/Units 19:51 05:27 Sodium 133 137 (133-145) mmol/L Potassium 5.0 4.4 (3.3-5.1) mmol/L Chloride 99 105 (96-108) mmol/L Carbon Dioxide 13 L 17 L (22-30) mmol/L BUN 92 H 95 H (8-23) mg/dL Creatinine 3.1 H 2.9 H (0.7-1.2) mg/dL Glucose 241 H 125 H (70-105) mg/dL Calcium 8.0 L 7.6 L (8.6-10.4) mg/dL Adrenal panel 05/31/21 06/01/21 Range/Units 19:51 05:27 Sodium 133 137 (133-145) mmol/L Potassium 5.0 4.4 (3.3-5.1) mmol/L Chloride 99 105 (96-108) mmol/L Carbon Dioxide 13 L 17 L (22-30) mmol/L BUN 92 H 95 H (8-23) mg/dL Creatinine 3.1 H 2.9 H (0.7-1.2) mg/dL Glucose 241 H 125 H (70-105) mg/dL Calcium 8.0 L 7.6 L (8.6-10.4) mg/dL Total Bilirubin 0.2 0.5 (0.1-1.0) mg/dL AST 12 10 (<40) U/L ALT 11 11 (<40) U/L Alkaline Phosphatase 49 46 (39-117) U/L Total Protein 5.4 L 5.2 L (5.9-8.4) gm/dL Albumin 3.2 3.0 L (3.2-5.2) gm/dL All other labs normal. A/P Assessment and plan (1) GI bleed: Assessment and plan: This is a pleasant 80-year-old gentleman who presents with what appears to be GI bleed. Risk, benefits, alternatives to work-up discussed with him at length including details of procedure and what to expect. Plan: EGD today, colonoscopy tomorrow as possible based on EGD results. Status: Chronic Time Spent With Patient Time: Total time spent is greater than 50% in coordination of care (as documented) at patient's floor/unit and/or counseling patient:
[2021-06-01] MEDS ORDERED: PROPOFOL 200 MG/20 ML VIAL IV SCH (10:00)
[2021-06-01] MEDS ORDERED: MIDAZOLAM 2 MG/2 ML VIAL IV SCH (10:00)
[2021-06-01 10:38] LABS: Appearance,Urine CLEAR (Clear); Bilirubin,Urine NEG (Negative); Color,Urine STRAW; Culture Indicated,Urine No; Glucose,Urine (UA) NEG (Negative); Ketones,Urine NEG (Negative); Leukocyte Esterase,Urine NEG /uL (Negative); Mucus,Urine FEW /hpf; Nitrate,Urine NEG (Negative); Protein,Urine NEG (Negative); Specific Gravity,Urine 1.011 (1.000-1.035); Urine Blood NEG (Negative); Urine RBC < 1 /hpf (0-3); Urine Squamous Epithelial Cell 0 /hpf (0-4); Urine WBC 1 /hpf (0-4); Urobilinogen,Urine NEG
[2021-06-01] MEDS ORDERED: ACETAMINOPHEN 325 MG TABLET PO PRN (10:58)
[2021-06-01] MEDS ORDERED: POTASSIUM CHLORIDE 40 MEQ in DEXTROSE 5% IN WATER 500 ML IV PRN (10:58)
[2021-06-01] MEDS ORDERED: MAGNESIUM SULFATE 2 GM/50 ML BAG IV PRN (10:58)
[2021-06-01] MEDS ORDERED: POTASSIUM CHLORIDE 20 MEQ TABLET PO PRN ×2 (10:58)
[2021-06-01] MEDS ORDERED: ONDANSETRON 4 MG/2 ML VIAL IV PRN (10:58)
[2021-06-01] MEDS ORDERED: IPRATROPIUM/ALBUTEROL 3 ML AMPUL.NEB NEB PRN (10:58)
[2021-06-01] MEDS ORDERED: SODIUM BICARBONATE VIAL 150 MEQ in WATER FOR INJECTION,STERILE 850 ML IV SCH (11:00)
[2021-06-01] MEDS ORDERED: diphenhydrAMINE 50 MG/ML VIAL IV ONE (11:03)
[2021-06-01] MEDS ORDERED: hydrALAZINE 20 MG/ML VIAL IV PRN (11:04)
[2021-06-01] MEDS ORDERED: PROPOFOL 200 MG/20 ML VIAL IV ONE (11:26)
[2021-06-01] MEDS ORDERED: MIDAZOLAM 2 MG/2 ML VIAL ONE (11:26)
--- NOTE | 2021-06-01 11:57 | Discharge Summary ---
Discharge Provider Provider Patient information: Note initiated : 06/01/21 at 11:56 am Service Date, if different from initiated Date: [] Patient: Jayjay Horta 80 y/o M admitted on 05/31/21 for N/V/D. Chief Complaint: [] Date of admission: 05/31/21 23:12 Discharge date: 06/02/21 Primary care physician: Dalton Sevilla MD Consults: 05/31/21 Consult to Physician [CONS] Stat Comment: Consulting Provider: Jarocho Quintanilla Reason For Exam: Physician to Consult Consult to Physician [CONS] Stat Comment: Consulting Provider: Jordon Alejandra Reason For Exam: Physician to Consult Discharge Meds Discharge Medications Home Medications cholecalciferol (vitamin D3) 50 mcg (2,000 unit) tablet 50 mcg PO QDAY #90 tab 03/10/20 [Rx Confirmed 06/01/21 Last Taken Unknown] Rt AK Definitive Prosthesis and Supplies and Flexible Foot #1 ea 03/15/20 [Rx Confirmed 06/01/21 Last Taken Unknown] blood pressure test kit-large #1 ea 05/10/20 [Rx Confirmed 06/01/21 Last Taken Unknown] amlodipine 5 mg tablet 5 mg PO QDAY #90 tab 10/17/20 [Rx Confirmed 06/01/21 Last Taken Unknown] carvedilol 3.125 mg tablet 3.125 mg PO BID #180 tab 11/09/20 [Rx Confirmed 06/01/21 Last Taken Unknown] spironolactone 25 mg tablet 25 mg PO QDAY #90 tab 12/11/20 [Rx Confirmed 06/01/21 Last Taken Unknown] furosemide 40 mg tablet 40 mg PO QAM #90 tab 02/27/21 [Rx Confirmed 06/01/21 Last Taken Unknown] levothyroxine 50 mcg tablet (Euthyrox) 50 mcg PO QDAY 03/30/21 [History Confirmed 06/01/21 Last Taken Unknown] darbepoetin estevan in polysorbat 300 mcg/0.6 mL in polysorbate injection syringe (Aranesp) 300 mcg SUBCUT Q2W 04/04/21 [History Confirmed 06/01/21 Last Taken Unknown] gabapentin 300 mg capsule 300 mg PO QDAY #90 cap 04/10/21 [Rx Confirmed 06/01/21 Last Taken Unknown] tamsulosin 0.4 mg capsule 0.4 mg PO QDAY #90 cap 04/10/21 [Rx Confirmed 06/01/21 Last Taken Unknown] ferrous sulfate 325 mg (65 mg iron) tablet 325 mg PO QDAY #90 tab 05/02/21 [Rx Confirmed 06/01/21 Last Taken Unknown] clopidogrel 75 mg tablet 1 tab PO QAM 06/01/21 [History Confirmed 06/01/21 Last Taken Unknown] methylprednisolone 4 mg tablets in a dose pack See Rx Instructions .ROUTE .COMPLEX 06/01/21 [History Confirmed 06/01/21 Last Taken 05/31/21 14:00] pantoprazole 40 mg tablet,delayed release (Protonix) 40 mg PO BID #90 tab 06/01/21 [Rx Last Taken Unknown] rosuvastatin 20 mg tablet 20 mg PO HS 06/01/21 [History Confirmed 06/01/21 Last Taken Unknown] COURSE Hospital Course Hospital course: History of present illness: Mr. Horta is a 80 year old M Brought in by EMS after he fell and passed out getting to his wheelchair. Patient states that he was sitting down and realized he needed to go the bathroom quickly and so he got his wheelchair and was trying to get into it when he passed out was on the floor. No chest pain or shortness of breath. Was on the floor did have an episode of nausea vomiting Patient has a history of hypothyroidism and right BKA phantom limb syndrome. Did have a melanotic stool in the ED. Was started on Protonix drip. Dr. Su contacted. Patient was given a unit of blood. Also found to be metabolic acidosis and does have history of chronic kidney disease. All signs are stable in the ED. Did have a leukocytosis in ED of unknown etiology. UA pending. CT abdomen pelvis with possible lower lobe pneumonia. Otherwise no acute abnormalities. Chest x-ray pending. EGD with gastritis duodenitis and healed ulcers in the stomach. 4/2 Patient's hemoglobin this morning was 6.7 however he was given only 1 unit yesterday and he did have no bleeding at all overnight. This likely represents residual recovery plus or likely dilution component from IVF. Will give 1 unit prior to d/c A: *GI Bleed (h/o GI Bleed in March and sent to [facility]): 2/2 gastritis/duodenitis -is on ASA/Plavix for PVD *Anemia, chronic with acute blood loss component: *Hypovolemia: *Metabolic acidosis: 2/2 CKD *CKD IV: Follows with Dr. Hutchins *COPD: *Hypothyroidism: *HTN/HLD: *Neuropathy: *h/o PVD with angioplasty by Dr. Díaz in January or March, and put on ASA/Plavix P: -Dr. Alejandra for endoscopy f/u -Restart only Plavix and wait 3 more days -Protonix twice daily -records Discharge diagnosis: GI bleed acute blood loss anemia hypovolemia metabolic acidosis Secondary discharge diagnosis: Chronic kidney disease COPD hypothyroidism hypertension neuropathy peripheral vascular disease Time Spent with Patient Time attestation: Total time spent providing and/or coordinating discharge services: Time spent: Greater than 30 minutes EXAM Constitutional Vitals: Temp Pulse Resp BP Pulse Ox 98.0 F 73 16 96/49 97 06/01/21 11:44 06/01/21 11:44 06/01/21 11:44 06/01/21 11:44 06/01/21 11:44 Discharge Data Data Completed and Pending Labs on day of discharge: Labs from last 24 hours 06/01/21 06/01/21 06/01/21 09:30 05:27 05:27 WBC RBC Hgb Hct MCV MCH MCHC RDW Plt Count MPV Neut % (Auto) Lymph % (Auto) [place] % (Auto) Eos % (Auto) Baso % (Auto) Lymph # (Auto) [place] # (Auto) Eos # (Auto) Baso # (Auto) Seg Neutrophils % Lymphocytes % Monocytes % (Manual) Absolute Neutrophils Platelet Estimate RBC Morphology Anisocytosis PT INR APTT VBG Lactic Acid Sodium 137 Potassium 4.4 Chloride 105 Carbon Dioxide 17 L Anion Gap 15.0 BUN 95 H Creatinine 2.9 H GFR Calculation 20 Glucose 125 H Uric Acid 12.1 H Calcium 7.6 L Phosphorus 3.9 Magnesium 1.9 Total Bilirubin 0.5 Direct Bilirubin < 0.2 GGT 11 AST 10 ALT 11 Alkaline Phosphatase 46 Lactate Dehydrogenase 193 Total Protein 5.2 L Albumin 3.0 L Globulin 2.2 Albumin/Globulin Ratio 1.4 Triglycerides 193 H Lipase Beta-Hydroxybutyrate Procalcitonin 0.21 H Urine Color Straw Urine Appearance Clear Urine pH 5.0 Ur Specific [place] 1.011 Urine Protein Neg Urine Glucose (UA) Neg Urine Ketones Neg Urine Occult Blood Neg Urine Nitrate Neg Urine Bilirubin Neg Urine Urobilinogen Neg Ur Leukocyte Esterase Neg Urine RBC < 1 Urine WBC 1 Ur Squamous Epith Cells 0 Urine Bacteria None Urine Mucus Few A Urine Yeast (Budding) None Ur Culture Indicated? No POC Troponin I 06/01/21 06/01/21 05/31/21 05:27 05:27 19:51 WBC 16.1 H RBC 2.78 L Hgb 7.8 L Hct 24.4 L MCV 87.8 MCH 28.1 MCHC 32.0 RDW 15.9 H Plt Count 198 MPV 10.7 H Neut % (Auto) Lymph % (Auto) [place] % (Auto) Eos % (Auto) Baso % (Auto) Lymph # (Auto) [place] # (Auto) Eos # (Auto) Baso # (Auto) Seg Neutrophils % 87 H Lymphocytes % 12 L Monocytes % (Manual) 1 Absolute Neutrophils Platelet Estimate Normal RBC Morphology Abnormal A Anisocytosis 1+ A PT INR APTT VBG Lactic Acid 1.0 Sodium Potassium Chloride Carbon Dioxide Anion Gap BUN Creatinine GFR Calculation Glucose Uric Acid Calcium Phosphorus Magnesium Total Bilirubin Direct Bilirubin GGT AST ALT Alkaline Phosphatase Lactate Dehydrogenase Total Protein Albumin Globulin Albumin/Globulin Ratio Triglycerides Lipase Beta-Hydroxybutyrate 0.67 H Procalcitonin Urine Color Urine Appearance Urine pH Ur Specific [place] Urine Protein Urine Glucose (UA) Urine Ketones Urine Occult Blood Urine Nitrate Urine Bilirubin Urine Urobilinogen Ur Leukocyte Esterase Urine RBC Urine WBC Ur Squamous Epith Cells Urine Bacteria Urine Mucus Urine Yeast (Budding) Ur Culture Indicated? POC Troponin I 05/31/21 05/31/21 05/31/21 19:51 19:51 19:51 WBC 19.1 H RBC 2.48 L Hgb 7.2 L Hct 22.5 L MCV 90.7 MCH 29.0 MCHC 32.0 RDW 14.8 H Plt Count 281 MPV 10.5 H Neut % (Auto) 92.8 H Lymph % (Auto) 5.7 L [place] % (Auto) 0.7 L Eos % (Auto) 0.5 Baso % (Auto) 0.3 Lymph # (Auto) 1.09 L [place] # (Auto) 0.14 Eos # (Auto) 0.10 Baso # (Auto) 0.06 Seg Neutrophils % Lymphocytes % Monocytes % (Manual) Absolute Neutrophils 17.75 H Platelet Estimate RBC Morphology Anisocytosis PT 15.2 H INR 1.1 APTT 25.4 VBG Lactic Acid Sodium 133 Potassium 5.0 Chloride 99 Carbon Dioxide 13 L Anion Gap 21.0 H BUN 92 H Creatinine 3.1 H GFR Calculation 18 Glucose 241 H Uric Acid Calcium 8.0 L Phosphorus Magnesium Total Bilirubin 0.2 Direct Bilirubin GGT AST 12 ALT 11 Alkaline Phosphatase 49 Lactate Dehydrogenase Total Protein 5.4 L Albumin 3.2 Globulin 2.2 Albumin/Globulin Ratio 1.5 Triglycerides Lipase 29 Beta-Hydroxybutyrate Procalcitonin Urine Color Urine Appearance Urine pH Ur Specific [place] Urine Protein Urine Glucose (UA) Urine Ketones Urine Occult Blood Urine Nitrate Urine Bilirubin Urine Urobilinogen Ur Leukocyte Esterase Urine RBC Urine WBC Ur Squamous Epith Cells Urine Bacteria Urine Mucus Urine Yeast (Budding) Ur Culture Indicated? POC Troponin I 0.02 Discharge Plan Patient/Caregiver Discharge Instructions Activity: increase activity as tolerated Diet: Regular Diet Activity Restrictions/Additional Instructions: Restart Plavix in 3 days, hold aspirin. Follow-up with Dr. Díaz due to bleeding from dual antiplatelets. Follow-up with Dr. Alejandra for follow-up EGD outpatient. Prescriptions: New pantoprazole [Protonix] 40 mg tablet,delayed release (DR/EC) 40 mg PO BID Qty: 90 0RF Rx Instructions: Take 40 mg twice daily for 30 days then 40 mg once daily thereafter Continued carvedilol 3.125 mg tablet 3.125 mg PO BID Qty: 180 1RF Rx Instructions: must administer with a meal/food furosemide 40 mg tablet 40 mg PO QAM Qty: 90 2RF Aranesp (in polysorbate) 300 mcg/0.6 mL syringe 300 mcg subcut Q2W 0RF tamsulosin 0.4 mg capsule 0.4 mg PO QDAY Qty: 90 1RF gabapentin 300 mg capsule 300 mg PO QDAY Qty: 90 1RF ferrous sulfate 325 mg (65 mg iron) tablet 325 mg PO QDAY Qty: 90 4RF (DME) blood pressure test kit-large Kit See Rx Instructions .ROUTE .MEDSUPPLY Qty: 1 0RF Rx Instructions: As directed (DME) Rt [place] Definitive Prosthesis and Supplies and Flexible Foot Qty: 1 0RF Rx Instructions: As directed cholecalciferol (vitamin D3) 50 mcg (2,000 unit) tablet 50 mcg PO QDAY Qty: 90 4RF amlodipine 5 mg tablet 5 mg PO QDAY Qty: 90 3RF spironolactone 25 mg tablet 25 mg PO QDAY Qty: 90 3RF levothyroxine [Euthyrox] 50 mcg Tablet 50 mcg PO QDAY 0RF methylprednisolone 4 mg tablets,dose pack See Rx Instructions .ROUTE .COMPLEX 0RF Rx Instructions: took three tabs yesterday, unsure of instructions. rosuvastatin 20 mg tablet 20 mg PO HS 0RF clopidogrel 75 mg tablet 1 tab PO QAM 0RF Discontinued aspirin [Adult Low Dose Aspirin] 81 mg tablet,delayed release (DR/EC) 81 mg PO QDAY 0RF clopidogrel 75 mg tablet 75 mg PO QDAY 0RF aspirin 81 mg Capsule 81 mg PO QDAY 0RF Follow Up Plan Follow up with: Dalton Sevilla MD [Primary Care Provider] - Patient Disposition: Home, Self-Care Prognosis: Fair Overall status at discharge: patient is progressing back to baseline Discharge Orders: Discharge Order (Routine); Ordered 06/02/21 Ordered By: Jarocho Quintanilla [facility] VTE Deep Vein Thrombosis/Pulmonary Embolism Present on Admission: No
--- NOTE | 2021-06-01 12:32 | EGD Procedure Note ---
EGD Procedure Notes Procedure Information Patient information: Note initiated : 06/01/21 at 12:30 pm Service Date: 05/31/21 Patient: Jayjay Horta 80 y/o M admitted on 05/31/21 for N/V/D. Pre-op diagnosis general: GI bleed Post-Op Diagnosis general: Same Procedure: EGD with Bx Procedure Narrative: After risk benefits and alternatives to the procedure were discussed with the patient at length he verbalized understanding and desire to continue with the procedure. Patient was taken to endoscopy. Surgical timeout was taken to verify patient and procedure being performed sedation was administered with 2 mg of Versed and 150 mcg of propofol. An adult gastroscope was entered and advanced under direct vision into the second portion of the duodenum. The antrum was fully inspected, the scope was retroflexed in the stomach. Full examination revealed multiple areas of healed ulceration in the antrum and duodenal bulb, evidence of inflammation and recent bleed, no active bleeding at this time. Biopsy was performed to rule out H. pylori, gastritis and cancer. This was done with cold biopsy. Moderate size hiatal hernia. GE junction was at 35 cm and the esophagus was normal on full exam. EBL minimal. Patient tolerated procedure well. Assessment: Gastritis, duodenitis, evidence of recent bleed.
[2021-06-01] MEDS: CARVEDILOL 3.125 MG TABLET PO SCH (16:42)
[2021-06-01] MEDS ORDERED: ATORVASTATIN 40 MG TABLET PO SCH (21:00)
[2021-06-02] MEDS: 0.9 % SODIUM CHLORIDE 10 ML SYRINGE IV SCH ×2 (06:06→07:13)
[2021-06-02 07:10] LABS: Basophils # (Auto) 0.06 K/mcL (0.00-0.30); Basophils % (Auto) 0.6 % (0.0-2.0); Eosinophils # (Auto) 0.64 K/mcL (0.00-0.70); Eosinophils % (Auto) 6.6 % (0.0-7.0); Hematocrit 21.6 % (40.1-51.0); Hemoglobin 6.7 g/dL (13.7-17.5); Lymphocytes # (Auto) 2.21 K/mcL (1.50-4.80); Lymphocytes % (Auto) 22.7 % (15.5-49.0); Mean Cell Volume 88.2 fL (80.0-100.0); Mean Platelet Volume 10.4 fL (7.4-10.4); Monocytes % (Auto) 7.2 % (1.0-12.0); Neutrophils % (Auto) 62.9 % (38.0-78.0); Platelet Count 180 K/mcL (140-440); RBC 2.45 M/mcL (4.63-6.08); Red Cell Distribution Width 17.2 % (11.5-14.5); WBC 9.8 K/mcL (4.5-11.0)
[2021-06-02 07:14] LABS: ALT/SGPT 9 U/L (<40); AST/SGOT 10 U/L (<40); Albumin 2.8 gm/dL (3.2-5.2); Albumin/Globulin Ratio 1.3 (1.0-2.3); Alkaline Phosphatase 43 U/L (39-117); Bilirubin,Direct < 0.2 mg/dL (0-0.3); Bilirubin,Total 0.2 mg/dL (0.1-1.0); Blood Urea Nitrogen 83 mg/dL (8-23); Calcium 7.2 mg/dL (8.6-10.4); Carbon Dioxide 28 mmol/L (22-30); Chloride 106 mmol/L (96-108); Globulin 2.2 gm/dL (2.2-3.7); Glomerular Filtration Rate 20; Glucose 88 mg/dL (70-105); Lactate Dehydrogenase 194 U/L (135-225); Phosphorous 3.4 mg/dL (2.5-4.5); Triglycerides 213 mg/dL (<150); Uric Acid 12.2 mg/dL (2.5-8.0)
[2021-06-02] MEDS ORDERED: 0.9 % SODIUM CHLORIDE 250 ML IV SCH (07:30)
[2021-06-02] MEDS ORDERED: PANTOPRAZOLE 40 MG TABLET PO SCH (07:30)
[2021-06-02] MEDS ORDERED: FERROUS SULFATE 325 MG TABLET PO SCH (08:00)
--- NOTE | 2021-06-02 08:20 | EKG ---
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
[2021-06-02] MEDS ORDERED: TAMSULOSIN 0.4 MG CAPSULE PO SCH (09:00)
[2021-06-02] MEDS ORDERED: GABAPENTIN 300 MG CAPSULE PO SCH (09:00)
[2021-06-02] MEDS ORDERED: amLODIPine 5 MG TABLET PO SCH (09:00)
[2021-06-02] MEDS: CARVEDILOL 3.125 MG TABLET PO SCH (09:01)
== END 2021-06-02 14:00 | disposition home health service (06) | DRG 378 ==
LOC: ED 19:16 → ICU 23:12
PROVIDERS: ADMIT Internal Medicine Medical Oncology; ATTEND Internal Medicine

== ENCOUNTER 2021-06-04 12:46 | Observation (INO) ==
[2021-06-04] MEDS ORDERED: PANTOPRAZOLE 40 MG VIAL IV ONE (13:02)
[2021-06-04] MEDS ORDERED: 0.9 % SODIUM CHLORIDE 250 ML IV SCH ×2 (13:15→14:15)
--- NOTE | 2021-06-04 13:15 | Emergency Department Note ---
HPI General Chief complaint: Rectal Bleed Stated complaint: GI bleed Time Seen by Provider: 06/04/21 12:53 Source: EMS Mode of arrival: EMS History of Present Illness HPI Narrative: Narrative: Patient presents to the emergency department with a chief complaint of black tarry stools. Patient was seen on June 01 and upper endoscopy was concerning for gastritis, duodenitis and recent bleed. Patient was previously on Plavix and aspirin for what sounds like an iliac stent, this was discontinued after his bleeding. Patient denies any hematemesis. No other anticoagulation. He denies history of cirrhosis. Related Data Home Medications Medication Instructions Recorded Confirmed levothyroxine 50 mcg tablet 50 mcg PO QDAY 03/30/21 06/04/21 (Euthyrox) darbepoetin estevan in polysorbat 300 300 mcg SUBCUT Q2W 04/04/21 06/04/21 mcg/0.6 mL in polysorbate injection syringe (Aranesp) clopidogrel 75 mg tablet 1 tab PO QAM 06/01/21 06/04/21 methylprednisolone 4 mg tablets in See Rx Instructions .ROUTE .COMPLEX 06/01/21 06/04/21 a dose pack rosuvastatin 20 mg tablet 20 mg PO HS 06/01/21 06/04/21 gabapentin 300 mg capsule 300 mg PO QHS 06/04/21 06/04/21 tamsulosin 0.4 mg capsule 0.4 mg PO QHS 06/04/21 06/04/21 Previous Rx's Medication Instructions Recorded cholecalciferol (vitamin D3) 50 50 mcg PO QDAY #90 tab 03/10/20 mcg (2,000 unit) tablet Rt [place] Definitive Prosthesis and #1 ea 03/15/20 Supplies and Flexible Foot blood pressure test kit-large #1 ea 05/10/20 amlodipine 5 mg tablet 5 mg PO QDAY #90 tab 10/17/20 carvedilol 3.125 mg tablet 3.125 mg PO BID #180 tab 11/09/20 spironolactone 25 mg tablet 25 mg PO QDAY #90 tab 12/11/20 furosemide 40 mg tablet 40 mg PO QAM #90 tab 02/27/21 ferrous sulfate 325 mg (65 mg 325 mg PO QDAY #90 tab 05/02/21 iron) tablet pantoprazole 40 mg tablet,delayed 40 mg PO BID #90 tab 06/01/21 release (Protonix) Allergies Allergy/AdvReac Type Severity Reaction Status Date / Time Penicillins AdvReac Mild Vomiting Verified 06/04/21 12:52 Review of Systems ROS ROS Narrative: Narrative: All systems ED: reviewed and negative except as stated. [facility] Narrative Patient History Narrative: Narrative: Medical/Surgical/Family History All Active Problems (Updated 06/05/21 @ 08:40 by Carlos George MD) Malnutrition (Chronic) GERD without esophagitis (Chronic) COPD (chronic obstructive pulmonary disease) (Chronic) PVD (peripheral vascular disease) (Chronic) Hypothyroidism (Chronic) Phantom limb syndrome with pain (Chronic) Skin lesion (Chronic) History of tobacco use (Chronic) Diarrhea (Chronic) Cataracts, bilateral (Chronic) Macular degeneration (Chronic) Secondary hyperparathyroidism of renal origin (Chronic) Vitamin D deficiency (Chronic) Iron deficiency anemia, unspecified (Chronic) Osteopenia (Chronic) 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) Localized edema due to fluid overload (Chronic) Stasis dermatitis (Chronic) Medicare annual wellness visit, subsequent (Chronic) Wound of lower extremity (Chronic) Hyperlipidemia (Chronic) Diabetes mellitus (Chronic) Chronic kidney disease (CKD) stage G4/A1, severely decreased glomerular filtration rate (GFR) between 15-29 mL/min/1.73 square meter and albuminuria creatinine ratio less than 30 mg/g (Chronic) 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, 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 Hx BKA w/ complications, infection Amputation stump complication COLD BKA stump and thigh RIGHT. Severe PAIN, Paresthesia, Poikilothermia and Pulseless. DOPPLER Studies: THROMBOSED SFA, Popliteal but patient commonn femoral and profunda femoris, DVT popliteal vein. Cataracts, bilateral Cellulitis Chronic kidney disease, stage IV (severe) Confusion Conjunctivitis COPD (chronic obstructive pulmonary disease) Diabetes mellitus Diarrhea Intermittent, AM only Dry skin dermatitis DVT of popliteal vein Esophagitis, [place] grade B Fungal dermatitis For symptomatic treatrment. Clean with chlorhexidene, Dry with wash colth and apply topical antifungal creme. NO diapers. Use absorbent CHUX pads under lower back, pelvis and thighs. 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 Hypothyroidism Iron deficiency anemia, unspecified Ischemia of right BKA site Macular degeneration Malnutrition Metabolic acidosis Need for hepatitis C screening test Osteopenia Phantom limb syndrome with pain Popliteal vein thrombosis Pruritic rash PVD (peripheral vascular disease) Rash Secondary hyperparathyroidism Skin lesion RUE - forearm Stasis dermatitis Upper respiratory infection Vitamin D deficiency Wound of lower extremity Wound of toenail Left great wound in setting of toenail removal Surgical History History of right below knee amputation Family History Brother Heart disease Social History Smoking Status: Former smoker Alcohol Intake Frequency: does not drink Substance Use: does not use Exam Narrative Narrative: Narrative: Vital signs noted General: Moderate distress HEENT: NCAT PERRL EOMI. No conjunctivitis. Membranes dry Neck: No meningeal signs. No PTP. No adenopathy. No stridor. No masses. No STS. Cardiovascular: RRR. No murmur. No rubs. No gallops. Respiratory: No respiratory distress. Breath sounds equal. Lungs clear. Gastrointestinal: Soft. No tenderness gross blood per rectum, melena Musculoskeletal: Right [id number] amputation Skin: Pale Course Vital Signs Vital signs: Vital Signs Temperature 98.2 F 06/04/21 12:47 Pulse Rate 90 06/04/21 12:47 Respiratory Rate 16 06/04/21 12:47 Blood Pressure 127/59 06/04/21 12:47 Pulse Oximetry (%) 97 06/04/21 12:47 Temperature 97 F 06/05/21 08:01 Pulse Rate 79 04/05/22 08:08 Respiratory Rate 18 06/05/21 04:01 Blood Pressure 126/98 06/05/21 08:01 Pulse Oximetry (%) 100 06/05/21 08:08 MDM MDM Narrative Medical decision making narrative: Narrative: Patient presents with melena and bright red blood concerning for GI bleed. Patient recently underwent endoscopy there is no active bleeding but had bad gastritis and duodenitis. He has been off of anticoagulation. He is hemodynamically stable but his hemoglobin returned less than 6. Patient was ordered 2 units I spoke with Dr. Gregorio he will take the patient for endoscopy. 80 mg of Protonix was ordered. Patient continued to remain hemodynamically stable while in the emergency department his melena and bleeding did slow down while he was in the emergency department. His coags showed no gross derangement he is no longer on anticoagulation. Lab Data Result diagrams: 06/05/21 05:35 06/05/21 05:35 Labs: Lab Results 06/04/21 06/04/21 06/04/21 Range/Units 13:38 13:38 13:38 WBC (4.5-11.0) K/mcL RBC (4.63-6.08) M/mcL Hgb (13.7-17.5) g/dL Hct (40.1-51.0) % POC Hct 16 L* (41-55) % MCV (80.0-100.0) fL MCH (26.0-34.0) pg MCHC (31.0-36.0) g/dL RDW (11.5-14.5) % Plt Count (140-440) K/mcL MPV (7.4-10.4) fL Neut % (Auto) (38.0-78.0) % Lymph % (Auto) (15.5-49.0) % [place] % (Auto) (1.0-12.0) % Eos % (Auto) (0.0-7.0) % Baso % (Auto) (0.0-2.0) % Lymph # (Auto) (1.50-4.80) K/mcL [place] # (Auto) (0.10-0.90) K/mcL Eos # (Auto) (0.00-0.70) K/mcL Baso # (Auto) (0.00-0.30) K/mcL Absolute Neutrophils (1.80-8.00) K/mcL POC PT 10.9 L (11.9-14.5) sec PT 14.9 H (11.9-14.5) sec POC INR 0.9 (0.8-1.2) INR 1.1 (0.9-1.1) APTT 23.9 (20.0-37.0) sec ABG Methemoglobin (0.4-1.5) % VBG pH (7.32-7.42) U VBG pCO2 (41.0-51.0) mmHg VBG pO2 (25.0-40.0) mmHg VBG HCO3 (24.0-28.0) mmol/L VBG Total CO2 (25.0-29.0) mmol/L VBG O2 Saturation (40.0-70.0) % VBG Base Excess (-2-3) VBG Lactic Acid 1.4 (0.5-2.0) mmol/L Carboxyhemoglobin (0.0-1.5) % THgb Total Hemoglobin (13.5-16.5) gm/Dl POC Sodium 140 (133-145) mEq/L POC Potassium 4.3 (3.3-5.1) mEql/L POC Chloride 104 (96-108) mEq/L POC Total CO2 22 (22-30) mmol/L POC BUN 89 H (6-20) mg/dL POC Creatinine 2.7 H (0.6-1.2) mg/dL POC Glucose 189 H (70-105) mg/dL POC WB Ioniz Calcium 1.08 L (1.16-1.32) mmEq/L Total Bilirubin 0.2 (0.1-1.0) mg/dL Direct Bilirubin < 0.2 (0-0.3) mg/dL AST 10 (<40) U/L ALT 9 (<40) U/L Alkaline Phosphatase 42 (39-117) U/L Total Protein 4.8 L (5.9-8.4) gm/dL Albumin 3.0 L (3.2-5.2) gm/dL Globulin 1.8 L (2.2-3.7) gm/dL 06/04/21 06/04/21 Range/Units 13:38 14:34 WBC 13.8 H (4.5-11.0) K/mcL RBC 2.18 L (4.63-6.08) M/mcL Hgb 6.0 L* (13.7-17.5) g/dL Hct 19.3 L* (40.1-51.0) % POC Hct (41-55) % MCV 88.5 (80.0-100.0) fL MCH 27.5 (26.0-34.0) pg MCHC 31.1 (31.0-36.0) g/dL RDW 17.2 H (11.5-14.5) % Plt Count 203 (140-440) K/mcL MPV 10.3 (7.4-10.4) fL Neut % (Auto) 89.1 H (38.0-78.0) % Lymph % (Auto) 8.5 L (15.5-49.0) % [place] % (Auto) 1.9 (1.0-12.0) % Eos % (Auto) 0.1 (0.0-7.0) % Baso % (Auto) 0.4 (0.0-2.0) % Lymph # (Auto) 1.18 L (1.50-4.80) K/mcL [place] # (Auto) 0.26 (0.10-0.90) K/mcL Eos # (Auto) 0.02 (0.00-0.70) K/mcL Baso # (Auto) 0.05 (0.00-0.30) K/mcL Absolute Neutrophils 12.30 H (1.80-8.00) K/mcL POC PT (11.9-14.5) sec PT (11.9-14.5) sec POC INR (0.8-1.2) INR (0.9-1.1) APTT (20.0-37.0) sec ABG Methemoglobin 0.2 L (0.4-1.5) % VBG pH 7.36 (7.32-7.42) U VBG pCO2 38.6 L (41.0-51.0) mmHg VBG pO2 31.1 (25.0-40.0) mmHg VBG HCO3 21.2 L (24.0-28.0) mmol/L VBG Total CO2 22.4 L (25.0-29.0) mmol/L VBG O2 Saturation 52.9 (40.0-70.0) % VBG Base Excess -4 L (-2-3) VBG Lactic Acid (0.5-2.0) mmol/L Carboxyhemoglobin 3.6 H (0.0-1.5) % THgb Total Hemoglobin 7.4 L (13.5-16.5) gm/Dl POC Sodium (133-145) mEq/L POC Potassium (3.3-5.1) mEql/L POC Chloride (96-108) mEq/L POC Total CO2 (22-30) mmol/L POC BUN (6-20) mg/dL POC Creatinine (0.6-1.2) mg/dL POC Glucose (70-105) mg/dL POC WB Ioniz Calcium (1.16-1.32) mmEq/L Total Bilirubin (0.1-1.0) mg/dL Direct Bilirubin (0-0.3) mg/dL AST (<40) U/L ALT (<40) U/L Alkaline Phosphatase (39-117) U/L Total Protein (5.9-8.4) gm/dL Albumin (3.2-5.2) gm/dL Globulin (2.2-3.7) gm/dL ED POC Tests ED POC Tests: EDDIE - SARS Antigen Negative CC TIME Critical Care Time Critical Care Time: Yes Total Critical Care Time: 36 Attestation: Total critical care time of 36 min including performance of history and physical exam, review of results, re-examinations, time spent documenting, food service order clerk, review of old records, discussions with patient and family, discussions with security sales consultant(s), discussion with admitting physician, completion of admission/transfer paperwork. This does not include time for any separately documented procedures. Discharge Plan Patient/Caregiver Discharge Instructions Pt seen by [employer]/PA only: No Clinical Impression: Acute upper gastrointestinal bleeding, Acute blood loss anemia Activity: increase activity as tolerated Patient Disposition: Xfer As Inpt ([facility]) Condition: Fair Discharge Date/Time: 06/04/21 16:05
[2021-06-04 14:00] LABS: POC Blood Urea Nitrogen 89 mg/dL (6-20); POC CO2 22 mmol/L (22-30); POC Calcium, Ionized 1.08 mmEq/L (1.16-1.32); POC Chloride 104 mEq/L (96-108); POC Creatinine 2.7 mg/dL (0.6-1.2); POC Glucose, Random 189 mg/dL (70-105); POC Hematocrit 16 % (41-55); POC Potassium 4.3 mEql/L (3.3-5.1); POC Sodium 140 mEq/L (133-145)
[2021-06-04 14:01] LABS: POC INR 0.9 (0.8-1.2); POC Pro Time 10.9 sec (11.9-14.5)
[2021-06-04 14:45] LABS: INR 1.1 (0.9-1.1); Partial Thromboplastin Time 23.9 sec (20.0-37.0); Prothrombin Time 14.9 sec (11.9-14.5)
[2021-06-04 14:55] LABS: ALT/SGPT 9 U/L (<40); AST/SGOT 10 U/L (<40); Alkaline Phosphatase 42 U/L (39-117); Bilirubin,Direct < 0.2 mg/dL (0-0.3); Bilirubin,Total 0.2 mg/dL (0.1-1.0); Globulin 1.8 gm/dL (2.2-3.7)
[2021-06-04 14:59] LABS: ABG Methemoglobin 0.2 % (0.4-1.5); Total Hemoglobin 7.4 gm/Dl (13.5-16.5); VBG Base Excess -4 (-2-3); VBG HCO3 21.2 mmol/L (24.0-28.0); VBG Oxygen Saturation 52.9 % (40.0-70.0); VBG PCO2 38.6 mmHg (41.0-51.0); VBG PH 7.36 U (7.32-7.42); VBG PO2 31.1 mmHg (25.0-40.0); VBG Total CO2 22.4 mmol/L (25.0-29.0)
[2021-06-04 15:08] LABS: Basophils # (Auto) 0.05 K/mcL (0.00-0.30); Basophils % (Auto) 0.4 % (0.0-2.0); Eosinophils # (Auto) 0.02 K/mcL (0.00-0.70); Eosinophils % (Auto) 0.1 % (0.0-7.0); Hematocrit 19.3 % (40.1-51.0); Lymphocytes # (Auto) 1.18 K/mcL (1.50-4.80); Lymphocytes % (Auto) 8.5 % (15.5-49.0); Mean Cell Volume 88.5 fL (80.0-100.0); Mean Corpuscular HGB Conc 31.1 g/dL (31.0-36.0); Mean Platelet Volume 10.3 fL (7.4-10.4); Monocytes # (Auto) 0.26 K/mcL (0.10-0.90); Monocytes % (Auto) 1.9 % (1.0-12.0); Neutrophils % (Auto) 89.1 % (38.0-78.0); Platelet Count 203 K/mcL (140-440); RBC 2.18 M/mcL (4.63-6.08); Red Cell Distribution Width 17.2 % (11.5-14.5); WBC 13.8 K/mcL (4.5-11.0)
[2021-06-04] MEDS ORDERED: MIDAZOLAM 2 MG/2 ML VIAL IV SCH (15:45)
[2021-06-04] MEDS ORDERED: PROPOFOL 200 MG/20 ML VIAL IV SCH (15:45)
[2021-06-04] MEDS ORDERED: PROPOFOL 200 MG/20 ML VIAL IV ONE (16:20)
[2021-06-04] MEDS ORDERED: MIDAZOLAM 2 MG/2 ML VIAL ONE (16:20)
[2021-06-04] MEDS ORDERED: EPINEPHrine 1 MG/ML AMPUL IJ ONE (16:34)
--- NOTE | 2021-06-04 16:34 | Internal Med History&Physical ---
HPI History of Present Illness Patient information: Note initiated : 06/04/21 at 4:26 pm Service Date, if different from initiated Date: [] Patient: Jayjay Horta a 80 y/o M admitted on for GI bleed. Chief Complaint: [] History of present illness: Mr. Horta is a 80 year old M Patient recently admitted for GI bleed felt to be related to upper GI gastritis duodenitis. Patient instructed to hold his Plavix for 3 more days after discharge. Patient was discharged the following day after endoscopy after no further episodes of bleeding. Says he got home 2 days ago and had not had a bowel movement until this morning and when he went this morning he had episode of dark tarry stool x3 episodes. Globin in the ED was 6.0 and 2 units of blood were ordered. All signs are stable. Dr. Gregorio was contacted and will take patient for endoscopy soon. Chemistry panel unremarkable, stable chronic kidney disease. Had some nausea but no vomiting as well as lightheadedness. Review of Systems: Pertinent positives as above. Denies headache/fever/chills/vomiting/chest or abdominal pain/cough/dyspnea/diarrhea. 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) Localized edema due to fluid overload (Chronic) Stasis dermatitis (Chronic) Medicare annual wellness visit, subsequent (Chronic) Wound of lower extremity (Chronic) Hyperlipidemia (Chronic) Diabetes mellitus (Chronic) Chronic kidney disease (CKD) stage G4/A1, severely decreased glomerular filtration rate (GFR) between 15-29 mL/min/1.73 square meter and albuminuria creatinine ratio less than 30 mg/g (Chronic) 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, 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 Hx BKA w/ complications, infection Amputation stump complication COLD BKA stump and thigh RIGHT. Severe PAIN, Paresthesia, Poikilothermia and Pulseless. DOPPLER Studies: THROMBOSED SFA, Popliteal but patient commonn femoral and profunda femoris, DVT popliteal vein. Cataracts, bilateral Cellulitis Chronic kidney disease, stage IV (severe) Confusion Conjunctivitis COPD (chronic obstructive pulmonary disease) Diabetes mellitus Diarrhea Intermittent, AM only Dry skin dermatitis DVT of popliteal vein Esophagitis, [place] grade B Fungal dermatitis For symptomatic treatrment. Clean with chlorhexidene, Dry with wash colth and apply topical antifungal creme. NO diapers. Use absorbent CHUX pads under lower back, pelvis and thighs. 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 Hypothyroidism Iron deficiency anemia, unspecified Ischemia of right BKA site Macular degeneration Malnutrition Metabolic acidosis Need for hepatitis C screening test Osteopenia Phantom limb syndrome with pain Popliteal vein thrombosis Pruritic rash PVD (peripheral vascular disease) Rash Secondary hyperparathyroidism Skin lesion RUE - forearm Stasis dermatitis Upper respiratory infection Vitamin D deficiency Wound of lower extremity Wound of toenail Left great wound in setting of toenail removal Surgical History History of right below knee amputation Family History Brother Heart disease Social History marital status: occupational status: retired well-balanced diet: other details: Renal Diet smoking status: Former smoker quit date: 01/01/19 alcohol intake frequency: does not drink substance use type: does not use MEDS/ALLERGIES Home Medications and Allergies Home Medications Medication Instructions Recorded Confirmed Type cholecalciferol (vitamin D3) 50 50 mcg PO QDAY #90 tab 03/10/20 06/01/21 Rx mcg (2,000 unit) tablet Rt [place] Definitive Prosthesis and #1 ea 03/15/20 06/01/21 Rx Supplies and Flexible Foot blood pressure test kit-large #1 ea 05/10/20 06/01/21 Rx amlodipine 5 mg tablet 5 mg PO QDAY #90 tab 10/17/20 06/01/21 Rx carvedilol 3.125 mg tablet 3.125 mg PO BID #180 tab 11/09/20 06/01/21 Rx spironolactone 25 mg tablet 25 mg PO QDAY #90 tab 12/11/20 06/01/21 Rx furosemide 40 mg tablet 40 mg PO QAM #90 tab 02/27/21 06/01/21 Rx levothyroxine 50 mcg tablet 50 mcg PO QDAY 03/30/21 06/01/21 History (Euthyrox) darbepoetin estevan in polysorbat 300 300 mcg SUBCUT Q2W 04/04/21 06/01/21 History mcg/0.6 mL in polysorbate injection syringe (Aranesp) gabapentin 300 mg capsule 300 mg PO QDAY #90 cap 04/10/21 06/01/21 Rx tamsulosin 0.4 mg capsule 0.4 mg PO QDAY #90 cap 04/10/21 06/01/21 Rx ferrous sulfate 325 mg (65 mg 325 mg PO QDAY #90 tab 05/02/21 06/01/21 Rx iron) tablet clopidogrel 75 mg tablet 1 tab PO QAM 06/01/21 06/01/21 History methylprednisolone 4 mg tablets in See Rx Instructions .ROUTE .COMPLEX 06/01/21 06/01/21 History a dose pack pantoprazole 40 mg tablet,delayed 40 mg PO BID #90 tab 06/01/21 Rx release (Protonix) rosuvastatin 20 mg tablet 20 mg PO HS 06/01/21 06/01/21 History Allergies Allergy/AdvReac Type Severity Reaction Status Date / Time Penicillins AdvReac Mild Vomiting Verified 06/04/21 12:52 EXAM Constitutional Vitals: Temp Pulse Resp BP Pulse Ox 98.2 F 92 H 13 143/61 100 06/04/21 12:47 06/04/21 16:01 06/04/21 16:01 06/04/21 16:01 06/04/21 16:01 Exam: General: Alert, Awake, No acute Distress Eyes/N/T: EOMI, PERRL, Head/Neck: neck supple, normocephalic atraumatic CV: RRR, No murmurs, normal s1/s2 Pulm: Clear b/l, no wheezing/rhonchi/rales Abd: soft, nontender, +BS x4 Ext: no clubbing/cyanosis/edema, right BKA Neuro: Alert, no focal deficits, moves all extremities, CN 2-12 grossly intact, symmetrical strength b/l upper/lower, sensations intact b/l upper/lower Skin: warm/dry, pale and dry scaly skin DATA Data Completed and Pending Labs: Labs from last 24 hours 06/04/21 06/04/21 06/04/21 14:34 13:38 13:38 WBC 13.8 H RBC 2.18 L Hgb 6.0 L* Hct 19.3 L* POC Hct MCV 88.5 MCH 27.5 MCHC 31.1 RDW 17.2 H Plt Count 203 MPV 10.3 Neut % (Auto) 89.1 H Lymph % (Auto) 8.5 L [place] % (Auto) 1.9 Eos % (Auto) 0.1 Baso % (Auto) 0.4 Lymph # (Auto) 1.18 L [place] # (Auto) 0.26 Eos # (Auto) 0.02 Baso # (Auto) 0.05 Absolute Neutrophils 12.30 H POC PT PT POC INR INR APTT ABG Methemoglobin 0.2 L VBG pH 7.36 VBG pCO2 38.6 L VBG pO2 31.1 VBG HCO3 21.2 L VBG Total CO2 22.4 L VBG O2 Saturation 52.9 VBG Base Excess -4 L VBG Lactic Acid 1.4 Carboxyhemoglobin 3.6 H Total Hemoglobin 7.4 L POC Sodium POC Potassium POC Chloride POC Total CO2 POC BUN POC Creatinine POC Glucose POC WB Ioniz Calcium Total Bilirubin Direct Bilirubin AST ALT Alkaline Phosphatase Total Protein Albumin Globulin 06/04/21 06/04/21 13:38 13:38 WBC RBC Hgb Hct POC Hct 16 L* MCV MCH MCHC RDW Plt Count MPV Neut % (Auto) Lymph % (Auto) [place] % (Auto) Eos % (Auto) Baso % (Auto) Lymph # (Auto) [place] # (Auto) Eos # (Auto) Baso # (Auto) Absolute Neutrophils POC PT 10.9 L PT 14.9 H POC INR 0.9 INR 1.1 APTT 23.9 ABG Methemoglobin VBG pH VBG pCO2 VBG pO2 VBG HCO3 VBG Total CO2 VBG O2 Saturation VBG Base Excess VBG Lactic Acid Carboxyhemoglobin Total Hemoglobin POC Sodium 140 POC Potassium 4.3 POC Chloride 104 POC Total CO2 22 POC BUN 89 H POC Creatinine 2.7 H POC Glucose 189 H POC WB Ioniz Calcium 1.08 L Total Bilirubin 0.2 Direct Bilirubin < 0.2 AST 10 ALT 9 Alkaline Phosphatase 42 Total Protein 4.8 L Albumin 3.0 L Globulin 1.8 L A/P Narrative A/P Narrative: A: *GI Bleed (recent EGD with gastritis/duodenitis): *Anemia, chronic with acute blood loss component, symptomatic: *CKD IV: Follows with Dr. Hutchins *Anemia, chronic, and PAT: *COPD: *Hypothyroidism: *HTN/HLD: on BB/Norvasc *Neuropathy: *h/o PVD with angioplasty by Dr. Díaz in January or March, and put on ASA/Plavix. both held since recent GI bleed P: -Dr. Kimble for endoscopy -2prbc, monitor H&H -ppi gtt -Hold diuretics for now -Continue Coreg/Norvasc -Home medication reconciliation -ppx: SCD (hold chemical for GI bleed) Time Spent With Patient Time: Total time spent is greater than 50% in coordination of care (as documented) at patient's floor/unit and/or counseling patient: Total time spent with greater than 50% in coordination of care (as documented) at patient's floor/unit and/or counseling patient:: 35 - 50 minutes
[2021-06-04] MEDS ORDERED: PANTOPRAZOLE 40 MG VIAL IV SCH (17:00)
[2021-06-04] MEDS ORDERED: POTASSIUM CHLORIDE 40 MEQ in DEXTROSE 5% IN WATER 500 ML IV PRN (17:03)
[2021-06-04] MEDS ORDERED: ONDANSETRON 4 MG/2 ML VIAL IV PRN (17:03)
[2021-06-04] MEDS ORDERED: ACETAMINOPHEN 325 MG TABLET PO PRN (17:03)
[2021-06-04] MEDS ORDERED: IPRATROPIUM/ALBUTEROL 3 ML AMPUL.NEB NEB PRN (17:03)
[2021-06-04] MEDS ORDERED: MAGNESIUM SULFATE 2 GM/50 ML BAG IV PRN (17:03)
[2021-06-04] MEDS ORDERED: POTASSIUM CHLORIDE 20 MEQ TABLET PO PRN ×2 (17:03)
[2021-06-04] MEDS ORDERED: LABETALOL 5 MG/ML ML IV PRN (17:03)
--- NOTE | 2021-06-04 17:26 | Discharge Summary ---
Discharge Provider Provider Patient information: Note initiated : 06/04/21 at 5:25 pm Service Date, if different from initiated Date: [] Patient: Jayjay Horta 80 y/o M admitted on 06/04/21 for GI bleed. Chief Complaint: [] Date of admission: 06/04/21 16:54 Discharge date: 06/05/21 Primary care physician: Dalton Sevilla MD Consults: 06/04/21 Consult to Physician [CONS] Stat Comment: Consulting Provider: Jarocho Quintanilla Reason For Exam: Physician to Consult 06/04/21 14:06 Consult to Physician [CONS] Stat Comment: Consulting Provider: Sammy Kimble Reason For Exam: Physician to Consult Discharge Meds Discharge Medications Home Medications cholecalciferol (vitamin D3) 50 mcg (2,000 unit) tablet 50 mcg PO QDAY #90 tab 03/10/20 [Rx Confirmed 06/04/21 Last Taken 06/04/21 08:00] Rt [place] Definitive Prosthesis and Supplies and Flexible Foot #1 ea 03/15/20 [Rx Confirmed 06/04/21 Last Taken Unknown] blood pressure test kit-large #1 ea 05/10/20 [Rx Confirmed 06/04/21 Last Taken Unknown] amlodipine 5 mg tablet 5 mg PO QDAY #90 tab 10/17/20 [Rx Confirmed 06/04/21 Last Taken 06/04/21 08:00] carvedilol 3.125 mg tablet 3.125 mg PO BID #180 tab 11/09/20 [Rx Confirmed 06/04/21 Last Taken 06/04/21 08:00] spironolactone 25 mg tablet 25 mg PO QDAY #90 tab 12/11/20 [Rx Confirmed 06/04/21 Last Taken 06/04/21 08:00] furosemide 40 mg tablet 40 mg PO QAM #90 tab 02/27/21 [Rx Confirmed 06/04/21 Last Taken 06/04/21 08:00] levothyroxine 50 mcg tablet (Euthyrox) 50 mcg PO QDAY 03/30/21 [History Confirmed 06/04/21 Last Taken 06/04/21 08:00] darbepoetin estevan in polysorbat 300 mcg/0.6 mL in polysorbate injection syringe (Aranesp) 300 mcg SUBCUT Q2W 04/04/21 [History Confirmed 06/04/21 Last Taken Unknown] ferrous sulfate 325 mg (65 mg iron) tablet 325 mg PO QDAY #90 tab 05/02/21 [Rx Confirmed 06/04/21 Last Taken 06/04/21 08:00] clopidogrel 75 mg tablet 1 tab PO QAM 06/01/21 [History Confirmed 06/04/21 Last Taken Unknown] methylprednisolone 4 mg tablets in a dose pack See Rx Instructions .ROUTE .COMPLEX 06/01/21 [History Confirmed 06/04/21 Last Taken 05/31/21 14:00] pantoprazole 40 mg tablet,delayed release (Protonix) 40 mg PO BID #90 tab 06/01/21 [Rx Confirmed 06/04/21 Last Taken 06/04/21 08:00] rosuvastatin 20 mg tablet 20 mg PO HS 06/01/21 [History Confirmed 06/04/21 Last Taken 06/03/21 21:00] gabapentin 300 mg capsule 300 mg PO QHS 06/04/21 [History Confirmed 06/04/21 Last Taken 06/03/21 21:00] tamsulosin 0.4 mg capsule 0.4 mg PO QHS 06/04/21 [History Confirmed 06/04/21 Last Taken 06/03/21 21:00] COURSE Hospital Course Hospital course: History of present illness: Mr. Horta is a 80 year old M Patient recently admitted for GI bleed felt to be related to upper GI gastritis duodenitis. Patient instructed to hold his Plavix for 3 more days after discharge. Patient was discharged the following day after endoscopy after no further episodes of bleeding. Says he got home 2 days ago and had not had a bowel movement until this morning and when he went this morning he had episode of dark tarry stool x3 episodes. Globin in the ED was 6.0 and 2 units of blood were ordered. All signs are stable. Dr. Gregorio was contacted and will take patient for endoscopy soon. Chemistry panel unremarkable, stable chronic kidney disease. Had some nausea but no vomiting as well as lightheadedness. Underwent EGD by Dr. Gregorio who found the culprit bleeding duodenal ulcer treated with injection and clips. Low risk of rebleeding. 4/5 Patient feeling better. Hemoglobin stable. His white blood cell count is still mildly elevated and similar to yesterday. Suspect reactive as patient does not have any bandemia and is afebrile, does not appear toxic and feeling well. 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 Díaz in January or March, and put on ASA/Plavix. both held since recent GI bleed P: -Follow-up with Dr. Gregorio for follow-up EGD in several months -Continue twice daily PPI -Restart Plavix in 3 days, do not restart aspirin, follow-up with Dr. Díaz Discharge diagnosis: Upper GI bleed acute blood loss anemia peptic ulcer disease Secondary discharge diagnosis: Chronic kidney disease COPD hypothyroidism hypertension neuropathy peripheral vascular disease Time Spent with Patient Time attestation: Total time spent providing and/or coordinating discharge services: Time spent: Greater than 30 minutes EXAM Constitutional Vitals: Temp Pulse Resp BP Pulse Ox 98.4 F 75 13 134/55 100 06/04/21 16:07 06/04/21 16:48 06/04/21 16:48 06/04/21 16:48 06/04/21 16:48 Discharge Data Data Completed and Pending Labs on day of discharge: Labs from last 24 hours 06/04/21 06/04/21 06/04/21 14:34 13:38 13:38 WBC 13.8 H RBC 2.18 L Hgb 6.0 L* Hct 19.3 L* POC Hct MCV 88.5 MCH 27.5 MCHC 31.1 RDW 17.2 H Plt Count 203 MPV 10.3 Neut % (Auto) 89.1 H Lymph % (Auto) 8.5 L Stark % (Auto) 1.9 Eos % (Auto) 0.1 Baso % (Auto) 0.4 Lymph # (Auto) 1.18 L Stark # (Auto) 0.26 Eos # (Auto) 0.02 Baso # (Auto) 0.05 Absolute Neutrophils 12.30 H POC PT PT POC INR INR APTT ABG Methemoglobin 0.2 L VBG pH 7.36 VBG pCO2 38.6 L VBG pO2 31.1 VBG HCO3 21.2 L VBG Total CO2 22.4 L VBG O2 Saturation 52.9 VBG Base Excess -4 L VBG Lactic Acid 1.4 Carboxyhemoglobin 3.6 H Total Hemoglobin 7.4 L POC Sodium POC Potassium POC Chloride POC Total CO2 POC BUN POC Creatinine POC Glucose POC WB Ioniz Calcium Total Bilirubin Direct Bilirubin AST ALT Alkaline Phosphatase Total Protein Albumin Globulin 06/04/21 06/04/21 13:38 13:38 WBC RBC Hgb Hct POC Hct 16 L* MCV MCH MCHC RDW Plt Count MPV Neut % (Auto) Lymph % (Auto) Stark % (Auto) Eos % (Auto) Baso % (Auto) Lymph # (Auto) Stark # (Auto) Eos # (Auto) Baso # (Auto) Absolute Neutrophils POC PT 10.9 L PT 14.9 H POC INR 0.9 INR 1.1 APTT 23.9 ABG Methemoglobin VBG pH VBG pCO2 VBG pO2 VBG HCO3 VBG Total CO2 VBG O2 Saturation VBG Base Excess VBG Lactic Acid Carboxyhemoglobin Total Hemoglobin POC Sodium 140 POC Potassium 4.3 POC Chloride 104 POC Total CO2 22 POC BUN 89 H POC Creatinine 2.7 H POC Glucose 189 H POC WB Ioniz Calcium 1.08 L Total Bilirubin 0.2 Direct Bilirubin < 0.2 AST 10 ALT 9 Alkaline Phosphatase 42 Total Protein 4.8 L Albumin 3.0 L Globulin 1.8 L Discharge Plan Patient/Caregiver Discharge Instructions Activity: increase activity as tolerated Diet: Regular Diet Activity Restrictions/Additional Instructions: Hold Plavix for 3 more days before restarting, Follow-up with Dr. Díaz given the bleed on antiplatelets(started for PVD). Prescriptions: Continued carvedilol 3.125 mg tablet 3.125 mg PO BID Qty: 180 1RF Rx Instructions: must administer with a meal/food furosemide 40 mg tablet 40 mg PO QAM Qty: 90 2RF Aranesp (in polysorbate) 300 mcg/0.6 mL syringe 300 mcg subcut Q2W 0RF ferrous sulfate 325 mg (65 mg iron) tablet 325 mg PO QDAY Qty: 90 4RF (DME) blood pressure test kit-large Kit See Rx Instructions .ROUTE .MEDSUPPLY Qty: 1 0RF Rx Instructions: As directed (DME) Rt AK Definitive Prosthesis and Supplies and Flexible Foot Qty: 1 0RF Rx Instructions: As directed cholecalciferol (vitamin D3) 50 mcg (2,000 unit) tablet 50 mcg PO QDAY Qty: 90 4RF amlodipine 5 mg tablet 5 mg PO QDAY Qty: 90 3RF spironolactone 25 mg tablet 25 mg PO QDAY Qty: 90 3RF levothyroxine [Euthyrox] 50 mcg Tablet 50 mcg PO QDAY 0RF methylprednisolone 4 mg tablets,dose pack See Rx Instructions .ROUTE .COMPLEX 0RF Rx Instructions: took three tabs yesterday, unsure of instructions. rosuvastatin 20 mg tablet 20 mg PO HS 0RF clopidogrel 75 mg tablet 1 tab PO QAM 0RF pantoprazole [Protonix] 40 mg tablet,delayed release (DR/EC) 40 mg PO BID Qty: 90 0RF Rx Instructions: Take 40 mg twice daily for 30 days then 40 mg once daily thereafter tamsulosin 0.4 mg capsule 0.4 mg PO QHS 0RF gabapentin 300 mg capsule 300 mg PO QHS 0RF Follow Up Plan Follow up with: Dalton Sevilla MD [Primary Care Provider] - Patient Disposition: Home, Self-Care Prognosis: Fair Overall status at discharge: patient is progressing back to baseline Discharge Orders: Discharge Order (Routine); Ordered 06/05/21 Ordered By: Jarocho Quintanilla
[2021-06-04 19:33] LABS: Appearance,Urine CLEAR (Clear); Bacteria,Urine FEW /hpf (0); Bilirubin,Urine Negative (Negative); Color,Urine STRAW; Culture Indicated,Urine Yes; Glucose,Urine (UA) Negative (Negative); Ketones,Urine Negative (Negative); Leukocyte Esterase,Urine Negative /uL (Negative); Mucus,Urine FEW /hpf; Nitrate,Urine Negative (Negative); Protein,Urine Negative (Negative); Specific Gravity,Urine 1.009 (1.000-1.035); Urine Blood 0.03 mg/dL (Negative); Urine RBC 0 /hpf (0-3); Urine Squamous Epithelial Cell 0 /hpf (0-4); Urine WBC < 1 /hpf (0-4); Urobilinogen,Urine Negative
[2021-06-04] MEDS: CARVEDILOL 3.125 MG TABLET PO SCH (20:00)
[2021-06-04] MEDS: PANTOPRAZOLE 40 MG VIAL IV SCH (20:00)
[2021-06-04] MEDS: 0.9 % SODIUM CHLORIDE 10 ML SYRINGE IV SCH (20:01)
[2021-06-04] MEDS ORDERED: ATORVASTATIN 40 MG TABLET PO SCH (21:00)
[2021-06-04] MEDS ORDERED: TAMSULOSIN 0.4 MG CAPSULE PO SCH (21:00)
[2021-06-04] MEDS ORDERED: GABAPENTIN 300 MG CAPSULE PO SCH (21:00)
[2021-06-05] MEDS: 0.9 % SODIUM CHLORIDE 10 ML SYRINGE IV SCH (05:45)
[2021-06-05 06:44] LABS: Basophils # (Auto) 0.06 K/mcL (0.00-0.30); Basophils % (Auto) 0.4 % (0.0-2.0); Eosinophils % (Auto) 2.8 % (0.0-7.0); Hematocrit 24.3 % (40.1-51.0); Hemoglobin 7.8 g/dL (13.7-17.5); Lymphocytes # (Auto) 2.98 K/mcL (1.50-4.80); Lymphocytes % (Auto) 21.1 % (15.5-49.0); Mean Cell Volume 87.1 fL (80.0-100.0); Mean Corpuscular HGB Conc 32.1 g/dL (31.0-36.0); Mean Platelet Volume 10.1 fL (7.4-10.4); Monocytes # (Auto) 0.72 K/mcL (0.10-0.90); Monocytes % (Auto) 5.1 % (1.0-12.0); Neutrophils % (Auto) 70.6 % (38.0-78.0); Platelet Count 179 K/mcL (140-440); RBC 2.79 M/mcL (4.63-6.08); Red Cell Distribution Width 17.7 % (11.5-14.5); WBC 14.1 K/mcL (4.5-11.0)
[2021-06-05 07:07] LABS: ALT/SGPT 8 U/L (<40); AST/SGOT 12 U/L (<40); Albumin/Globulin Ratio 1.7 (1.0-2.3); Alkaline Phosphatase 43 U/L (39-117); Bilirubin,Direct < 0.2 mg/dL (0-0.3); Bilirubin,Total 0.7 mg/dL (0.1-1.0); Blood Urea Nitrogen 72 mg/dL (8-23); Calcium 7.7 mg/dL (8.6-10.4); Carbon Dioxide 23 mmol/L (22-30); Chloride 108 mmol/L (96-108); Globulin 1.8 gm/dL (2.2-3.7); Glomerular Filtration Rate 21; Glucose 109 mg/dL (70-105); Lactate Dehydrogenase 224 U/L (135-225); Phosphorous 3.5 mg/dL (2.5-4.5); Triglycerides 224 mg/dL (<150); Uric Acid 10.8 mg/dL (2.5-8.0)
[2021-06-05] MEDS ORDERED: LEVOTHYROXINE 50 MCG TABLET PO SCH (07:30)
[2021-06-05] MEDS: PANTOPRAZOLE 40 MG VIAL IV SCH (08:34)
[2021-06-05] MEDS: CARVEDILOL 3.125 MG TABLET PO SCH (08:34)
[2021-06-05 08:45] LABS: Anisocytosis 1+ (None Seen); Eosinophils % (Manual) 4 % (0-7); Hypochromasia 1+ (None Seen); Lymphocytes % 25 % (15-49); Metamyelocytes % 2 %; Monocytes % (Manual) 4 % (1-12); Platelet Estimate NORMAL (Normal); Polychromasia RARE (None Seen); RBC Morphology ABNORMAL (Normal); Segmented Neutrophils % 65 % (38-78)
[2021-06-05] MEDS ORDERED: FUROSEMIDE 40 MG TABLET PO SCH (09:00)
[2021-06-05] MEDS ORDERED: amLODIPine 5 MG TABLET PO SCH (09:00)
[2021-06-05] MEDS ORDERED: SPIRONOLACTONE 25 MG TABLET PO SCH (09:00)
--- NOTE | 2021-06-06 10:39 | EGD Procedure Note ---
EGD Procedure Notes Procedure Information Patient information: Note initiated : 06/06/21 at 10:33 am Service Date: 06/04/21 Patient: Jayjay Horta 80 y/o M admitted on 06/04/21 for GI bleed. Pre-op diagnosis general: Melena Post-Op Diagnosis general: Duodenal Ulcer Procedure: EGD with control of bleed Procedure Narrative: The procedure, alternatives and risks were discussed with the patient and the patient's questions were answered. With endoscopist-administered intravenous sedation, the Olympus video endoscope was introduced into the esophagus. The esophagus, stomach, and duodenum were examined sequentially. The esophagus appears normal. No hiatal hernia seen. A duodenal ulcer is seen in the first part of the duodenum. Visible vessel is injected with epinephrine and clipped x2. The gastric mucosa, antrum, pyloric ring and duodenum were otherwise normal. The scope was withdrawn. Assessment: Duodenal ulcer
== END 2021-06-05 12:20 | disposition home or self-care (01) ==
LOC: ED 12:46 → ICU 16:05 → SSSU 16:05
PROVIDERS: ADMIT Internal Medicine; ATTEND Internal Medicine